=== PATIENT | female | born 1940 | race Caucasian/White ===

== ENCOUNTER 2017-08-08 22:40 | Emergency (ER) | payer MEDICARE, OTHER ==
[2017-08-08 22:55] VITALS: BP 114/59
[2017-08-08] MEDS ORDERED: Lidocaine 1% 20 ML MDV INJECT ONE (23:02)
[2017-08-08] MEDS ORDERED: Diphtheria,Pertussis(Acell),Tetanus Vaccine 0.5 ML Syringe IM ONE (23:02)
--- NOTE | 2017-08-08 23:03 | EDM.PDOC ---
ED HPI GENERAL MEDICAL PROBLEM - General Chief Complaint: Laceration Stated Complaint: LACERATION LT FOOT Time Seen by Provider: 08/08/17 23:02 Source of Information: Reports: Patient - History of Present Illness INITIAL COMMENTS - FREE TEXT/NARRATIVE: HISTORY AND PHYSICAL: History of present illness: []Patient dropped a glass on the floor last week she did clean this up however tonight she stepped on what was presumed to be a glass shard, she has a small quarter inch laceration on the plantar surface of her foot that has bled well. No active bleeding at current. With ambulation patient feels a sharp stabbing in her foot, with exploration of the wound I did not appreciate any foreign body however does not exclude small shard of glass remaining No fever nausea vomiting chills sweats no redness warmth or exudate Review of systems: As per history of present illness and below otherwise all systems reviewed and negative. Past medical history: As per history of present illness and as reviewed below otherwise noncontributory. Surgical history: As per history of present illness and as reviewed below otherwise noncontributory. Social history: No reported history of drug or alcohol abuse. Family history: As per history of present illness and as reviewed below otherwise noncontributory. Physical exam: HEENT: Atraumatic, normocephalic, pupils reactive, negative for conjunctival pallor or scleral icterus, mucous membranes moist, throat clear, neck supple, nontender, trachea midline. Lungs: Clear to auscultation, breath sounds equal bilaterally, chest nontender. Heart: S1S2, regular, negative for clicks, rubs, or JVD. Abdomen: Soft, nondistended, nontender. Negative for masses or hepatosplenomegaly. Negative for costovertebral tenderness. Pelvis: Stable nontender. Genitourinary: Deferred. Rectal: Deferred. Extremities: Atraumatic, negative for cords or calf pain. Neurovascular unremarkable. Neuro: Awake, alert, oriented. Cranial nerves II through XII unremarkable. Cerebellum unremarkable. Motor and sensory unremarkable throughout. Exam nonfocal. Diagnostics: []Left foot 2 views rule out foreign body Therapeutics: []Tetanus status is updated Lidocaine Keflex 500 mg by mouth now and twice a day #20 no refill Follow-up podiatry Standard wound care Impression: [Puncture wound] Definitive disposition and diagnosis as appropriate pending reevaluation and review of above. left foot Pain Score (Numeric/FACES): 1 - Related Data Allergies Allergy/AdvReac Type Severity Reaction Status Date / Time ciprofloxacin [From Cipro] Allergy Airway Verified 08/08/17 22:52 Tightness ciprofloxacin HCl Allergy Airway Verified 08/08/17 22:52 [From Cipro] Tightness codeine Allergy Airway Verified 08/08/17 22:52 Tightness iodine Allergy Unknown Verified 08/08/17 22:52 lenalidomide [From Revlimid] Allergy Airway Verified 08/08/17 22:52 Tightness shellfish derived Allergy Unknown Verified 08/08/17 22:52 Sulfa (Sulfonamide Allergy Unknown Verified 08/08/17 22:52 Antibiotics) Home Meds: Home Meds Acetaminophen [Tylenol Arthritis Pain] 650 mg PO Q6H PRN 04/01/15 [History] Chlorpheniramine Maleate 4 mg PO DAILY PRN 04/01/15 [History] Escitalopram [Lexapro] 10 mg PO BEDTIME 04/01/15 [History] Famotidine [Pepcid] 20 mg PO BID 04/01/15 [History] Gabapentin [Neurontin] 900 mg PO TID 04/01/15 [History] Levothyroxine 200 mcg PO SUMOTUWETHFR 04/01/15 [History] Magnesium 400 mg PO DAILY 04/01/15 [History] Potassium Chloride [Klor-Con 10] 10 meq PO TID 04/01/15 [History] atorvaSTATin Calcium [Atorvastatin Calcium] 10 mg PO BEDTIME 04/01/15 [History] fentaNYL [Fentanyl] 25 mcg TRDERM Q72H 04/01/15 [History] Acetaminophen/oxyCODONE [Percocet 325-5 MG] 1 tab PO Q4HR PRN 05/01/15 [History] Acyclovir 400 mg PO BID PRN 12/17/15 [History] Atropine/Diphenoxylate [Lomotil 0.025-2.5 MG] 2 tab PO Q4H PRN 12/17/15 [History ] Furosemide [Lasix] 40 mg PO DAILY 12/17/15 [History] Lisinopril 2.5 mg PO DAILY 12/18/15 [History] Albuterol [Proventil Neb Soln] 2.5 mg NEB Q6HRRT PRN 12/30/15 [History] Latanoprost [Xalatan 0.005% Ophth Soln] 2.5 ml EYEBOTH BEDTIME 12/30/15 [History ] Past Medical History HEENT History: Reports: Cataract, Glaucoma, Impaired Vision Cardiovascular History: Reports: Blood Clots/VTE/DVT, Heart Failure, Hypertension Other Cardiovascular History: blood clots behnd left knee Respiratory History: Reports: None Other Respiratory History: Pneumonia Gastrointestinal History: Reports: GERD, Hiatal Hernia, Irritable Bowel Syndrome Genitourinary History: Reports: Acute Renal Failure, UTI, Recurrent [employer] History: Reports: Musculoskeletal History: Reports: Arthritis, Fracture Other Musculoskeletal History: 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 Psychiatric History: Reports: Anxiety Endocrine/Metabolic History: Reports: Diabetes, Type II, Hypothyroidism Hematologic History: Reports: Anemia Oncologic (Cancer) History: Reports: Bone Other Oncologic History: multiple myeloma, Stage III Dermatologic History: Reports: Cellulitis - Infectious Disease History Infectious Disease History: Reports: Chicken Pox, Measles, Shingles, Other (See Below) Other Infectious Disease History: MSSA - Past Surgical History Musculoskeletal Surgical History: Reports: None, Other (See Below) Social & Family History - Family History Family Medical History: Noncontributory HEENT: Reports: Impaired Vision Cardiac: Reports: Heart Failure Respiratory: Reports: Asthma OBGYN: Reports: Musculoskeletal: Reports: Arthritis, Gout Neurological: Reports: Cerebral Aneurysms Endocrine/Metabolic: Reports: Diabetes, type II Oncologic: Reports: Breast, Colon, Liver - Tobacco Use Smoking Status *Q: Never Smoker Second Hand Smoke Exposure: No - Alcohol Use Days Per Week of Alcohol Use: 0 - Recreational Drug Use Recreational Drug Use: No ED ROS GENERAL - Review of Systems Review Of Systems: ROS reveals no pertinent complaints other than HPI. ED EXAM, SKIN/RASH Exam: See Below Course - Vital Signs Last Recorded V/S: Last Vital Signs Temp 97.4 F 08/08/17 22:52 Pulse 79 08/08/17 22:52 Resp 18 08/08/17 22:52 BP 114/59 L 08/08/17 22:52 Pulse Ox 97 08/08/17 22:52 - Orders/Labs/Meds Orders: Active Orders 24 hr Category Date Time Status Vaccines to be Administered [RC] PER UNIT ROUTINE Care 08/08/17 23:02 Active Foot 2V Lt [CR] Stat Exams 08/09/17 00:13 Taken Cephalexin [Keflex] Med 08/09/17 00:30 Once 500 mg PO ONETIME ONE Meds: Medications Discontinued Medications Generic Name Dose Route Start Last Admin Trade Name Maggie PRN Reason Stop Dose Admin Diphtheria/Tetanus/Acell Pertussis 0.5 ml 08/08/17 23:02 08/08/17 23:22 Adacel IM 08/08/17 23:03 0.5 ml .ONCE ONE Administration Lidocaine HCl 20 ml 08/08/17 23:02 08/08/17 23:26 Xylocaine 1% INJECT 08/08/17 23:03 20 ml ONETIME ONE Administration Departure - Departure Time of Disposition: 00:36 Disposition: Home, Self-Care 01 Condition: Good Clinical Impression: Foreign body (FB) in soft tissue - Discharge Information Referrals: Jazmín Brannon DO [Primary Care Provider] - Forms: ED Department Discharge Additional Instructions: Standard wound care Bacitracin Telfa dressing Medication as prescribed Follow-up with podiatry, ER referral for tomorrow [facility] Primary [facility] - Podiatry [address] [place] [address] The following information is given to patients seen in the emergency department who are being discharged to home. This information is to outline your options for follow-up care. We provide all patients seen in our emergency department with a follow-up referral. The need for follow-up, as well as the timing and circumstances, are variable depending upon the specifics of your emergency department visit. If you don't have a primary care physician on staff, we will provide you with a referral. We always advise you to contact your personal physician following an emergency department visit to inform them of the circumstance of the visit and for follow-up with them and/or the need for any referrals to a consulting specialist. The emergency department will also refer you to a specialist when appropriate. This referral assures that you have the opportunity for follow-up care with a specialist. All of these measure are taken in an effort to provide you with optimal care, which includes your follow-up. Under all circumstances we always encourage you to contact your private physician who remains a resource for coordinating your care. When calling for follow-up care, please make the office aware that this follow-up is from your recent emergency room visit. If for any reason you are refused follow-up, please contact the [facility] emergency department at and asked to speak to the emergency department charge nurse. - My Orders Last 24 Hours: My Active Orders 08/08/17 23:02 Vaccines to be Administered [RC] PER UNIT ROUTINE 08/09/17 00:13 Foot 2V Lt [CR] Stat 08/09/17 00:30 Cephalexin [Keflex] 500 mg PO ONETIME ONE - Assessment/Plan Last 24 Hours: My Active Orders 08/08/17 23:02 Vaccines to be Administered [RC] PER UNIT ROUTINE 08/09/17 00:13 Foot 2V Lt [CR] Stat 08/09/17 00:30 Cephalexin [Keflex] 500 mg PO ONETIME ONE
[2017-08-09] MEDS ORDERED: Cephalexin 500 MG Cap PO ONE (00:30)
[2017-08-09] MEDS ORDERED: Bacitracin Oint 1 GM U/D Packet ONE (00:49)
[2017-08-09] MEDS ORDERED: Bacitracin Oint 1 GM U/D Packet TOP ONE (00:51)
--- NOTE | 2017-08-09 09:50 | CR ---
EXAM DATE: 08/08/17 PATIENT'S AGE: 77 Patient: RYAN ELIAS Facility: [place], [place] Site . Site : [id number] Study: XRay Extremity Left FOOT [id number] 12:24:44 AM Ordering Physician: Brian Junior Final Report: Indication: Pain, foreign body removed from the bottom of left foot, history of multiple myeloma Technique: Two views left foot Comparison: February 09, 2016 Findings: No radiopaque foreign body identified. No acute fracture or subluxation. No bony erosions. There is remote appearing deformity of the distal 5th metatarsal. There is smooth periosteal reaction along the shaft of the 4th metatarsal, unchanged compared to the prior study. There are degenerative changes within the midfoot. Small inferior and posterior calcaneal enthesophytes are noted. Impression: No radiopaque foreign body identified. No acute abnormality. Dictated by Aubree Mancera MD @ Aug 09 2017 12:38AM (Electronic Signature) Report Signed by Proxy. DAWOOD
== END 2017-08-09 00:40 | disposition home or self-care (01) ==
LOC: MW.ED 22:40
DX: S91.342A Puncture wound with foreign body, left foot, initial encounter (principal); Z23 Encounter for immunization; I11.0 Hypertensive heart disease with heart failure; I50.9 Heart failure, unspecified; E03.9 Hypothyroidism, unspecified; E11.9 Type 2 diabetes mellitus without complications; Z79.899 Other long term (current) drug therapy; Z88.1 Allergy status to other antibiotic agents; Z88.2 Allergy status to sulfonamides; Z88.8 Allergy status to other drugs, medicaments and biological substances; Z91.013 Allergy to seafood; W25.XXXA Contact with sharp glass, initial encounter; S99.922A Unspecified injury of left foot, initial encounter; S90.859A Superficial foreign body, unspecified foot, initial encounter; R26.9 Unspecified abnormalities of gait and mobility; M79.672 Pain in left foot
CPT/HCPCS: 73620; 90471; 90715; 99203; 99283; A9270

== ENCOUNTER 2017-09-11 09:24 | Emergency (ER) | payer MEDICARE, OTHER ==
[2017-09-11] MEDS ORDERED: Sodium Chloride 0.9% 2.5 ML Syringe FLUSH PRN (09:27)
[2017-09-11] MEDS ORDERED: Sodium Chloride 0.9% 10 ML Syringe FLUSH PRN (09:27)
[2017-09-11] MEDS ORDERED: Sodium Chloride 0.9% 500 ML IV SCH (09:30)
--- NOTE | 2017-09-11 09:38 | EDM.PDOC ---
ED HPI GENERAL MEDICAL PROBLEM - General Chief Complaint: General Stated Complaint: COLD, COUGING Time Seen by Provider: 09/11/17 09:25 - History of Present Illness INITIAL COMMENTS - FREE TEXT/NARRATIVE: HISTORY AND PHYSICAL: History of present illness: Patient 77-year-old female was recently diagnosed with influenza presents today with concern of generalized weakness with some confusion reported yesterday that has since resolved she denies chest pain shortness breath vomiting or diarrhea. She was sent here by her primary medical doctor's office related to her recent clinical statement Review of systems: As per history of present illness and below otherwise all systems reviewed and negative. Past medical history: As per history of present illness and as reviewed below otherwise noncontributory. Surgical history: As per history of present illness and as reviewed below otherwise noncontributory. Social history: No reported history of drug or alcohol abuse. Family history: As per history of present illness and as reviewed below otherwise noncontributory. Physical exam: HEENT: Atraumatic, normocephalic, pupils reactive, negative for conjunctival pallor or scleral icterus, mucous membranes dry, throat clear, neck supple, nontender, trachea midline. Lungs: Clear to auscultation, breath sounds equal bilaterally, chest nontender. Heart: S1S2, regular, negative for clicks, rubs, or JVD. Abdomen: Soft, nondistended, nontender. Negative for masses or hepatosplenomegaly. Negative for costovertebral tenderness. Pelvis: Stable nontender. Genitourinary: Deferred. Rectal: Deferred. Extremities: Atraumatic, negative for cords or calf pain. Neurovascular unremarkable. Neuro: Awake, alert, oriented. Cranial nerves II through XII unremarkable. Cerebellum unremarkable. Motor and sensory unremarkable throughout. Exam nonfocal. Diagnostics: CBC CMP troponin EKG chest x-ray UA urine culture blood culture [address] brain Therapeutics: Saline 500 mL bolus Impression: #1 influenza or 2 dehydration #3 altered mental status improved Definitive disposition and diagnosis as appropriate pending reevaluation and review of above. - Related Data Allergies Allergy/AdvReac Type Severity Reaction Status Date / Time ciprofloxacin [From Cipro] Allergy Airway Verified 09/11/17 09:30 Tightness ciprofloxacin HCl Allergy Airway Verified 09/11/17 09:30 [From Cipro] Tightness codeine Allergy Airway Verified 09/11/17 09:30 Tightness iodine Allergy Unknown Verified 09/11/17 09:30 lenalidomide [From Revlimid] Allergy Airway Verified 09/11/17 09:30 Tightness shellfish derived Allergy Unknown Verified 09/11/17 09:30 Sulfa (Sulfonamide Allergy Unknown Verified 09/11/17 09:30 Antibiotics) Home Meds: Home Meds Acetaminophen [Tylenol Arthritis Pain] 650 mg PO Q6H PRN 04/01/15 [History] Chlorpheniramine Maleate 4 mg PO DAILY PRN 04/01/15 [History] Escitalopram [Lexapro] 10 mg PO BEDTIME 04/01/15 [History] Famotidine [Pepcid] 20 mg PO BID 04/01/15 [History] Gabapentin [Neurontin] 900 mg PO TID 04/01/15 [History] Levothyroxine 200 mcg PO SUMOTUWETHFR 04/01/15 [History] Magnesium 400 mg PO DAILY 04/01/15 [History] Potassium Chloride [Klor-Con 10] 10 meq PO TID 04/01/15 [History] atorvaSTATin Calcium [Atorvastatin Calcium] 10 mg PO BEDTIME 04/01/15 [History] fentaNYL [Fentanyl] 25 mcg TRDERM Q72H 04/01/15 [History] Acetaminophen/oxyCODONE [Percocet 325-5 MG] 1 tab PO Q4HR PRN 05/01/15 [History] Acyclovir 400 mg PO BID PRN 12/17/15 [History] Atropine/Diphenoxylate [Lomotil 0.025-2.5 MG] 2 tab PO Q4H PRN 12/17/15 [History ] Furosemide [Lasix] 40 mg PO DAILY 12/17/15 [History] Lisinopril 2.5 mg PO DAILY 12/18/15 [History] Albuterol [Proventil Neb Soln] 2.5 mg NEB Q6HRRT PRN 12/30/15 [History] Latanoprost [Xalatan 0.005% Ophth Soln] 2.5 ml EYEBOTH BEDTIME 12/30/15 [History ] Past Medical History HEENT History: Reports: Cataract, Glaucoma, Impaired Vision Cardiovascular History: Reports: Blood Clots/VTE/DVT, Heart Failure, Hypertension Other Cardiovascular History: blood clots behnd left knee Respiratory History: Reports: None Other Respiratory History: Pneumonia Gastrointestinal History: Reports: GERD, Hiatal Hernia, Irritable Bowel Syndrome Genitourinary History: Reports: Acute Renal Failure, UTI, Recurrent [employer] History: Reports: Musculoskeletal History: Reports: Arthritis, Fracture Other Musculoskeletal History: 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 Neurological History: Reports: None Psychiatric History: Reports: Anxiety Endocrine/Metabolic History: Reports: Diabetes, Type II, Hypothyroidism Hematologic History: Reports: Anemia Immunologic History: Reports: None Oncologic (Cancer) History: Reports: Bone Other Oncologic History: multiple myeloma, Stage III Dermatologic History: Reports: Cellulitis - Infectious Disease History Infectious Disease History: Reports: Chicken Pox, Measles, Shingles, Other (See Below) Other Infectious Disease History: MSSA - Past Surgical History Musculoskeletal Surgical History: Reports: None, Other (See Below) Social & Family History - Family History Family Medical History: Noncontributory HEENT: Reports: Impaired Vision Cardiac: Reports: Heart Failure Respiratory: Reports: Asthma OBGYN: Reports: Musculoskeletal: Reports: Arthritis, Gout Neurological: Reports: Cerebral Aneurysms Endocrine/Metabolic: Reports: Diabetes, type II Oncologic: Reports: Breast, Colon, Liver - Tobacco Use Smoking Status *Q: Never Smoker Second Hand Smoke Exposure: No - Caffeine Use Caffeine Use: Reports: Other - Alcohol Use Days Per Week of Alcohol Use: 0 - Recreational Drug Use Recreational Drug Use: No ED ROS GENERAL - Review of Systems Review Of Systems: ROS reveals no pertinent complaints other than HPI. ED EXAM, GENERAL - Physical Exam Exam: See Below (Dictation) Course - Vital Signs Last Recorded V/S: Last Vital Signs Temp 36.3 C 09/11/17 09:37 Pulse 72 09/11/17 11:05 Resp 13 09/11/17 11:05 BP 112/74 09/11/17 11:05 Pulse Ox 96 09/11/17 11:05 - Orders/Labs/Meds Orders: Active Orders 24 hr Category Date Time Status Cardiac Monitoring [RC] . DIRECTED Care 09/11/17 09:26 Active EKG Documentation Completion [RC] STAT Care 09/11/17 09:26 Active Pulse Oximetry [RC] ASDIRECTED Care 09/11/17 09:26 Active CULTURE BLOOD [BC] Stat Lab 09/11/17 09:41 Received CULTURE BLOOD [BC] Stat Lab 09/11/17 10:08 Received CULTURE URINE [RM] Stat Lab 09/11/17 11:21 Ordered UA W/MICROSCOPIC [URIN] Stat Lab 09/11/17 11:21 Ordered Sodium Chloride 0.9% [Normal Saline] 500 ml Med 09/11/17 09:30 Active IV STAT Sodium Chloride 0.9% [Saline Flush] Med 09/11/17 09:27 Active 10 ml FLUSH ASDIRECTED PRN Sodium Chloride 0.9% [Saline Flush] Med 09/11/17 09:27 Active 2.5 ml FLUSH ASDIRECTED PRN Blood Culture x2 Reflex Set [OM.PC] Stat Oth 09/11/17 09:27 Ordered Saline Lock Insert [OM.PC] Stat Ot 09/11/17 09:26 Ordered Medication Orders Sodium Chloride (Normal Saline) 500 mls @ 999 mls/hr IV STAT [facility] Last Admin: 09/11/17 10:08 Dose: 999 mls/hr Sodium Chloride (Saline Flush) 10 ml FLUSH ASDIRECTED PRN PRN Reason: Keep Vein Open Last Admin: 09/11/17 10:08 Dose: 10 ml Sodium Chloride (Saline Flush) 2.5 ml FLUSH ASDIRECTED PRN PRN Reason: Keep Vein Open Last Admin: 09/11/17 10:08 Dose: 2.5 ml Labs: Laboratory Tests 09/11/17 09/11/17 09/11/17 Range/Units 09:35 09:35 09:35 WBC 4.70 (4.0-11.0) K/uL RBC 4.40 (4.30-5.90) M/uL Hgb 12.5 (12.0-16.0) g/dL Hct 40.0 (36.0-46.0) % MCV 90.9 (80.0-98.0) fL MCH 28.4 (27.0-32.0) pg MCHC 31.3 (31.0-37.0) g/dL RDW Std Deviation 51.5 (28.0-62.0) fl RDW Coeff of Antony 15 (11.0-15.0) % Plt Count 195 (150-400) K/uL MPV 9.80 (7.40-12.00) fL Neut % (Auto) 46.6 L (48.0-80.0) % Lymph % (Auto) 37.0 (16.0-40.0) % [place] % (Auto) 14.7 (0.0-15.0) % Eos % (Auto) 1.3 (0.0-7.0) % Baso % (Auto) 0.4 (0.0-1.5) % Neut # (Auto) 2.2 (1.4-5.7) K/uL Lymph # (Auto) 1.7 (0.6-2.4) K/uL [place] # (Auto) 0.7 (0.0-0.8) K/uL Eos # (Auto) 0.1 (0.0-0.7) K/uL Baso # (Auto) 0.0 (0.0-0.1) K/uL Nucleated RBC % 0.0 /100WBC Nucleated RBCs # 0 K/uL INR 1.01 Lactate (0.20-2.00) mmol/L Sodium 140 (136-146) mmol/L Potassium 4.2 (3.5-5.1) mmol/L Chloride 107 (98-110) mmol/L Carbon Dioxide 21 (21-31) mmol/L BUN 14 (6.0-23.0) mg/dL Creatinine 0.9 (0.6-1.5) mg/dL Est Cr Clr Drug Dosing 42.72 mL/min Estimated GFR (MDRD) > 60.0 ml/min Glucose 100 (60-110) mg/dL Calcium 8.8 (8.8-10.8) mg/dL Total Bilirubin 0.4 (0.1-1.5) mg/dL AST 16 (5-40) IU/L ALT 10 (8-54) IU/L Alkaline Phosphatase 83 (40-150) Ammonia (14-68) UG/DL Troponin I < 0.10 (0.0-0.29) NG/ML Total Protein 6.7 (6.0-8.0) g/dL Albumin 3.9 (3.4-4.8) g/dL Globulin 2.8 (2.0-3.5) g/dL Albumin/Globulin Ratio 1.4 (1.3-2.8) Lipase 14 (7-80) U/L TSH 3rd Generation 0.67 (0.47-5.0) uIU/mL 09/11/17 09/11/17 Range/Units 09:35 09:35 WBC (4.0-11.0) K/uL RBC (4.30-5.90) M/uL Hgb (12.0-16.0) g/dL Hct (36.0-46.0) % MCV (80.0-98.0) fL MCH (27.0-32.0) pg MCHC (31.0-37.0) g/dL RDW Std Deviation (28.0-62.0) fl RDW Coeff of Antony (11.0-15.0) % Plt Count (150-400) K/uL MPV (7.40-12.00) fL Neut % (Auto) (48.0-80.0) % Lymph % (Auto) (16.0-40.0) % [place] % (Auto) (0.0-15.0) % Eos % (Auto) (0.0-7.0) % Baso % (Auto) (0.0-1.5) % Neut # (Auto) (1.4-5.7) K/uL Lymph # (Auto) (0.6-2.4) K/uL [place] # (Auto) (0.0-0.8) K/uL Eos # (Auto) (0.0-0.7) K/uL Baso # (Auto) (0.0-0.1) K/uL Nucleated RBC % /100WBC Nucleated RBCs # K/uL INR Lactate 1.4 (0.20-2.00) mmol/L Sodium (136-146) mmol/L Potassium (3.5-5.1) mmol/L Chloride (98-110) mmol/L Carbon Dioxide (21-31) mmol/L BUN (6.0-23.0) mg/dL Creatinine (0.6-1.5) mg/dL Est Cr Clr Drug Dosing mL/min Estimated GFR (MDRD) ml/min Glucose (60-110) mg/dL Calcium (8.8-10.8) mg/dL Total Bilirubin (0.1-1.5) mg/dL AST (5-40) IU/L ALT (8-54) IU/L Alkaline Phosphatase (40-150) Ammonia 41 (14-68) UG/DL Troponin I (0.0-0.29) NG/ML Total Protein (6.0-8.0) g/dL Albumin (3.4-4.8) g/dL Globulin (2.0-3.5) g/dL Albumin/Globulin Ratio (1.3-2.8) Lipase (7-80) U/L TSH 3rd Generation (0.47-5.0) uIU/mL Meds: Medications Generic Name Dose Route Start Last Admin Trade Name Freq PRN Reason Stop Dose Admin Sodium Chloride 500 mls @ 999 mls/hr 09/11/17 09:30 09/11/17 10:08 Normal Saline IV 999 mls/hr STAT ARMIDA Administration Sodium Chloride 10 ml 09/11/17 09:27 09/11/17 10:08 Saline Flush FLUSH 10 ml ASDIRECTED PRN Administration Keep Vein Open Sodium Chloride 2.5 ml 09/11/17 09:27 09/11/17 10:08 Saline Flush FLUSH 2.5 ml ASDIRECTED PRN Administration Keep Vein Open Departure - Departure Time of Disposition: 11:53 Disposition: Home, Self-Care 01 Condition: Good Clinical Impression: Viral syndrome - Discharge Information Referrals: Jazmín Brannon DO [Primary Care Provider] - Forms: ED Department Discharge Additional Instructions: The following information is given to patients seen in the emergency department who are being discharged to home. This information is to outline your options for follow-up care. We provide all patients seen in our emergency department with a follow-up referral. The need for follow-up, as well as the timing and circumstances, are variable depending upon the specifics of your emergency department visit. If you don't have a primary care physician on staff, we will provide you with a referral. We always advise you to contact your personal physician following an emergency department visit to inform them of the circumstance of the visit and for follow-up with them and/or the need for any referrals to a consulting specialist. The emergency department will also refer you to a specialist when appropriate. This referral assures that you have the opportunity for followup care with a specialist. All of these measure are taken in an effort to provide you with optimal care, which includes your followup. Under all circumstances we always encourage you to contact your private physician who remains a resource for coordinating your care. When calling for followup care, please make the office aware that this follow-up is from your recent emergency room visit. If for any reason you are refused follow-up, please contact the [facility] emergency department at and asked to speak to the emergency department charge nurse. Push fluids continue current medications return as needed as discussed follow- up private medical doctor as needed as discussed - My Orders Last 24 Hours: My Active Orders 09/11/17 09:26 Cardiac Monitoring [RC] . DIRECTED EKG Documentation Completion [RC] STAT Pulse Oximetry [RC] ASDIRECTED Saline Lock Insert [OM.PC] Stat 09/11/17 09:27 Sodium Chloride 0.9% [Saline Flush] 10 ml FLUSH ASDIRECTED PRN Sodium Chloride 0.9% [Saline Flush] 2.5 ml FLUSH ASDIRECTED PRN Blood Culture x2 Reflex Set [OM.PC] Stat 09/11/17 09:30 Sodium Chloride 0.9% [Normal Saline] 500 ml IV STAT 09/11/17 09:41 CULTURE BLOOD [BC] Stat 09/11/17 10:08 CULTURE BLOOD [BC] Stat 09/11/17 11:21 CULTURE URINE [RM] Stat UA W/MICROSCOPIC [URIN] Stat - Assessment/Plan Last 24 Hours: My Active Orders 09/11/17 09:26 Cardiac Monitoring [RC] . DIRECTED EKG Documentation Completion [RC] STAT Pulse Oximetry [RC] ASDIRECTED Saline Lock Insert [OM.PC] Stat 09/11/17 09:27 Sodium Chloride 0.9% [Saline Flush] 10 ml FLUSH ASDIRECTED PRN Sodium Chloride 0.9% [Saline Flush] 2.5 ml FLUSH ASDIRECTED PRN Blood Culture x2 Reflex Set [OM.PC] Stat 09/11/17 09:30 Sodium Chloride 0.9% [Normal Saline] 500 ml IV STAT 09/11/17 09:41 CULTURE BLOOD [BC] Stat 09/11/17 10:08 CULTURE BLOOD [BC] Stat 09/11/17 11:21 CULTURE URINE [RM] Stat UA W/MICROSCOPIC [URIN] Stat
[2017-09-11 10:12] LABS: CHLORIDE,CL 107 mmol/L (98-110); SODIUM,NA 140 mmol/L (136-146)
--- NOTE | 2017-09-11 10:15 | CR ---
EXAMINATION: Two-view chest (PA and Lateral views). HISTORY: Shortness of breath. Comparison: 05/17/2017. FINDINGS: The trachea is midline. The cardiomediastinal silhouette is within normal limits. No pulmonary infilt rates, effusions or pneumothorax. Left-sided tra catheter tip position. Chronic interstitial promin ence. There are a few right-sided rib fractures, likely acute to subacute. Generalized osteopenia. Degenera tive changes noted within the shoulders bilaterally. Chronic wedge deformities within the thoracic sp ine and kyphosis. IMPRESSION: 1. No acute cardiopulmonary process. 2. Acute to subacute right-sided rib fractures.
--- NOTE | 2017-09-11 10:20 | CT ---
EXAMINATION: Non contrast CT head. Coronal and sagittal reformats. HISTORY: Pain FINDINGS: No evidence of intra or extra axial hemorrhage, mass, midline shift, hydrocephalus or edema. Promine nt periventricular and subcortical white matter hypodensities again noted. No hypoattenuation changes in the major vascular territories to suggest acute infarct. No abnormal intracranial calcifications are detected. No evidence of substantial vascular calcificat ions. Small mucous retention cyst within the right maxillary sinus. Mastoid air cells and middle ears are o therwise clear. Orbits and globes are symmetric. Pituitary fossa appears unremarkable. Calvarium is intact. No evidence of skull fracture. IMPRESSION: 1. No acute intracranial findings. 2. Advanced small vessel ischemic changes.
[2017-09-11 12:10] VITALS: BP 125/69
== END 2017-09-11 12:02 | disposition home or self-care (01) ==
LOC: MW.ED 09:24
DX: E86.0 Dehydration (principal); B34.9 Viral infection, unspecified; I11.0 Hypertensive heart disease with heart failure; I50.9 Heart failure, unspecified; E11.9 Type 2 diabetes mellitus without complications; Z88.1 Allergy status to other antibiotic agents; Z88.5 Allergy status to narcotic agent; Z88.2 Allergy status to sulfonamides; Z91.013 Allergy to seafood; Z79.899 Other long term (current) drug therapy
CPT/HCPCS: 36415; 70450; 71046; 80053; 81001; 82140; 83605; 83690; 84443; 84484; 85025; 85610; 87040; 87086; 87088; 87186; 93005; 96360; 99285; J7040; 99284

== ENCOUNTER 2017-11-05 23:05 | Inpatient (IN) | payer MEDICARE, OTHER ==
--- NOTE | 2017-11-05 23:19 | EDM.PDOC ---
ED HPI GENERAL MEDICAL PROBLEM - General Chief Complaint: Genitourinary Problem Stated Complaint: FEVER/BALDDER INFECTION Time Seen by Provider: 11/05/17 23:19 Source of Information: Reports: Patient - History of Present Illness INITIAL COMMENTS - FREE TEXT/NARRATIVE: HISTORY AND PHYSICAL: History of present illness: [ Patient presents with fever and hallucinations tonight Provided Tylenol at home measured fever of 102 currently 99 As far as hallucinations daughter notes that mom and called the police tonight she thought there is a man in her home that she had seen anterior the house mom did call the materials planning analyst to evaluate the police arrived she was yelling at the materials planning analyst for an unknown reason however they did not find any stranger in the home. She had also been speaking with her who is either her in the [facility] either way he is not living with her at current. Blood pressure was low on arrival 80s over 50s did drop down into the 70s over 50s a fluid bolus was initiated 500 mL which pop blood pressure in the normal range History of a staghorn calculi which predisposes her to urinary tract infection which she indeed does have current fever no nausea vomiting chills sweats no chest pain shortness breath headache dizziness palpitation no bowel or urine symptoms per patient ] Review of systems: As per history of present illness and below otherwise all systems reviewed and negative. Past medical history: As per history of present illness and as reviewed below otherwise noncontributory. Surgical history: As per history of present illness and as reviewed below otherwise noncontributory. Social history: No reported history of drug or alcohol abuse. Family history: As per history of present illness and as reviewed below otherwise noncontributory. Physical exam: HEENT: Atraumatic, normocephalic, pupils reactive, negative for conjunctival pallor or scleral icterus, mucous membranes moist, throat clear, neck supple, nontender, trachea midline. Lungs: Clear to auscultation, breath sounds equal bilaterally, chest nontender. Heart: S1S2, regular, negative for clicks, rubs, or JVD. Abdomen: Soft, nondistended, nontender. Negative for masses or hepatosplenomegaly. Negative for costovertebral tenderness. Pelvis: Stable nontender. Genitourinary: Deferred. Rectal: Deferred. Extremities: Atraumatic, negative for cords or calf pain. Neurovascular unremarkable. Neuro: Awake, alert, oriented. Cranial nerves II through XII unremarkable. Cerebellum unremarkable. Motor and sensory unremarkable throughout. Exam nonfocal. Diagnostics: [CBC CMP UA culture blood cultures lactic acid EKG Chest 1 view ] Therapeutics: [Normal saline bolus 500 mL 125 mL to follow ] Zosyn 3.375 g IV Vancomycin 1 g IV Impression: [Rule out sepsis UTI Fever Chronic history baseline] Definitive disposition and diagnosis as appropriate pending reevaluation and review of above. Generalized Pain Score (Numeric/FACES): 5 - Related Data Allergies Allergy/AdvReac Type Severity Reaction Status Date / Time ciprofloxacin [From Cipro] Allergy Airway Verified 09/11/17 09:30 Tightness ciprofloxacin HCl Allergy Airway Verified 09/11/17 09:30 [From Cipro] Tightness codeine Allergy Airway Verified 09/11/17 09:30 Tightness iodine Allergy Unknown Verified 09/11/17 09:30 lenalidomide [From Revlimid] Allergy Airway Verified 09/11/17 09:30 Tightness shellfish derived Allergy Unknown Verified 09/11/17 09:30 Sulfa (Sulfonamide Allergy Unknown Verified 09/11/17 09:30 Antibiotics) Home Meds: Home Meds Acetaminophen [Tylenol Arthritis Pain] 650 mg PO Q6H PRN 04/01/15 [History] Chlorpheniramine Maleate 4 mg PO DAILY PRN 04/01/15 [History] Escitalopram [Lexapro] 10 mg PO BEDTIME 04/01/15 [History] Famotidine [Pepcid] 20 mg PO BID 04/01/15 [History] Gabapentin [Neurontin] 900 mg PO TID 04/01/15 [History] Levothyroxine 200 mcg PO SUMOTUWETHFR 04/01/15 [History] Magnesium 400 mg PO DAILY 04/01/15 [History] Potassium Chloride [Klor-Con 10] 10 meq PO TID 04/01/15 [History] atorvaSTATin Calcium [Atorvastatin Calcium] 10 mg PO BEDTIME 04/01/15 [History] fentaNYL [Fentanyl] 25 mcg TRDERM Q72H 04/01/15 [History] Acetaminophen/oxyCODONE [Percocet 325-5 MG] 1 tab PO Q4HR PRN 05/01/15 [History] Acyclovir 400 mg PO BID PRN 12/17/15 [History] Atropine/Diphenoxylate [Lomotil 0.025-2.5 MG] 2 tab PO Q4H PRN 12/17/15 [History ] Furosemide [Lasix] 40 mg PO DAILY 12/17/15 [History] Lisinopril 2.5 mg PO DAILY 12/18/15 [History] Albuterol [Proventil Neb Soln] 2.5 mg NEB Q6HRRT PRN 12/30/15 [History] Latanoprost [Xalatan 0.005% Ophth Soln] 2.5 ml EYEBOTH BEDTIME 12/30/15 [History ] Past Medical History HEENT History: Reports: Cataract, Glaucoma, Impaired Vision Cardiovascular History: Reports: Blood Clots/VTE/DVT, Heart Failure, Hypertension Other Cardiovascular History: blood clots behnd left knee Respiratory History: Reports: None Other Respiratory History: Pneumonia Gastrointestinal History: Reports: GERD, Hiatal Hernia, Irritable Bowel Syndrome Genitourinary History: Reports: Acute Renal Failure, UTI, Recurrent [employer] History: Reports: Musculoskeletal History: Reports: Arthritis, Fracture Other Musculoskeletal History: 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 Neurological History: Reports: None Psychiatric History: Reports: Anxiety Endocrine/Metabolic History: Reports: Diabetes, Type II, Hypothyroidism Hematologic History: Reports: Anemia Immunologic History: Reports: None Oncologic (Cancer) History: Reports: Bone Other Oncologic History: multiple myeloma, Stage III Dermatologic History: Reports: Cellulitis - Infectious Disease History Infectious Disease History: Reports: Chicken Pox, Measles, Shingles, Other (See Below) Other Infectious Disease History: MSSA - Past Surgical History Musculoskeletal Surgical History: Reports: None, Other (See Below) Social & Family History - Family History Family Medical History: Noncontributory HEENT: Reports: Impaired Vision Cardiac: Reports: Heart Failure Respiratory: Reports: Asthma OBGYN: Reports: Musculoskeletal: Reports: Arthritis, Gout Neurological: Reports: Cerebral Aneurysms Endocrine/Metabolic: Reports: Diabetes, type II Oncologic: Reports: Breast, Colon, Liver - Tobacco Use Smoking Status *Q: Never Smoker Second Hand Smoke Exposure: No - Caffeine Use Caffeine Use: Reports: Other - Alcohol Use Days Per Week of Alcohol Use: 0 - Recreational Drug Use Recreational Drug Use: No ED ROS GENERAL - Review of Systems Review Of Systems: ROS reveals no pertinent complaints other than HPI. ED EXAM, GENERAL - Physical Exam Exam: See Below Course - Vital Signs Last Recorded V/S: Last Vital Signs Temp 99.2 F 11/05/17 23:17 Pulse 97 11/05/17 23:17 Resp 20 11/05/17 23:17 BP 89/50 L 11/05/17 23:17 Pulse Ox 95 11/05/17 23:17 - Orders/Labs/Meds Orders: Active Orders 24 hr Category Date Time Status EKG Documentation Completion [RC] STAT Care 11/05/17 23:18 Active Chest 1V Frontal [CR] Stat Exams 11/05/17 23:28 Taken CULTURE BLOOD [BC] Stat Lab 11/05/17 23:37 Received CULTURE BLOOD [BC] Stat Lab 11/05/17 23:42 Received CULTURE URINE [RM] Stat Lab 11/06/17 00:17 Received Sodium Chloride 0.9% [Normal Saline] 1,000 ml Med 11/05/17 23:30 Active IV STAT Vancomycin [Vancocin] 1 gm Med 11/05/17 23:57 Active Sodium Chloride 0.9% [Normal Saline] 250 ml IV ONETIME Blood Culture x2 Reflex Set [OM.PC] Stat Oth 11/05/17 23:27 Ordered Medication Orders Sodium Chloride (Normal Saline) 1,000 mls @ 125 mls/hr IV STAT ARMIDA Last Infusion: 11/06/17 00:42 Dose: 75 mls/hr Admin: 11/05/17 23:49 Dose: 750 mls/hr Vancomycin HCl 1 gm/ Sodium (Chloride) 250 mls @ 250 mls/hr IV ONETIME ONE Stop: 11/06/17 00:56 Labs: Laboratory Tests 11/05/17 11/05/17 11/05/17 Range/Units 23:15 23:15 23:37 WBC 12.72 H (4.0-11.0) K/uL RBC 4.23 L (4.30-5.90) M/uL Hgb 12.3 (12.0-16.0) g/dL Hct 38.7 (36.0-46.0) % MCV 91.5 (80.0-98.0) fL MCH 29.1 (27.0-32.0) pg MCHC 31.8 (31.0-37.0) g/dL RDW Std Deviation 52.3 (28.0-62.0) fl RDW Coeff of Antony 16 H (11.0-15.0) % Plt Count 210 (150-400) K/uL MPV 10.00 (7.40-12.00) fL Neut % (Auto) 79.3 (48.0-80.0) % Lymph % (Auto) 12.3 L (16.0-40.0) % Graves % (Auto) 7.2 (0.0-15.0) % Eos % (Auto) 1.0 (0.0-7.0) % Baso % (Auto) 0.2 (0.0-1.5) % Neut # (Auto) 10.1 H (1.4-5.7) K/uL Lymph # (Auto) 1.6 (0.6-2.4) K/uL Graves # (Auto) 0.9 H (0.0-0.8) K/uL Eos # (Auto) 0.1 (0.0-0.7) K/uL Baso # (Auto) 0.0 (0.0-0.1) K/uL Nucleated RBC % 0.0 /100WBC Nucleated RBCs # 0 K/uL Lactate 1.0 (0.20-2.00) mmol/L Sodium 136 (136-145) mmol/L Potassium 4.3 (3.5-5.1) mmol/L Chloride 103 (98-107) mmol/L Carbon Dioxide 25.4 (21.0-32.0) mmol/L BUN 22 H (7.0-18.0) mg/dL Creatinine 1.1 H (0.6-1.0) mg/dL Est Cr Clr Drug Dosing TNP Estimated GFR (MDRD) 48.4 ml/min Glucose 94 (74-106) mg/dL Calcium 8.6 (8.5-10.1) mg/dL Total Bilirubin 0.2 (0.2-1.0) mg/dL AST 18 (15-37) IU/L ALT 16 (14-63) IU/L Alkaline Phosphatase 121 H (46-116) U/L Troponin I < 0.050 (0.000-0.056) ng/mL Total Protein 6.6 (6.4-8.2) g/dL Albumin 3.3 L (3.4-5.0) g/dL Globulin 3.3 (2.0-3.5) g/dL Albumin/Globulin Ratio 1.0 L (1.3-2.8) Urine Color Urine Appearance Urine pH (5.0-8.0) Ur Specific [place] (1.001-1.035) Urine Protein (NEGATIVE) mg/dL Urine Glucose (UA) (NEGATIVE) mg/dL Urine Ketones (NEGATIVE) mg/dL Urine Occult Blood (NEGATIVE) Urine Nitrite (NEGATIVE) Urine Bilirubin (NEGATIVE) Urine Urobilinogen (<2.0) EU/dL Ur Leukocyte Esterase (NEGATIVE) Urine RBC (0-2/HPF) Urine WBC (0-5/HPF) Ur Epithelial Cells (NONE-FEW) Amorphous Sediment (NEGATIVE) Urine Bacteria (NEGATIVE) Urine Mucus (NONE-MOD) 11/06/17 Range/Units 00:17 WBC (4.0-11.0) K/uL RBC (4.30-5.90) M/uL Hgb (12.0-16.0) g/dL Hct (36.0-46.0) % MCV (80.0-98.0) fL MCH (27.0-32.0) pg MCHC (31.0-37.0) g/dL RDW Std Deviation (28.0-62.0) fl RDW Coeff of Antony (11.0-15.0) % Plt Count (150-400) K/uL MPV (7.40-12.00) fL Neut % (Auto) (48.0-80.0) % Lymph % (Auto) (16.0-40.0) % Graves % (Auto) (0.0-15.0) % Eos % (Auto) (0.0-7.0) % Baso % (Auto) (0.0-1.5) % Neut # (Auto) (1.4-5.7) K/uL Lymph # (Auto) (0.6-2.4) K/uL Graves # (Auto) (0.0-0.8) K/uL Eos # (Auto) (0.0-0.7) K/uL Baso # (Auto) (0.0-0.1) K/uL Nucleated RBC % /100WBC Nucleated RBCs # K/uL Lactate (0.20-2.00) mmol/L Sodium (136-145) mmol/L Potassium (3.5-5.1) mmol/L Chloride (98-107) mmol/L Carbon Dioxide (21.0-32.0) mmol/L BUN (7.0-18.0) mg/dL Creatinine (0.6-1.0) mg/dL Est Cr Clr Drug Dosing Estimated GFR (MDRD) ml/min Glucose (74-106) mg/dL Calcium (8.5-10.1) mg/dL Total Bilirubin (0.2-1.0) mg/dL AST (15-37) IU/L ALT (14-63) IU/L Alkaline Phosphatase (46-116) U/L Troponin I (0.000-0.056) ng/mL Total Protein (6.4-8.2) g/dL Albumin (3.4-5.0) g/dL Globulin (2.0-3.5) g/dL Albumin/Globulin Ratio (1.3-2.8) Urine Color YELLOW Urine Appearance SLT CLOUDY Urine pH 5.5 (5.0-8.0) Ur Specific [place] 1.020 (1.001-1.035) Urine Protein NEGATIVE (NEGATIVE) mg/dL Urine Glucose (UA) NEGATIVE (NEGATIVE) mg/dL Urine Ketones NEGATIVE (NEGATIVE) mg/dL Urine Occult Blood TRACE-INTACT (NEGATIVE) Urine Nitrite POSITIVE H (NEGATIVE) Urine Bilirubin NEGATIVE (NEGATIVE) Urine Urobilinogen 0.2 (<2.0) EU/dL Ur Leukocyte Esterase MODERATE (NEGATIVE) Urine RBC 1-3 (0-2/HPF) Urine WBC 40-60 (0-5/HPF) Ur Epithelial Cells RARE (NONE-FEW) Amorphous Sediment FEW (NEGATIVE) Urine Bacteria 2+ H (NEGATIVE) Urine Mucus RARE (NONE-MOD) Meds: Medications Generic Name Dose Route Start Last Admin Trade Name Freq PRN Reason Stop Dose Admin Sodium Chloride 1,000 mls @ 125 mls/hr 11/05/17 23:30 11/06/17 00:42 Normal Saline IV 75 mls/hr STAT ARMIDA Infusion Vancomycin HCl 1 gm/ Sodium 250 mls @ 250 mls/hr 11/05/17 23:57 Chloride IV 11/06/17 00:56 ONETIME ONE Discontinued Medications Generic Name Dose Route Start Last Admin Trade Name Freq PRN Reason Stop Dose Admin Piperacillin Sod/Tazobactam 50 mls @ 100 mls/hr 11/05/17 23:57 Sod 3.375 gm/ Sodium Chloride IV 11/06/17 00:26 ONETIME ONE Departure - Departure Time of Disposition: 00:53 Disposition: Admitted As Inpatient 68 Condition: Fair Clinical Impression: Hypotension UTI (urinary tract infection) Qualifiers: Urinary tract infection type: acute cystitis Hematuria presence: with hematuria Qualified Code(s): N30.01 - Acute cystitis with hematuria - Discharge Information Referrals: PCP,None [Primary Care Provider] - Forms: ED Department Discharge - My Orders Last 24 Hours: My Active Orders 11/05/17 23:18 EKG Documentation Completion [RC] STAT 11/05/17 23:27 Blood Culture x2 Reflex Set [OM.PC] Stat 11/05/17 23:28 Chest 1V Frontal [CR] Stat 11/05/17 23:30 Sodium Chloride 0.9% [Normal Saline] 1,000 ml IV STAT 11/05/17 23:37 CULTURE BLOOD [BC] Stat 11/05/17 23:42 CULTURE BLOOD [BC] Stat 11/05/17 23:57 Vancomycin [Vancocin] 1 gm Sodium Chloride 0.9% [Normal Saline] 250 ml IV ONETIME 11/06/17 00:17 CULTURE URINE [RM] Stat - Assessment/Plan Last 24 Hours: My Active Orders 11/05/17 23:18 EKG Documentation Completion [RC] STAT 11/05/17 23:27 Blood Culture x2 Reflex Set [OM.PC] Stat 11/05/17 23:28 Chest 1V Frontal [CR] Stat 11/05/17 23:30 Sodium Chloride 0.9% [Normal Saline] 1,000 ml IV STAT 11/05/17 23:37 CULTURE BLOOD [BC] Stat 11/05/17 23:42 CULTURE BLOOD [BC] Stat 11/05/17 23:57 Vancomycin [Vancocin] 1 gm Sodium Chloride 0.9% [Normal Saline] 250 ml IV ONETIME 11/06/17 00:17 CULTURE URINE [RM] Stat
[2017-11-05] MEDS ORDERED: Sodium Chloride 0.9% 1,000 ML IV SCH (23:30)
[2017-11-05 23:51] LABS: CHLORIDE,CL 103 mmol/L (98-107); SODIUM,NA 136 mmol/L (136-145)
[2017-11-05] MEDS ORDERED: Piperacillin/Tazobactam 3.375 GM in Sodium Chloride 0.9% 50 ML IV ONE (23:57)
[2017-11-06] MEDS ORDERED: Acetaminophen 325 MG Tab PO PRN (02:09)
[2017-11-06] MEDS ORDERED: LEVOTHYROXINE 200 MCG PO SCH (02:45)
[2017-11-06] MEDS ORDERED: Piperacillin/Tazobactam 3.375 GM in Sodium Chloride 0.9% 50 ML IV SCH (06:00)
[2017-11-06 06:29] LABS: CHLORIDE,CL 105 mmol/L (98-107); SODIUM,NA 137 mmol/L (136-145)
[2017-11-06] MEDS: Levothyroxine 75 MCG Tab PO SCH (07:00)
[2017-11-06] MEDS: Levothyroxine 100 MCG Tab PO SCH (07:01)
[2017-11-06] MEDS ORDERED: Levothyroxine 100 MCG Tab PO SCH (07:30)
[2017-11-06] MEDS ORDERED: fentaNYL 25 MCG/HR Transdermal Patch TRDERM SCH (08:30)
[2017-11-06] MEDS: Furosemide 40 MG Tab PO SCH (08:46)
--- NOTE | 2017-11-06 09:08 | PCM.HP ---
H&P History of Present Illness - General Date of Service: 11/06/17 Admit Problem/Dx: Admission Diagnosis/Problem Admission Diagnosis/Problem Hypotension - History of Present Illness Initial Comments - Free Text/Narative: This is a 77-year-old female who is presenting secondary to hallucinations, and altered mental status that has been ongoing for the past week worsening in the last few days. Patient was noted talking to her spouse who had a number of years ago. Patient has been noted to have an elevated blood pressure, as well as heart rate, as well as a mild elevation in her temperature. Patient stone which urology in [place] felt that they could not remove secondary to her multiple medical complications. As such patient has been suffering from multiple bouts of urinary tract infections which most likely are believed to be seeding from the renal stone. Patient has been on prophylactic Macrobid placed upon by her primary care provider. He was complaining of chills and feeling cold. Her altered mental status when assessing her today did improve as compared to that of which it was during her initial. Generalized Pain Score (Numeric/FACES): 10 - Related Data Allergies/Adverse Reactions: Allergies Allergy/AdvReac Type Severity Reaction Status Date / Time ciprofloxacin [From Cipro] Allergy Airway Verified 09/11/17 09:30 Tightness ciprofloxacin HCl Allergy Airway Verified 09/11/17 09:30 [From Cipro] Tightness codeine Allergy Airway Verified 09/11/17 09:30 Tightness iodine Allergy Unknown Verified 09/11/17 09:30 lenalidomide [From Revlimid] Allergy Airway Verified 09/11/17 09:30 Tightness shellfish derived Allergy Unknown Verified 09/11/17 09:30 Sulfa (Sulfonamide Allergy Unknown Verified 09/11/17 09:30 Antibiotics) Home Medications: Home Meds Acetaminophen [Tylenol Arthritis Pain] 650 mg PO Q6H PRN 04/01/15 [History] Chlorpheniramine Maleate 4 mg PO DAILY PRN 04/01/15 [History] Escitalopram [Lexapro] 10 mg PO BEDTIME 04/01/15 [History] Famotidine [Pepcid] 20 mg PO BID 04/01/15 [History] Gabapentin [Neurontin] 900 mg PO TID 04/01/15 [History] Potassium Chloride [Klor-Con 10] 10 meq PO TID 04/01/15 [History] atorvaSTATin Calcium [Atorvastatin Calcium] 10 mg PO BEDTIME 04/01/15 [History] fentaNYL [Fentanyl] 25 mcg TRDERM Q72H 04/01/15 [History] Acetaminophen/oxyCODONE [Percocet 325-5 MG] 5 - 325 mg PO Q4HR PRN 05/01/15 [ History] Acyclovir 400 mg PO BID PRN 12/17/15 [History] Atropine/Diphenoxylate [Lomotil 0.025-2.5 MG] 2 tab PO Q4H PRN 12/17/15 [History ] Furosemide [Lasix] 40 mg PO DAILY 12/17/15 [History] Albuterol [Proventil Neb Soln] 2.5 mg NEB Q6HRRT PRN 12/30/15 [History] Latanoprost [Xalatan 0.005% Ophth Soln] 2.5 ml EYEBOTH BEDTIME 12/30/15 [History ] Fexofenadine [Lesley] 180 mg PO DAILY 11/06/17 [History] Levothyroxine 137 mcg PO ACBREAKFAST 11/06/17 [History] Lisinopril 20 mg PO DAILY 11/06/17 [History] Nitrofurantoin Macrocrystal [Macrodantin] 50 mg PO DAILY 11/06/17 [History] Prochlorperazine [Compazine] 10 mg PO Q6H PRN 11/06/17 [History] Past Medical History HEENT History: Reports: Cataract, Glaucoma, Impaired Vision Cardiovascular History: Reports: Blood Clots/VTE/DVT, Hypertension Other Cardiovascular History: blood clots behind left knee Respiratory History: Reports: None Other Respiratory History: Hx of pneumonia Gastrointestinal History: Reports: GERD, Hiatal Hernia, Irritable Bowel Syndrome Genitourinary History: Reports: Acute Renal Failure, UTI, Recurrent Other Genitourinary History: Hx of renal failure, no longer in failure SOCK DRIER History: Reports: Musculoskeletal History: Reports: Arthritis, Fracture Other Musculoskeletal History: 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 Neurological History: Reports: None Psychiatric History: Reports: Anxiety Endocrine/Metabolic History: Reports: Diabetes, Type II, Hypothyroidism Hematologic History: Reports: Anemia Immunologic History: Reports: None Oncologic (Cancer) History: Reports: Bone Other Oncologic History: multiple myeloma, Stage III Dermatologic History: Reports: Cellulitis - Infectious Disease History Infectious Disease History: Reports: Chicken Pox, Measles, Shingles, Other (See Below) Other Infectious Disease History: MSSA - Past Surgical History Musculoskeletal Surgical History: Reports: Carpal Tunnel, Other (See Below) Social & Family History - Family History Family Medical History: Noncontributory HEENT: Reports: Impaired Vision Cardiac: Reports: Heart Failure Respiratory: Reports: Asthma OBGYN: Reports: Musculoskeletal: Reports: Arthritis, Gout Neurological: Reports: Cerebral Aneurysms Endocrine/Metabolic: Reports: Diabetes, type II Oncologic: Reports: Breast, Colon, Liver - Tobacco Use Smoking Status *Q: Never Smoker Used Tobacco, but Quit: Yes Month/Year Tobacco Last Used: Second Hand Smoke Exposure: No - Caffeine Use Caffeine Use: Reports: Coffee Other Caffeine Use: 1-2 cups daily - Alcohol Use Days Per Week of Alcohol Use: 0 - Recreational Drug Use Recreational Drug Use: No H&P Review of Systems - Review of Systems: Review Of Systems: ROS reveals no pertinent complaints other than HPI. Exam - Exam Exam: See Below - Vital Signs Vital Signs: Last Vital Signs Temp 35.8 C 11/06/17 08:00 Pulse 96 11/06/17 08:00 Resp 20 11/06/17 04:00 BP 119/55 L 11/06/17 08:00 Pulse Ox 96 11/06/17 04:00 Weight: 96 kg - Exam Quality Assessment: Supplemental Oxygen General: Alert, Oriented, Cooperative Lungs: Clear to Auscultation, Normal Respiratory Effort Cardiovascular: Regular Rate, Regular Rhythm GI/Abdominal Exam: Normal Bowel Sounds, Tender, Other (Tenderness to palpation over the inguinal area bilaterally.) Back Exam: Decreased Range of Motion, Paraspinal Tenderness Extremities: Pedal Edema - Patient Data Lab Results Last 24 hrs: Laboratory Results - last 24 hr 11/06/17 11/06/17 Range/Units 05:42 05:42 WBC 11.27 H (4.0-11.0) K/uL RBC 3.89 L (4.30-5.90) M/uL Hgb 11.2 L (12.0-16.0) g/dL Hct 35.3 L (36.0-46.0) % MCV 90.7 (80.0-98.0) fL MCH 28.8 (27.0-32.0) pg MCHC 31.7 (31.0-37.0) g/dL RDW Std Deviation 52.1 (28.0-62.0) fl RDW Coeff of Antony 16 H (11.0-15.0) % Plt Count 183 (150-400) K/uL MPV 9.90 (7.40-12.00) fL Neut % (Auto) 75.4 (48.0-80.0) % Lymph % (Auto) 16.1 (16.0-40.0) % [place] % (Auto) 7.0 (0.0-15.0) % Eos % (Auto) 1.3 (0.0-7.0) % Baso % (Auto) 0.2 (0.0-1.5) % Neut # (Auto) 8.5 H (1.4-5.7) K/uL Lymph # (Auto) 1.8 (0.6-2.4) K/uL [place] # (Auto) 0.8 (0.0-0.8) K/uL Eos # (Auto) 0.2 (0.0-0.7) K/uL Baso # (Auto) 0.0 (0.0-0.1) K/uL Nucleated RBC % 0.0 /100WBC Nucleated RBCs # 0 K/uL Sodium 137 (136-145) mmol/L Potassium 4.1 (3.5-5.1) mmol/L Chloride 105 (98-107) mmol/L Carbon Dioxide 24.2 (21.0-32.0) mmol/L BUN 15 (7.0-18.0) mg/dL Creatinine 0.8 (0.6-1.0) mg/dL Est Cr Clr Drug Dosing 43.64 mL/min Estimated GFR (MDRD) > 60.0 ml/min Glucose 93 (74-106) mg/dL Calcium 8.1 L (8.5-10.1) mg/dL Magnesium 1.3 L (1.5-2.0) mg/dL Total Bilirubin 0.5 (0.2-1.0) mg/dL AST 15 (15-37) IU/L ALT 14 (14-63) IU/L Alkaline Phosphatase 82 (46-116) U/L Total Protein 5.8 L (6.4-8.2) g/dL Albumin 2.9 L (3.4-5.0) g/dL Globulin 2.9 (2.0-3.5) g/dL Albumin/Globulin Ratio 1.0 L (1.3-2.8) Result Diagrams: 11/06/17 05:42 11/06/17 05:42 *Q Meaningful Use (ADM) - VTE *Q VTE Criteria *Q: - Stroke *Q Stroke Criteria *Q: - AMI *Q AMI Criteria *Q: Problem List Initiated/Reviewed/Updated: Yes Orders Last 24hrs: Active Orders 24 hr Category Date Time Status Telemetry Monitoring [Cardiac Monitoring] [RC] Q8H Care 11/06/17 02:08 Active [employer] Diet [DIET] Diet 11/06/17 Breakfast Active VANCOMYCIN TROUGH [CHEM] Timed Lab 11/09/17 07:30 Ordered Acetaminophen [Tylenol] Med 11/06/17 02:09 Active 650 mg PO Q6H PRN Escitalopram [Lexapro] Med 11/06/17 21:00 Active 10 mg PO BEDTIME Furosemide [Lasix] Med 11/06/17 09:00 Active 40 mg PO DAILY Levothyroxine Med 11/06/17 07:30 Active 37.5 mcg PO ACBREAKFAST Levothyroxine [Synthroid] Med 11/06/17 07:30 Active 100 mcg PO ACBREAKFAST Piperacillin/Tazobactam [Piperacil-Tazobact] 3.375 gm Med 11/06/17 06:00 Active Sodium Chloride 0.9% [Normal Saline] 50 ml IV Q6H Vancomycin 1.5 gm Med 11/07/17 08:00 Active Sodium Chloride 0.9% [Normal Saline] 500 ml IV Q24H Vancomycin Pharmacy to Dose [Pharmacy to Dose - Med 11/06/17 02:15 Active Vancomycin] 1 dose .XX ASDIRECTED fentaNYL [Duragesic] Med 11/06/17 08:30 Active 25 mcg TRDERM Q72H Medication Orders Acetaminophen (Tylenol) 650 mg PO Q6H PRN PRN Reason: Pain Escitalopram Oxalate (Lexapro) 10 mg PO BEDTIME [facility] Fentanyl (Duragesic) 25 mcg TRDERM Q72H [facility] Last Admin: 11/06/17 08:47 Dose: 25 mcg Furosemide (Lasix) 40 mg PO DAILY [facility] Last Admin: 11/06/17 08:46 Dose: 40 mg Sodium Chloride (Normal Saline) 1,000 mls @ 125 mls/hr IV STAT [facility] Last Infusion: 11/06/17 00:55 Dose: 125 mls/hr Infusion: 11/06/17 00:42 Dose: 75 mls/hr Admin: 11/05/17 23:49 Dose: 750 mls/hr Piperacillin Sod/Tazobactam (Sod 3.375 gm/ Sodium Chloride) 50 mls @ 100 mls/ hr IV Q6H [facility] Last Admin: 11/06/17 05:25 Dose: 100 mls/hr Vancomycin HCl 1.5 gm/ Sodium (Chloride) 500 mls @ 333.333 mls/hr IV Q24H [facility] Levothyroxine Sodium (Synthroid) 100 mcg PO ACBREAKFAST [facility] Last Admin: 11/06/17 07:01 Dose: 100 mcg Levothyroxine Sodium (Levothyroxine) 37.5 mcg PO ACBREAKFAST [facility] Last Admin: 11/06/17 07:00 Dose: 37.5 mcg Vancomycin HCl (Pharmacy To Dose - Vancomycin) 1 dose .XX ASDIRECTED [facility] Assessment/Plan Comment:: This is a 77-year-old female with a chronic medical history of renal calculi which not be removed secondary to her multiple comorbidities, as a result the stone disease seeding site for the multiple urinary tract infection at the patient has. A urine analysis done today indicates a very clear urinary tract infection which is likely to contribution to the patient's altered mental status , hallucinations, hypertension, tachycardia, mild elevation of fevers. Assessment of the urine culture done during her previous admission indicates that the prophylactic Macrobid placed upon by her primary care provider is ineffective as the Escherichia coli is resistant to the Macrobid. Patient is currently on Zosyn and vancomycin however due to the high BORIS of the Zosyn and the unlikely need with the vancomycin both of these medications shall be DC'd. Sclerae to be placed upon meropenem up until her urine cultures come back as we cannot rule out ESBL Escherichia coli.
--- NOTE | 2017-11-06 09:08 | PCM.PN ---
- General Info Date of Service: 11/06/17 - Patient Data Vitals - Most Recent: Last Vital Signs Temp 35.8 C 11/06/17 08:00 Pulse 96 11/06/17 08:00 Resp 20 11/06/17 04:00 BP 119/55 L 11/06/17 08:00 Pulse Ox 96 11/06/17 04:00 Weight - Most Recent: 96 kg I&O - Last 24 Hours: Intake & Output 11/05/17 11/06/17 11/06/17 22:59 06:59 14:59 Intake Total 1650 Output Total 600 Balance 1050 Lab Results Last 24 Hours: Laboratory Results - last 24 hr 11/06/17 11/06/17 Range/Units 05:42 05:42 WBC 11.27 H (4.0-11.0) K/uL RBC 3.89 L (4.30-5.90) M/uL Hgb 11.2 L (12.0-16.0) g/dL Hct 35.3 L (36.0-46.0) % MCV 90.7 (80.0-98.0) fL MCH 28.8 (27.0-32.0) pg MCHC 31.7 (31.0-37.0) g/dL RDW Std Deviation 52.1 (28.0-62.0) fl RDW Coeff of Antony 16 H (11.0-15.0) % Plt Count 183 (150-400) K/uL MPV 9.90 (7.40-12.00) fL Neut % (Auto) 75.4 (48.0-80.0) % Lymph % (Auto) 16.1 (16.0-40.0) % [place] % (Auto) 7.0 (0.0-15.0) % Eos % (Auto) 1.3 (0.0-7.0) % Baso % (Auto) 0.2 (0.0-1.5) % Neut # (Auto) 8.5 H (1.4-5.7) K/uL Lymph # (Auto) 1.8 (0.6-2.4) K/uL [place] # (Auto) 0.8 (0.0-0.8) K/uL Eos # (Auto) 0.2 (0.0-0.7) K/uL Baso # (Auto) 0.0 (0.0-0.1) K/uL Nucleated RBC % 0.0 /100WBC Nucleated RBCs # 0 K/uL Sodium 137 (136-145) mmol/L Potassium 4.1 (3.5-5.1) mmol/L Chloride 105 (98-107) mmol/L Carbon Dioxide 24.2 (21.0-32.0) mmol/L BUN 15 (7.0-18.0) mg/dL Creatinine 0.8 (0.6-1.0) mg/dL Est Cr Clr Drug Dosing 43.64 mL/min Estimated GFR (MDRD) > 60.0 ml/min Glucose 93 (74-106) mg/dL Calcium 8.1 L (8.5-10.1) mg/dL Magnesium 1.3 L (1.5-2.0) mg/dL Total Bilirubin 0.5 (0.2-1.0) mg/dL AST 15 (15-37) IU/L ALT 14 (14-63) IU/L Alkaline Phosphatase 82 (46-116) U/L Total Protein 5.8 L (6.4-8.2) g/dL Albumin 2.9 L (3.4-5.0) g/dL Globulin 2.9 (2.0-3.5) g/dL Albumin/Globulin Ratio 1.0 L (1.3-2.8) Med Orders - Current: Current Medications Acetaminophen (Tylenol) 650 mg PO Q6H PRN PRN Reason: Pain Escitalopram Oxalate (Lexapro) 10 mg PO BEDTIME [facility] Fentanyl (Duragesic) 25 mcg TRDERM Q72H [facility] Last Admin: 11/06/17 08:47 Dose: 25 mcg Furosemide (Lasix) 40 mg PO DAILY [facility] Last Admin: 11/06/17 08:46 Dose: 40 mg Sodium Chloride (Normal Saline) 1,000 mls @ 125 mls/hr IV STAT [facility] Last Infusion: 11/06/17 00:55 Dose: 125 mls/hr Piperacillin Sod/Tazobactam (Sod 3.375 gm/ Sodium Chloride) 50 mls @ 100 mls/ hr IV Q6H [facility] Last Admin: 11/06/17 05:25 Dose: 100 mls/hr Vancomycin HCl 1.5 gm/ Sodium (Chloride) 500 mls @ 333.333 mls/hr IV Q24H [facility] Levothyroxine Sodium (Synthroid) 100 mcg PO ACBREAKFAST [facility] Last Admin: 11/06/17 07:01 Dose: 100 mcg Levothyroxine Sodium (Levothyroxine) 37.5 mcg PO ACBREAKFAST [facility] Last Admin: 11/06/17 07:00 Dose: 37.5 mcg Vancomycin HCl (Pharmacy To Dose - Vancomycin) 1 dose .XX ASDIRECTED [facility] Discontinued Medications Piperacillin Sod/Tazobactam (Sod 3.375 gm/ Sodium Chloride) 50 mls @ 100 mls/ hr IV ONETIME ONE Stop: 11/06/17 00:26 Last Admin: 11/06/17 00:51 Dose: 100 mls/hr Vancomycin HCl 1 gm/ Sodium (Chloride) 250 mls @ 250 mls/hr IV ONETIME ONE Stop: 11/06/17 00:56 Last Admin: 11/06/17 01:45 Dose: 250 mls/hr Vancomycin HCl 1 gm/ Sodium (Chloride) 250 mls @ 250 mls/hr IV ONETIME ONE Stop: 11/06/17 03:29 Last Admin: 11/06/17 02:49 Dose: 250 mls/hr
[2017-11-06] MEDS: Meropenem 500 MG in Sodium Chloride 0.9% 100 ML IV SCH ×2 (10:59→17:29)
[2017-11-06] MEDS ORDERED: Loperamide 2 MG Cap PO PRN ×2 (15:42→15:51)
--- NOTE | 2017-11-06 17:27 | CR ---
EXAM DATE: 11/06/17 PATIENT'S AGE: 77 Patient: RYAN ELIAS Facility: [place], [place] Site . Site : [id number] Study: XRay Chest [id number]/19/2018 12:29:26 AM Ordering Physician: Brian Junior Final Report: INDICATION: Pain and shortness of breath. COMPARISON: 09/11/2017. FINDINGS/IMPRESSION: Stable mild cardiomegaly and borderline or mild pulmonary vascular congestion. No focal lung consolidation or pleural effusion identified. Unchanged Port-A- Cath extending to the SVC. Spinal and bilateral shoulder degenerative changes, as before. Dictated by Floyd Hope MD @ 11/06/2017 12:32:28 AM Dictated by: Floyd Hope MD @ 11/06/2017 00:32:51 (Electronic Signature) Report Signed by Proxy. DAWOOD
[2017-11-06] MEDS ORDERED: Escitalopram 10 MG Tab PO SCH (21:00)
[2017-11-06] MEDS: Loperamide 2 MG Cap PO SCH (21:01)
[2017-11-06] MEDS: Acetaminophen/oxyCODONE 325-5 MG Tab PO PRN (21:08)
[2017-11-06] MEDS ORDERED: Magnesium Sulfate/Water 4 GM in Premix Bag 1 BAG IV STA (22:26)
[2017-11-07] MEDS: Meropenem 500 MG in Sodium Chloride 0.9% 100 ML IV SCH ×2 (01:22→09:29)
[2017-11-07] MEDS: Acetaminophen/oxyCODONE 325-5 MG Tab PO PRN ×2 (02:42→11:15)
[2017-11-07 06:00] LABS: CHLORIDE,CL 104 mmol/L (98-107); SODIUM,NA 140 mmol/L (136-145)
[2017-11-07] MEDS: Loperamide 2 MG Cap PO SCH (06:04)
[2017-11-07] MEDS: Levothyroxine 75 MCG Tab PO SCH (06:39)
[2017-11-07] MEDS: Levothyroxine 100 MCG Tab PO SCH (06:40)
[2017-11-07] MEDS ORDERED: Vancomycin 1.5 GM in Sodium Chloride 0.9% 500 ML IV SCH (08:00)
[2017-11-07] MEDS: Furosemide 40 MG Tab PO SCH (09:28)
[2017-11-07 11:51] VITALS: BP 133/83
--- NOTE | 2017-11-12 00:11 | PCM.DCSUM1 ---
Discharge Summary - Hospital Course HPI Initial Comments: Discharge Summary Date of admission: 11/06/2017 Date of discharge: 11/07/2017 Admitting diagnosis: #1. Altered mental status likely secondary to urinary tract infection versus age -related dementia versus metabolic syndrome #2. Chronic medical history of urinary tract infection secondary to a renal stone that is in-operable #3. #4. #5. Discharge diagnoses: #1. Altered mental status resolved, urinary tract infection secondary to Escherichia coli #2. Age-related dementia #3. Chronic medical history of urinary tract infections today to seeding site of renal stone #4. #5. Consultations: None Procedures: None Hospitalization course: Patient was admitted to the floor secondary to altered mental status that started to occur over the past few days. Patient had a dirty urinary analysis which indicated likely source of altered mental status was likely a urinary tract infection. Due to the multiple resistance that the patient does have 2 antibiotics and her chronic history of urinary tract infection we started the patient on Zosyn and vancomycin to possibly cover for any ESBL Escherichia coli. Patient was also noted to be on Macrobid by her PCP for prophylaxis due to her medical history of urinary tract infections however assessment of recent urinary culture that was done indicated the patient had resistance to Macrobid. Patient's current urine culture did come back with Escherichia coli that was sensitive to Zosyn without any ESBL. Since the patient 's symptoms had now resolved, her white count was normalized, patient was placed on Keflex at a higher dose discharged with instructions to follow-up with her urologist in [facility]. Disposition on discharge: Home Condition on discharge: Stable Discharge medications: Keflex, discontinuation of Macrobid, continuation of home medication please see discharge medication list Follow-up instructions: Urology, PCP - Discharge Data Discharge Date: 11/07/17 Discharge Disposition: Home, Self-Care 01 Condition: Good - Patient Instructions Diet: Heart Healthy Diet Activity: As Tolerated Driving: Do Not Drive Showering/Bathing: May Shower Notify Provider of: Fever, Swelling and Redness, Nausea and/or Vomiting - Discharge Plan Prescriptions/Med Rec: Cephalexin [Keflex] 500 mg PO BID 10 Days #20 cap Loperamide [Imodium] 2 mg PO Q4H PRN 8 Days #48 cap PRN Reason: Diarrhea Home Medications: Home Meds Acetaminophen [Tylenol Arthritis Pain] 650 mg PO Q6H PRN 04/01/15 [History] Chlorpheniramine Maleate 4 mg PO DAILY PRN 04/01/15 [History] Escitalopram [Lexapro] 10 mg PO BEDTIME 04/01/15 [History] Famotidine [Pepcid] 20 mg PO BID 04/01/15 [History] Gabapentin [Neurontin] 900 mg PO TID 04/01/15 [History] Potassium Chloride [Klor-Con 10] 10 meq PO TID 04/01/15 [History] atorvaSTATin Calcium [Atorvastatin Calcium] 10 mg PO BEDTIME 04/01/15 [History] fentaNYL [Fentanyl] 25 mcg TRDERM Q72H 04/01/15 [History] Acetaminophen/oxyCODONE [Percocet 325-5 MG] 5 - 325 mg PO Q4HR PRN 05/01/15 [ History] Acyclovir 400 mg PO BID PRN 12/17/15 [History] Atropine/Diphenoxylate [Lomotil 0.025-2.5 MG] 2 tab PO Q4H PRN 12/17/15 [History ] Furosemide [Lasix] 40 mg PO DAILY 12/17/15 [History] Albuterol [Proventil Neb Soln] 2.5 mg NEB Q6HRRT PRN 12/30/15 [History] Latanoprost [Xalatan 0.005% Ophth Soln] 2.5 ml EYEBOTH BEDTIME 12/30/15 [History ] Fexofenadine [Lesley] 180 mg PO DAILY 11/06/17 [History] Levothyroxine 137 mcg PO ACBREAKFAST 11/06/17 [History] Lisinopril 20 mg PO DAILY 11/06/17 [History] Nitrofurantoin Macrocrystal [Macrodantin] 50 mg PO DAILY 11/06/17 [History] Prochlorperazine [Compazine] 10 mg PO Q6H PRN 11/06/17 [History] Cephalexin [Keflex] 500 mg PO BID 10 Days #20 cap 11/07/17 [Rx] Loperamide [Imodium] 2 mg PO Q4H PRN 8 Days #48 cap 11/07/17 [Rx] Patient Handouts: Loperamide tablets or capsules, Hypotension, Igan-no-Gcpa, Urinary Tract Infection, Adult, Cephalexin tablets or capsules Referrals: Jazmín Brannon DO [Physician] - 11/17/17 8:30 am - Discharge Summary/Plan Comment DC Time >30 min.: No - Patient Data Vitals - Most Recent: Last Vital Signs Temp 35.6 C 11/07/17 11:50 Pulse 75 11/07/17 11:50 Resp 22 H 11/07/17 11:50 BP 133/83 11/07/17 11:50 Pulse Ox 95 11/07/17 11:50 Weight - Most Recent: 95 kg Med Orders - Current: Current Medications Discontinued Medications Acetaminophen (Tylenol) 650 mg PO Q6H PRN PRN Reason: Pain Escitalopram Oxalate (Lexapro) 10 mg PO BEDTIME [facility] Last Admin: 11/06/17 20:56 Dose: 10 mg Fentanyl (Duragesic) 25 mcg TRDERM Q72H [facility] Last Admin: 11/06/17 08:47 Dose: 25 mcg Furosemide (Lasix) 40 mg PO DAILY [facility] Last Admin: 11/07/17 09:28 Dose: 40 mg Sodium Chloride (Normal Saline) 1,000 mls @ 125 mls/hr IV STAT [facility] Last Infusion: 11/06/17 00:55 Dose: 125 mls/hr Piperacillin Sod/Tazobactam (Sod 3.375 gm/ Sodium Chloride) 50 mls @ 100 mls/ hr IV ONETIME ONE Stop: 11/06/17 00:26 Last Admin: 11/06/17 00:51 Dose: 100 mls/hr Vancomycin HCl 1 gm/ Sodium (Chloride) 250 mls @ 250 mls/hr IV ONETIME ONE Stop: 11/06/17 00:56 Last Admin: 11/06/17 01:45 Dose: 250 mls/hr Piperacillin Sod/Tazobactam (Sod 3.375 gm/ Sodium Chloride) 50 mls @ 100 mls/ hr IV Q6H [facility] Last Admin: 11/06/17 05:25 Dose: 100 mls/hr Vancomycin HCl 1 gm/ Sodium (Chloride) 250 mls @ 250 mls/hr IV ONETIME ONE Stop: 11/06/17 03:29 Last Admin: 11/06/17 02:49 Dose: 250 mls/hr Vancomycin HCl 1.5 gm/ Sodium (Chloride) 500 mls @ 333.333 mls/hr IV Q24H [facility] Meropenem 500 mg/ Sodium (Chloride) 100 mls @ 100 mls/hr IV Q8H [facility] Last Admin: 11/07/17 09:29 Dose: 100 mls/hr Magnesium Sulfate 4 gm/ Premix 100 mls @ 50 mls/hr IV ONETIME [facility] Stop: 11/07/17 00:25 Last Admin: 11/06/17 22:48 Dose: 50 mls/hr Levothyroxine Sodium (Synthroid) 100 mcg PO ACBREAKFAST [facility] Last Admin: 11/07/17 06:40 Dose: 100 mcg Levothyroxine Sodium (Levothyroxine) 37.5 mcg PO ACBREAKFAST [facility] Last Admin: 11/07/17 06:39 Dose: 37.5 mcg Loperamide HCl (Imodium) 4 mg PO ONETIME PRN PRN Reason: Diarrhea Loperamide HCl (Imodium) 2 mg PO Q6H PRN PRN Reason: DIARRHEA Loperamide HCl (Imodium) 2 mg PO TID [facility] Last Admin: 11/07/17 06:04 Dose: Not Given Oxycodone/Acetaminophen (Percocet 325-5 Mg) 1 tab PO Q4H PRN PRN Reason: Pain Last Admin: 11/07/17 11:15 Dose: 1 tab Vancomycin HCl (Pharmacy To Dose - Vancomycin) 1 dose .XX ASDIRECTED [facility] *Q Meaningful Use (DIS) - VTE *Q VTE Criteria *Q: - Stroke *Q Stroke Criteria *Q: - AMI *Q AMI Criteria *Q:
== END 2017-11-07 13:50 | disposition home or self-care (01) | DRG 690 ==
LOC: MW.ED 23:05 → MW.MS 11-06 00:54
PROVIDERS: ADMIT Family Medicine; ATTEND Family Medicine
DX: N30.01 Acute cystitis with hematuria (principal); I95.9 Hypotension, unspecified; I50.9 Heart failure, unspecified; N39.0 Urinary tract infection, site not specified; F32.9 Major depressive disorder, single episode, unspecified; R44.3 Hallucinations, unspecified; C90.00 Multiple myeloma not having achieved remission; B96.20 Unspecified Escherichia coli [E. coli] as the cause of diseases classified elsewhere; N20.0 Calculus of kidney; R31.9 Hematuria, unspecified; I10 Essential (primary) hypertension; F41.9 Anxiety disorder, unspecified; E11.9 Type 2 diabetes mellitus without complications; E03.9 Hypothyroidism, unspecified; F03.90 Unspecified dementia, unspecified severity, without behavioral disturbance, psychotic disturbance, mood disturbance, and anxiety; Z88.2 Allergy status to sulfonamides; Z88.8 Allergy status to other drugs, medicaments and biological substances; Z79.899 Other long term (current) drug therapy; Z86.718 Personal history of other venous thrombosis and embolism
CPT/HCPCS: 71045; 80053; 81001; 83605; 84484; 85025; 87040 ×2; 87086; 87186; 96361; 96365; 99285; J2543; J7040; J7050; 36415; 82962; 83735; 87088; 93005; 96367; 99283; A9270-GY; J2185; J3370; J3475; J7030

== ENCOUNTER 2018-09-07 21:51 | Inpatient (IN) | payer MEDICARE, OTHER ==
[2018-09-07] MEDS ORDERED: Sodium Chloride 0.9% 2.5 ML Syringe FLUSH PRN (22:17)
[2018-09-07] MEDS ORDERED: Sodium Chloride 0.9% 10 ML Syringe FLUSH PRN (22:17)
--- NOTE | 2018-09-07 22:21 | EDM.PDOC ---
ED HPI GENERAL MEDICAL PROBLEM - General Chief Complaint: Genitourinary Problem Stated Complaint: CONFUSION Time Seen by Provider: 09/07/18 22:15 - History of Present Illness INITIAL COMMENTS - FREE TEXT/NARRATIVE: HISTORY AND PHYSICAL: History of present illness: Patient's a 78-year-old female with history multiple myeloma presents with a concern of confusion right leg pain redness was recurrent urinary tract infection. Her confusion has been slightly worse recently. Patient denies chest pain shortness of breath abdominal pain nausea vomiting no reported fever chills Review of systems: As per history of present illness and below otherwise all systems reviewed and negative. Past medical history: As per history of present illness and as reviewed below otherwise noncontributory. Surgical history: As per history of present illness and as reviewed below otherwise noncontributory. Social history: No reported history of drug or alcohol abuse. Family history: As per history of present illness and as reviewed below otherwise noncontributory. Physical exam: HEENT: Atraumatic, normocephalic, pupils reactive, mild conjunctival pallor no scleral icterus, mucous membranes moist, throat clear, neck supple, nontender, trachea midline. Lungs: Clear to auscultation, breath sounds equal bilaterally, chest nontender. Heart: S1S2, regular, negative for clicks, rubs, or JVD. Abdomen: Soft, nondistended, nontender. Negative for masses or hepatosplenomegaly. Negative for costovertebral tenderness. Pelvis: Stable nontender. Genitourinary: Deferred. Rectal: Deferred. Extremities: Patient's right leg has erythema smaller ulcer in the anterior aspect approximately 2 cm with warmth to touch neurovascular exam is unremarkable Neuro: Awake, alert, follows commands and moves all extremities limited but grossly nonfocal Diagnostics: CBC CMP troponin PT/INR ABG blood culture 2 lactic acid chest x-ray CT brain ammonia level UA urine culture Therapeutics: Saline 125 mL an hour Rocephin 1 g IV vancomycin 1 g IV Impression: #1 altered mental status #2 cellulitis #3 history of multiple myeloma Definitive disposition and diagnosis as appropriate pending reevaluation and review of above. Back Pain Score (Numeric/FACES): 1 - Related Data Allergies Allergy/AdvReac Type Severity Reaction Status Date / Time ciprofloxacin [From Cipro] Allergy Airway Verified 09/08/18 01:42 Tightness ciprofloxacin HCl Allergy Airway Verified 09/08/18 01:42 [From Cipro] Tightness codeine Allergy Airway Verified 09/08/18 01:42 Tightness iodine Allergy Unknown Verified 09/08/18 01:42 lenalidomide [From Revlimid] Allergy Airway Verified 09/08/18 01:42 Tightness shellfish derived Allergy Unknown Verified 09/08/18 01:42 Sulfa (Sulfonamide Allergy Unknown Verified 09/08/18 01:42 Antibiotics) Home Meds: Home Meds Acetaminophen [Tylenol Arthritis Pain] 650 mg PO Q6H PRN 04/01/15 [History] Chlorpheniramine Maleate 4 mg PO DAILY PRN 04/01/15 [History] Escitalopram [Lexapro] 10 mg PO BEDTIME 04/01/15 [History] Famotidine [Pepcid] 20 mg PO BID 04/01/15 [History] Gabapentin [Neurontin] 900 mg PO TID 04/01/15 [History] Potassium Chloride [Klor-Con 10] 10 meq PO TID 04/01/15 [History] atorvaSTATin Calcium [Atorvastatin Calcium] 10 mg PO BEDTIME 04/01/15 [History] fentaNYL [Fentanyl] 50 mcg TRDERM Q72H 04/01/15 [History] Acetaminophen/oxyCODONE [Percocet 325-5 MG] 10 - 325 mg PO Q4HR PRN 05/01/15 [ History] Acyclovir 400 mg PO BID PRN 12/17/15 [History] Furosemide [Lasix] 40 mg PO DAILY 12/17/15 [History] Latanoprost [Xalatan 0.005% Ophth Soln] 1 drop EYEBOTH BEDTIME 12/30/15 [History ] Fexofenadine [Lesley] 180 mg PO DAILY PRN 11/06/17 [History] Levothyroxine 137 mcg PO DAILY 11/06/17 [History] Lisinopril 20 mg PO DAILY 11/06/17 [History] Loperamide [Imodium] 2 mg PO Q4H PRN 8 Days #48 cap 11/07/17 [Rx] Aspirin 81 mg PO DAILY 09/07/18 [History] Calcium Carb & Citrate/Vit D3 [Citracal + D ER] 1 tab PO DAILY 09/07/18 [History ] Cholecalciferol (Vitamin D3) [Vitamin D3] 5,000 unit PO DAILY 09/07/18 [History] Ixazomib Citrate [Ninlaro] 4 mg PO ASDIRECTED 09/07/18 [History] Past Medical History HEENT History: Reports: Cataract, Glaucoma, Impaired Vision Cardiovascular History: Reports: Blood Clots/VTE/DVT, Heart Failure, Hypertension Other Cardiovascular History: blood clots behind left knee Respiratory History: Reports: None Other Respiratory History: Hx of pneumonia Gastrointestinal History: Reports: GERD, Hiatal Hernia, Irritable Bowel Syndrome Genitourinary History: Reports: Acute Renal Failure, Renal Calculus, UTI, Recurrent Other Genitourinary History: Hx of renal failure, no longer in failure [employer] History: Reports: Musculoskeletal History: Reports: Arthritis, Fracture Other Musculoskeletal History: 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 Neurological History: Reports: None Psychiatric History: Reports: Anxiety Endocrine/Metabolic History: Reports: Diabetes, Type II, Hypothyroidism Hematologic History: Reports: Anemia Immunologic History: Reports: None Oncologic (Cancer) History: Reports: Bone Other Oncologic History: multiple myeloma, Stage III Dermatologic History: Reports: Cellulitis - Infectious Disease History Infectious Disease History: Reports: Chicken Pox, Measles, Shingles, Other (See Below) Other Infectious Disease History: MSSA - Past Surgical History HEENT Surgical History: Reports: Eye Surgery Female Surgical History: Reports: Nephrectomy Musculoskeletal Surgical History: Reports: Carpal Tunnel, Other (See Below) Social & Family History - Family History Family Medical History: Noncontributory HEENT: Reports: Impaired Vision Cardiac: Reports: Heart Failure Respiratory: Reports: Asthma OBGYN: Reports: Musculoskeletal: Reports: Arthritis, Gout Neurological: Reports: Cerebral Aneurysms Endocrine/Metabolic: Reports: Diabetes, type II Oncologic: Reports: Breast, Colon, Liver - Tobacco Use Smoking Status *Q: Former Smoker Used Tobacco, but Quit: No Month/Year Tobacco Last Used: 1978 - Caffeine Use Caffeine Use: Reports: Coffee Other Caffeine Use: 1-2 cups daily - Recreational Drug Use Recreational Drug Use: No ED ROS GENERAL - Review of Systems Review Of Systems: ROS reveals no pertinent complaints other than HPI. ED EXAM, GENERAL - Physical Exam Exam: See Below (See dictation) Course - Vital Signs Last Recorded V/S: Last Vital Signs Temp 36.3 C 09/08/18 05:48 Pulse 81 09/08/18 05:48 Resp 19 09/08/18 05:48 BP 102/65 09/08/18 05:48 Pulse Ox 93 L 09/08/18 05:48 - Orders/Labs/Meds Orders: Active Orders 24 hr Category Date Time Status EKG Documentation Completion [RC] STAT Care 09/07/18 22:15 Active Pulse Oximetry [RC] ASDIRECTED Care 09/07/18 22:15 Active BLOOD GAS ARTERIAL [BG] Stat Lab 09/07/18 22:16 Ordered CULTURE BLOOD [BC] Stat Lab 09/07/18 22:58 Received CULTURE BLOOD [BC] Stat Lab 09/07/18 23:27 Received CULTURE URINE [RM] Stat Lab 09/07/18 22:16 Received TYPE AND SCREEN [BBK] Stat Lab 09/07/18 22:58 Received Sodium Chloride 0.9% [Normal Saline] 1,000 ml Med 09/07/18 22:30 Active IV STAT Sodium Chloride 0.9% [Saline Flush] Med 09/07/18 22:17 Active 10 ml FLUSH ASDIRECTED PRN Sodium Chloride 0.9% [Saline Flush] Med 09/07/18 22:17 Active 2.5 ml FLUSH ASDIRECTED PRN Blood Culture x2 Reflex Set [OM.PC] Stat Oth 09/07/18 22:16 Ordered Saline Lock Insert [OM.PC] Stat Oth 09/07/18 22:15 Ordered Medication Orders Acetaminophen (Tylenol) 650 mg PO Q4H PRN PRN Reason: Pain (mild 1-3) Sodium Chloride (Normal Saline) 1,000 mls @ 125 mls/hr IV STAT ARMIDA Last Admin: 09/07/18 22:32 Dose: 125 mls/hr Sodium Chloride (Saline Flush) 10 ml FLUSH ASDIRECTED PRN PRN Reason: Keep Vein Open Sodium Chloride (Saline Flush) 2.5 ml FLUSH ASDIRECTED PRN PRN Reason: Keep Vein Open Sodium Chloride (Saline Flush) 10 ml FLUSH ASDIRECTED PRN PRN Reason: Keep Vein Open Sodium Chloride (Saline Flush) 2.5 ml FLUSH ASDIRECTED PRN PRN Reason: Keep Vein Open Labs: Laboratory Tests 09/07/18 09/07/18 09/07/18 Range/Units 22:11 22:13 22:13 WBC 8.79 (4.0-11.0) K/uL RBC 3.53 L (4.30-5.90) M/uL Hgb 10.4 L (12.0-16.0) g/dL Hct 32.8 L (36.0-46.0) % MCV 92.9 (80.0-98.0) fL MCH 29.5 (27.0-32.0) pg MCHC 31.7 (31.0-37.0) g/dL RDW Std Deviation 52.6 (28.0-62.0) fl RDW Coeff of Antony 16 H (11.0-15.0) % Plt Count 210 (150-400) K/uL MPV 11.00 (7.40-12.00) fL Neut % (Auto) 70.7 (48.0-80.0) % Lymph % (Auto) 17.3 (16.0-40.0) % [place] % (Auto) 9.1 (0.0-15.0) % Eos % (Auto) 2.8 (0.0-7.0) % Baso % (Auto) 0.1 (0.0-1.5) % Neut # (Auto) 6.2 H (1.4-5.7) K/uL Lymph # (Auto) 1.5 (0.6-2.4) K/uL [place] # (Auto) 0.8 (0.0-0.8) K/uL Eos # (Auto) 0.3 (0.0-0.7) K/uL Baso # (Auto) 0.0 (0.0-0.1) K/uL Nucleated RBC % 0.0 /100WBC Nucleated RBCs # 0 K/uL INR 0.98 Lactate (0.20-2.00) mmol/L Sodium (136-145) mmol/L Potassium (3.5-5.1) mmol/L Chloride (98-107) mmol/L Carbon Dioxide (21.0-32.0) mmol/L BUN (7.0-18.0) mg/dL Creatinine (0.6-1.0) mg/dL Est Cr Clr Drug Dosing mL/min Estimated GFR (MDRD) ml/min Glucose (74-106) mg/dL POC Glucose 94 (60-110) mg/dL Calcium (8.5-10.1) mg/dL Total Bilirubin (0.2-1.0) mg/dL AST (15-37) IU/L ALT (14-63) IU/L Alkaline Phosphatase (46-116) U/L Ammonia (19-54) ug/dL Troponin I (0.000-0.056) ng/mL Total Protein (6.4-8.2) g/dL Albumin (3.4-5.0) g/dL Globulin (2.6-4.0) g/dL Albumin/Globulin Ratio (0.9-1.6) TSH 3rd Generation (0.36-3.74) uIU/mL Urine Color Urine Appearance Urine pH (5.0-8.0) Ur Specific [place] (1.001-1.035) Urine Protein (NEGATIVE) mg/dL Urine Glucose (UA) (NEGATIVE) mg/dL Urine Ketones (NEGATIVE) mg/dL Urine Occult Blood (NEGATIVE) Urine Nitrite (NEGATIVE) Urine Bilirubin (NEGATIVE) Urine Urobilinogen (<2.0) EU/dL Ur Leukocyte Esterase (NEGATIVE) Urine RBC (0-2/HPF) Urine WBC (0-5/HPF) Ur Epithelial Cells (NONE-FEW) Urine Bacteria (NEGATIVE) Coarse Granular Casts (NEGATIVE) 09/07/18 09/07/18 09/07/18 Range/Units 22:13 22:13 22:13 WBC (4.0-11.0) K/uL RBC (4.30-5.90) M/uL Hgb (12.0-16.0) g/dL Hct (36.0-46.0) % MCV (80.0-98.0) fL MCH (27.0-32.0) pg MCHC (31.0-37.0) g/dL RDW Std Deviation (28.0-62.0) fl RDW Coeff of Antony (11.0-15.0) % Plt Count (150-400) K/uL MPV (7.40-12.00) fL Neut % (Auto) (48.0-80.0) % Lymph % (Auto) (16.0-40.0) % [place]pson % (Auto) (0.0-15.0) % Eos % (Auto) (0.0-7.0) % Baso % (Auto) (0.0-1.5) % Neut # (Auto) (1.4-5.7) K/uL Lymph # (Auto) (0.6-2.4) K/uL [place] # (Auto) (0.0-0.8) K/uL Eos # (Auto) (0.0-0.7) K/uL Baso # (Auto) (0.0-0.1) K/uL Nucleated RBC % /100WBC Nucleated RBCs # K/uL INR Lactate 1.0 (0.20-2.00) mmol/L Sodium 137 (136-145) mmol/L Potassium 4.9 (3.5-5.1) mmol/L Chloride 102 (98-107) mmol/L Carbon Dioxide 27.6 (21.0-32.0) mmol/L BUN 47 H (7.0-18.0) mg/dL Creatinine 2.8 H (0.6-1.0) mg/dL Est Cr Clr Drug Dosing 15.38 mL/min Estimated GFR (MDRD) 16.4 ml/min Glucose 92 (74-106) mg/dL POC Glucose (60-110) mg/dL Calcium 9.3 (8.5-10.1) mg/dL Total Bilirubin 0.4 (0.2-1.0) mg/dL AST 13 L (15-37) IU/L ALT 16 (14-63) IU/L Alkaline Phosphatase 88 (46-116) U/L Ammonia 4 L (19-54) ug/dL Troponin I < 0.050 (0.000-0.056) ng/mL Total Protein 6.6 (6.4-8.2) g/dL Albumin 3.0 L (3.4-5.0) g/dL Globulin 3.6 (2.6-4.0) g/dL Albumin/Globulin Ratio 0.8 L (0.9-1.6) TSH 3rd Generation 13.38 H (0.36-3.74) uIU/mL Urine Color Urine Appearance Urine pH (5.0-8.0) Ur Specific [place] (1.001-1.035) Urine Protein (NEGATIVE) mg/dL Urine Glucose (UA) (NEGATIVE) mg/dL Urine Ketones (NEGATIVE) mg/dL Urine Occult Blood (NEGATIVE) Urine Nitrite (NEGATIVE) Urine Bilirubin (NEGATIVE) Urine Urobilinogen (<2.0) EU/dL Ur Leukocyte Esterase (NEGATIVE) Urine RBC (0-2/HPF) Urine WBC (0-5/HPF) Ur Epithelial Cells (NONE-FEW) Urine Bacteria (NEGATIVE) Coarse Granular Casts (NEGATIVE) 09/07/18 Range/Units 22:16 WBC (4.0-11.0) K/uL RBC (4.30-5.90) M/uL Hgb (12.0-16.0) g/dL Hct (36.0-46.0) % MCV (80.0-98.0) fL MCH (27.0-32.0) pg MCHC (31.0-37.0) g/dL RDW Std Deviation (28.0-62.0) fl RDW Coeff of Antony (11.0-15.0) % Plt Count (150-400) K/uL MPV (7.40-12.00) fL Neut % (Auto) (48.0-80.0) % Lymph % (Auto) (16.0-40.0) % [place] % (Auto) (0.0-15.0) % Eos % (Auto) (0.0-7.0) % Baso % (Auto) (0.0-1.5) % Neut # (Auto) (1.4-5.7) K/uL Lymph # (Auto) (0.6-2.4) K/uL [place] # (Auto) (0.0-0.8) K/uL Eos # (Auto) (0.0-0.7) K/uL Baso # (Auto) (0.0-0.1) K/uL Nucleated RBC % /100WBC Nucleated RBCs # K/uL INR Lactate (0.20-2.00) mmol/L Sodium (136-145) mmol/L Potassium (3.5-5.1) mmol/L Chloride (98-107) mmol/L Carbon Dioxide (21.0-32.0) mmol/L BUN (7.0-18.0) mg/dL Creatinine (0.6-1.0) mg/dL Est Cr Clr Drug Dosing mL/min Estimated GFR (MDRD) ml/min Glucose (74-106) mg/dL POC Glucose (60-110) mg/dL Calcium (8.5-10.1) mg/dL Total Bilirubin (0.2-1.0) mg/dL AST (15-37) IU/L ALT (14-63) IU/L Alkaline Phosphatase (46-116) U/L Ammonia (19-54) ug/dL Troponin I (0.000-0.056) ng/mL Total Protein (6.4-8.2) g/dL Albumin (3.4-5.0) g/dL Globulin (2.6-4.0) g/dL Albumin/Globulin Ratio (0.9-1.6) TSH 3rd Generation (0.36-3.74) uIU/mL Urine Color YELLOW Urine Appearance SLT CLOUDY Urine pH 5.5 (5.0-8.0) Ur Specific [place] 1.025 (1.001-1.035) Urine Protein TRACE H (NEGATIVE) mg/dL Urine Glucose (UA) NEGATIVE (NEGATIVE) mg/dL Urine Ketones NEGATIVE (NEGATIVE) mg/dL Urine Occult Blood SMALL H (NEGATIVE) Urine Nitrite POSITIVE H (NEGATIVE) Urine Bilirubin NEGATIVE (NEGATIVE) Urine Urobilinogen 0.2 (<2.0) EU/dL Ur Leukocyte Esterase NEGATIVE (NEGATIVE) Urine RBC 0-3 (0-2/HPF) Urine WBC 5-10 (0-5/HPF) Ur Epithelial Cells FEW (NONE-FEW) Urine Bacteria 3+ H (NEGATIVE) Coarse Granular Casts 0-3 (NEGATIVE) Meds: Medications Generic Name Dose Route Start Last Admin Trade Name Freq PRN Reason Stop Dose Admin Acetaminophen 650 mg 09/08/18 01:08 Tylenol PO Q4H PRN Pain (mild 1-3) Sodium Chloride 1,000 mls @ 125 mls/hr 09/07/18 22:30 09/07/18 22:32 Normal Saline IV 125 mls/hr STAT ARMIDA Administration Sodium Chloride 10 ml 09/07/18 22:17 Saline Flush FLUSH ASDIRECTED PRN Keep Vein Open Sodium Chloride 2.5 ml 09/07/18 22:17 Saline Flush FLUSH ASDIRECTED PRN Keep Vein Open Sodium Chloride 10 ml 09/08/18 01:03 Saline Flush FLUSH ASDIRECTED PRN Keep Vein Open Sodium Chloride 2.5 ml 09/08/18 01:03 Saline Flush FLUSH ASDIRECTED PRN Keep Vein Open Discontinued Medications Generic Name Dose Route Start Last Admin Trade Name Freq PRN Reason Stop Dose Admin Ceftriaxone Sodium/Dextrose 1 50 mls @ 100 mls/hr 09/07/18 22:51 09/07/18 23: 01 gm/ Premix IV 09/07/18 23:20 100 mls/hr ONETIME ONE Administration Vancomycin HCl 1 gm/ Sodium 250 mls @ 250 mls/hr 09/07/18 22:51 09/08/18 00: 32 Chloride IV 09/07/18 23:50 250 mls/hr ONETIME ONE Administration Departure - Departure Time of Disposition: 05:59 Disposition: Refer to Observation Clinical Impression: Altered mental status, UTI, Urinary tract infectious disease Pneumonia Qualifiers: Pneumonia type: due to unspecified organism Laterality: left Lung location: lower lobe of lung Qualified Code(s): J18.9 - Pneumonia, unspecified organism - Discharge Information - My Orders Last 24 Hours: My Active Orders 09/07/18 22:15 EKG Documentation Completion [RC] STAT Pulse Oximetry [RC] ASDIRECTED Saline Lock Insert [OM.PC] Stat 09/07/18 22:16 BLOOD GAS ARTERIAL [BG] Stat CULTURE URINE [RM] Stat Blood Culture x2 Reflex Set [OM.PC] Stat 09/07/18 22:17 Sodium Chloride 0.9% [Saline Flush] 10 ml FLUSH ASDIRECTED PRN Sodium Chloride 0.9% [Saline Flush] 2.5 ml FLUSH ASDIRECTED PRN 09/07/18 22:30 Sodium Chloride 0.9% [Normal Saline] 1,000 ml IV STAT 09/07/18 22:58 CULTURE BLOOD [BC] Stat TYPE AND SCREEN [BBK] Stat 09/07/18 23:27 CULTURE BLOOD [BC] Stat - Assessment/Plan Last 24 Hours: My Active Orders 09/07/18 22:15 EKG Documentation Completion [RC] STAT Pulse Oximetry [RC] ASDIRECTED Saline Lock Insert [OM.PC] Stat 09/07/18 22:16 BLOOD GAS ARTERIAL [BG] Stat CULTURE URINE [RM] Stat Blood Culture x2 Reflex Set [OM.PC] Stat 09/07/18 22:17 Sodium Chloride 0.9% [Saline Flush] 10 ml FLUSH ASDIRECTED PRN Sodium Chloride 0.9% [Saline Flush] 2.5 ml FLUSH ASDIRECTED PRN 09/07/18 22:30 Sodium Chloride 0.9% [Normal Saline] 1,000 ml IV STAT 09/07/18 22:58 CULTURE BLOOD [BC] Stat TYPE AND SCREEN [BBK] Stat 09/07/18 23:27 CULTURE BLOOD [BC] Stat
[2018-09-07] MEDS: Sodium Chloride 0.9% 1,000 ML IV SCH (22:32)
[2018-09-07] MEDS ORDERED: cefTRIAXone 1 GM in Premix Bag 1 BAG IV ONE (22:51)
[2018-09-07 23:01] LABS: CHLORIDE,CL 102 mmol/L (98-107); SODIUM,NA 137 mmol/L (136-145)
--- NOTE | 2018-09-08 00:24 | CR ---
INDICATION: Confusion. COMPARISON: 11/06/2017. FINDINGS/IMPRESSION: Subtle increased patchy opacity in the mid and lower right lung, questionably representing pneumonia. Left lung remains clear. No pleural effusions. Stable upper normal heart size and upper normal pulmonary vasculature. Port-A-Cath extending to the SVC, unchanged. Bilateral shoulder DJD changes, as before. Dictated by Floyd Hope MD @ 09/08/2018 12:21:37 AM Dictated by: Floyd Hope MD @ 09/08/2018 00:21:47 (Electronically Signed)
--- NOTE | 2018-09-08 00:27 | CT ---
INDICATION: Altered mental status. CT HEAD WITHOUT CONTRAST TECHNIQUE: Multiple axial CT images were performed through the head without intravenous contrast administration. COMPARISON: 09/11/[address] FINDINGS: No acute intracranial hemorrhage is identified. No extra-axial collections are evident and there is no mass effect or midline shift. There is mild diffuse age-related brain atrophy. Ventricular size and configuration are within normal limits for the patient`s age. Cote-white differentiation is within normal limits. There is stable patchy and confluent hypodensity in the periventricular white matter, a nonspecific finding which most likely reflects chronic small vessel ischemic change. Osseous structures are within normal limits and no fractures are seen. Included portions of the paranasal sinuses and mastoid air cells are normally aerated. IMPRESSION: 1. No acute intracranial abnormality identified. 2. Age-related brain atrophy and white matter hypodensity consistent with chronic small vessel ischemic change. HOLLIE BAILON MD [facility] Dictated by: Floyd Bailon MD @ 09/08/2018 00:26:44 (Electronically Signed)
[2018-09-08] MEDS ORDERED: Sodium Chloride 0.9% 2.5 ML Syringe FLUSH PRN (01:03)
[2018-09-08] MEDS ORDERED: Sodium Chloride 0.9% 10 ML Syringe FLUSH PRN (01:03)
[2018-09-08] MEDS ORDERED: Acetaminophen 325 MG Tab PO PRN (01:08)
[2018-09-08] MEDS ORDERED: Acyclovir 200 MG Cap PO PRN (07:41)
[2018-09-08] MEDS ORDERED: Bisacodyl 5 MG Tab PO PRN (07:44)
--- NOTE | 2018-09-08 07:49 | PCM.HP ---
H&P History of Present Illness - General Date of Service: 09/08/18 Admit Problem/Dx: Admission Diagnosis/Problem Admission Diagnosis/Problem Pneumonia Source of Information: Patient, Old Records History Limitations: Reports: No Limitations - History of Present Illness Initial Comments - Free Text/Narative: The patient is a 78-year-old lady who had presented to the emergency department late yesterday evening out of concern for cough and reportedly has some confusion. Family members are not present with her at this time. The patient has been doing well up until her current history of present illness. The patient does have a history of multiple myeloma which is not in remission. The patient has denied any fever or chills. She says that she has been coughing up some whitish sputum. She has had no specific chest pain. She does have a history of chronic fever and chills which is associated with multiple myeloma. Further, the patient says that she was walking in her house yesterday evening and struck her right leg on endless bed drum sander door and she has had some swelling and redness. The patient says that this is getting better. The patient has no other complaints at the present time. She says she has a follow-up appointment with her oncologist on September 13, 2018. Today, the patient says that she is feeling well enough to go home. Onset of Symptoms: Reports: Gradual Duration of Symptoms: Reports: Day(s):, Getting Worse Location: Reports: Chest Severity: Mild Improves with: Reports: None Associated Symptoms: Reports: Confusion, cough w sputum, Fever/Chills Back Pain Score (Numeric/FACES): 1 - Related Data Allergies/Adverse Reactions: Allergies Allergy/AdvReac Type Severity Reaction Status Date / Time ciprofloxacin [From Cipro] Allergy Airway Verified 09/08/18 01:42 Tightness ciprofloxacin HCl Allergy Airway Verified 09/08/18 01:42 [From Cipro] Tightness codeine Allergy Airway Verified 09/08/18 01:42 Tightness iodine Allergy Unknown Verified 09/08/18 01:42 lenalidomide [From Revlimid] Allergy Airway Verified 09/08/18 01:42 Tightness shellfish derived Allergy Unknown Verified 09/08/18 01:42 Sulfa (Sulfonamide Allergy Unknown Verified 09/08/18 01:42 Antibiotics) Home Medications: Home Meds Acetaminophen [Tylenol Arthritis Pain] 650 mg PO Q6H PRN 08/12/15 [History] Chlorpheniramine Maleate 4 mg PO DAILY PRN 04/01/15 [History] Escitalopram [Lexapro] 10 mg PO BEDTIME 04/01/15 [History] Famotidine [Pepcid] 20 mg PO BID 04/01/15 [History] Gabapentin [Neurontin] 900 mg PO TID 04/01/15 [History] Potassium Chloride [Klor-Con 10] 10 meq PO TID 04/01/15 [History] atorvaSTATin Calcium [Atorvastatin Calcium] 10 mg PO BEDTIME 04/01/15 [History] fentaNYL [Fentanyl] 50 mcg TRDERM Q72H 04/01/15 [History] Acetaminophen/oxyCODONE [Percocet 325-5 MG] 10 - 325 mg PO Q4HR PRN 05/01/15 [ History] Acyclovir 400 mg PO BID PRN 12/17/15 [History] Furosemide [Lasix] 40 mg PO DAILY 12/17/15 [History] Latanoprost [Xalatan 0.005% Oph Soln] 1 drop EYEBOTH BEDTIME 12/30/15 [History ] Fexofenadine [Lesley] 180 mg PO DAILY PRN 11/06/17 [History] Levothyroxine 137 mcg PO DAILY 11/06/17 [History] Lisinopril 20 mg PO DAILY 11/06/17 [History] Loperamide [Imodium] 2 mg PO Q4H PRN 8 Days #48 cap 11/07/17 [Rx] Aspirin 81 mg PO DAILY 09/07/18 [History] Calcium Carb & Citrate/Vit D3 [Citracal + D ER] 1 tab PO DAILY 09/07/18 [History ] Cholecalciferol (Vitamin D3) [Vitamin D3] 5,000 unit PO DAILY 09/07/18 [History] Ixazomib Citrate [Ninlaro] 4 mg PO ASDIRECTED 09/07/18 [History] Past Medical History HEENT History: Reports: Cataract, Glaucoma, Impaired Vision Cardiovascular History: Reports: Blood Clots/VTE/DVT, Heart Failure, Hypertension Other Cardiovascular History: blood clots behind left knee Respiratory History: Reports: None Other Respiratory History: Hx of pneumonia Gastrointestinal History: Reports: GERD, Hiatal Hernia, Irritable Bowel Syndrome Genitourinary History: Reports: Acute Renal Failure, Renal Calculus, UTI, Recurrent Other Genitourinary History: Hx of renal failure, no longer in failure 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 Neurological History: Reports: None Psychiatric History: Reports: Anxiety Endocrine/Metabolic History: Reports: Diabetes, Type II, Hypothyroidism Other Endocrine/Metabolic History: History of Diabetes, Not currently an issue. Hematologic History: Reports: Anemia Immunologic History: Reports: None Oncologic (Cancer) History: Reports: Bone Other Oncologic History: multiple myeloma, Stage III Dermatologic History: Reports: Cellulitis - Infectious Disease History Infectious Disease History: Reports: Chicken Pox, Measles, Shingles, Other (See Below) Other Infectious Disease History: MSSA - Past Surgical History HEENT Surgical History: Reports: Eye Surgery Female Surgical History: Reports: Nephrectomy Musculoskeletal Surgical History: Reports: Carpal Tunnel, Other (See Below) Social & Family History - Family History Family Medical History: Noncontributory HEENT: Reports: Impaired Vision Cardiac: Reports: Heart Failure Respiratory: Reports: Asthma OBGYN: Reports: Musculoskeletal: Reports: Arthritis, Gout Neurological: Reports: Cerebral Aneurysms Endocrine/Metabolic: Reports: Diabetes, type II Oncologic: Reports: Breast, Colon, Liver - Tobacco Use Smoking Status *Q: Former Smoker Used Tobacco, but Quit: No Month/Year Tobacco Last Used: 1978 - Caffeine Use Caffeine Use: Reports: Coffee Other Caffeine Use: 1-2 cups daily - Recreational Drug Use Recreational Drug Use: No H&P Review of Systems - Review of Systems: Review Of Systems: See Below General: Reports: Fever, Chills, Malaise HEENT: Reports: No Symptoms Pulmonary: Reports: Cough, Sputum Cardiovascular: Reports: No Symptoms Gastrointestinal: Reports: Constipation Genitourinary: Reports: No Symptoms Musculoskeletal: Reports: No Symptoms Skin: Reports: Bruising, Rash Psychiatric: Reports: No Symptoms Neurological: Reports: Confusion Hematologic/Lymphatic: Reports: Easy Bruising Immunologic: Reports: No Symptoms Exam - Exam Exam: See Below - Vital Signs Vital Signs: Last Vital Signs Temp 36.3 C 09/08/18 05:48 Pulse 81 09/08/18 05:48 Resp 19 09/08/18 05:48 BP 102/65 09/08/18 05:48 Pulse Ox 93 L 09/08/18 05:48 Weight: 94.982 kg - Exam Quality Assessment: No: Supplemental Oxygen General: Alert, Oriented, Cooperative HEENT: Conjunctiva Clear, EACs Clear, EOMI, Hearing Intact, Nares Patent, PERRLA. No: Mucosa Moist & [place] (Dry) Neck: Supple, Trachea Midline Lungs: Clear to Auscultation, Normal Respiratory Effort Cardiovascular: Regular Rate, Regular Rhythm, Normal S1, Normal S2 GI/Abdominal Exam: Normal Bowel Sounds, Soft, Non-Tender, No Distention, No Mass. No: Guarding, Rebound (Female) Exam: Deferred Rectal (Female) Exam: Deferred Back Exam: Decreased Range of Motion. No: Normal Inspection (Kyphoscoliosis) Extremities: Normal Range of Motion, Pedal Edema Skin: Warm, Rash (Bilateral chronic skin changes lower extremities with increasing redness of right lower leg), Ecchymosis (Scattered, various parts of body) Neurological: Cranial Nerves Intact Psychiatric: Alert, Normal Affect, Normal Mood - Patient Data Lab Results Last 24 hrs: Laboratory Results - last 24 hr 09/07/18 09/07/18 09/07/18 Range/Units 22:11 22:13 22:13 WBC 8.79 (4.0-11.0) K/uL RBC 3.53 L (4.30-5.90) M/uL Hgb 10.4 L (12.0-16.0) g/dL Hct 32.8 L (36.0-46.0) % MCV 92.9 (80.0-98.0) fL MCH 29.5 (27.0-32.0) pg MCHC 31.7 (31.0-37.0) g/dL RDW Std Deviation 52.6 (28.0-62.0) fl RDW Coeff of Antony 16 H (11.0-15.0) % Plt Count 210 (150-400) K/uL MPV 11.00 (7.40-12.00) fL Neut % (Auto) 70.7 (48.0-80.0) % Lymph % (Auto) 17.3 (16.0-40.0) % [place] % (Auto) 9.1 (0.0-15.0) % Eos % (Auto) 2.8 (0.0-7.0) % Baso % (Auto) 0.1 (0.0-1.5) % Neut # (Auto) 6.2 H (1.4-5.7) K/uL Lymph # (Auto) 1.5 (0.6-2.4) K/uL [place] # (Auto) 0.8 (0.0-0.8) K/uL Eos # (Auto) 0.3 (0.0-0.7) K/uL Baso # (Auto) 0.0 (0.0-0.1) K/uL Nucleated RBC % 0.0 /100WBC Nucleated RBCs # 0 K/uL INR 0.98 Lactate (0.20-2.00) mmol/L Sodium (136-145) mmol/L Potassium (3.5-5.1) mmol/L Chloride (98-107) mmol/L Carbon Dioxide (21.0-32.0) mmol/L BUN (7.0-18.0) mg/dL Creatinine (0.6-1.0) mg/dL Est Cr Clr Drug Dosing mL/min Estimated GFR (MDRD) ml/min Glucose (74-106) mg/dL POC Glucose 94 (60-110) mg/dL Calcium (8.5-10.1) mg/dL Total Bilirubin (0.2-1.0) mg/dL AST (15-37) IU/L ALT (14-63) IU/L Alkaline Phosphatase (46-116) U/L Ammonia (19-54) ug/dL Troponin I (0.000-0.056) ng/mL Total Protein (6.4-8.2) g/dL Albumin (3.4-5.0) g/dL Globulin (2.6-4.0) g/dL Albumin/Globulin Ratio (0.9-1.6) TSH 3rd Generation (0.36-3.74) uIU/mL Urine Color Urine Appearance Urine pH (5.0-8.0) Ur Specific [place] (1.001-1.035) Urine Protein (NEGATIVE) mg/dL Urine Glucose (UA) (NEGATIVE) mg/dL Urine Ketones (NEGATIVE) mg/dL Urine Occult Blood (NEGATIVE) Urine Nitrite (NEGATIVE) Urine Bilirubin (NEGATIVE) Urine Urobilinogen (<2.0) EU/dL Ur Leukocyte Esterase (NEGATIVE) Urine RBC (0-2/HPF) Urine WBC (0-5/HPF) Ur Epithelial Cells (NONE-FEW) Urine Bacteria (NEGATIVE) Coarse Granular Casts (NEGATIVE) Blood Type 09/07/18 09/07/18 09/07/18 Range/Units 22:13 22:13 22:13 WBC (4.0-11.0) K/uL RBC (4.30-5.90) M/uL Hgb (12.0-16.0) g/dL Hct (36.0-46.0) % MCV (80.0-98.0) fL MCH (27.0-32.0) pg MCHC (31.0-37.0) g/dL RDW Std Deviation (28.0-62.0) fl RDW Coeff of Antony (11.0-15.0) % Plt Count (150-400) K/uL MPV (7.40-12.00) fL Neut % (Auto) (48.0-80.0) % Lymph % (Auto) (16.0-40.0) % [place] % (Auto) (0.0-15.0) % Eos % (Auto) (0.0-7.0) % Baso % (Auto) (0.0-1.5) % Neut # (Auto) (1.4-5.7) K/uL Lymph # (Auto) (0.6-2.4) K/uL [place] # (Auto) (0.0-0.8) K/uL Eos # (Auto) (0.0-0.7) K/uL Baso # (Auto) (0.0-0.1) K/uL Nucleated RBC % /100WBC Nucleated RBCs # K/uL INR Lactate 1.0 (0.20-2.00) mmol/L Sodium 137 (136-145) mmol/L Potassium 4.9 (3.5-5.1) mmol/L Chloride 102 (98-107) mmol/L Carbon Dioxide 27.6 (21.0-32.0) mmol/L BUN 47 H (7.0-18.0) mg/dL Creatinine 2.8 H (0.6-1.0) mg/dL Est Cr Clr Drug Dosing 15.38 mL/min Estimated GFR (MDRD) 16.4 ml/min Glucose 92 (74-106) mg/dL POC Glucose (60-110) mg/dL Calcium 9.3 (8.5-10.1) mg/dL Total Bilirubin 0.4 (0.2-1.0) mg/dL AST 13 L (15-37) IU/L ALT 16 (14-63) IU/L Alkaline Phosphatase 88 (46-116) U/L Ammonia 4 L (19-54) ug/dL Troponin I < 0.050 (0.000-0.056) ng/mL Total Protein 6.6 (6.4-8.2) g/dL Albumin 3.0 L (3.4-5.0) g/dL Globulin 3.6 (2.6-4.0) g/dL Albumin/Globulin Ratio 0.8 L (0.9-1.6) TSH 3rd Generation 13.38 H (0.36-3.74) uIU/mL Urine Color Urine Appearance Urine pH (5.0-8.0) Ur Specific [place] (1.001-1.035) Urine Protein (NEGATIVE) mg/dL Urine Glucose (UA) (NEGATIVE) mg/dL Urine Ketones (NEGATIVE) mg/dL Urine Occult Blood (NEGATIVE) Urine Nitrite (NEGATIVE) Urine Bilirubin (NEGATIVE) Urine Urobilinogen (<2.0) EU/dL Ur Leukocyte Esterase (NEGATIVE) Urine RBC (0-2/HPF) Urine WBC (0-5/HPF) Ur Epithelial Cells (NONE-FEW) Urine Bacteria (NEGATIVE) Coarse Granular Casts (NEGATIVE) Blood Type 09/07/18 09/07/18 09/08/18 Range/Units 22:16 22:58 06:10 WBC 7.33 (4.0-11.0) K/uL RBC 3.55 L (4.30-5.90) M/uL Hgb 10.3 L (12.0-16.0) g/dL Hct 32.6 L (36.0-46.0) % MCV 91.8 (80.0-98.0) fL MCH 29.0 (27.0-32.0) pg MCHC 31.6 (31.0-37.0) g/dL RDW Std Deviation 51.9 (28.0-62.0) fl RDW Coeff of Antony 15 (11.0-15.0) % Plt Count 150 (150-400) K/uL MPV 10.70 (7.40-12.00) fL Neut % (Auto) 67.0 (48.0-80.0) % Lymph % (Auto) 19.2 (16.0-40.0) % [place] % (Auto) 9.7 (0.0-15.0) % Eos % (Auto) 3.7 (0.0-7.0) % Baso % (Auto) 0.4 (0.0-1.5) % Neut # (Auto) 4.9 (1.4-5.7) K/uL Lymph # (Auto) 1.4 (0.6-2.4) K/uL [place] # (Auto) 0.7 (0.0-0.8) K/uL Eos # (Auto) 0.3 (0.0-0.7) K/uL Baso # (Auto) 0.0 (0.0-0.1) K/uL Nucleated RBC % 0.0 /100WBC Nucleated RBCs # 0 K/uL INR Lactate (0.20-2.00) mmol/L Sodium (136-145) mmol/L Potassium (3.5-5.1) mmol/L Chloride (98-107) mmol/L Carbon Dioxide (21.0-32.0) mmol/L BUN (7.0-18.0) mg/dL Creatinine (0.6-1.0) mg/dL Est Cr Clr Drug Dosing mL/min Estimated GFR (MDRD) ml/min Glucose (74-106) mg/dL POC Glucose (60-110) mg/dL Calcium (8.5-10.1) mg/dL Total Bilirubin (0.2-1.0) mg/dL AST (15-37) IU/L ALT (14-63) IU/L Alkaline Phosphatase (46-116) U/L Ammonia (19-54) ug/dL Troponin I (0.000-0.056) ng/mL Total Protein (6.4-8.2) g/dL Albumin (3.4-5.0) g/dL Globulin (2.6-4.0) g/dL Albumin/Globulin Ratio (0.9-1.6) TSH 3rd Generation (0.36-3.74) uIU/mL Urine Color YELLOW Urine Appearance SLT CLOUDY Urine pH 5.5 (5.0-8.0) Ur Specific [place] 1.025 (1.001-1.035) Urine Protein TRACE H (NEGATIVE) mg/dL Urine Glucose (UA) NEGATIVE (NEGATIVE) mg/dL Urine Ketones NEGATIVE (NEGATIVE) mg/dL Urine Occult Blood SMALL H (NEGATIVE) Urine Nitrite POSITIVE H (NEGATIVE) Urine Bilirubin NEGATIVE (NEGATIVE) Urine Urobilinogen 0.2 (<2.0) EU/dL Ur Leukocyte Esterase NEGATIVE (NEGATIVE) Urine RBC 0-3 (0-2/HPF) Urine WBC 5-10 (0-5/HPF) Ur Epithelial Cells FEW (NONE-FEW) Urine Bacteria 3+ H (NEGATIVE) Coarse Granular Casts 0-3 (NEGATIVE) Blood Type O NEGATIVE 09/08/18 Range/Units 06:10 WBC (4.0-11.0) K/uL RBC (4.30-5.90) M/uL Hgb (12.0-16.0) g/dL Hct (36.0-46.0) % MCV (80.0-98.0) fL MCH (27.0-32.0) pg MCHC (31.0-37.0) g/dL RDW Std Deviation (28.0-62.0) fl RDW Coeff of Antony (11.0-15.0) % Plt Count (150-400) K/uL MPV (7.40-12.00) fL Neut % (Auto) (48.0-80.0) % Lymph % (Auto) (16.0-40.0) % [place] % (Auto) (0.0-15.0) % Eos % (Auto) (0.0-7.0) % Baso % (Auto) (0.0-1.5) % Neut # (Auto) (1.4-5.7) K/uL Lymph # (Auto) (0.6-2.4) K/uL [place] # (Auto) (0.0-0.8) K/uL Eos # (Auto) (0.0-0.7) K/uL Baso # (Auto) (0.0-0.1) K/uL Nucleated RBC % /100WBC Nucleated RBCs # K/uL INR Lactate (0.20-2.00) mmol/L Sodium 135 L (136-145) mmol/L Potassium 4.7 (3.5-5.1) mmol/L Chloride 105 (98-107) mmol/L Carbon Dioxide 23.0 (21.0-32.0) mmol/L BUN 39 H (7.0-18.0) mg/dL Creatinine 1.9 H (0.6-1.0) mg/dL Est Cr Clr Drug Dosing 18.09 mL/min Estimated GFR (MDRD) 25.7 ml/min Glucose 94 (74-106) mg/dL POC Glucose (60-110) mg/dL Calcium 9.1 (8.5-10.1) mg/dL Total Bilirubin 0.3 (0.2-1.0) mg/dL AST 12 L (15-37) IU/L ALT 12 L (14-63) IU/L Alkaline Phosphatase 77 (46-116) U/L Ammonia (19-54) ug/dL Troponin I (0.000-0.056) ng/mL Total Protein 6.1 L (6.4-8.2) g/dL Albumin 2.6 L (3.4-5.0) g/dL Globulin 3.5 (2.6-4.0) g/dL Albumin/Globulin Ratio 0.7 L (0.9-1.6) TSH 3rd Generation (0.36-3.74) uIU/mL Urine Color Urine Appearance Urine pH (5.0-8.0) Ur Specific [place] (1.001-1.035) Urine Protein (NEGATIVE) mg/dL Urine Glucose (UA) (NEGATIVE) mg/dL Urine Ketones (NEGATIVE) mg/dL Urine Occult Blood (NEGATIVE) Urine Nitrite (NEGATIVE) Urine Bilirubin (NEGATIVE) Urine Urobilinogen (<2.0) EU/dL Ur Leukocyte Esterase (NEGATIVE) Urine RBC (0-2/HPF) Urine WBC (0-5/HPF) Ur Epithelial Cells (NONE-FEW) Urine Bacteria (NEGATIVE) Coarse Granular Casts (NEGATIVE) Blood Type Result Diagrams: 09/08/18 06:10 09/08/18 06:10 *Q Meaningful Use (ADM) - VTE *Q VTE Mechanical Contraindications *Q: Bilateral Lower Dermatits - VTE Risk Assess *Q Each Risk Factor Represents 1 Point: Obesity ( BMI > 25 kg/m2), Serious lung disease including pneumonia Total Score 1 Point Risk Factors: 2 Each Risk Factor Represents 3 Points: Age 75 Years or Greater Total Score 3 Point Risk Factors: 3 - Problem List (1) Pneumonia SNOMED Code(s): 242381821 ICD Code: J18.9 - PNEUMONIA, UNSPECIFIED ORGANISM Status: Acute Priority : High Current Visit: Yes Qualifiers: Pneumonia type: due to unspecified organism Laterality: right Lung location: lower lobe of lung Qualified Code(s): J18.1 - Lobar pneumonia, unspecified organism (2) UTI, Urinary tract infectious disease SNOMED Code(s): 33642424 ICD Code: N39.0 - URINARY TRACT INFECTION, SITE NOT SPECIFIED Status: Acute Priority: High Current Visit: Yes (3) Cellulitis SNOMED Code(s): 112185265 ICD Code: L03.90 - CELLULITIS, UNSPECIFIED Status: Chronic Priority: High Current Visit: Yes Qualifiers: Site of cellulitis: extremity Site of cellulitis of extremity: lower extremity Laterality: right Qualified Code(s): L03.115 - Cellulitis of right lower limb (4) Multiple myeloma, stage 3 SNOMED Code(s): 443384993, 493809557 ICD Code: C90.00 - MULTIPLE MYELOMA NOT HAVING ACHIEVED REMISSION Status: Chronic Priority: High Current Visit: Yes (5) Anemia SNOMED Code(s): 114815520 ICD Code: D64.9 - ANEMIA, UNSPECIFIED Status: Chronic Priority: High Current Visit: Yes Problem Details: stable Qualifiers: Anemia type: other cause Other causes of anemia: chronic disease, neoplastic Qualified Code(s): D63.0 - Anemia in neoplastic disease (6) Chronic kidney disease, stage 3 SNOMED Code(s): 088606788 ICD Code: N18.3 - CHRONIC KIDNEY DISEASE, STAGE 3 (MODERATE) Status: Chronic Priority: High Current Visit: Yes Problem List Initiated/Reviewed/Updated: Yes Orders Last 24hrs: Active Orders 24 hr Category Date Time Status Admission Status [Patient Status] [ADT] Stat ADT 09/08/18 00:38 Active Communication Order [RC] DAILY Care 09/08/18 09:00 Active EKG Documentation Completion [RC] STAT Care 09/07/18 22:15 Active Oxygen Therapy [RC] PRN Care 09/08/18 07:44 Ordered Pulse Oximetry [RC] ASDIRECTED Care 09/07/18 22:15 Active Up ad Judy [RC] ASDIRECTED Care 09/08/18 01:04 Active VTE/DVT Education [RC] PER UNIT ROUTINE Care 09/08/18 07:44 Ordered Vital Signs [RC] Q4H Care 09/08/18 07:44 Ordered Regular Diet [DIET] Diet 09/08/18 Breakfast Active BLOOD GAS ARTERIAL [BG] Stat Lab 09/07/18 22:16 Ordered CBC WITH AUTO DIFF [HEME] AM Lab 09/09/18 05:11 Ordered COMPREHENSIVE METABOLIC PN,CMP [CHEM] AM Lab 09/09/18 05:11 Ordered CULTURE BLOOD [BC] Stat Lab 09/07/18 22:58 Received CULTURE BLOOD [BC] Stat Lab 09/07/18 23:27 Received CULTURE URINE [RM] Stat Lab 09/07/18 22:16 Received TYPE AND SCREEN [BBK] Stat Lab 09/07/18 22:58 Results Acetaminophen [Tylenol] Med 09/08/18 01:08 Active 650 mg PO Q4H PRN Acetaminophen/oxyCODONE [Percocet 325-5 MG] Med 09/08/18 07:41 Ordered 10 mg PO Q4HR PRN Acyclovir Med 09/08/18 07:41 Ordered 400 mg PO BID PRN Aspirin Med 09/08/18 09:00 Ordered 81 mg PO DAILY Bisacodyl [Dulcolax] Med 09/08/18 07:44 Ordered 5 mg PO DAILY PRN Escitalopram [Lexapro] Med 09/08/18 21:00 Ordered 10 mg PO BEDTIME Famotidine [Pepcid] Med 09/08/18 09:00 Ordered 20 mg PO BID Furosemide [Lasix] Med 09/08/18 09:00 Ordered 40 mg PO DAILY Gabapentin [Neurontin] Med 09/08/18 14:00 Ordered 900 mg PO TID Heparin Sodium Med 09/08/18 07:45 Ordered 5,000 units SUBCUT Q8H Ixazomib Citrate [Ninlaro] Med 09/08/18 07:45 Ordered 4 mg PO ASDIRECTED Latanoprost [Xalatan 0.005% Ophth Soln] Med 09/08/18 21:00 Ordered 1 drop EYEBOTH BEDTIME Levothyroxine Med 09/08/18 09:00 Ordered 137 mcg PO DAILY Lisinopril Med 09/08/18 09:00 Ordered 20 mg PO DAILY Potassium Chloride [Klor-Con 10] Med 09/08/18 14:00 Ordered 10 meq PO TID Sodium Chloride 0.9% [Normal Saline] 1,000 ml Med 09/07/18 22:30 Active IV STAT Sodium Chloride 0.9% [Saline Flush] Med 09/07/18 22:17 Active 10 ml FLUSH ASDIRECTED PRN Sodium Chloride 0.9% [Saline Flush] Med 09/08/18 01:03 Active 10 ml FLUSH ASDIRECTED PRN Sodium Chloride 0.9% [Saline Flush] Med 09/07/18 22:17 Active 2.5 ml FLUSH ASDIRECTED PRN Sodium Chloride 0.9% [Saline Flush] Med 09/08/18 01:03 Active 2.5 ml FLUSH ASDIRECTED PRN Temazepam [Restoril] Med 09/08/18 07:44 Ordered 15 mg PO BEDTIME PRN atorvaSTATin [Lipitor] Med 09/08/18 21:00 Ordered 10 mg PO BEDTIME fentaNYL [Fentanyl] Med 09/08/18 07:45 Ordered 50 mcg TRDERM Q72H Blood Culture x2 Reflex Set [OM.PC] Stat Oth 09/07/18 22:16 Ordered Saline Lock Insert [OM.PC] Routine Oth 09/08/18 01:03 Ordered Saline Lock Insert [OM.PC] Stat Oth 09/07/18 22:15 Ordered Resuscitation Status Routine Resus Stat 09/08/18 07:44 Ordered Medication Orders Acetaminophen (Tylenol) 650 mg PO Q4H PRN PRN Reason: Pain (mild 1-3) Aspirin (Aspirin) 81 mg PO DAILY ARMIDA Atorvastatin Calcium (Lipitor) 10 mg PO BEDTIME ARMIDA Bisacodyl (Dulcolax) 5 mg PO DAILY PRN PRN Reason: Constipation Escitalopram Oxalate (Lexapro) 10 mg PO BEDTIME ARMIDA Famotidine (Pepcid) 20 mg PO BID ARMIDA Furosemide (Lasix) 40 mg PO DAILY ARMIDA Gabapentin (Neurontin) 900 mg PO TID ARMIDA Heparin Sodium (Porcine) (Heparin Sodium) 5,000 units SUBCUT Q8H ARMIDA Sodium Chloride (Normal Saline) 1,000 mls @ 125 mls/hr IV STAT ARMIDA Last Admin: 09/07/18 22:32 Dose: 125 mls/hr Latanoprost (Xalatan 0.005% Ophth Soln) ml EYEBOTH BEDTIME ARMIDA Levothyroxine Sodium (Levothyroxine) 137 mcg PO DAILY ARMIDA Non-Formulary Medication (Acyclovir) 400 mg PO BID PRN PRN Reason: cold sore Non-Formulary Medication (Fentanyl [Fentanyl]) 50 mcg TRDERM Q72H ARMIDA Non-Formulary Medication (Ixazomib Citrate [Ninlaro]) 4 mg PO ASDIRECTED ARMIDA Non-Formulary Medication (Lisinopril) 20 mg PO DAILY ARMIDA Oxycodone/Acetaminophen (Percocet 325-5 Mg) tab PO Q4HR PRN PRN Reason: Pain Potassium Chloride (Klor-Con 10) 10 meq PO TID ARMIDA Sodium Chloride (Saline Flush) 10 ml FLUSH ASDIRECTED PRN PRN Reason: Keep Vein Open Sodium Chloride (Saline Flush) 2.5 ml FLUSH ASDIRECTED PRN PRN Reason: Keep Vein Open Sodium Chloride (Saline Flush) 10 ml FLUSH ASDIRECTED PRN PRN Reason: Keep Vein Open Sodium Chloride (Saline Flush) 2.5 ml FLUSH ASDIRECTED PRN PRN Reason: Keep Vein Open Temazepam (Restoril) 15 mg PO BEDTIME PRN PRN Reason: Sleep Assessment/Plan Comment:: The patient is a 78-year-old lady who had presented to the emergency department secondary to cough and checks x-ray had shown right-sided patchy infiltrates it would be consistent with pneumonia. The patient will be admitted for treatment of this with the use of aggressive IV antibiotic therapy with the use of Zosyn and vancomycin. This is due to her history of multiple myeloma with chemotherapy. These antibiotics should also help with the patient's mild urinary tract infection. The patient is also at risk for DVT with her history of thrombophlebitis along with her cancer and she will be treated with heparin secondary to her apparently chronic kidney disease. The patient will have her creatinine monitored closely to determine if she has chronic kidney disease as opposed to acute renal insufficiency. The patient is anemic and she will be monitored very closely and if her hemoglobin drops below 7 g/dL we'll consider transfusion. The patient also has been encouraged to ambulate with assistance as needed. 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 This will be monitored for now. I've also discussed with pharmacist to use of Zosyn and vancomycin with regards to her renal function. Cultures are currently pending. In spite of the fact the patient says that she's well enough to go home I recommended that she stay at least 1 more day in order to be safely discharged.
[2018-09-08] MEDS: Heparin Sodium 5,000 Units/ML Vial SUBCUT SCH ×2 (08:39→16:01)
[2018-09-08] MEDS: Sodium Chloride 0.9% 1,000 ML IV SCH ×2 (08:41→19:41)
[2018-09-08] MEDS: Piperacillin/Tazobactam 2.25 GM in Sodium Chloride 0.9% 50 ML IV SCH ×2 (08:42→16:07)
[2018-09-08] MEDS: Levothyroxine 25 MCG Tab PO SCH (08:49)
[2018-09-08] MEDS: Lisinopril 10 MG Tab PO SCH (08:49)
[2018-09-08] MEDS: Levothyroxine 112 MCG Tab PO SCH (08:49)
[2018-09-08] MEDS: Furosemide 40 MG Tab PO SCH (08:50)
[2018-09-08] MEDS: Famotidine 20 MG Tab PO SCH (08:50)
[2018-09-08] MEDS: Aspirin 81 MG Tab.Chew PO SCH (08:50)
[2018-09-08] MEDS ORDERED: Gabapentin 300 MG Cap PO SCH (09:00)
[2018-09-08] MEDS: Vancomycin 1.5 GM in Sodium Chloride 0.9% 500 ML IV SCH (11:02)
[2018-09-08] MEDS: fentaNYL 50 MCG/HR Transdermal Patch TRDERM SCH (11:42)
[2018-09-08] MEDS: Potassium Chloride 10 MEQ Tab.ER PO SCH ×2 (14:27→21:05)
[2018-09-08] MEDS: atorvaSTATin 10 MG Tab PO SCH (21:05)
[2018-09-08] MEDS: Escitalopram 10 MG Tab PO SCH (21:05)
[2018-09-08] MEDS: Acetaminophen/oxyCODONE 325-5 MG Tab PO PRN (21:06)
[2018-09-08] MEDS: Latanoprost 0.005% Ophth Soln 2.5 ML Bottle EYEBOTH SCH (21:22)
[2018-09-09] MEDS: Heparin Sodium 5,000 Units/ML Vial SUBCUT SCH ×4 (00:11→23:44)
[2018-09-09] MEDS: Piperacillin/Tazobactam 2.25 GM in Sodium Chloride 0.9% 50 ML IV SCH ×4 (00:12→23:45)
[2018-09-09] MEDS: Temazepam 15 MG Cap PO PRN (00:22)
[2018-09-09] MEDS: Acetaminophen/oxyCODONE 325-5 MG Tab PO PRN ×6 (01:22→23:47)
[2018-09-09] MEDS: Sodium Chloride 0.9% 1,000 ML IV SCH ×3 (04:08→23:46)
[2018-09-09] MEDS ORDERED: Simethicone 80 MG Tab.Chew PO ONE (05:14)
[2018-09-09] MEDS: Potassium Chloride 10 MEQ Tab.ER PO SCH ×3 (06:45→21:19)
[2018-09-09] MEDS: Levothyroxine 112 MCG Tab PO SCH (06:46)
[2018-09-09] MEDS: Levothyroxine 25 MCG Tab PO SCH (06:46)
[2018-09-09] MEDS: Lisinopril 10 MG Tab PO SCH (08:24)
[2018-09-09] MEDS: Furosemide 40 MG Tab PO SCH (08:25)
[2018-09-09] MEDS: Aspirin 81 MG Tab.Chew PO SCH (08:25)
[2018-09-09] MEDS: Famotidine 20 MG Tab PO SCH (08:25)
[2018-09-09] MEDS ORDERED: Ixazomib Citrate [Ninlaro] 4 MG PO SCH (09:00)
--- NOTE | 2018-09-09 09:30 | PCM.PN ---
- General Info Date of Service: 09/09/18 Admission Dx/Problem (Free Text): Admission Diagnosis/Problem Admission Diagnosis/Problem Pneumonia Subjective Update: The patient is a 78-year-old lady who was admitted yesterday secondary to cough and confusion. The patient has stage III multiple myeloma that is currently not in remission. She also has been having difficulty with confusion and her family members have been concerned about her ability to care for herself. Today the patient says that she feels better and like she should be able to go home. She still has a cough and she is somewhat confused. Overall the patient says that she does feel somewhat better today. She does have a history of chronic fever and chills which is also associated with a multiple myeloma. Functional Status: Reports: Pain Controlled - Review of Systems General: Reports: No Symptoms HEENT: Reports: No Symptoms Pulmonary: Reports: No Symptoms Cardiovascular: Reports: No Symptoms Gastrointestinal: Reports: No Symptoms Genitourinary: Reports: No Symptoms Musculoskeletal: Reports: No Symptoms Skin: Reports: No Symptoms Neurological: Reports: No Symptoms Psychiatric: Reports: No Symptoms Systems Review Comment:: Poor historian - Patient Data Vitals - Most Recent: Last Vital Signs Temp 36 C 09/09/18 07:29 Pulse 82 09/09/18 07:29 Resp 16 09/09/18 07:29 BP 112/70 09/09/18 08:24 Pulse Ox 92 L 09/09/18 07:31 Weight - Most Recent: 94.982 kg I&O - Last 24 Hours: Intake & Output 09/08/18 09/09/18 09/09/18 22:59 06:59 14:59 Intake Total 2820 1395 Output Total 3100 1350 Balance -280 45 Lab Results Last 24 Hours: Laboratory Results - last 24 hr 09/07/18 09/09/18 09/09/18 Range/Units 22:58 06:24 06:24 WBC 8.12 (4.0-11.0) K/uL RBC 3.92 L (4.30-5.90) M/uL Hgb 11.3 L (12.0-16.0) g/dL Hct 35.7 L (36.0-46.0) % MCV 91.1 (80.0-98.0) fL MCH 28.8 (27.0-32.0) pg MCHC 31.7 (31.0-37.0) g/dL RDW Std Deviation 51.4 (28.0-62.0) fl RDW Coeff of Antony 15 (11.0-15.0) % Plt Count 158 (150-400) K/uL MPV 11.20 (7.40-12.00) fL Neut % (Auto) 73.5 (48.0-80.0) % Lymph % (Auto) 17.0 (16.0-40.0) % [place] % (Auto) 7.5 (0.0-15.0) % Eos % (Auto) 1.8 (0.0-7.0) % Baso % (Auto) 0.2 (0.0-1.5) % Neut # (Auto) 6.0 H (1.4-5.7) K/uL Lymph # (Auto) 1.4 (0.6-2.4) K/uL [place] # (Auto) 0.6 (0.0-0.8) K/uL Eos # (Auto) 0.2 (0.0-0.7) K/uL Baso # (Auto) 0.0 (0.0-0.1) K/uL Nucleated RBC % 0.0 /100WBC Nucleated RBCs # 0 K/uL Sodium 138 (136-145) mmol/L Potassium 4.9 (3.5-5.1) mmol/L Chloride 104 (98-107) mmol/L Carbon Dioxide 24.5 (21.0-32.0) mmol/L BUN 22 H (7.0-18.0) mg/dL Creatinine 1.3 H (0.6-1.0) mg/dL Est Cr Clr Drug Dosing 26.44 mL/min Estimated GFR (MDRD) 39.8 ml/min Glucose 108 H (74-106) mg/dL Calcium 8.6 (8.5-10.1) mg/dL Total Bilirubin 0.4 (0.2-1.0) mg/dL AST 16 (15-37) IU/L ALT 13 L (14-63) IU/L Alkaline Phosphatase 74 (46-116) U/L Total Protein 6.4 (6.4-8.2) g/dL Albumin 3.1 L (3.4-5.0) g/dL Globulin 3.3 (2.6-4.0) g/dL Albumin/Globulin Ratio 0.9 (0.9-1.6) Blood Type O NEGATIVE Antibody Screen POSITIVE Antibody Identification Cancelled MARITZA, Poly Interpret NEGATIVE (NEGATIVE) Richard Results Last 24 Hours: Microbiology 09/07/18 23:27 Aerobic Blood Culture - Preliminary Blood - Venous - Lab Draw NO GROWTH AFTER 1 DAY Anaerobic Blood Culture - Preliminary NO GROWTH AFTER 1 DAY 09/07/18 22:58 Aerobic Blood Culture - Preliminary Blood - Venous NO GROWTH AFTER 1 DAY Anaerobic Blood Culture - Preliminary NO GROWTH AFTER 1 DAY Med Orders - Current: Current Medications Acetaminophen (Tylenol) 650 mg PO Q4H PRN PRN Reason: Pain (mild 1-3) Acyclovir (Zovirax) 400 mg PO BID PRN PRN Reason: cold sore Aspirin (Aspirin) 81 mg PO DAILY [facility] Last Admin: 09/09/18 08:25 Dose: 81 mg Atorvastatin Calcium (Lipitor) 10 mg PO BEDTIME [facility] Last Admin: 09/08/18 21:05 Dose: 10 mg Bisacodyl (Dulcolax) 5 mg PO DAILY PRN PRN Reason: Constipation Escitalopram Oxalate (Lexapro) 10 mg PO BEDTIME [facility] Last Admin: 09/08/18 21:05 Dose: 10 mg Famotidine (Pepcid) 10 mg PO DAILY [facility] Last Admin: 09/09/18 08:25 Dose: 10 mg Fentanyl (Duragesic) 50 mcg TRDERM Q72H [facility] Last Admin: 09/08/18 11:42 Dose: 50 mcg Furosemide (Lasix) 40 mg PO DAILY [facility] Last Admin: 09/09/18 08:25 Dose: 40 mg Heparin Sodium (Porcine) (Heparin Sodium) 5,000 units SUBCUT Q8H [facility] Last Admin: 09/09/18 08:24 Dose: 5,000 units Sodium Chloride (Normal Saline) 1,000 mls @ 125 mls/hr IV STAT [facility] Last Admin: 09/09/18 04:08 Dose: 125 mls/hr Piperacillin Sod/Tazobactam (Sod 2.25 gm/ Sodium Chloride) 50 mls @ 100 mls/hr IV Q8H [facility] Last Admin: 09/09/18 08:29 Dose: 100 mls/hr Vancomycin HCl 1.5 gm/ Sodium (Chloride) 500 mls @ 333.333 mls/hr IV Q24H [facility] Last Admin: 09/08/18 11:02 Dose: 333.333 mls/hr Levothyroxine Sodium (Levothyroxine) 112 mcg PO ACBREAKFAST [facility] Last Admin: 09/09/18 06:46 Dose: 112 mcg Levothyroxine Sodium (Levothyroxine) 25 mcg PO ACBREAKFAST [facility] Last Admin: 09/09/18 06:46 Dose: 25 mcg Lisinopril (Prinivil) 20 mg PO DAILY [facility] Last Admin: 09/09/18 08:24 Dose: 20 mg Oxycodone/Acetaminophen (Percocet 325-5 Mg) 1 tab PO Q4H PRN PRN Reason: Pain Last Admin: 09/09/18 05:23 Dose: 1 tab Ixazomib Citrate [ (Ninlaro] 4 Mg) 1 each PO Dodge@0900 [facility] Stop: 09/23/18 09:01 Latanoprost 0.005% Ophth Soln 2.5 Ml Bottle 1 each EYEBOTH BEDTIME [facility] Last Admin: 09/08/18 21:22 Dose: Not Given Potassium Chloride (Klor-Con 10) 10 meq PO TID [facility] Last Admin: 09/09/18 06:45 Dose: 10 meq Sodium Chloride (Saline Flush) 10 ml FLUSH ASDIRECTED PRN PRN Reason: Keep Vein Open Sodium Chloride (Saline Flush) 2.5 ml FLUSH ASDIRECTED PRN PRN Reason: Keep Vein Open Sodium Chloride (Saline Flush) 10 ml FLUSH ASDIRECTED PRN PRN Reason: Keep Vein Open Sodium Chloride (Saline Flush) 2.5 ml FLUSH ASDIRECTED PRN PRN Reason: Keep Vein Open Temazepam (Restoril) 15 mg PO BEDTIME PRN PRN Reason: Sleep Last Admin: 09/09/18 00:22 Dose: 15 mg Vancomycin HCl (Pharmacy To Dose - Vancomycin) 1 dose .XX ASDIRECTED [facility] Discontinued Medications Ceftriaxone Sodium/Dextrose 1 (gm/ Premix) 50 mls @ 100 mls/hr IV ONETIME ONE Stop: 09/07/18 23:20 Last Admin: 09/07/18 23:01 Dose: 100 mls/hr Vancomycin HCl 1 gm/ Sodium (Chloride) 250 mls @ 250 mls/hr IV ONETIME ONE Stop: 09/07/18 23:50 Last Admin: 09/08/18 00:32 Dose: 250 mls/hr Simethicone (Simethicone) 80 mg PO ONETIME ONE Stop: 09/09/18 05:15 Last Admin: 09/09/18 05:24 Dose: 80 mg - Exam Quality Assessment: No: Supplemental Oxygen General: Alert (Mild confusion with short-term memory issues), Oriented, Cooperative HEENT: Pupils Equal, Pupils Reactive Neck: Supple, Trachea Midline Lungs: Clear to Auscultation, Normal Respiratory Effort Cardiovascular: Regular Rate, Regular Rhythm GI/Abdominal Exam: Normal Bowel Sounds, Soft, Non-Tender, No Distention (Female) Exam: Deferred Back Exam: No: Normal Inspection (Severe kyphoscoliosis), Full Range of Motion ( Kyphoscoliosis) Extremities: Pedal Edema (Chronic sclerotic changes) Skin: Warm Neurological: No New Focal Deficit Psy/Mental Status: Alert, Normal Affect - Problem List & Annotations (1) Pneumonia SNOMED Code(s): 699422656 Code(s): J18.9 - PNEUMONIA, UNSPECIFIED ORGANISM Status: Acute Priority: High Current Visit: Yes Qualifiers: Pneumonia type: due to unspecified organism Laterality: right Lung location: lower lobe of lung Qualified Code(s): J18.1 - Lobar pneumonia, unspecified organism (2) UTI, Urinary tract infectious disease SNOMED Code(s): 93725038 Code(s): N39.0 - URINARY TRACT INFECTION, SITE NOT SPECIFIED Status: Acute Priority: High Current Visit: Yes (3) Cellulitis SNOMED Code(s): 856862960 Code(s): L03.90 - CELLULITIS, UNSPECIFIED Status: Chronic Priority: High Current Visit: Yes Qualifiers: Site of cellulitis: extremity Site of cellulitis of extremity: lower extremity Laterality: right Qualified Code(s): L03.115 - Cellulitis of right lower limb (4) Multiple myeloma, stage 3 SNOMED Code(s): 989235471, 838114589 Code(s): C90.00 - MULTIPLE MYELOMA NOT HAVING ACHIEVED REMISSION Status: Chronic Priority: High Current Visit: Yes (5) Anemia SNOMED Code(s): 575403932 Code(s): D64.9 - ANEMIA, UNSPECIFIED Status: Chronic Priority: High Current Visit: Yes Qualifiers: Anemia type: other cause Other causes of anemia: chronic disease, neoplastic Qualified Code(s): D63.0 - Anemia in neoplastic disease Annotation/Comment:: stable (6) Chronic kidney disease, stage 3 SNOMED Code(s): 419737479 Code(s): N18.3 - CHRONIC KIDNEY DISEASE, STAGE 3 (MODERATE) Status: Chronic Priority: High Current Visit: Yes - Problem List Review Problem List Initiated/Reviewed/Updated: Yes - My Orders Last 24 Hours: My Active Orders 09/08/18 09:00 Communication Order [RC] DAILY Aspirin 81 mg PO DAILY Famotidine [Pepcid] 10 mg PO DAILY Furosemide [Lasix] 40 mg PO DAILY Levothyroxine 112 mcg PO ACBREAKFAST Levothyroxine 25 mcg PO ACBREAKFAST Lisinopril [Prinivil] 20 mg PO DAILY 09/08/18 10:00 Vancomycin 1.5 gm Sodium Chloride 0.9% [Normal Saline] 500 ml IV Q24H 09/08/18 11:00 fentaNYL [Duragesic] 50 mcg TRDERM Q72H 09/08/18 14:00 Potassium Chloride [Klor-Con 10] 10 meq PO TID 09/08/18 21:00 Escitalopram [Lexapro] 10 mg PO BEDTIME Patient's Own Medication [Ptom] 1 each EYEBOTH BEDTIME atorvaSTATin [Lipitor] 10 mg PO BEDTIME 09/09/18 09:00 Patient's Own Medication [Ptom] 1 each PO Dodge@0900 09/09/18 09:13 Discontinue Telemetry Monitoring [Cardiac Monitoring Discontinue] [RC] Click to Edit - Plan Plan:: The patient is a 78-year-old lady who had been admitted secondary to cough and chest x-rays that showed right-sided patchy infiltrates. She is currently on IV antibiotics for now these will be continued. More concerning however, was information provided by family members with regards to the patient's living situation. The patient currently lives at home with stairs and has been unable to go to the basement to do laundry. The patient also has been apparently eating very poorly and not caring for herself adequately. Family members have reported that all of her cooking utensils were reviewed and damaged. Further, they also expressed a concern that the patient has some paranoid factors as well. Because of those issues and the patient's confusion I feel that the patient is not safe to be discharged home at this time. Placement would be a consideration. I've recommended that family members discussed this with social media content manager tomorrow with regards to possible placement in skilled nursing. Repeated laboratory studies have been ordered for the morning. Physical therapy has been working or will work with the patient.
[2018-09-09] MEDS: Vancomycin 1.5 GM in Sodium Chloride 0.9% 500 ML IV SCH (10:25)
[2018-09-09] MEDS: Loperamide 2 MG Cap PO PRN ×3 (12:25→23:45)
[2018-09-09] MEDS: Escitalopram 10 MG Tab PO SCH (21:19)
[2018-09-09] MEDS: atorvaSTATin 10 MG Tab PO SCH (21:19)
[2018-09-09] MEDS: Latanoprost 0.005% Ophth Soln 2.5 ML Bottle EYEBOTH SCH (21:46)
[2018-09-10] MEDS: Heparin Sodium 5,000 Units/ML Vial SUBCUT SCH ×6 (00:05→23:47)
[2018-09-10] MEDS ORDERED: Haloperidol 1 MG Tab PO ONE (00:55)
[2018-09-10] MEDS: Loperamide 2 MG Cap PO PRN ×3 (01:17→12:00)
[2018-09-10] MEDS: Acetaminophen/oxyCODONE 325-5 MG Tab PO PRN ×5 (01:18→21:52)
[2018-09-10] MEDS: Levothyroxine 25 MCG Tab PO SCH (06:32)
[2018-09-10] MEDS: Potassium Chloride 10 MEQ Tab.ER PO SCH ×3 (06:32→21:53)
[2018-09-10] MEDS: Levothyroxine 112 MCG Tab PO SCH (06:33)
[2018-09-10] MEDS: Sodium Chloride 0.9% 1,000 ML IV SCH (07:30)
[2018-09-10] MEDS ORDERED: Levofloxacin/Dextrose 5%-Water 750 MG in Premix Bag 1 BAG IV SCH (08:00)
[2018-09-10] MEDS: Piperacillin/Tazobactam 2.25 GM in Sodium Chloride 0.9% 50 ML IV SCH ×3 (08:21→23:35)
[2018-09-10] MEDS: Aspirin 81 MG Tab.Chew PO SCH (09:55)
[2018-09-10] MEDS: Furosemide 40 MG Tab PO SCH (09:55)
[2018-09-10] MEDS: Lisinopril 10 MG Tab PO SCH (09:55)
[2018-09-10] MEDS: Famotidine 20 MG Tab PO SCH (09:56)
--- NOTE | 2018-09-10 10:33 | PCM.PN ---
- General Info Date of Service: 09/10/18 Subjective Update: Seen today at the bedside with patient's daughter in law. She complains of feeling cold. She denies any cough, shortness of breath, dysuria, fever. - Review of Systems General: Reports: Other (see hpi ) - Patient Data Vitals - Most Recent: Last Vital Signs Temp 36.2 C 09/10/18 08:00 Pulse 93 09/10/18 08:00 Resp 18 09/10/18 08:00 BP 113/67 09/10/18 09:55 Pulse Ox 95 09/10/18 08:00 Weight - Most Recent: 94.982 kg I&O - Last 24 Hours: Intake & Output 09/09/18 09/10/18 09/10/18 22:59 06:59 14:59 Intake Total 1500 1300 200 Output Total 1500 1650 Balance 0 -350 200 Lab Results Last 24 Hours: Laboratory Results - last 24 hr 09/10/18 09/10/18 Range/Units 05:52 05:52 WBC 12.40 H (4.0-11.0) K/uL RBC 3.48 L (4.30-5.90) M/uL Hgb 10.4 L (12.0-16.0) g/dL Hct 31.4 L (36.0-46.0) % MCV 90.2 (80.0-98.0) fL MCH 29.9 (27.0-32.0) pg MCHC 33.1 (31.0-37.0) g/dL RDW Std Deviation 50.6 (28.0-62.0) fl RDW Coeff of Antony 15 (11.0-15.0) % Plt Count 143 L (150-400) K/uL MPV 10.80 (7.40-12.00) fL Neut % (Auto) 83.8 H (48.0-80.0) % Lymph % (Auto) 8.4 L (16.0-40.0) % [place] % (Auto) 7.3 (0.0-15.0) % Eos % (Auto) 0.3 (0.0-7.0) % Baso % (Auto) 0.2 (0.0-1.5) % Neut # (Auto) 10.4 H (1.4-5.7) K/uL Lymph # (Auto) 1.0 (0.6-2.4) K/uL [place] # (Auto) 0.9 H (0.0-0.8) K/uL Eos # (Auto) 0.0 (0.0-0.7) K/uL Baso # (Auto) 0.0 (0.0-0.1) K/uL Nucleated RBC % 0.0 /100WBC Nucleated RBCs # 0 K/uL Sodium 139 (136-145) mmol/L Potassium 3.8 (3.5-5.1) mmol/L Chloride 107 (98-107) mmol/L Carbon Dioxide 22.7 (21.0-32.0) mmol/L BUN 14 (7.0-18.0) mg/dL Creatinine 1.1 H (0.6-1.0) mg/dL Est Cr Clr Drug Dosing 31.25 mL/min Estimated GFR (MDRD) 48.3 ml/min Glucose 107 H (74-106) mg/dL Calcium 8.1 L (8.5-10.1) mg/dL Richard Results Last 24 Hours: Microbiology 09/07/18 22:16 Urine Culture - Final Urine, Clean Catch Escherichia Coli 09/07/18 23:27 Aerobic Blood Culture - Preliminary Blood - Venous - Lab Draw NO GROWTH AFTER 2 DAYS Anaerobic Blood Culture - Preliminary NO GROWTH AFTER 2 DAYS 09/07/18 22:58 Aerobic Blood Culture - Preliminary Blood - Venous NO GROWTH AFTER 2 DAYS Anaerobic Blood Culture - Preliminary NO GROWTH AFTER 2 DAYS Med Orders - Current: Current Medications Acyclovir (Zovirax) 400 mg PO BID PRN PRN Reason: cold sore Aspirin (Aspirin) 81 mg PO DAILY [facility] Last Admin: 09/10/18 09:55 Dose: 81 mg Atorvastatin Calcium (Lipitor) 10 mg PO BEDTIME [facility] Last Admin: 09/09/18 21:19 Dose: 10 mg Bisacodyl (Dulcolax) 5 mg PO DAILY PRN PRN Reason: Constipation Escitalopram Oxalate (Lexapro) 10 mg PO BEDTIME [facility] Last Admin: 09/09/18 21:19 Dose: 10 mg Famotidine (Pepcid) 10 mg PO DAILY [facility] Last Admin: 09/10/18 09:56 Dose: 10 mg Fentanyl (Duragesic) 50 mcg TRDERM Q72H [facility] Last Admin: 09/08/18 11:42 Dose: 50 mcg Furosemide (Lasix) 40 mg PO DAILY [facility] Last Admin: 09/10/18 09:55 Dose: 40 mg Heparin Sodium (Porcine) (Heparin Sodium) 5,000 units SUBCUT Q8H [facility] Last Admin: 09/10/18 06:45 Dose: Not Given Piperacillin Sod/Tazobactam (Sod 2.25 gm/ Sodium Chloride) 50 mls @ 100 mls/hr IV Q8H [facility] Last Admin: 09/10/18 08:21 Dose: 100 mls/hr Vancomycin HCl 1.5 gm/ Sodium (Chloride) 500 mls @ 333.333 mls/hr IV Q24H [facility] Last Admin: 09/09/18 10:25 Dose: 333.333 mls/hr Levofloxacin/Dextrose 750 mg/ (Premix) 150 mls @ 100 mls/hr IV Q48H [facility] Last Admin: 09/10/18 09:56 Dose: 100 mls/hr Sodium Chloride (Normal Saline) 1,000 mls @ 75 mls/hr IV ASDIRECTED [facility] Levothyroxine Sodium (Levothyroxine) 112 mcg PO ACBREAKFAST [facility] Last Admin: 09/10/18 06:33 Dose: 112 mcg Levothyroxine Sodium (Levothyroxine) 25 mcg PO ACBREAKFAST [facility] Last Admin: 09/10/18 06:32 Dose: 25 mcg Lisinopril (Prinivil) 20 mg PO DAILY [facility] Last Admin: 09/10/18 09:55 Dose: 20 mg Loperamide HCl (Imodium) 2 mg PO Q6H PRN PRN Reason: Diarrhea Last Admin: 09/10/18 06:33 Dose: 2 mg Oxycodone/Acetaminophen (Percocet 325-5 Mg) 1 tab PO Q4H PRN PRN Reason: Pain Last Admin: 09/10/18 06:32 Dose: 1 tab Ixazomib Citrate [ (Ninlaro] 4 Mg) 1 each PO Dodge@0900 [facility] Stop: 09/23/18 09:01 Last Admin: 09/09/18 10:41 Dose: 1 each Latanoprost 0.005% Ophth Soln 2.5 Ml Bottle 1 each EYEBOTH BEDTIME [facility] Last Admin: 09/09/18 21:46 Dose: Not Given Potassium Chloride (Klor-Con 10) 10 meq PO TID [facility] Last Admin: 09/10/18 06:32 Dose: 10 meq Sodium Chloride (Saline Flush) 10 ml FLUSH ASDIRECTED PRN PRN Reason: Keep Vein Open Sodium Chloride (Saline Flush) 2.5 ml FLUSH ASDIRECTED PRN PRN Reason: Keep Vein Open Sodium Chloride (Saline Flush) 10 ml FLUSH ASDIRECTED PRN PRN Reason: Keep Vein Open Sodium Chloride (Saline Flush) 2.5 ml FLUSH ASDIRECTED PRN PRN Reason: Keep Vein Open Temazepam (Restoril) 15 mg PO BEDTIME PRN PRN Reason: Sleep Last Admin: 09/09/18 00:22 Dose: 15 mg Vancomycin HCl (Pharmacy To Dose - Vancomycin) 1 dose .XX ASDIRECTED [facility] Discontinued Medications Acetaminophen (Tylenol) 650 mg PO Q4H PRN PRN Reason: Pain (mild 1-3) Last Admin: 09/09/18 11:19 Dose: 650 mg Haloperidol (Haldol) 2 mg PO ONETIME ONE Stop: 09/10/18 00:56 Last Admin: 09/10/18 01:17 Dose: 2 mg Sodium Chloride (Normal Saline) 1,000 mls @ 125 mls/hr IV STAT [facility] Last Admin: 09/10/18 07:30 Dose: 125 mls/hr Ceftriaxone Sodium/Dextrose 1 (gm/ Premix) 50 mls @ 100 mls/hr IV ONETIME ONE Stop: 09/07/18 23:20 Last Admin: 09/07/18 23:01 Dose: 100 mls/hr Vancomycin HCl 1 gm/ Sodium (Chloride) 250 mls @ 250 mls/hr IV ONETIME ONE Stop: 09/07/18 23:50 Last Admin: 09/08/18 00:32 Dose: 250 mls/hr Simethicone (Simethicone) 80 mg PO ONETIME ONE Stop: 09/09/18 05:15 Last Admin: 09/09/18 05:24 Dose: 80 mg - Exam General: Alert, Oriented HEENT: Pupils Equal, Pupils Reactive, EOMI, Mucous Membr. Moist/[place] Neck: Supple Lungs: Clear to Auscultation, Normal Respiratory Effort Cardiovascular: Regular Rate, Regular Rhythm GI/Abdominal Exam: Normal Bowel Sounds, Soft, Non-Tender, No Organomegaly, No Distention, No Abnormal Bruit, No Mass, Pelvis Stable Back Exam: Normal Inspection, Full Range of Motion Extremities: Normal Inspection, Normal Range of Motion, Non-Tender, No Pedal Edema, Normal Capillary Refill Psy/Mental Status: Alert, Normal Affect, Normal Mood - Problem List Review Problem List Initiated/Reviewed/Updated: Yes - My Orders Last 24 Hours: My Active Orders 09/10/18 08:00 Levofloxacin/Dextrose 5%-Water [Levaquin in D5W 750 MG/150 ML] 750 mg Premix Bag 1 bag IV Q48H 09/10/18 09:53 CDIFF TOX A+B [OP] Routine 09/10/18 10:15 Sodium Chloride 0.9% [Normal Saline] 1,000 ml IV ASDIRECTED - Plan Plan:: The patient is a 78-year-old lady who had been admitted secondary to cough and chest x-rays that showed right-sided patchy infiltrates. She is currently on IV antibiotics for now these will be continued. More concerning however, was information provided by family members with regards to the patient's living situation. The patient currently lives at home with stairs and has been unable to go to the basement to do laundry. The patient also has been apparently eating very poorly and not caring for herself adequately. Family members have reported that all of her cooking utensils were reviewed and damaged. Further, they also expressed a concern that the patient has some paranoid factors as well. Because of those issues and the patient's confusion I feel that the patient is not safe to be discharged home at this time. Placement would be a consideration. I've recommended that family members discussed this with social research assistant tomorrow with regards to possible placement in residential. Repeated laboratory studies have been ordered for the morning. Physical therapy has been working or will work with the patient. Assessment: #1. Community acquired pneumonia #2. UTI #3. Delirium #4. Leukocytosis #5. JULISSA - improving #6. History of multiple myeloma #7. Diarrhea Plan: #1. Add levaquin to antibiotic regimen given leukocytosis #2. Decrease fluids to 75ml/h #3. Obtain stool culture, c. diff #4. Consult psychiatry to assess delirium/dementia #5. Will touch base with family in regards to wishes on placement. As per daughter in law, she feels her mental status is improving but not back to her baseline. She tells me that her children are currently going through the court system to get power of claims attorney.
[2018-09-10] MEDS: Vancomycin 1.5 GM in Sodium Chloride 0.9% 500 ML IV SCH (11:57)
[2018-09-10] MEDS ORDERED: Simethicone 80 MG Tab.Chew PO ONE (18:23)
[2018-09-10] MEDS: Haloperidol 1 MG Tab PO SCH (21:52)
[2018-09-10] MEDS: Escitalopram 10 MG Tab PO SCH (21:52)
[2018-09-10] MEDS: atorvaSTATin 10 MG Tab PO SCH (21:53)
[2018-09-10] MEDS: Latanoprost 0.005% Ophth Soln 2.5 ML Bottle EYEBOTH SCH (21:54)
[2018-09-10] MEDS ORDERED: Morphine 2 MG/ML Syringe IVPUSH PRN (23:54)
[2018-09-11] MEDS: Temazepam 15 MG Cap PO PRN (00:29)
[2018-09-11] MEDS: Sodium Chloride 0.9% 1,000 ML IV SCH ×2 (00:33→16:24)
[2018-09-11] MEDS: Acetaminophen/oxyCODONE 325-5 MG Tab PO PRN ×4 (03:05→19:23)
--- NOTE | 2018-09-11 06:32 | CONS ---
DATE OF CONSULTATION: 09/10/2018 DATE OF : 1940 PRIMARY CARE PHYSICIAN: Jazmín Brannon, This is a 60 minute inpatient telemedicine event. Services are provided to [facility] in [place], [place]. Services are provided from offices in [facility]. Length of service for this inpatient telemedicine event is 60 minutes. IDENTIFICATION: The patient is a 78-year-old female who is admitted to the inpatient Med/Surg unit at [facility] in [place], [place], and is seen for psychiatric evaluation per the request of Dr. Eldridge and inpatient medical treatment team. CHIEF COMPLAINT: "I have pneumonia and my leg, I hurt it and I have a bladder infection they say." HISTORY OF PRESENT ILLNESS: The patient is a 78-year-old female, reports that she has been struggling with a number of physical health issues that eventually ended her up being admitted "about 4 or 5 days ago" to the inpatient medical unit at [facility] for treatment. Staff is reporting the patient was admitted on September 08, 2018. The patient states that she has been struggling with some increased confusion "since I have been sick." She denies any depression at this point in time. Denies any anxiety. She states that she struggles with her memory but again "only since I have been sick." Staff is reporting this patient has a history of dementia and the patient's family has been concerned about whether the patient is able to continue to live on her own. Per her report, the patient states that she is generally happy and enjoys her current living situation, although she does miss her . She states that her and her were for well over 50 years, but he had to be put in "[facility] because he had Parkinson's and I just could not take care of him anymore." Right now, the patient is living in [place], [place] by herself, but she says that she has her children around and they are very supportive of her. She is denying that she is suicidal or homicidal. She is denying any psychotic, delusional, or paranoid symptoms, although "my daughter tells me that sometimes I hallucinate when I get sick" like this. MEDICATION AT THE TIME OF PRESENTATION: 1. Per staff report, the patient is taking Lexapro on the outside for depression and the patient acknowledges that this medication has helped her mood. 2. The patient has been given Haldol on the unit for paranoia and has tolerated this medication well per staff report. ALLERGIES: No known drug allergies. PAST MEDICAL HISTORY: 1. UTI. 2. Pneumonia. 3. History of multiple myeloma. REVIEW OF SYSTEMS: Aside from the genitourinary, pulmonary, and bone as well as immune, all other major organ systems are negative at this point time for acute difficulties and complications. FAMILY, PSYCHIATRIC, AND CD HISTORY: The patient denies family, psychiatric, and CD history. The patient denies any previous psychiatric hospitalizations or chemical dependency treatments. She has a past history of dementia and depression, but denies any psychiatric medications prior to the Lexapro medication. She reports no suicide attempts or self-injurious behaviors in the past. SOCIAL HISTORY: The patient was born in [place], [place], raised out in [place], [place]. She is the 3rd of 10 siblings. The patient's biological parents were throughout her childhood and adolescence. Father was a pedraza. Mother was a homemaker. The patient herself has been for about 57 years. She has 4 children from the union. Her lives in the [facility] and was put there secondary to Parkinson's. The patient is currently living in [place], [place], by herself, but she does get support from her family. She enjoys cleaning house in her spare time and she is thinking about becoming a [employer] as one of her sisters has been educating her on this faith. MENTAL STATUS EXAM: The patient is a 78-year-old, white female, in no apparent distress. Speech is of regular rate and rhythm. The patient is cognitively oriented x2 to person and place, but not to date. There are no abnormal motor movements or tics observed. Gait and station are not observed. This patient is sitting on the side of the bed for the inpatient telemedicine consult. Mood is good. Affect is cooperative overall for the purposes of the inpatient telemedicine consult. There is no behavioral or stated evidence of acute suicidal or homicidal ideation or acute psychotic delusional paranoid symptoms. Thought processes are organized overall with some evidence of some memory deficit, however, there are no manic symptoms or acute loose associations evident. Judgment and insight maybe mildly impaired secondary to the patient's memory deficit. Motivation for help is good. Vitals at the time of presentation are 121/61, 88, 20, and 98 degrees. IMPRESSION: 1. [place] I: a. Past history of depression, F32. b. History of dementia, not otherwise specified, F03.90. c. Rule out pseudodementia secondary to illness and depression. 2. [place] II: None. 3. [place] III: a. Urinary tract infection. b. Pneumonia. c. History of multiple myeloma. 4. [place] IV: Severe. 5. [place] V: 55. PLAN: 1. Recommend continuing current treatment plan as recommended and prescribed by the patient's inpatient primary medical treatment team. 2. If the patient is displaying ongoing paranoia or psychosis while on the unit, would recommend continuing low-dose Haldol to minimize or eliminate these symptoms. 3. Can continue Lexapro on the unit to help with mood. This was being prescribed from the outside. 4. Would recommend if the patient's confusion persists as she convalesces on the unit and when she is medically stable, she could be transferred to a more structured living situation than her home to help her further with clearing of sensorium, and to give evaluating staff and family a better idea of whether patient's confusion and memory deficits are due to a chronic process such as an ongoing dementia, or caused by a pseudodementia that was exacerbated by the patient's depression and physical health issues. 5. Will continue to follow up with the patient on an as-needed basis while she remains on the inpatient medical unit. 6. Will follow up with the patient's sooner if any complications in the interim. 7. Crisis plan is in place. ALLEGRA / DANIELLE /[id number] DAWOOD
[2018-09-11] MEDS: Levothyroxine 25 MCG Tab PO SCH (06:38)
[2018-09-11] MEDS: Potassium Chloride 10 MEQ Tab.ER PO SCH ×3 (06:38→21:27)
[2018-09-11] MEDS: Levothyroxine 112 MCG Tab PO SCH (06:38)
[2018-09-11] MEDS: Piperacillin/Tazobactam 2.25 GM in Sodium Chloride 0.9% 50 ML IV SCH ×2 (09:02→17:56)
[2018-09-11] MEDS: Aspirin 81 MG Tab.Chew PO SCH (09:07)
[2018-09-11] MEDS: Famotidine 20 MG Tab PO SCH (09:07)
[2018-09-11] MEDS: Lisinopril 10 MG Tab PO SCH (09:07)
[2018-09-11] MEDS: Furosemide 40 MG Tab PO SCH (09:07)
[2018-09-11] MEDS: Heparin Sodium 5,000 Units/ML Vial SUBCUT SCH ×2 (09:11→16:59)
[2018-09-11] MEDS: Vancomycin 1.5 GM in Sodium Chloride 0.9% 500 ML IV SCH (09:45)
--- NOTE | 2018-09-11 11:36 | PCM.PN ---
- General Info Date of Service: 09/11/18 Subjective Update: Complains of feeling cold this AM. Her daughter, Samanta was in the room today who tells me that her house heat is always up high and this is a chronic issue for her. She denies any pain, rashes. - Review of Systems General: Reports: Other (negative except for hpi) - Patient Data Vitals - Most Recent: Last Vital Signs Temp 36.3 C 09/11/18 08:00 Pulse 102 H 09/11/18 08:00 Resp 15 09/11/18 08:00 BP 133/86 09/11/18 09:07 Pulse Ox 94 L 09/11/18 08:00 Weight - Most Recent: 94.982 kg I&O - Last 24 Hours: Intake & Output 09/10/18 09/11/18 09/11/18 22:59 06:59 14:59 Intake Total 1563 300 Output Total 600 Balance 1563 -300 Lab Results Last 24 Hours: Laboratory Results - last 24 hr 09/11/18 09/11/18 09/11/18 Range/Units 05:35 05:35 08:25 WBC 13.65 H (4.0-11.0) K/uL RBC 3.84 L (4.30-5.90) M/uL Hgb 11.2 L (12.0-16.0) g/dL Hct 35.3 L (36.0-46.0) % MCV 91.9 (80.0-98.0) fL MCH 29.2 (27.0-32.0) pg MCHC 31.7 (31.0-37.0) g/dL RDW Std Deviation 52.3 (28.0-62.0) fl RDW Coeff of Antony 16 H (11.0-15.0) % Plt Count 152 (150-400) K/uL MPV 11.40 (7.40-12.00) fL Add Manual Diff YES Neutrophils % (Manual) 88 H (48.0-80.0) % Band Neutrophils % 1 % Lymphocytes % (Manual) 7 L (16.0-40.0) % Monocytes % (Manual) 4 (0.0-15.0) % Nucleated RBC % 0.0 /100WBC Absolute Seg Neuts 12.0 H (1.4-5.7) Band Neutrophils # 0.1 Lymphocytes # (Manual) 1.0 (0.6-2.4) Monocytes # (Manual) 0.5 (0.0-0.8) Nucleated RBCs # 0 K/uL Sodium 141 (136-145) mmol/L Potassium 4.0 (3.5-5.1) mmol/L Chloride 107 (98-107) mmol/L Carbon Dioxide 22.6 (21.0-32.0) mmol/L BUN 11 (7.0-18.0) mg/dL Creatinine 1.1 H (0.6-1.0) mg/dL Est Cr Clr Drug Dosing 31.25 mL/min Estimated GFR (MDRD) 48.3 ml/min Glucose 103 (74-106) mg/dL Calcium 8.2 L (8.5-10.1) mg/dL Vancomycin Trough 14.1 H (5.0-10.0) ug/mL Richard Results Last 24 Hours: Microbiology 09/10/18 10:36 Campylobacter Antigen Assay - Final Stool / Feces Positive Campylobacter Ag Shiga Toxin I - Final NEGATIVE FOR SHIGA TOXIN 1 Shiga Toxin II - Final NEGATIVE FOR SHIGA TOXIN 2 09/10/18 09:53 Clostridium difficile Toxin A & B - Final Stool / Feces Negative for C.Diff Toxin/AG 09/07/18 23:27 Aerobic Blood Culture - Preliminary Blood - Venous - Lab Draw NO GROWTH AFTER 3 DAYS Anaerobic Blood Culture - Preliminary NO GROWTH AFTER 3 DAYS 09/07/18 22:58 Aerobic Blood Culture - Preliminary Blood - Venous NO GROWTH AFTER 3 DAYS Anaerobic Blood Culture - Preliminary NO GROWTH AFTER 3 DAYS 09/07/18 22:16 Urine Culture - Final Urine, Clean Catch Escherichia Coli Med Orders - Current: Current Medications Acyclovir (Zovirax) 400 mg PO BID PRN PRN Reason: cold sore Aspirin (Aspirin) 81 mg PO DAILY [facility] Last Admin: 09/11/18 09:07 Dose: 81 mg Atorvastatin Calcium (Lipitor) 10 mg PO BEDTIME [facility] Last Admin: 09/10/18 21:53 Dose: 10 mg Bisacodyl (Dulcolax) 5 mg PO DAILY PRN PRN Reason: Constipation Escitalopram Oxalate (Lexapro) 10 mg PO BEDTIME [facility] Last Admin: 09/10/18 21:52 Dose: 10 mg Famotidine (Pepcid) 10 mg PO DAILY [facility] Last Admin: 09/11/18 09:07 Dose: 10 mg Fentanyl (Duragesic) 50 mcg TRDERM Q72H [facility] Last Admin: 09/08/18 11:42 Dose: 50 mcg Furosemide (Lasix) 40 mg PO DAILY [facility] Last Admin: 09/11/18 09:07 Dose: 40 mg Haloperidol (Haldol) 0.5 mg PO BEDTIME [facility] Last Admin: 09/10/18 21:52 Dose: 0.5 mg Heparin Sodium (Porcine) (Heparin Sodium) 5,000 units SUBCUT Q8H [facility] Last Admin: 09/11/18 09:11 Dose: Not Given Piperacillin Sod/Tazobactam (Sod 2.25 gm/ Sodium Chloride) 50 mls @ 100 mls/hr IV Q8H [facility] Last Admin: 09/11/18 09:02 Dose: 100 mls/hr Vancomycin HCl 1.5 gm/ Sodium (Chloride) 500 mls @ 333.333 mls/hr IV Q24H [facility] Last Admin: 09/11/18 09:45 Dose: 333.333 mls/hr Sodium Chloride (Normal Saline) 1,000 mls @ 75 mls/hr IV ASDIRECTED [facility] Last Admin: 09/11/18 00:33 Dose: 75 mls/hr Levofloxacin (Levaquin) 750 mg PO Q48H [facility] Levothyroxine Sodium (Levothyroxine) 112 mcg PO ACBREAKFAST [facility] Last Admin: 09/11/18 06:38 Dose: 112 mcg Levothyroxine Sodium (Levothyroxine) 25 mcg PO ACBREAKFAST [facility] Last Admin: 09/11/18 06:38 Dose: 25 mcg Lisinopril (Prinivil) 20 mg PO DAILY [facility] Last Admin: 09/11/18 09:07 Dose: 20 mg Loperamide HCl (Imodium) 2 mg PO Q6H PRN PRN Reason: Diarrhea Last Admin: 09/10/18 12:00 Dose: 2 mg Morphine Sulfate (Morphine) 2 mg IVPUSH Q3H PRN PRN Reason: Pain Oxycodone/Acetaminophen (Percocet 325-5 Mg) 1 tab PO Q4H PRN PRN Reason: Pain Last Admin: 09/11/18 09:43 Dose: 1 tab Ixazomib Citrate [ (Ninlaro] 4 Mg) 1 each PO Dodge@0900 [facility] Stop: 09/23/18 09:01 Last Admin: 09/09/18 10:41 Dose: 1 each Latanoprost 0.005% Ophth Soln 2.5 Ml Bottle 1 each EYEBOTH BEDTIME [facility] Last Admin: 09/10/18 21:54 Dose: Not Given Potassium Chloride (Klor-Con 10) 10 meq PO TID [facility] Last Admin: 09/11/18 06:38 Dose: 10 meq Sodium Chloride (Saline Flush) 10 ml FLUSH ASDIRECTED PRN PRN Reason: Keep Vein Open Sodium Chloride (Saline Flush) 2.5 ml FLUSH ASDIRECTED PRN PRN Reason: Keep Vein Open Sodium Chloride (Saline Flush) 10 ml FLUSH ASDIRECTED PRN PRN Reason: Keep Vein Open Sodium Chloride (Saline Flush) 2.5 ml FLUSH ASDIRECTED PRN PRN Reason: Keep Vein Open Temazepam (Restoril) 15 mg PO BEDTIME PRN PRN Reason: Sleep Last Admin: 09/11/18 00:29 Dose: 15 mg Vancomycin HCl (Pharmacy To Dose - Vancomycin) 1 dose .XX ASDIRECTED [facility] Discontinued Medications Acetaminophen (Tylenol) 650 mg PO Q4H PRN PRN Reason: Pain (mild 1-3) Last Admin: 09/09/18 11:19 Dose: 650 mg Haloperidol (Haldol) 2 mg PO ONETIME ONE Stop: 09/10/18 00:56 Last Admin: 09/10/18 01:17 Dose: 2 mg Sodium Chloride (Normal Saline) 1,000 mls @ 125 mls/hr IV STAT [facility] Last Admin: 09/10/18 07:30 Dose: 125 mls/hr Ceftriaxone Sodium/Dextrose 1 (gm/ Premix) 50 mls @ 100 mls/hr IV ONETIME ONE Stop: 09/07/18 23:20 Last Admin: 09/07/18 23:01 Dose: 100 mls/hr Vancomycin HCl 1 gm/ Sodium (Chloride) 250 mls @ 250 mls/hr IV ONETIME ONE Stop: 09/07/18 23:50 Last Admin: 09/08/18 00:32 Dose: 250 mls/hr Levofloxacin/Dextrose 750 mg/ (Premix) 150 mls @ 100 mls/hr IV Q48H [facility] Last Admin: 09/10/18 09:56 Dose: 100 mls/hr Simethicone (Simethicone) 80 mg PO ONETIME ONE Stop: 09/09/18 05:15 Last Admin: 09/09/18 05:24 Dose: 80 mg Simethicone (Simethicone) 80 mg PO ONETIME ONE Stop: 09/10/18 18:24 Last Admin: 09/10/18 19:19 Dose: 80 mg - Exam General: Alert, Oriented, Cooperative HEENT: Pupils Equal, Pupils Reactive, EOMI, Mucous Membr. Moist/[place] Neck: Supple Lungs: Clear to Auscultation, Normal Respiratory Effort Cardiovascular: Regular Rate, Regular Rhythm GI/Abdominal Exam: Normal Bowel Sounds, Soft, Non-Tender, No Organomegaly, No Distention, No Abnormal Bruit, No Mass, Pelvis Stable Extremities: Normal Inspection, Normal Range of Motion, Non-Tender, No Pedal Edema, Normal Capillary Refill - Problem List Review Problem List Initiated/Reviewed/Updated: Yes - My Orders Last 24 Hours: My Active Orders 09/10/18 10:36 CULTURE STOOL + CAMPY+SHIGATOX [RM] Stat 09/10/18 21:00 Haloperidol [Haldol] 0.5 mg PO BEDTIME 09/11/18 10:18 Notify Provider Consults [RC] ASDIRECTED Consult to Physician [CONS] Routine 09/11/18 10:33 Up With Assistance [RC] ASDIRECTED 09/12/18 08:00 levoFLOXacin [Levaquin] 750 mg PO Q48H - Plan Plan:: Assessment: #1. Community acquired pneumonia #2. UTI #3. Delirium #4. Leukocytosis - increased #5. JULISSA - improving #6. History of multiple myeloma #7. Diarrhea - resolved Plan: #1. C. Diff testing was negative. Stool culture was + for Campylobacter, which is usually self limited but shes also on Levaquin that would cover this. #2. Will recheck a UA #3. Patient as per psychiatry does have the capacity to make her own choices. She is refusing assisted living facility and wants to go home. She will be discharged home when appropriate. #4. CBC, BMP tomorrow AM
[2018-09-11] MEDS: fentaNYL 50 MCG/HR Transdermal Patch TRDERM SCH (13:29)
[2018-09-11] MEDS ORDERED: Ibuprofen 600 MG Tab PO PRN (19:55)
[2018-09-11] MEDS: Haloperidol 1 MG Tab PO SCH (21:26)
[2018-09-11] MEDS: Escitalopram 10 MG Tab PO SCH (21:27)
[2018-09-11] MEDS: atorvaSTATin 10 MG Tab PO SCH (21:27)
[2018-09-11] MEDS: Latanoprost 0.005% Ophth Soln 2.5 ML Bottle EYEBOTH SCH (22:01)
[2018-09-12] MEDS ORDERED: Sodium Chloride 0.9% 50 ML ONE (00:12)
[2018-09-12] MEDS: Heparin Sodium 5,000 Units/ML Vial SUBCUT SCH ×2 (00:38→07:02)
[2018-09-12] MEDS: Piperacillin/Tazobactam 2.25 GM in Sodium Chloride 0.9% 50 ML IV SCH ×2 (00:40→08:20)
[2018-09-12] MEDS: Acetaminophen/oxyCODONE 325-5 MG Tab PO PRN (00:41)
[2018-09-12] MEDS: Sodium Chloride 0.9% 1,000 ML IV SCH (05:25)
[2018-09-12] MEDS: Levothyroxine 25 MCG Tab PO SCH (07:00)
[2018-09-12] MEDS: Levothyroxine 112 MCG Tab PO SCH (07:00)
[2018-09-12] MEDS: Potassium Chloride 10 MEQ Tab.ER PO SCH (07:01)
[2018-09-12] MEDS ORDERED: Levofloxacin 500 MG Tab PO SCH (08:00)
[2018-09-12 08:04] VITALS: BP 124/74
[2018-09-12] MEDS: Famotidine 20 MG Tab PO SCH (08:21)
[2018-09-12] MEDS: Aspirin 81 MG Tab.Chew PO SCH (08:21)
[2018-09-12] MEDS: Furosemide 40 MG Tab PO SCH (08:21)
[2018-09-12] MEDS: Lisinopril 10 MG Tab PO SCH (08:22)
[2018-09-12] MEDS ORDERED: Levofloxacin 250 MG Tab PO SCH (08:30)
[2018-09-12] MEDS: Vancomycin 1.5 GM in Sodium Chloride 0.9% 500 ML IV SCH (09:49)
--- NOTE | 2018-09-12 10:18 | PCM.DCSUM1 ---
Discharge Summary - Hospital Course Free Text/Narrative:: Admission date: 09/08/18 Discharge date: 09/12/2018 Disposition: Home - resume home health Admission diagnosis: #1. Pneumonia #2. UTI #3. Acute delirium #4. History of dementia #5. History of multiple myeloma #6. Mild cellulitis Discharge diagnosis: #1. Pneumonia - clinically improved #2. UTI - clinically improved #3. Acute delirium - improved #4. History of dementia #5. History of multiple myeloma Hospital course: 78F with the above hx was admitted after her family felt she was showing signs of more confusion, found to have community acquired pneumonia and UTI in the ER. She was admitted, treated with IV antibiotics. Currently she lives alone, and would prefer to live at home and declines assisted living facility. She was seen by psychiatry who said that she does have capacity to make her own decisions. She developed persistent leukocytosis which resolved on the day of discharge. She felt comfortable going home. She is to continue on PO levaquin and is to f/u with her PCP. - Discharge Data Discharge Date: 09/12/18 Discharge Disposition: Home, Self-Care 01 Condition: Fair - Patient Summary/Data Consults: Consultations 09/11/18 10:18 Consult to Physician [CONS] Routine - Patient Instructions Diet: Usual Diet as Tolerated Activity: As Tolerated Driving: May Drive Today Showering/Bathing: May Shower Notify Provider of: Fever, Increased Pain - Discharge Plan Prescriptions/Med Rec: levoFLOXacin [Levaquin] 750 mg PO Q48H 5 Days #3 tab Home Medications: Home Meds Acetaminophen [Tylenol Arthritis Pain] 650 mg PO Q6H PRN 04/01/15 [History] Chlorpheniramine Maleate 4 mg PO DAILY PRN 04/01/15 [History] Escitalopram [Lexapro] 10 mg PO BEDTIME 04/01/15 [History] Famotidine [Pepcid] 20 mg PO BID 04/01/15 [History] Gabapentin [Neurontin] 900 mg PO TID 04/01/15 [History] Potassium Chloride [Klor-Con 10] 10 meq PO TID 04/01/15 [History] atorvaSTATin Calcium [Atorvastatin Calcium] 10 mg PO BEDTIME 04/01/15 [History] fentaNYL [Fentanyl] 50 mcg TRDERM Q72H 08/12/15 [History] Acetaminophen/oxyCODONE [Percocet 325-5 MG] 10 - 325 mg PO Q4HR PRN 05/01/15 [ History] Acyclovir 400 mg PO BID PRN 12/17/15 [History] Furosemide [Lasix] 40 mg PO DAILY 12/17/15 [History] Latanoprost [Xalatan 0.005% Ophth Soln] 1 drop EYEBOTH BEDTIME 12/30/15 [History ] Fexofenadine [Lesley] 180 mg PO DAILY PRN 11/06/17 [History] Levothyroxine 137 mcg PO DAILY 11/06/17 [History] Lisinopril 20 mg PO DAILY 11/06/17 [History] Loperamide [Imodium] 2 mg PO Q4H PRN 8 Days #48 cap 11/07/17 [Rx] Aspirin 81 mg PO DAILY 09/07/18 [History] Calcium Carb & Citrate/Vit D3 [Citracal + D ER] 1 tab PO DAILY 09/07/18 [History ] Cholecalciferol (Vitamin D3) [Vitamin D3] 5,000 unit PO DAILY 09/07/18 [History] Ixazomib Citrate [Ninlaro] 4 mg PO DODGE@0900 09/07/18 [History] levoFLOXacin [Levaquin] 750 mg PO Q48H 5 Days #3 tab 09/12/18 [Rx] Patient Handouts: Cellulitis, Adult, [id number], Levofloxacin tablets, Community-Acquired Pneumonia, Adult, [id number] Referrals: [facility] [Outside] Jazmín Brannon DO [Primary Care Provider] - 09/21/18 10:30 am (Arrive 15 minutes early with ID and insurance card.) - Discharge Summary/Plan Comment DC Time >30 min.: No - Patient Data Vitals - Most Recent: Last Vital Signs Temp 36.4 C 09/12/18 08:00 Pulse 92 09/12/18 08:00 Resp 15 09/12/18 08:00 BP 124/74 09/12/18 08:22 Pulse Ox 94 L 09/12/18 08:00 Weight - Most Recent: 94.982 kg I&O - Last 24 hours: Intake & Output 01/22/19 01/23/19 01/23/19 22:59 06:59 14:59 Intake Total 538 1062 Output Total 300 Balance 538 762 Lab Results - Last 24 hrs: Laboratory Results - last 24 hr 09/11/18 09/12/18 09/12/18 Range/Units 19:30 05:30 05:56 WBC 8.67 (4.0-11.0) K/uL RBC 3.51 L (4.30-5.90) M/uL Hgb 10.2 L (12.0-16.0) g/dL Hct 32.5 L (36.0-46.0) % MCV 92.6 (80.0-98.0) fL MCH 29.1 (27.0-32.0) pg MCHC 31.4 (31.0-37.0) g/dL RDW Std Deviation 53.7 (28.0-62.0) fl RDW Coeff of Antony 16 H (11.0-15.0) % Plt Count 133 L (150-400) K/uL MPV 11.40 (7.40-12.00) fL Add Manual Diff YES Neutrophils % (Manual) 91 H (48.0-80.0) % Band Neutrophils % 2 % Lymphocytes % (Manual) 4 L (16.0-40.0) % Monocytes % (Manual) 2 (0.0-15.0) % Metamyelocytes % 1 % Nucleated RBC % 0.4 /100WBC Absolute Seg Neuts 7.9 H (1.4-5.7) Band Neutrophils # 0.2 Lymphocytes # (Manual) 0.3 L (0.6-2.4) Monocytes # (Manual) 0.2 (0.0-0.8) Absolute Metamyelocyte 0.1 Nucleated RBCs # 0 K/uL Sodium 143 (136-145) mmol/L Potassium 4.1 (3.5-5.1) mmol/L Chloride 110 H (98-107) mmol/L Carbon Dioxide 20.8 L (21.0-32.0) mmol/L BUN 12 (7.0-18.0) mg/dL Creatinine 1.0 (0.6-1.0) mg/dL Est Cr Clr Drug Dosing 34.38 mL/min Estimated GFR (MDRD) 53.9 ml/min Glucose 97 (74-106) mg/dL Calcium 7.7 L (8.5-10.1) mg/dL Urine Color YELLOW Urine Appearance CLEAR Urine pH 5.5 (5.0-8.0) Ur Specific [place] >= 1.030 (1.001-1.035) Urine Protein TRACE H (NEGATIVE) mg/dL Urine Glucose (UA) NEGATIVE (NEGATIVE) mg/dL Urine Ketones 15 H (NEGATIVE) mg/dL Urine Occult Blood SMALL H (NEGATIVE) Urine Nitrite NEGATIVE (NEGATIVE) Urine Bilirubin NEGATIVE (NEGATIVE) Urine Urobilinogen 0.2 (<2.0) EU/dL Ur Leukocyte Esterase NEGATIVE (NEGATIVE) Urine RBC 1-2 (0-2/HPF) Urine WBC 0-1 (0-5/HPF) Ur Epithelial Cells OCCASIONAL (NONE-FEW) Urine Bacteria RARE (NEGATIVE) BORIS Results - Last 24 hrs: Microbiology 09/07/18 23:27 Aerobic Blood Culture - Preliminary Blood - Venous - Lab Draw NO GROWTH AFTER 4 DAYS Anaerobic Blood Culture - Preliminary NO GROWTH AFTER 4 DAYS 09/07/18 22:58 Aerobic Blood Culture - Preliminary Blood - Venous NO GROWTH AFTER 4 DAYS Anaerobic Blood Culture - Preliminary NO GROWTH AFTER 4 DAYS 09/10/18 10:36 Campylobacter Antigen Assay - Final Stool / Feces Positive Campylobacter Ag Shiga Toxin I - Final NEGATIVE FOR SHIGA TOXIN 1 Shiga Toxin II - Final NEGATIVE FOR SHIGA TOXIN 2 09/10/18 09:53 Clostridium difficile Toxin A & B - Final Stool / Feces Negative for C.Diff Toxin/AG Med Orders - Current: Current Medications Acyclovir (Zovirax) 400 mg PO BID PRN PRN Reason: cold sore Aspirin (Aspirin) 81 mg PO DAILY [facility] Last Admin: 09/12/18 08:21 Dose: 81 mg Atorvastatin Calcium (Lipitor) 10 mg PO BEDTIME [facility] Last Admin: 09/11/18 21:27 Dose: 10 mg Bisacodyl (Dulcolax) 5 mg PO DAILY PRN PRN Reason: Constipation Escitalopram Oxalate (Lexapro) 10 mg PO BEDTIME [facility] Last Admin: 09/11/18 21:27 Dose: 10 mg Famotidine (Pepcid) 10 mg PO DAILY [facility] Last Admin: 09/12/18 08:21 Dose: 10 mg Fentanyl (Duragesic) 50 mcg TRDERM Q72H [facility] Last Admin: 09/11/18 13:29 Dose: 50 mcg Furosemide (Lasix) 40 mg PO DAILY [facility] Last Admin: 09/12/18 08:21 Dose: 40 mg Haloperidol (Haldol) 0.5 mg PO BEDTIME [facility] Last Admin: 09/11/18 21:26 Dose: 0.5 mg Heparin Sodium (Porcine) (Heparin Sodium) 5,000 units SUBCUT Q8H [facility] Last Admin: 09/12/18 07:02 Dose: Not Given Piperacillin Sod/Tazobactam (Sod 2.25 gm/ Sodium Chloride) 50 mls @ 100 mls/hr IV Q8H [facility] Last Admin: 09/12/18 08:20 Dose: 100 mls/hr Vancomycin HCl 1.5 gm/ Sodium (Chloride) 500 mls @ 333.333 mls/hr IV Q24H [facility] Last Admin: 09/12/18 09:49 Dose: 333.333 mls/hr Sodium Chloride (Normal Saline) 1,000 mls @ 75 mls/hr IV ASDIRECTED [facility] Last Admin: 09/12/18 05:25 Dose: 75 mls/hr Ibuprofen (Motrin) 600 mg PO Q6H PRN PRN Reason: Pain Last Admin: 09/11/18 21:28 Dose: 600 mg Levofloxacin (Levaquin) 750 mg PO Q48H [facility] Last Admin: 09/12/18 09:44 Dose: 750 mg Levothyroxine Sodium (Levothyroxine) 112 mcg PO ACBREAKFAST [facility] Last Admin: 09/12/18 07:00 Dose: 112 mcg Levothyroxine Sodium (Levothyroxine) 25 mcg PO ACBREAKFAST [facility] Last Admin: 09/12/18 07:00 Dose: 25 mcg Lisinopril (Prinivil) 20 mg PO DAILY [facility] Last Admin: 09/12/18 08:22 Dose: 20 mg Loperamide HCl (Imodium) 2 mg PO Q6H PRN PRN Reason: Diarrhea Last Admin: 09/10/18 12:00 Dose: 2 mg Morphine Sulfate (Morphine) 2 mg IVPUSH Q3H PRN PRN Reason: Pain Oxycodone/Acetaminophen (Percocet 325-5 Mg) 1 tab PO Q4H PRN PRN Reason: Pain Last Admin: 09/12/18 00:41 Dose: 1 tab Ixazomib Citrate [ (Ninlaro] 4 Mg) 1 each PO Dodge@0900 [facility] Stop: 09/23/18 09:01 Last Admin: 09/09/18 10:41 Dose: 1 each Latanoprost 0.005% Ophth Soln 2.5 Ml Bottle 1 each EYEBOTH BEDTIME [facility] Last Admin: 09/11/18 22:01 Dose: Not Given Potassium Chloride (Klor-Con 10) 10 meq PO TID [facility] Last Admin: 09/12/18 07:01 Dose: 10 meq Sodium Chloride (Saline Flush) 10 ml FLUSH ASDIRECTED PRN PRN Reason: Keep Vein Open Sodium Chloride (Saline Flush) 2.5 ml FLUSH ASDIRECTED PRN PRN Reason: Keep Vein Open Sodium Chloride (Saline Flush) 10 ml FLUSH ASDIRECTED PRN PRN Reason: Keep Vein Open Sodium Chloride (Saline Flush) 2.5 ml FLUSH ASDIRECTED PRN PRN Reason: Keep Vein Open Temazepam (Restoril) 15 mg PO BEDTIME PRN PRN Reason: Sleep Last Admin: 09/11/18 00:29 Dose: 15 mg Vancomycin HCl (Pharmacy To Dose - Vancomycin) 1 dose .XX ASDIRECTED [facility] Discontinued Medications Acetaminophen (Tylenol) 650 mg PO Q4H PRN PRN Reason: Pain (mild 1-3) Last Admin: 09/09/18 11:19 Dose: 650 mg Haloperidol (Haldol) 2 mg PO ONETIME ONE Stop: 09/10/18 00:56 Last Admin: 09/10/18 01:17 Dose: 2 mg Sodium Chloride (Normal Saline) 1,000 mls @ 125 mls/hr IV STAT [facility] Last Admin: 09/10/18 07:30 Dose: 125 mls/hr Ceftriaxone Sodium/Dextrose 1 (gm/ Premix) 50 mls @ 100 mls/hr IV ONETIME ONE Stop: 09/07/18 23:20 Last Admin: 09/07/18 23:01 Dose: 100 mls/hr Vancomycin HCl 1 gm/ Sodium (Chloride) 250 mls @ 250 mls/hr IV ONETIME ONE Stop: 09/07/18 23:50 Last Admin: 09/08/18 00:32 Dose: 250 mls/hr Levofloxacin/Dextrose 750 mg/ (Premix) 150 mls @ 100 mls/hr IV Q48H [facility] Last Admin: 09/10/18 09:56 Dose: 100 mls/hr Sodium Chloride (Normal Saline) Confirm Administered Dose 50 mls @ as directed .ROUTE .STK-MED ONE Stop: 09/12/18 00:13 Last Admin: 09/12/18 00:40 Dose: Not Given Levofloxacin (Levaquin) 750 mg PO Q48H [facility] Last Admin: 09/12/18 10:07 Dose: Not Given Simethicone (Simethicone) 80 mg PO ONETIME ONE Stop: 09/09/18 05:15 Last Admin: 09/09/18 05:24 Dose: 80 mg Simethicone (Simethicone) 80 mg PO ONETIME ONE Stop: 09/10/18 18:24 Last Admin: 09/10/18 19:19 Dose: 80 mg *Q Meaningful Use (DIS) - VTE *Q VTE Mechanical Contraindications *Q: Bilateral Lower Dermatits
== END 2018-09-12 12:30 | disposition home or self-care (01) | DRG 194 ==
LOC: MW.ED 21:51 → MW.MS 09-08 00:38 → OBSVTOIN 09-09 16:36 → MW.MS 09-09 19:10
PROVIDERS: ADMIT Internal Medicine; ATTEND Internal Medicine
DX: J18.9 Pneumonia, unspecified organism (principal); J18.1 Lobar pneumonia, unspecified organism; C90.00 Multiple myeloma not having achieved remission; N39.0 Urinary tract infection, site not specified; L97.819 Non-pressure chronic ulcer of other part of right lower leg with unspecified severity; L03.115 Cellulitis of right lower limb; I13.0 Hypertensive heart and chronic kidney disease with heart failure and stage 1 through stage 4 chronic kidney disease, or unspecified chronic kidney disease; I11.0 Hypertensive heart disease with heart failure; N17.9 Acute kidney failure, unspecified; R41.82 Altered mental status, unspecified; I50.9 Heart failure, unspecified; K21.9 Gastro-esophageal reflux disease without esophagitis; T45.1X5S Adverse effect of antineoplastic and immunosuppressive drugs, sequela; K58.9 Irritable bowel syndrome, unspecified; E11.9 Type 2 diabetes mellitus without complications; F03.90 Unspecified dementia, unspecified severity, without behavioral disturbance, psychotic disturbance, mood disturbance, and anxiety; F32.9 Major depressive disorder, single episode, unspecified; E66.9 Obesity, unspecified; H26.9 Unspecified cataract; E11.22 Type 2 diabetes mellitus with diabetic chronic kidney disease; N18.3 Chronic kidney disease, stage 3 (moderate); M19.90 Unspecified osteoarthritis, unspecified site; G62.0 Drug-induced polyneuropathy; T45.1X5A Adverse effect of antineoplastic and immunosuppressive drugs, initial encounter; F41.9 Anxiety disorder, unspecified; E03.9 Hypothyroidism, unspecified; D64.9 Anemia, unspecified; H54.7 Unspecified visual loss; H40.9 Unspecified glaucoma; Z90.5 Acquired absence of kidney; Z87.442 Personal history of urinary calculi; Z86.718 Personal history of other venous thrombosis and embolism; Z88.2 Allergy status to sulfonamides; R41.0 Disorientation, unspecified; M79.604 Pain in right leg; L53.9 Erythematous condition, unspecified; Z88.8 Allergy status to other drugs, medicaments and biological substances; Z88.6 Allergy status to analgesic agent; Z88.1 Allergy status to other antibiotic agents; Z87.440 Personal history of urinary (tract) infections; Z91.013 Allergy to seafood; Z79.899 Other long term (current) drug therapy; Z87.01 Personal history of pneumonia (recurrent); Z79.82 Long term (current) use of aspirin; Z87.891 Personal history of nicotine dependence; Z68.33 Body mass index [BMI] 33.0-33.9, adult
CPT/HCPCS: 36415; 70450; 70450-26; 71045; 71045-26; 80048; 80053; 80202; 81001; 82140; 82962; 83605; 84443; 84484; 85025; 85610; 86850; 86870; 86880; 86900; 86901; 87040; 87046; 87086; 87088; 87186; 87324; 87899; 93005; 96361; 96365; 96366; 96367; 96372; 96376; 99285-25; A9270-GY; G0378; J0696; J1644; J1956; J2543; J3370; J7040; J7050

== ENCOUNTER 2018-09-24 18:14 | Emergency (ER) | payer MEDICARE, OTHER ==
--- NOTE | 2018-09-24 18:29 | EDM.PDOC ---
ED HPI GENERAL MEDICAL PROBLEM - General Chief Complaint: General Stated Complaint: PT WEAK Time Seen by Provider: 09/24/18 18:28 Source of Information: Reports: Patient History Limitations: Reports: No Limitations - History of Present Illness INITIAL COMMENTS - FREE TEXT/NARRATIVE: HISTORY AND PHYSICAL: History of present illness: Patient is a 78-year-old female brought in by EMS with history of multiple myeloma here with daughter for weakness. Patient was recently admitted for pneumonia and UTI, discharged home on 09/12. Daughter states that she has been weak since her discharge. Daughter states that she is only getting up to go to the bathroom but has been having episodes of incontinence which is unusual for her. She went to get to the bathroom today her legs kept trying to give out on her. Patient patient was discharged with Levaquin for her pneumonia and has had some diarrhea since her discharge. Daughter was concerned about bedsores as patient is complaining of pain in her bottom. Patient states her bottom is sore from diarrhea that she's been having. She denies any chest pain, shortness of breath or nausea, vomiting, abdominal pain, dysuria, hematuria. Patient was 85% on RA on arrival. When discussing transferring to [place], daughter informed me that patient has been complaining of right hip pain and states she had been slipping off of her chair a lot lately. With her history of multiple myeloma daughter is concerned and requesting an x-ray. Review of systems: As per history of present illness and below otherwise all systems reviewed and negative. Past medical history: As per history of present illness and as reviewed below otherwise noncontributory. Surgical history: As per history of present illness and as reviewed below otherwise noncontributory. Social history: No reported history of drug or alcohol abuse. Family history: As per history of present illness and as reviewed below otherwise noncontributory. Physical exam: General: Patient sitting comfortably in no acute distress and nontoxic appearing HEENT: Atraumatic, normocephalic, pupils reactive, negative for conjunctival pallor or scleral icterus, mucous membranes moist, throat clear, neck supple, nontender, trachea midline. No meningeal signs. Lungs: Bilateral rhonchi with diminished breath sounds, breath sounds equal bilaterally, chest nontender. Heart: S1S2, regular, negative for clicks, rubs, or overt murmur. 2-3+ pitting edema to just below the knees bilaterally. Abdomen: Soft, nondistended, nontender. Negative for masses or hepatosplenomegaly. Negative for costovertebral tenderness. Pelvis: Stable nontender. Genitourinary: Diffuse erythema of the gluteal cleft and perineal area with some macerated skin near the external labia. Rectal: Deferred. Extremities: Atraumatic, negative for cords or calf pain. Neurovascular unremarkable. Neuro: Awake, alert, oriented. Cranial nerves II through XII unremarkable. Cerebellum unremarkable. Motor and sensory unremarkable throughout. Exam nonfocal. Notes: Diagnostics: CBC, CMP, BNP, EKG, CXR Therapeutics: 1L NS maintenance 40mg Lasix IV 2.25mg Zosyn IV Prescriptions: Impression: Congestive heart failure, hypoxia, acute kidney injury, hyperkalemia, candidal intertrigo Plan: Discussed with Dr. Rogers, ED provider at [facility], patient will be transferred via ground ambulance Definitive disposition and diagnosis as appropriate pending reevaluation and review of above. buttocks Pain Score (Numeric/FACES): 8 - Related Data Allergies Allergy/AdvReac Type Severity Reaction Status Date / Time ciprofloxacin HCl Allergy Airway Verified 09/24/18 18:34 [From Cipro] Tightness codeine Allergy Airway Verified 09/24/18 18:34 Tightness iodine Allergy Unknown Verified 09/24/18 18:34 lenalidomide [From Revlimid] Allergy Airway Verified 09/24/18 18:34 Tightness shellfish derived Allergy Unknown Verified 09/24/18 18:34 Sulfa (Sulfonamide Allergy Unknown Verified 09/24/18 18:34 Antibiotics) Home Meds: Home Meds Acyclovir 400 mg PO BID 09/24/18 [History] Aspirin 81 mg PO DAILY 09/24/18 [History] Daratumumab [Darzalex] 400 mg IV ASDIRECTED 09/24/18 [History] Escitalopram [Lexapro] 10 mg PO DAILY 09/24/18 [History] Famotidine [Pepcid] 20 mg PO DAILY 09/24/18 [History] Furosemide 40 mg PO DAILY 09/24/18 [History] Gabapentin [Neurontin] 300 mg PO TID 09/24/18 [History] Latanoprost 2.5 ml OP DAILY 09/24/18 [History] Levothyroxine [Levothroid] 137 mcg PO DAILY 09/24/18 [History] Lisinopril 40 mg PO DAILY 09/24/18 [History] Loperamide [Imodium] 2 mg PO Q4H 09/24/18 [History] Potassium Chloride 10 meq PO TID 09/24/18 [History] atorvaSTATin Calcium [Atorvastatin Calcium] 10 mg PO BEDTIME 09/24/18 [History] fentaNYL [Duragesic] 50 mcg TD 5XDAY 09/24/18 [History] oxyCODONE HCl/Acetaminophen [Oxycodone-Acetaminophen 10-300] 1 each PO Q4HR 12/07 [History] Past Medical History HEENT History: Reports: Cataract, Glaucoma, Impaired Vision Cardiovascular History: Reports: Blood Clots/VTE/DVT, Heart Failure, Hypertension Other Cardiovascular History: blood clots behind left knee Respiratory History: Reports: None Other Respiratory History: Hx of pneumonia Gastrointestinal History: Reports: GERD, Hiatal Hernia, Irritable Bowel Syndrome Genitourinary History: Reports: Acute Renal Failure, Renal Calculus, UTI, Recurrent Other Genitourinary History: Hx of renal failure, no longer in failure [employer] History: Reports: Musculoskeletal History: Reports: Arthritis, Fracture Other Musculoskeletal History: 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 Neurological History: Reports: None Psychiatric History: Reports: Anxiety Endocrine/Metabolic History: Reports: Diabetes, Type II, Hypothyroidism Other Endocrine/Metabolic History: History of Diabetes, Not currently an issue. Hematologic History: Reports: Anemia Immunologic History: Reports: None Oncologic (Cancer) History: Reports: Bone Other Oncologic History: multiple myeloma, Stage III Dermatologic History: Reports: Cellulitis - Infectious Disease History Infectious Disease History: Reports: Chicken Pox, Measles, Shingles, Other (See Below) Other Infectious Disease History: MSSA - Past Surgical History HEENT Surgical History: Reports: Eye Surgery Female Surgical History: Reports: Nephrectomy Musculoskeletal Surgical History: Reports: Carpal Tunnel, Other (See Below) Social & Family History - Family History Family Medical History: Noncontributory HEENT: Reports: Impaired Vision Cardiac: Reports: Heart Failure Respiratory: Reports: Asthma OBGYN: Reports: Musculoskeletal: Reports: Arthritis, Gout Neurological: Reports: Cerebral Aneurysms Endocrine/Metabolic: Reports: Diabetes, type II Oncologic: Reports: Breast, Colon, Liver - Caffeine Use Caffeine Use: Reports: Coffee Other Caffeine Use: 1-2 cups daily ED ROS GENERAL - Review of Systems Review Of Systems: ROS reveals no pertinent complaints other than HPI. ED EXAM, GENERAL - Physical Exam Exam: See Below (see dictation) Course - Vital Signs Last Recorded V/S: Last Vital Signs Temp 97.5 F 09/24/18 18:22 Pulse 69 09/24/18 20:22 Resp 20 09/24/18 20:22 BP 115/66 09/24/18 20:22 Pulse Ox 96 09/24/18 20:22 - Orders/Labs/Meds Orders: Active Orders 24 hr Category Date Time Status Hip Min 2V or 3V Rt [CR] Stat Exams 09/24/18 20:31 Ordered CULTURE URINE [RM] Stat Lab 09/24/18 19:45 Received Piperacillin/Tazobactam [Zosyn] 2.25 gm Med 09/24/18 20:33 Active Sodium Chloride 0.9% [Normal Saline] 50 ml IV ONETIME Sodium Chloride 0.9% [Normal Saline] 1,000 ml Med 09/24/18 20:13 Active IV STAT Sodium Chloride 0.9% [Saline Flush] Med 09/24/18 18:55 Active 10 ml FLUSH ASDIRECTED PRN Sodium Chloride 0.9% [Saline Flush] Med 09/24/18 18:55 Active 2.5 ml FLUSH ASDIRECTED PRN cefTRIAXone [Rocephin in Dextrose,Iso-Osm 1 GM/50 ML] 1 Med 09/24/18 20:32 Active gm Premix Bag 1 bag IV ONETIME Saline Lock Insert [OM.PC] Stat Oth 09/24/18 18:55 Ordered Medication Orders Sodium Chloride (Normal Saline) 1,000 mls @ 150 mls/hr IV STAT ONE Stop: 09/25/18 02:52 Ceftriaxone Sodium/Dextrose 1 (gm/ Premix) 50 mls @ 100 mls/hr IV ONETIME ONE Stop: 09/24/18 21:01 Piperacillin Sod/Tazobactam (Sod 2.25 gm/ Sodium Chloride) 50 mls @ 100 mls/hr IV ONETIME ONE Stop: 09/24/18 21:02 Sodium Chloride (Saline Flush) 10 ml FLUSH ASDIRECTED PRN PRN Reason: Keep Vein Open Sodium Chloride (Saline Flush) 2.5 ml FLUSH ASDIRECTED PRN PRN Reason: Keep Vein Open Labs: Laboratory Tests 09/24/18 09/24/18 09/24/18 Range/Units 19:23 19:23 19:23 WBC 8.52 (4.0-11.0) K/uL RBC 3.86 L (4.30-5.90) M/uL Hgb 10.9 L (12.0-16.0) g/dL Hct 35.3 L (36.0-46.0) % MCV 91.5 (80.0-98.0) fL MCH 28.2 (27.0-32.0) pg MCHC 30.9 L (31.0-37.0) g/dL RDW Std Deviation 55.5 (28.0-62.0) fl RDW Coeff of Antony 16 H (11.0-15.0) % Plt Count 120 L (150-400) K/uL MPV 12.50 H (7.40-12.00) fL Neut % (Auto) 78.0 (48.0-80.0) % Lymph % (Auto) 8.5 L (16.0-40.0) % Bledsoe % (Auto) 8.7 (0.0-15.0) % Eos % (Auto) 4.6 (0.0-7.0) % Baso % (Auto) 0.2 (0.0-1.5) % Neut # (Auto) 6.7 H (1.4-5.7) K/uL Lymph # (Auto) 0.7 (0.6-2.4) K/uL Bledsoe # (Auto) 0.7 (0.0-0.8) K/uL Eos # (Auto) 0.4 (0.0-0.7) K/uL Baso # (Auto) 0.0 (0.0-0.1) K/uL Nucleated RBC % 0.0 /100WBC Nucleated RBCs # 0 K/uL Sodium 136 (136-145) mmol/L Potassium 5.5 H (3.5-5.1) mmol/L Chloride 103 (98-107) mmol/L Carbon Dioxide 23.9 (21.0-32.0) mmol/L BUN 37 H (7.0-18.0) mg/dL Creatinine 3.1 H (0.6-1.0) mg/dL Est Cr Clr Drug Dosing 13.33 mL/min Estimated GFR (MDRD) 14.6 ml/min Glucose 93 (74-106) mg/dL Calcium 8.9 (8.5-10.1) mg/dL Total Bilirubin 0.3 (0.2-1.0) mg/dL AST 122 H (15-37) IU/L ALT 28 (14-63) IU/L Alkaline Phosphatase 87 (46-116) U/L B-Natriuretic Peptide 332 H (<100) PG/ML Total Protein 6.3 L (6.4-8.2) g/dL Albumin 3.0 L (3.4-5.0) g/dL Globulin 3.3 (2.6-4.0) g/dL Albumin/Globulin Ratio 0.9 (0.9-1.6) Urine Color Urine Appearance Urine pH (5.0-8.0) Ur Specific Laie (1.001-1.035) Urine Protein (NEGATIVE) mg/dL Urine Glucose (UA) (NEGATIVE) mg/dL Urine Ketones (NEGATIVE) mg/dL Urine Occult Blood (NEGATIVE) Urine Nitrite (NEGATIVE) Urine Bilirubin (NEGATIVE) Urine Urobilinogen (<2.0) EU/dL Ur Leukocyte Esterase (NEGATIVE) Urine RBC (0-2/HPF) Urine WBC (0-5/HPF) Ur Epithelial Cells (NONE-FEW) Urine Bacteria (NEGATIVE) Urine Yeast 09/24/18 Range/Units 19:45 WBC (4.0-11.0) K/uL RBC (4.30-5.90) M/uL Hgb (12.0-16.0) g/dL Hct (36.0-46.0) % MCV (80.0-98.0) fL MCH (27.0-32.0) pg MCHC (31.0-37.0) g/dL RDW Std Deviation (28.0-62.0) fl RDW Coeff of Antony (11.0-15.0) % Plt Count (150-400) K/uL MPV (7.40-12.00) fL Neut % (Auto) (48.0-80.0) % Lymph % (Auto) (16.0-40.0) % Bledsoe % (Auto) (0.0-15.0) % Eos % (Auto) (0.0-7.0) % Baso % (Auto) (0.0-1.5) % Neut # (Auto) (1.4-5.7) K/uL Lymph # (Auto) (0.6-2.4) K/uL Bledsoe # (Auto) (0.0-0.8) K/uL Eos # (Auto) (0.0-0.7) K/uL Baso # (Auto) (0.0-0.1) K/uL Nucleated RBC % /100WBC Nucleated RBCs # K/uL Sodium (136-145) mmol/L Potassium (3.5-5.1) mmol/L Chloride (98-107) mmol/L Carbon Dioxide (21.0-32.0) mmol/L BUN (7.0-18.0) mg/dL Creatinine (0.6-1.0) mg/dL Est Cr Clr Drug Dosing mL/min Estimated GFR (MDRD) ml/min Glucose (74-106) mg/dL Calcium (8.5-10.1) mg/dL Total Bilirubin (0.2-1.0) mg/dL AST (15-37) IU/L ALT (14-63) IU/L Alkaline Phosphatase (46-116) U/L B-Natriuretic Peptide (<100) PG/ML Total Protein (6.4-8.2) g/dL Albumin (3.4-5.0) g/dL Globulin (2.6-4.0) g/dL Albumin/Globulin Ratio (0.9-1.6) Urine Color YELLOW Urine Appearance CLEAR Urine pH 5.5 (5.0-8.0) Ur Specific Laie 1.025 (1.001-1.035) Urine Protein 30 H (NEGATIVE) mg/dL Urine Glucose (UA) NEGATIVE (NEGATIVE) mg/dL Urine Ketones NEGATIVE (NEGATIVE) mg/dL Urine Occult Blood LARGE H (NEGATIVE) Urine Nitrite NEGATIVE (NEGATIVE) Urine Bilirubin SMALL H (NEGATIVE) Urine Urobilinogen 0.2 (<2.0) EU/dL Ur Leukocyte Esterase SMALL H (NEGATIVE) Urine RBC 0-2 (0-2/HPF) Urine WBC 5-10 (0-5/HPF) Ur Epithelial Cells FEW (NONE-FEW) Urine Bacteria FEW (NEGATIVE) Urine Yeast MANY Meds: Medications Generic Name Dose Route Start Last Admin Trade Name Freq PRN Reason Stop Dose Admin Sodium Chloride 1,000 mls @ 150 mls/hr 09/24/18 20:13 Normal Saline IV 09/25/18 02:52 STAT ONE Ceftriaxone Sodium/Dextrose 1 50 mls @ 100 mls/hr 09/24/18 20:32 gm/ Premix IV 09/24/18 21:01 ONETIME ONE Piperacillin Sod/Tazobactam 50 mls @ 100 mls/hr 09/24/18 20:33 Sod 2.25 gm/ Sodium Chloride IV 09/24/18 21:02 ONETIME ONE Sodium Chloride 10 ml 09/24/18 18:55 Saline Flush FLUSH ASDIRECTED PRN Keep Vein Open Sodium Chloride 2.5 ml 09/24/18 18:55 Saline Flush FLUSH ASDIRECTED PRN Keep Vein Open Discontinued Medications Generic Name Dose Route Start Last Admin Trade Name Freq PRN Reason Stop Dose Admin Furosemide 40 mg 09/24/18 20:16 Lasix IVPUSH 09/24/18 20:17 NOW ONE Departure - Departure Time of Disposition: 20:45 Disposition: DC/Tfer to Acute Hospital 02 Condition: Good Clinical Impression: Congestive heart failure, Acute kidney failure, Hyperkalemia, Hypoxia - Discharge Information Referrals: Jazmín Brannon DO [Primary Care Provider] - Forms: ED Department Discharge - My Orders Last 24 Hours: My Active Orders 09/24/18 18:55 Sodium Chloride 0.9% [Saline Flush] 10 ml FLUSH ASDIRECTED PRN Sodium Chloride 0.9% [Saline Flush] 2.5 ml FLUSH ASDIRECTED PRN Saline Lock Insert [OM.PC] Stat 09/24/18 19:45 CULTURE URINE [RM] Stat 09/24/18 20:13 Sodium Chloride 0.9% [Normal Saline] 1,000 ml IV STAT 09/24/18 20:31 Hip Min 2V or 3V Rt [CR] Stat 09/24/18 20:32 cefTRIAXone [Rocephin in Dextrose,Iso-Osm 1 GM/50 ML] 1 gm Premix Bag 1 bag IV ONETIME 09/24/18 20:33 Piperacillin/Tazobactam [Zosyn] 2.25 gm Sodium Chloride 0.9% [Normal Saline] 50 ml IV ONETIME - Assessment/Plan Last 24 Hours: My Active Orders 09/24/18 18:55 Sodium Chloride 0.9% [Saline Flush] 10 ml FLUSH ASDIRECTED PRN Sodium Chloride 0.9% [Saline Flush] 2.5 ml FLUSH ASDIRECTED PRN Saline Lock Insert [OM.PC] Stat 09/24/18 19:45 CULTURE URINE [RM] Stat 09/24/18 20:13 Sodium Chloride 0.9% [Normal Saline] 1,000 ml IV STAT 09/24/18 20:31 Hip Min 2V or 3V Rt [CR] Stat 09/24/18 20:32 cefTRIAXone [Rocephin in Dextrose,Iso-Osm 1 GM/50 ML] 1 gm Premix Bag 1 bag IV ONETIME 09/24/18 20:33 Piperacillin/Tazobactam [Zosyn] 2.25 gm Sodium Chloride 0.9% [Normal Saline] 50 ml IV ONETIME
[2018-09-24] MEDS ORDERED: Sodium Chloride 0.9% 10 ML Syringe FLUSH PRN (18:55)
[2018-09-24] MEDS ORDERED: Sodium Chloride 0.9% 2.5 ML Syringe FLUSH PRN (18:55)
--- NOTE | 2018-09-24 19:34 | CR ---
INDICATION: Shortness of breath and pain TECHNIQUE: Chest 1 view. COMPARISON: 09/07/2018 FINDINGS: Cardiovascular and mediastinum: Heart size is normal with probable stable congestive changes. Left-sided [id number] tip terminates in the SVC. Mediastinum is within normal limits. Lungs and pleural space: Lungs are clear. No sign of infiltrate or mass. No sign of pleural effusion. No pneumothorax. Bones and soft tissues: No significant findings. IMPRESSION: Normal heart size with possible congestive changes. Dictated by Gus Whitt MD @ 09/24/2018 7:31:30 PM Dictated by: Gus Whitt MD @ 09/24/2018 19:32:43 (Electronically Signed)
[2018-09-24] MEDS ORDERED: Sodium Chloride 0.9% 1,000 ML IV ONE (20:13)
[2018-09-24] MEDS ORDERED: Furosemide 40 MG/4 ML VIAL IVPUSH ONE (20:16)
[2018-09-24 20:23] VITALS: BP 115/66
[2018-09-24] MEDS ORDERED: cefTRIAXone 1 GM in Premix Bag 1 BAG IV ONE (20:32)
[2018-09-24] MEDS ORDERED: Piperacillin/Tazobactam 2.25 GM in Sodium Chloride 0.9% 50 ML IV ONE (20:33)
--- NOTE | 2018-09-24 21:08 | CR ---
Indication: Fall x3 last week. Right hip pain x1 month. Technique: Two views of the right hip were obtained. Comparison: None Findings: The femoral head is seated within the acetabulum. Degenerative changes are identified. No acute fracture or subluxation is identified. Impression: Degenerative change. No acute fracture. Dictated by Aleyda Nassar MD @ Sep 24 2018 9:06PM Signed by Dr. Aleyda Nassar @ Sep 24 2018 9:06PM
== END 2018-09-24 21:24 ==
LOC: MW.ED 18:14
DX: I11.0 Hypertensive heart disease with heart failure (principal); I50.9 Heart failure, unspecified; E11.9 Type 2 diabetes mellitus without complications; E87.5 Hyperkalemia; R09.02 Hypoxemia; N17.9 Acute kidney failure, unspecified; Z88.8 Allergy status to other drugs, medicaments and biological substances; Z88.1 Allergy status to other antibiotic agents; Z88.5 Allergy status to narcotic agent; Z88.2 Allergy status to sulfonamides; Z79.82 Long term (current) use of aspirin; Z79.899 Other long term (current) drug therapy; Z91.013 Allergy to seafood
CPT/HCPCS: 36415; 71045; 73502; 80053; 81001; 83880; 85025; 87086; 96374; 96375; 99285; J0696; J1940; J2543; J7040; J7050

== ENCOUNTER 2018-10-11 11:15 | Inpatient (IN) | payer MEDICARE, OTHER ==
[2018-10-11] MEDS ORDERED: Sodium Chloride 0.9% 2.5 ML Syringe FLUSH PRN (12:11)
[2018-10-11] MEDS ORDERED: Sodium Chloride 0.9% 10 ML Syringe FLUSH PRN (12:11)
[2018-10-11] MEDS ORDERED: Sodium Chloride 0.9% 500 ML IV SCH (12:15)
--- NOTE | 2018-10-11 12:35 | EDM.PDOC ---
ED HPI GENERAL MEDICAL PROBLEM - General Chief Complaint: General Stated Complaint: WEAK Time Seen by Provider: 10/11/18 12:27 Source of Information: Reports: Patient History Limitations: Reports: No Limitations - History of Present Illness INITIAL COMMENTS - FREE TEXT/NARRATIVE: HISTORY AND PHYSICAL: History of present illness: Patient is a 78-year-old female here with son and daughter here for a fall. Patient has history of multiple myeloma and CHF. Son states she was found on the floor by her home healthcare nurse this morning. She states she was trying to get out of her recliner but her legs have been hurting and believes this caused her to fall. Denies head injury. She has baseline dementia which family states has been worse since her recent admission to [facility]. She was transferred to [place] on 09/24 for CHF and hypoxia (due to lack of beds) and discharged home on 09/28 with home O2. Weakness has been ongoing since her admission here 09/12 for pneumonia and UTI. Patient has no complaints at this time. She is a poor historian but denies chest pain or worsening shortness of breath, cough, fevers, chills, nausea, vomiting, diarrhea, abdominal pain, dysuria. Daughter is uncertain if she has been taking her medications regularly but does believe she took them this morning. Review of systems: As per history of present illness and below otherwise all systems reviewed and negative. Past medical history: As per history of present illness and as reviewed below otherwise noncontributory. Surgical history: As per history of present illness and as reviewed below otherwise noncontributory. Social history: No reported history of drug or alcohol abuse. Family history: As per history of present illness and as reviewed below otherwise noncontributory. Physical exam: General: Patient sitting comfortably in no acute distress and nontoxic appearing HEENT: Atraumatic, normocephalic, pupils reactive, negative for conjunctival pallor or scleral icterus, mucous membranes moist, throat clear, neck supple, nontender, trachea midline. No meningeal signs. Lungs: Wheezing and rhonchi at lung bases bilaterally, chest nontender. Heart: S1S2, regular, negative for clicks, rubs, or overt murmur. Abdomen: Soft, nondistended, nontender. Negative for masses or hepatosplenomegaly. Negative for costovertebral tenderness. Pelvis: Stable nontender. Genitourinary: Deferred. Rectal: Deferred. Extremities: 3+ pitting edema bilaterally. Atraumatic, negative for cords or calf pain. Neurovascular unremarkable. Neuro: Awake, alert, oriented. Cranial nerves II through XII unremarkable. Cerebellum unremarkable. Motor and sensory unremarkable throughout. Exam nonfocal. Notes: Troponin is slightly elevate, no previous troponins on record. EKG is unchanged from previous on 09/24/18. Diagnostics: CBC, CMP, troponin, BNP, EKG, CXR Therapeutics: 500mL NS IV DuoNeb 2.25 Zosyn IV Prescriptions: Impression: UTI, weakness, elevated troponin, r/o ACS Plan: Discussed with Dr. Stevens, patient will be admitted to inpatient for r/o ACS and UTI. Definitive disposition and diagnosis as appropriate pending reevaluation and review of above. - Related Data Allergies Allergy/AdvReac Type Severity Reaction Status Date / Time ciprofloxacin HCl Allergy Airway Verified 10/11/18 11:59 [From Cipro] Tightness codeine Allergy Airway Verified 10/11/18 11:59 Tightness iodine Allergy Unknown Verified 10/11/18 11:59 lenalidomide [From Revlimid] Allergy Airway Verified 10/11/18 11:59 Tightness shellfish derived Allergy Unknown Verified 10/11/18 11:59 Sulfa (Sulfonamide Allergy Unknown Verified 10/11/18 11:59 Antibiotics) Home Meds: Home Meds Acyclovir 400 mg PO BID 09/24/18 [History] Aspirin 81 mg PO DAILY 09/24/18 [History] Daratumumab [Darzalex] 400 mg IV ASDIRECTED 09/24/18 [History] Escitalopram [Lexapro] 10 mg PO DAILY 09/24/18 [History] Famotidine [Pepcid] 20 mg PO DAILY 09/24/18 [History] Furosemide 40 mg PO DAILY 09/24/18 [History] Gabapentin [Neurontin] 900 mg PO TID 09/24/18 [History] Latanoprost 2.5 ml OP DAILY 09/24/18 [History] Levothyroxine [Levothroid] 137 mcg PO DAILY 09/24/18 [History] Lisinopril 20 mg PO DAILY 09/24/18 [History] Loperamide [Imodium] 2 mg PO Q4H 09/24/18 [History] Potassium Chloride 10 meq PO TID 09/24/18 [History] atorvaSTATin Calcium [Atorvastatin Calcium] 10 mg PO BEDTIME 09/24/18 [History] fentaNYL [Duragesic] 50 mcg TD 5XDAY 09/24/18 [History] oxyCODONE HCl/Acetaminophen [Oxycodone-Acetaminophen 10-300] 1 each PO Q4HR 12/07 [History] QUEtiapine [SEROquel] 25 mg PO BEDTIME 10/11/18 [History] Past Medical History HEENT History: Reports: Cataract, Glaucoma, Impaired Vision Cardiovascular History: Reports: Blood Clots/VTE/DVT, Heart Failure, Hypertension Other Cardiovascular History: blood clots behind left knee Respiratory History: Reports: None Other Respiratory History: Hx of pneumonia Gastrointestinal History: Reports: GERD, Hiatal Hernia, Irritable Bowel Syndrome Genitourinary History: Reports: Acute Renal Failure, Renal Calculus, UTI, Recurrent Other Genitourinary History: Hx of renal failure, no longer in failure RECHECKER History: Reports: Musculoskeletal History: Reports: Arthritis, Fracture Other Musculoskeletal History: 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 Neurological History: Reports: None Psychiatric History: Reports: Anxiety Endocrine/Metabolic History: Reports: Diabetes, Type II, Hypothyroidism Other Endocrine/Metabolic History: History of Diabetes, Not currently an issue. Hematologic History: Reports: Anemia Immunologic History: Reports: None Oncologic (Cancer) History: Reports: Bone Other Oncologic History: multiple myeloma, Stage III Dermatologic History: Reports: Cellulitis - Infectious Disease History Infectious Disease History: Reports: Chicken Pox, Measles, Shingles, Other (See Below) Other Infectious Disease History: MSSA - Past Surgical History HEENT Surgical History: Reports: Eye Surgery Female Surgical History: Reports: Nephrectomy Musculoskeletal Surgical History: Reports: Carpal Tunnel, Other (See Below) Social & Family History - Family History Family Medical History: Noncontributory HEENT: Reports: Impaired Vision Cardiac: Reports: Heart Failure Respiratory: Reports: Asthma OBGYN: Reports: Musculoskeletal: Reports: Arthritis, Gout Neurological: Reports: Cerebral Aneurysms Endocrine/Metabolic: Reports: Diabetes, type II Oncologic: Reports: Breast, Colon, Liver - Tobacco Use Smoking Status *Q: Never Smoker - Caffeine Use Caffeine Use: Reports: Coffee Other Caffeine Use: 1-2 cups daily - Recreational Drug Use Recreational Drug Use: No ED ROS GENERAL - Review of Systems Review Of Systems: ROS reveals no pertinent complaints other than HPI. ED EXAM, GENERAL - Physical Exam Exam: See Below (see dictation) Course - Vital Signs Last Recorded V/S: Last Vital Signs Temp 96.3 F 10/11/18 11:56 Pulse 86 10/11/18 11:56 Resp 18 10/11/18 11:56 BP 117/74 10/11/18 11:56 Pulse Ox 94 L 10/11/18 11:56 - Orders/Labs/Meds Orders: Active Orders 24 hr Category Date Time Status Admission Status [Patient Status] [ADT] Stat ADT 10/11/18 14:34 Ordered Cardiac Monitoring [RC] . DIRECTED Care 10/11/18 14:34 Ordered EKG Documentation Completion [RC] STAT Care 10/11/18 12:11 Active RT Aerosol Therapy [RC] ASDIRECTED Care 10/11/18 13:40 Active CULTURE URINE [RM] Stat Lab 10/11/18 13:58 Received Piperacillin/Tazobactam [Zosyn] 2.25 gm Med 10/11/18 14:39 Ordered Sodium Chloride 0.9% [Normal Saline] 50 ml IV ONETIME Sodium Chloride 0.9% [Normal Saline] 500 ml Med 10/11/18 12:15 Active IV STAT Sodium Chloride 0.9% [Saline Flush] Med 10/11/18 12:11 Active 10 ml FLUSH ASDIRECTED PRN Sodium Chloride 0.9% [Saline Flush] Med 10/11/18 12:11 Active 2.5 ml FLUSH ASDIRECTED PRN Saline Lock Insert [OM.PC] Stat Oth 10/11/18 12:11 Ordered Medication Orders Sodium Chloride (Normal Saline) 500 mls @ 999 mls/hr IV STAT [facility] Last Admin: 10/11/18 12:51 Dose: 999 mls/hr Sodium Chloride (Saline Flush) 10 ml FLUSH ASDIRECTED PRN PRN Reason: Keep Vein Open Sodium Chloride (Saline Flush) 2.5 ml FLUSH ASDIRECTED PRN PRN Reason: Keep Vein Open Labs: Laboratory Tests 10/11/18 10/11/18 10/11/18 Range/Units 12:37 12:37 12:37 WBC 8.18 (4.0-11.0) K/uL RBC 4.13 L (4.30-5.90) M/uL Hgb 11.5 L (12.0-16.0) g/dL Hct 36.5 (36.0-46.0) % MCV 88.4 (80.0-98.0) fL MCH 27.8 (27.0-32.0) pg MCHC 31.5 (31.0-37.0) g/dL RDW Std Deviation 53.8 (28.0-62.0) fl RDW Coeff of Antony 17 H (11.0-15.0) % Plt Count 171 (150-400) K/uL MPV 11.20 (7.40-12.00) fL Neut % (Auto) 67.1 (48.0-80.0) % Lymph % (Auto) 15.4 L (16.0-40.0) % [place] % (Auto) 15.4 H (0.0-15.0) % Eos % (Auto) 1.7 (0.0-7.0) % Baso % (Auto) 0.4 (0.0-1.5) % Neut # (Auto) 5.5 (1.4-5.7) K/uL Lymph # (Auto) 1.3 (0.6-2.4) K/uL [place] # (Auto) 1.3 H (0.0-0.8) K/uL Eos # (Auto) 0.1 (0.0-0.7) K/uL Baso # (Auto) 0.0 (0.0-0.1) K/uL Nucleated RBC % 0.0 /100WBC Nucleated RBCs # 0 K/uL Sodium 138 (136-145) mmol/L Potassium 4.5 (3.5-5.1) mmol/L Chloride 98 (98-107) mmol/L Carbon Dioxide 31.6 (21.0-32.0) mmol/L BUN 19 H (7.0-18.0) mg/dL Creatinine 1.4 H (0.6-1.0) mg/dL Est Cr Clr Drug Dosing 24.55 mL/min Estimated GFR (MDRD) 36.6 ml/min Glucose 99 (74-106) mg/dL Calcium 9.3 (8.5-10.1) mg/dL Total Bilirubin 0.7 (0.2-1.0) mg/dL AST 124 H (15-37) IU/L ALT 204 H (14-63) IU/L Alkaline Phosphatase 100 (46-116) U/L Troponin I 0.079 H* (0.000-0.056) ng/mL B-Natriuretic Peptide 166 H (<100) PG/ML Total Protein 6.4 (6.4-8.2) g/dL Albumin 3.2 L (3.4-5.0) g/dL Globulin 3.2 (2.6-4.0) g/dL Albumin/Globulin Ratio 1.0 (0.9-1.6) Urine Color Urine Appearance Urine pH (5.0-8.0) Ur Specific [place] (1.001-1.035) Urine Protein (NEGATIVE) mg/dL Urine Glucose (UA) (NEGATIVE) mg/dL Urine Ketones (NEGATIVE) mg/dL Urine Occult Blood (NEGATIVE) Urine Nitrite (NEGATIVE) Urine Bilirubin (NEGATIVE) Urine Urobilinogen (<2.0) EU/dL Ur Leukocyte Esterase (NEGATIVE) Urine RBC (0-2/HPF) Urine WBC (0-5/HPF) Ur Epithelial Cells (NONE-FEW) Urine Bacteria (NEGATIVE) 10/11/18 Range/Units 13:58 WBC (4.0-11.0) K/uL RBC (4.30-5.90) M/uL Hgb (12.0-16.0) g/dL Hct (36.0-46.0) % MCV (80.0-98.0) fL MCH (27.0-32.0) pg MCHC (31.0-37.0) g/dL RDW Std Deviation (28.0-62.0) fl RDW Coeff of Antony (11.0-15.0) % Plt Count (150-400) K/uL MPV (7.40-12.00) fL Neut % (Auto) (48.0-80.0) % Lymph % (Auto) (16.0-40.0) % [place] % (Auto) (0.0-15.0) % Eos % (Auto) (0.0-7.0) % Baso % (Auto) (0.0-1.5) % Neut # (Auto) (1.4-5.7) K/uL Lymph # (Auto) (0.6-2.4) K/uL [place] # (Auto) (0.0-0.8) K/uL Eos # (Auto) (0.0-0.7) K/uL Baso # (Auto) (0.0-0.1) K/uL Nucleated RBC % /100WBC Nucleated RBCs # K/uL Sodium (136-145) mmol/L Potassium (3.5-5.1) mmol/L Chloride (98-107) mmol/L Carbon Dioxide (21.0-32.0) mmol/L BUN (7.0-18.0) mg/dL Creatinine (0.6-1.0) mg/dL Est Cr Clr Drug Dosing mL/min Estimated GFR (MDRD) ml/min Glucose (74-106) mg/dL Calcium (8.5-10.1) mg/dL Total Bilirubin (0.2-1.0) mg/dL AST (15-37) IU/L ALT (14-63) IU/L Alkaline Phosphatase (46-116) U/L Troponin I (0.000-0.056) ng/mL B-Natriuretic Peptide (<100) PG/ML Total Protein (6.4-8.2) g/dL Albumin (3.4-5.0) g/dL Globulin (2.6-4.0) g/dL Albumin/Globulin Ratio (0.9-1.6) Urine Color YELLOW Urine Appearance CLEAR Urine pH 5.5 (5.0-8.0) Ur Specific [place] 1.015 (1.001-1.035) Urine Protein NEGATIVE (NEGATIVE) mg/dL Urine Glucose (UA) NEGATIVE (NEGATIVE) mg/dL Urine Ketones NEGATIVE (NEGATIVE) mg/dL Urine Occult Blood TRACE-LYSED H (NEGATIVE) Urine Nitrite POSITIVE H (NEGATIVE) Urine Bilirubin NEGATIVE (NEGATIVE) Urine Urobilinogen 0.2 (<2.0) EU/dL Ur Leukocyte Esterase TRACE H (NEGATIVE) Urine RBC 0-1 (0-2/HPF) Urine WBC 6-8 (0-5/HPF) Ur Epithelial Cells FEW (NONE-FEW) Urine Bacteria FEW (NEGATIVE) Meds: Medications Generic Name Dose Route Start Last Admin Trade Name Freq PRN Reason Stop Dose Admin Sodium Chloride 500 mls @ 999 mls/hr 10/11/18 12:15 10/11/18 12:51 Normal Saline IV 999 mls/hr STAT ARMIDA Administration Sodium Chloride 10 ml 10/11/18 12:11 Saline Flush FLUSH ASDIRECTED PRN Keep Vein Open Sodium Chloride 2.5 ml 10/11/18 12:11 Saline Flush FLUSH ASDIRECTED PRN Keep Vein Open Discontinued Medications Generic Name Dose Route Start Last Admin Trade Name Freq PRN Reason Stop Dose Admin Albuterol/Ipratropium 3 ml 10/11/18 13:40 10/11/18 14:05 Duoneb 3.0-0.5 Mg/3 Ml NEB 10/11/18 13:41 3 ml ONETIME ONE Administration Levofloxacin/Dextrose 750 mg/ 150 mls @ 100 mls/hr 10/11/18 14:36 Premix IV 10/11/18 16:05 ONETIME ONE Departure - Departure Time of Disposition: 14:40 Disposition: Home, Self-Care 01 Condition: Good Clinical Impression: Elevated troponin I level, Weakness UTI (urinary tract infection) Qualifiers: Urinary tract infection type: acute cystitis Hematuria presence: with hematuria Qualified Code(s): N30.01 - Acute cystitis with hematuria - Discharge Information Referrals: PCP,Unknown [Primary Care Provider] - Forms: ED Department Discharge - My Orders Last 24 Hours: My Active Orders 10/11/18 12:11 EKG Documentation Completion [RC] STAT Sodium Chloride 0.9% [Saline Flush] 10 ml FLUSH ASDIRECTED PRN Sodium Chloride 0.9% [Saline Flush] 2.5 ml FLUSH ASDIRECTED PRN Saline Lock Insert [OM.PC] Stat 10/11/18 12:15 Sodium Chloride 0.9% [Normal Saline] 500 ml IV STAT 10/11/18 13:40 RT Aerosol Therapy [RC] ASDIRECTED 10/11/18 13:58 CULTURE URINE [RM] Stat 10/11/18 14:34 Admission Status [Patient Status] [ADT] Stat Cardiac Monitoring [RC] . DIRECTED 10/11/18 14:39 Piperacillin/Tazobactam [Zosyn] 2.25 gm Sodium Chloride 0.9% [Normal Saline] 50 ml IV ONETIME - Assessment/Plan Last 24 Hours: My Active Orders 10/11/18 12:11 EKG Documentation Completion [RC] STAT Sodium Chloride 0.9% [Saline Flush] 10 ml FLUSH ASDIRECTED PRN Sodium Chloride 0.9% [Saline Flush] 2.5 ml FLUSH ASDIRECTED PRN Saline Lock Insert [OM.PC] Stat 10/11/18 12:15 Sodium Chloride 0.9% [Normal Saline] 500 ml IV STAT 10/11/18 13:40 RT Aerosol Therapy [RC] ASDIRECTED 10/11/18 13:58 CULTURE URINE [RM] Stat 10/11/18 14:34 Admission Status [Patient Status] [ADT] Stat Cardiac Monitoring [RC] . DIRECTED 10/11/18 14:39 Piperacillin/Tazobactam [Zosyn] 2.25 gm Sodium Chloride 0.9% [Normal Saline] 50 ml IV ONETIME
--- NOTE | 2018-10-11 13:10 | CR ---
EXAMINATION: Portable chest radiograph. HISTORY: Shortness of breath. Comparison: 10/10/2018. FINDINGS: The trachea is midline. The cardiomediastinal silhouette is grossly stable. Persistent bilateral pulmonary opacities are again noted, not significantly changed. No pleural effusion or pneumothorax. Left-sided tra catheter. Osseous structures appear osteopenic. Degenerative changes noted within the shoulders. IMPRESSION: Persistent, grossly unchanged bilateral pulmonary opacities.
[2018-10-11] MEDS ORDERED: Albuterol/Ipratropium 3.0-0.5 MG/3 ML Neb Soln NEB ONE (13:40)
[2018-10-11] MEDS ORDERED: Levofloxacin/Dextrose 5%-Water 750 MG in Premix Bag 1 BAG IV ONE (14:36)
[2018-10-11] MEDS ORDERED: Piperacillin/Tazobactam 2.25 GM in Sodium Chloride 0.9% 50 ML IV ONE (14:39)
[2018-10-11] MEDS ORDERED: Heparin Sodium 5,000 Units/ML Vial SUBCUT SCH (16:45)
[2018-10-11] MEDS ORDERED: cefTRIAXone 1 GM Vial IVPUSH SCH (21:00)
[2018-10-11] MEDS: atorvaSTATin 10 MG Tab PO SCH (21:34)
[2018-10-11] MEDS: Acyclovir 200 MG Cap PO SCH (21:35)
[2018-10-11] MEDS: cefTRIAXone 1 GM in Premix Bag 1 BAG IV SCH (21:35)
[2018-10-11] MEDS: QUEtiapine 25 MG Tab PO SCH (21:35)
[2018-10-11] MEDS ORDERED: Gabapentin 300 MG Cap PO SCH (22:00)
--- NOTE | 2018-10-11 22:10 | PCM.HP ---
H&P History of Present Illness - General Date of Service: 10/11/18 Admit Problem/Dx: Admission Diagnosis/Problem Admission Diagnosis/Problem Elevated troponin I level - History of Present Illness Initial Comments - Free Text/Narative: 78 yo female with pmh of multiple myeloma, diabetes, CHF who presents to the ED after a fall. She found down on the ground. She reports she fell out of her chair and family suspects it is due to pain/neuropathy of her feet. She has a history of recent hospitalization at [facility] for CHF and kidney injury. She currently denies any problems and wants to go home soon. Family has been wanting SNF placement as she lives alone but patient refuses. - Related Data Allergies/Adverse Reactions: Allergies Allergy/AdvReac Type Severity Reaction Status Date / Time ciprofloxacin HCl Allergy Airway Verified 10/11/18 11:59 [From Cipro] Tightness codeine Allergy Airway Verified 10/11/18 11:59 Tightness iodine Allergy Unknown Verified 10/11/18 11:59 lenalidomide [From Revlimid] Allergy Airway Verified 10/11/18 11:59 Tightness shellfish derived Allergy Unknown Verified 10/11/18 11:59 Sulfa (Sulfonamide Allergy Unknown Verified 10/11/18 11:59 Antibiotics) Home Medications: Home Meds Acyclovir 400 mg PO BID 09/24/18 [History] Aspirin 81 mg PO DAILY 09/24/18 [History] Daratumumab [Darzalex] 400 mg IV ASDIRECTED 09/24/18 [History] Escitalopram [Lexapro] 10 mg PO DAILY 09/24/18 [History] Famotidine [Pepcid] 20 mg PO DAILY 09/24/18 [History] Furosemide 40 mg PO DAILY 09/24/18 [History] Gabapentin [Neurontin] 900 mg PO TID 09/24/18 [History] Latanoprost 2.5 ml OP DAILY 09/24/18 [History] Levothyroxine [Levothroid] 137 mcg PO DAILY 09/24/18 [History] Lisinopril 20 mg PO DAILY 09/24/18 [History] Loperamide [Imodium] 2 mg PO Q4H 09/24/18 [History] Potassium Chloride 10 meq PO TID 09/24/18 [History] atorvaSTATin Calcium [Atorvastatin Calcium] 10 mg PO BEDTIME 09/24/18 [History] fentaNYL [Duragesic] 50 mcg TD 5XDAY 09/24/18 [History] oxyCODONE HCl/Acetaminophen [Oxycodone-Acetaminophen 10-300] 1 each PO Q4HR 12/07 [History] QUEtiapine [SEROquel] 25 mg PO BEDTIME 10/11/18 [History] Past Medical History HEENT History: Reports: Cataract, Glaucoma, Impaired Vision Cardiovascular History: Reports: Blood Clots/VTE/DVT, Heart Failure, Hypertension Other Cardiovascular History: blood clots behind left knee Respiratory History: Reports: None Other Respiratory History: Hx of pneumonia Gastrointestinal History: Reports: GERD, Hiatal Hernia, Irritable Bowel Syndrome Genitourinary History: Reports: Acute Renal Failure, Renal Calculus, UTI, Recurrent Other Genitourinary History: Hx of renal failure, no longer in failure [place] HAND History: Reports: Musculoskeletal History: Reports: Arthritis, Fracture Other Musculoskeletal History: 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 Neurological History: Reports: None Psychiatric History: Reports: Anxiety Endocrine/Metabolic History: Reports: Diabetes, Type II, Hypothyroidism Other Endocrine/Metabolic History: History of Diabetes, Not currently an issue. Hematologic History: Reports: Anemia Immunologic History: Reports: None Oncologic (Cancer) History: Reports: Bone Other Oncologic History: multiple myeloma, Stage III Dermatologic History: Reports: Cellulitis - Infectious Disease History Infectious Disease History: Reports: Chicken Pox, Measles, Shingles, Other (See Below) Other Infectious Disease History: MSSA - Past Surgical History HEENT Surgical History: Reports: Eye Surgery Female Surgical History: Reports: Nephrectomy Musculoskeletal Surgical History: Reports: Carpal Tunnel, Other (See Below) Social & Family History - Family History Family Medical History: Noncontributory HEENT: Reports: Impaired Vision Cardiac: Reports: Heart Failure Respiratory: Reports: Asthma OBGYN: Reports: Musculoskeletal: Reports: Arthritis, Gout Neurological: Reports: Cerebral Aneurysms Endocrine/Metabolic: Reports: Diabetes, type II Oncologic: Reports: Breast, Colon, Liver - Tobacco Use Smoking Status *Q: Former Smoker Used Tobacco, but Quit: Yes Month/Year Tobacco Last Used: 1988 Second Hand Smoke Exposure: No - Caffeine Use Caffeine Use: Reports: Soda Other Caffeine Use: 1-2 cups daily - Recreational Drug Use Recreational Drug Use: No H&P Review of Systems - Review of Systems: Review Of Systems: ROS reveals no pertinent complaints other than HPI. Exam - Exam Exam: See Below - Vital Signs Vital Signs: Last Vital Signs Temp 36.4 C 10/11/18 16:44 Pulse 86 10/11/18 16:44 Resp 19 10/11/18 16:44 BP 142/86 H 10/11/18 16:44 Pulse Ox 98 10/11/18 16:44 Weight: 89.494 kg - Exam General: Cooperative HEENT: Mucosa Moist & [place] Lungs: Clear to Auscultation, Normal Respiratory Effort Cardiovascular: Regular Rate, Regular Rhythm GI/Abdominal Exam: Soft, Non-Tender Extremities: No Pedal Edema Skin: Warm, Dry, Intact Neurological: No: Focal Deficit Neuro Extensive - Mental Status: Normal Cognition - Patient Data Lab Results Last 24 hrs: Laboratory Results - last 24 hr 10/11/18 10/11/18 10/11/18 Range/Units 12:37 12:37 12:37 WBC 8.18 (4.0-11.0) K/uL RBC 4.13 L (4.30-5.90) M/uL Hgb 11.5 L (12.0-16.0) g/dL Hct 36.5 (36.0-46.0) % MCV 88.4 (80.0-98.0) fL MCH 27.8 (27.0-32.0) pg MCHC 31.5 (31.0-37.0) g/dL RDW Std Deviation 53.8 (28.0-62.0) fl RDW Coeff of Antony 17 H (11.0-15.0) % Plt Count 171 (150-400) K/uL MPV 11.20 (7.40-12.00) fL Neut % (Auto) 67.1 (48.0-80.0) % Lymph % (Auto) 15.4 L (16.0-40.0) % [place] % (Auto) 15.4 H (0.0-15.0) % Eos % (Auto) 1.7 (0.0-7.0) % Baso % (Auto) 0.4 (0.0-1.5) % Neut # (Auto) 5.5 (1.4-5.7) K/uL Lymph # (Auto) 1.3 (0.6-2.4) K/uL [place] # (Auto) 1.3 H (0.0-0.8) K/uL Eos # (Auto) 0.1 (0.0-0.7) K/uL Baso # (Auto) 0.0 (0.0-0.1) K/uL Nucleated RBC % 0.0 /100WBC Nucleated RBCs # 0 K/uL Sodium 138 (136-145) mmol/L Potassium 4.5 (3.5-5.1) mmol/L Chloride 98 (98-107) mmol/L Carbon Dioxide 31.6 (21.0-32.0) mmol/L BUN 19 H (7.0-18.0) mg/dL Creatinine 1.4 H (0.6-1.0) mg/dL Est Cr Clr Drug Dosing 24.55 mL/min Estimated GFR (MDRD) 36.6 ml/min Glucose 99 (74-106) mg/dL POC Glucose (60-110) mg/dL Calcium 9.3 (8.5-10.1) mg/dL Total Bilirubin 0.7 (0.2-1.0) mg/dL AST 124 H (15-37) IU/L ALT 204 H (14-63) IU/L Alkaline Phosphatase 100 (46-116) U/L Troponin I 0.079 H* (0.000-0.056) ng/mL B-Natriuretic Peptide 166 H (<100) PG/ML Total Protein 6.4 (6.4-8.2) g/dL Albumin 3.2 L (3.4-5.0) g/dL Globulin 3.2 (2.6-4.0) g/dL Albumin/Globulin Ratio 1.0 (0.9-1.6) Urine Color Urine Appearance Urine pH (5.0-8.0) Ur Specific [place] (1.001-1.035) Urine Protein (NEGATIVE) mg/dL Urine Glucose (UA) (NEGATIVE) mg/dL Urine Ketones (NEGATIVE) mg/dL Urine Occult Blood (NEGATIVE) Urine Nitrite (NEGATIVE) Urine Bilirubin (NEGATIVE) Urine Urobilinogen (<2.0) EU/dL Ur Leukocyte Esterase (NEGATIVE) Urine RBC (0-2/HPF) Urine WBC (0-5/HPF) Ur Epithelial Cells (NONE-FEW) Urine Bacteria (NEGATIVE) 10/11/18 10/11/18 10/11/18 Range/Units 13:58 17:08 18:46 WBC (4.0-11.0) K/uL RBC (4.30-5.90) M/uL Hgb (12.0-16.0) g/dL Hct (36.0-46.0) % MCV (80.0-98.0) fL MCH (27.0-32.0) pg MCHC (31.0-37.0) g/dL RDW Std Deviation (28.0-62.0) fl RDW Coeff of Antony (11.0-15.0) % Plt Count (150-400) K/uL MPV (7.40-12.00) fL Neut % (Auto) (48.0-80.0) % Lymph % (Auto) (16.0-40.0) % [place] % (Auto) (0.0-15.0) % Eos % (Auto) (0.0-7.0) % Baso % (Auto) (0.0-1.5) % Neut # (Auto) (1.4-5.7) K/uL Lymph # (Auto) (0.6-2.4) K/uL [place] # (Auto) (0.0-0.8) K/uL Eos # (Auto) (0.0-0.7) K/uL Baso # (Auto) (0.0-0.1) K/uL Nucleated RBC % /100WBC Nucleated RBCs # K/uL Sodium (136-145) mmol/L Potassium (3.5-5.1) mmol/L Chloride (98-107) mmol/L Carbon Dioxide (21.0-32.0) mmol/L BUN (7.0-18.0) mg/dL Creatinine (0.6-1.0) mg/dL Est Cr Clr Drug Dosing mL/min Estimated GFR (MDRD) ml/min Glucose (74-106) mg/dL POC Glucose 107 (60-110) mg/dL Calcium (8.5-10.1) mg/dL Total Bilirubin (0.2-1.0) mg/dL AST (15-37) IU/L ALT (14-63) IU/L Alkaline Phosphatase (46-116) U/L Troponin I 0.083 H* (0.000-0.056) ng/mL B-Natriuretic Peptide (<100) PG/ML Total Protein (6.4-8.2) g/dL Albumin (3.4-5.0) g/dL Globulin (2.6-4.0) g/dL Albumin/Globulin Ratio (0.9-1.6) Urine Color YELLOW Urine Appearance CLEAR Urine pH 5.5 (5.0-8.0) Ur Specific [place] 1.015 (1.001-1.035) Urine Protein NEGATIVE (NEGATIVE) mg/dL Urine Glucose (UA) NEGATIVE (NEGATIVE) mg/dL Urine Ketones NEGATIVE (NEGATIVE) mg/dL Urine Occult Blood TRACE-LYSED H (NEGATIVE) Urine Nitrite POSITIVE H (NEGATIVE) Urine Bilirubin NEGATIVE (NEGATIVE) Urine Urobilinogen 0.2 (<2.0) EU/dL Ur Leukocyte Esterase TRACE H (NEGATIVE) Urine RBC 0-1 (0-2/HPF) Urine WBC 6-8 (0-5/HPF) Ur Epithelial Cells FEW (NONE-FEW) Urine Bacteria FEW (NEGATIVE) Result Diagrams: 10/13/18 06:12 10/13/18 06:12 Problem List Initiated/Reviewed/Updated: Yes Orders Last 24hrs: Active Orders 24 hr Category Date Time Status Admission Status [Patient Status] [ADT] Stat ADT 10/11/18 14:34 Active Antiembolic Devices [RC] PER UNIT ROUTINE Care 10/11/18 16:45 Active Blood Glucose Check, Bedside [RC] TIDMEALS Care 10/11/18 16:44 Active Cardiac Monitoring [RC] . DIRECTED Care 10/11/18 14:34 Active Oxygen Therapy [RC] PRN Care 10/11/18 16:44 Active RT Aerosol Therapy [RC] ASDIRECTED Care 10/11/18 13:40 Active Telemetry Monitoring [Cardiac Monitoring] [RC] . Care 10/11/18 14:58 Active DIRECTED Up ad Judy [RC] ASDIRECTED Care 10/11/18 16:44 Active Vital Signs [RC] Q4H Care 10/11/18 16:[address] [place] [employer] Diet [DIET] Diet 10/11/18 Breakfast Active BASIC METABOLIC PANEL,BMP [CHEM] AM Lab 10/12/18 05:11 Ordered CBC WITH AUTO DIFF [HEME] AM Lab 10/12/18 05:11 Ordered CULTURE URINE [RM] Stat Lab 10/11/18 13:58 Received TROPONIN I [CHEM] Q6H Lab 10/12/18 00:30 Ordered Acyclovir [Zovirax] Med 10/11/18 21:00 Active 400 mg PO BID Aspirin Med 10/12/18 09:00 Active 81 mg PO DAILY Escitalopram [Lexapro] Med 10/12/18 09:00 Active 10 mg PO DAILY Famotidine [Pepcid] Med 10/12/18 09:00 Active 20 mg PO DAILY Gabapentin [Neurontin] Med 10/11/18 22:00 Pending 900 mg PO TID Heparin Sodium Med 10/12/18 06:00 Active 5,000 units SUBCUT Q12H Levothyroxine Med 10/12/18 07:30 Active 112 mcg PO ACBREAKFAST Levothyroxine Med 10/12/18 07:30 Active 25 mcg PO ACBREAKFAST Lisinopril [Prinivil] Med 10/12/18 09:00 Active 20 mg PO DAILY QUEtiapine [SEROquel] Med 10/11/18 21:00 Active 25 mg PO BEDTIME Sodium Chloride 0.9% [Normal Saline] 500 ml Med 10/11/18 12:15 Active IV STAT Sodium Chloride 0.9% [Saline Flush] Med 10/11/18 12:11 Active 10 ml FLUSH ASDIRECTED PRN Sodium Chloride 0.9% [Saline Flush] Med 10/11/18 12:11 Active 2.5 ml FLUSH ASDIRECTED PRN atorvaSTATin [Lipitor] Med 10/11/18 21:00 Active 10 mg PO BEDTIME cefTRIAXone [Rocephin in Dextrose,Iso-Osm 1 GM/50 ML] 1 Med 10/11/18 21:00 Active gm Premix Bag 1 bag IV Q24H Obtain Past Medical Record [OM.PC] Routine Oth 10/11/18 22:00 Ordered Saline Lock Insert [OM.PC] Stat Oth 10/11/18 12:11 Ordered Sequential Compression Device [OM.PC] Per Unit Routine Oth 10/11/18 16:44 Ordered Resuscitation Status Routine Resus Stat 10/11/18 16:44 Ordered Medication Orders Acyclovir (Zovirax) 400 mg PO BID [facility] Last Admin: 02/21/19 21:35 Dose: 400 mg Aspirin (Aspirin) 81 mg PO DAILY [facility] Atorvastatin Calcium (Lipitor) 10 mg PO BEDTIME [facility] Last Admin: 10/11/18 21:34 Dose: 10 mg Escitalopram Oxalate (Lexapro) 10 mg PO DAILY [facility] Famotidine (Pepcid) 20 mg PO DAILY [facility] Gabapentin (Neurontin) 900 mg PO TID [facility] Heparin Sodium (Porcine) (Heparin Sodium) 5,000 units SUBCUT Q12H [facility] Sodium Chloride (Normal Saline) 500 mls @ 999 mls/hr IV STAT [facility] Last Admin: 10/11/18 12:51 Dose: 999 mls/hr Ceftriaxone Sodium/Dextrose 1 (gm/ Premix) 50 mls @ 100 mls/hr IV Q24H [facility] Last Admin: 10/11/18 21:35 Dose: 100 mls/hr Levothyroxine Sodium (Levothyroxine) 112 mcg PO ACBREAKFAST [facility] Levothyroxine Sodium (Levothyroxine) 25 mcg PO ACBREAKFAST [facility] Lisinopril (Prinivil) 20 mg PO DAILY [facility] Quetiapine Fumarate (Seroquel) 25 mg PO BEDTIME [facility] Last Admin: 10/11/18 21:35 Dose: 25 mg Sodium Chloride (Saline Flush) 10 ml FLUSH ASDIRECTED PRN PRN Reason: Keep Vein Open Sodium Chloride (Saline Flush) 2.5 ml FLUSH ASDIRECTED PRN PRN Reason: Keep Vein Open Assessment/Plan Comment:: 78 yo female admitted following fall. Found to have UTI. We will treat with Rocephin, cultures pending. Troponin mildly elevated, will continue to trend.
[2018-10-12] MEDS: Heparin Sodium 5,000 Units/ML Vial SUBCUT SCH ×2 (06:43→18:00)
[2018-10-12] MEDS: Levothyroxine 112 MCG Tab PO SCH (06:44)
[2018-10-12] MEDS: Gabapentin 100 MG Cap PO SCH ×2 (06:45→09:59)
[2018-10-12] MEDS: Levothyroxine 25 MCG Tab PO SCH (06:45)
[2018-10-12] MEDS: Gabapentin 300 MG Cap PO SCH ×2 (06:45→09:59)
[2018-10-12] MEDS: Acyclovir 200 MG Cap PO SCH ×2 (09:59→21:39)
[2018-10-12] MEDS: Lisinopril 10 MG Tab PO SCH (10:00)
[2018-10-12] MEDS: Famotidine 20 MG Tab PO SCH (10:00)
[2018-10-12] MEDS: Escitalopram 10 MG Tab PO SCH (10:00)
[2018-10-12] MEDS: Aspirin 81 MG Tab.Chew PO SCH (10:00)
--- NOTE | 2018-10-12 13:45 | CR ---
EXAMINATION: Oropharyngeal video swallow study. HISTORY: Difficulty swallowing COMPARISON: None TECHNIQUE: Bilateral images obtained, speech pathologist present, various barium consistencies provided. FINDINGS: There is adequate bolus formation and transfer. There is good epiglottic inversion and tracheal elevation. The penetration was noted with the thinner liquids which did not clear with a cough for subsequent swallows. This likely will lead to eventual aspiration. Multiple coughs were elicited spontaneously throughout the examination. Applesauce and solid consistencies were slightly better tolerated. IMPRESSION: Deep penetration without clearing noted on all thin consistencies. Please see speech pathology report for full details.
--- NOTE | 2018-10-12 18:40 | PCM.PN ---
- General Info Date of Service: 10/12/18 Subjective Update: Stable, no current complaints - Patient Data Vitals - Most Recent: Last Vital Signs Temp 36.4 C 10/12/18 12:00 Pulse 76 10/12/18 12:00 Resp 16 10/12/18 12:00 BP 110/61 10/12/18 12:00 Pulse Ox 97 10/12/18 12:00 Weight - Most Recent: 89.494 kg I&O - Last 24 Hours: Intake & Output 10/12/18 10/12/18 10/12/18 06:59 14:59 22:59 Intake Total 800 1300 Output Total 1100 Balance -300 1300 Lab Results Last 24 Hours: Laboratory Results - last 24 hr 10/11/18 10/11/18 10/12/18 Range/Units 17:08 18:46 00:45 WBC (4.0-11.0) K/uL RBC (4.30-5.90) M/uL Hgb (12.0-16.0) g/dL Hct (36.0-46.0) % MCV (80.0-98.0) fL MCH (27.0-32.0) pg MCHC (31.0-37.0) g/dL RDW Std Deviation (28.0-62.0) fl RDW Coeff of Antony (11.0-15.0) % Plt Count (150-400) K/uL MPV (7.40-12.00) fL Neut % (Auto) (48.0-80.0) % Lymph % (Auto) (16.0-40.0) % [place] % (Auto) (0.0-15.0) % Eos % (Auto) (0.0-7.0) % Baso % (Auto) (0.0-1.5) % Neut # (Auto) (1.4-5.7) K/uL Lymph # (Auto) (0.6-2.4) K/uL [place] # (Auto) (0.0-0.8) K/uL Eos # (Auto) (0.0-0.7) K/uL Baso # (Auto) (0.0-0.1) K/uL Nucleated RBC % /100WBC Nucleated RBCs # K/uL Sodium (136-145) mmol/L Potassium (3.5-5.1) mmol/L Chloride (98-107) mmol/L Carbon Dioxide (21.0-32.0) mmol/L BUN (7.0-18.0) mg/dL Creatinine (0.6-1.0) mg/dL Est Cr Clr Drug Dosing mL/min Estimated GFR (MDRD) ml/min Glucose (74-106) mg/dL POC Glucose 107 (60-110) mg/dL Calcium (8.5-10.1) mg/dL Troponin I 0.083 H* 0.089 H* (0.000-0.056) ng/mL 10/12/18 10/12/18 10/12/18 Range/Units 05:00 05:00 06:21 WBC 8.81 (4.0-11.0) K/uL RBC 3.90 L (4.30-5.90) M/uL Hgb 10.7 L (12.0-16.0) g/dL Hct 34.1 L (36.0-46.0) % MCV 87.4 (80.0-98.0) fL MCH 27.4 (27.0-32.0) pg MCHC 31.4 (31.0-37.0) g/dL RDW Std Deviation 53.5 (28.0-62.0) fl RDW Coeff of Antony 17 H (11.0-15.0) % Plt Count 178 (150-400) K/uL MPV 10.80 (7.40-12.00) fL Neut % (Auto) 71.8 (48.0-80.0) % Lymph % (Auto) 13.1 L (16.0-40.0) % [place] % (Auto) 13.2 (0.0-15.0) % Eos % (Auto) 1.7 (0.0-7.0) % Baso % (Auto) 0.2 (0.0-1.5) % Neut # (Auto) 6.3 H (1.4-5.7) K/uL Lymph # (Auto) 1.2 (0.6-2.4) K/uL [place] # (Auto) 1.2 H (0.0-0.8) K/uL Eos # (Auto) 0.2 (0.0-0.7) K/uL Baso # (Auto) 0.0 (0.0-0.1) K/uL Nucleated RBC % 0.0 /100WBC Nucleated RBCs # 0 K/uL Sodium 140 (136-145) mmol/L Potassium 4.0 (3.5-5.1) mmol/L Chloride 103 (98-107) mmol/L Carbon Dioxide 31.1 (21.0-32.0) mmol/L BUN 17 (7.0-18.0) mg/dL Creatinine 1.3 H (0.6-1.0) mg/dL Est Cr Clr Drug Dosing 31.79 mL/min Estimated GFR (MDRD) 39.8 ml/min Glucose 90 (74-106) mg/dL POC Glucose 101 (60-110) mg/dL Calcium 8.5 (8.5-10.1) mg/dL Troponin I (0.000-0.056) ng/mL 10/12/18 10/12/18 10/12/18 Range/Units 08:52 11:22 16:26 WBC (4.0-11.0) K/uL RBC (4.30-5.90) M/uL Hgb (12.0-16.0) g/dL Hct (36.0-46.0) % MCV (80.0-98.0) fL MCH (27.0-32.0) pg MCHC (31.0-37.0) g/dL RDW Std Deviation (28.0-62.0) fl RDW Coeff of Antony (11.0-15.0) % Plt Count (150-400) K/uL MPV (7.40-12.00) fL Neut % (Auto) (48.0-80.0) % Lymph % (Auto) (16.0-40.0) % [place] % (Auto) (0.0-15.0) % Eos % (Auto) (0.0-7.0) % Baso % (Auto) (0.0-1.5) % Neut # (Auto) (1.4-5.7) K/uL Lymph # (Auto) (0.6-2.4) K/uL [place] # (Auto) (0.0-0.8) K/uL Eos # (Auto) (0.0-0.7) K/uL Baso # (Auto) (0.0-0.1) K/uL Nucleated RBC % /100WBC Nucleated RBCs # K/uL Sodium (136-145) mmol/L Potassium (3.5-5.1) mmol/L Chloride (98-107) mmol/L Carbon Dioxide (21.0-32.0) mmol/L BUN (7.0-18.0) mg/dL Creatinine (0.6-1.0) mg/dL Est Cr Clr Drug Dosing mL/min Estimated GFR (MDRD) ml/min Glucose (74-106) mg/dL POC Glucose 85 112 H (60-110) mg/dL Calcium (8.5-10.1) mg/dL Troponin I 0.077 H* (0.000-0.056) ng/mL Med Orders - Current: Current Medications Acyclovir (Zovirax) 400 mg PO BID [facility] Last Admin: 10/12/18 09:59 Dose: 400 mg Aspirin (Aspirin) 81 mg PO DAILY [facility] Last Admin: 10/12/18 10:00 Dose: 81 mg Atorvastatin Calcium (Lipitor) 10 mg PO BEDTIME [facility] Last Admin: 10/11/18 21:34 Dose: 10 mg Escitalopram Oxalate (Lexapro) 10 mg PO DAILY [facility] Last Admin: 10/12/18 10:00 Dose: 10 mg Famotidine (Pepcid) 20 mg PO DAILY [facility] Last Admin: 10/12/18 10:00 Dose: 20 mg Gabapentin (Neurontin) 600 mg PO DAILY [facility] Last Admin: 10/12/18 09:59 Dose: 600 mg Gabapentin (Neurontin) 100 mg PO DAILY [facility] Last Admin: 10/12/18 09:59 Dose: 100 mg Heparin Sodium (Porcine) (Heparin Sodium) 5,000 units SUBCUT Q12H [facility] Last Admin: 10/12/18 18:00 Dose: 5,000 units Sodium Chloride (Normal Saline) 500 mls @ 999 mls/hr IV STAT [facility] Last Admin: 10/11/18 12:51 Dose: 999 mls/hr Ceftriaxone Sodium/Dextrose 1 (gm/ Premix) 50 mls @ 100 mls/hr IV Q24H [facility] Last Admin: 10/11/18 21:35 Dose: 100 mls/hr Levothyroxine Sodium (Levothyroxine) 112 mcg PO ACBREAKFAST [facility] Last Admin: 10/12/18 06:44 Dose: 112 mcg Levothyroxine Sodium (Levothyroxine) 25 mcg PO ACBREAKFAST [facility] Last Admin: 10/12/18 06:45 Dose: 25 mcg Lisinopril (Prinivil) 20 mg PO DAILY [facility] Last Admin: 10/12/18 10:00 Dose: 20 mg Quetiapine Fumarate (Seroquel) 25 mg PO BEDTIME [facility] Last Admin: 10/11/18 21:35 Dose: 25 mg Sodium Chloride (Saline Flush) 10 ml FLUSH ASDIRECTED PRN PRN Reason: Keep Vein Open Sodium Chloride (Saline Flush) 2.5 ml FLUSH ASDIRECTED PRN PRN Reason: Keep Vein Open Discontinued Medications Albuterol/Ipratropium (Duoneb 3.0-0.5 Mg/3 Ml) 3 ml NEB ONETIME ONE Stop: 10/11/18 13:41 Last Admin: 10/11/18 14:05 Dose: 3 ml Gabapentin (Neurontin) 900 mg PO TID [facility] Last Admin: 10/11/18 23:19 Dose: Not Given Heparin Sodium (Porcine) (Heparin Sodium) 5,000 units SUBCUT Q12H [facility] Last Admin: 10/11/18 17:27 Dose: 5,000 units Levofloxacin/Dextrose 750 mg/ (Premix) 150 mls @ 100 mls/hr IV ONETIME ONE Stop: 10/11/18 16:05 Last Admin: 10/11/18 18:01 Dose: Not Given Piperacillin Sod/Tazobactam (Sod 2.25 gm/ Sodium Chloride) 50 mls @ 100 mls/hr IV ONETIME ONE Stop: 10/11/18 15:08 Last Admin: 10/11/18 15:09 Dose: 100 mls/hr - Exam General: Cooperative Lungs: Normal Respiratory Effort Cardiovascular: Regular Rate, Regular Rhythm - Problem List Review Problem List Initiated/Reviewed/Updated: Yes - My Orders Last 24 Hours: My Active Orders 10/12/18 10:55 Consult to Physical Therapy [PT Evaluation and Treatment] [CONS] Routine 10/12/18 10:56 Consult to Physical Therapy [PT Evaluation and Treatment] [CONS] Routine - Plan Plan:: 78 yo female admitted following fall, likely etiology is urinary tract in nature -Awaiting urine culture, patient on ceftriaxone for urinary tract coverage -Patient to get a video swallow study done -Case management spoke in with daughter will speak to court to see if she can be power of immigration attorney for medical decisions for this patient.
[2018-10-12] MEDS: Oxybutynin 5 MG Tab PO SCH (21:36)
[2018-10-12] MEDS: atorvaSTATin 10 MG Tab PO SCH (21:38)
[2018-10-12] MEDS: QUEtiapine 25 MG Tab PO SCH (21:42)
[2018-10-12] MEDS: cefTRIAXone 1 GM in Premix Bag 1 BAG IV SCH (21:43)
[2018-10-13] MEDS ORDERED: fentaNYL 50 MCG/HR Transdermal Patch TRDERM SCH ×2 (04:00→04:15)
[2018-10-13] MEDS: Acetaminophen/HYDROcodone 325-5 MG Tab PO PRN ×2 (04:01→08:06)
[2018-10-13] MEDS: Levothyroxine 25 MCG Tab PO SCH (06:47)
[2018-10-13] MEDS: Levothyroxine 112 MCG Tab PO SCH (06:48)
[2018-10-13] MEDS: Heparin Sodium 5,000 Units/ML Vial SUBCUT SCH ×2 (06:50→17:53)
[2018-10-13] MEDS: Lisinopril 10 MG Tab PO SCH (08:40)
[2018-10-13] MEDS: Aspirin 81 MG Tab.Chew PO SCH (08:40)
[2018-10-13] MEDS: Famotidine 20 MG Tab PO SCH (08:40)
[2018-10-13] MEDS: Oxybutynin 5 MG Tab PO SCH ×2 (08:40→20:51)
[2018-10-13] MEDS: Gabapentin 100 MG Cap PO SCH (08:40)
[2018-10-13] MEDS: Acyclovir 200 MG Cap PO SCH ×2 (08:40→20:50)
[2018-10-13] MEDS: Gabapentin 300 MG Cap PO SCH (08:40)
[2018-10-13] MEDS: Escitalopram 10 MG Tab PO SCH (08:41)
--- NOTE | 2018-10-13 12:27 | PCM.PN ---
- General Info Date of Service: 10/13/18 Subjective Update: stable - Patient Data Vitals - Most Recent: Last Vital Signs Temp 36.2 C 10/13/18 08:00 Pulse 73 10/13/18 08:00 Resp 18 10/13/18 08:00 BP 113/57 L 10/13/18 08:40 Pulse Ox 99 10/13/18 08:00 Weight - Most Recent: 89.494 kg I&O - Last 24 Hours: Intake & Output 10/12/18 10/13/18 10/13/18 22:59 06:59 14:59 Intake Total 1300 170 Output Total 350 Balance 1300 -180 Lab Results Last 24 Hours: Laboratory Results - last 24 hr 10/12/18 10/13/18 10/13/18 Range/Units 16:26 06:12 06:12 WBC 9.05 (4.0-11.0) K/uL RBC 4.02 L (4.30-5.90) M/uL Hgb 11.0 L (12.0-16.0) g/dL Hct 35.6 L (36.0-46.0) % MCV 88.6 (80.0-98.0) fL MCH 27.4 (27.0-32.0) pg MCHC 30.9 L (31.0-37.0) g/dL RDW Std Deviation 54.5 (28.0-62.0) fl RDW Coeff of Antony 17 H (11.0-15.0) % Plt Count 189 (150-400) K/uL MPV 11.40 (7.40-12.00) fL Neut % (Auto) 72.5 (48.0-80.0) % Lymph % (Auto) 14.3 L (16.0-40.0) % [place] % (Auto) 11.2 (0.0-15.0) % Eos % (Auto) 1.8 (0.0-7.0) % Baso % (Auto) 0.2 (0.0-1.5) % Neut # (Auto) 6.6 H (1.4-5.7) K/uL Lymph # (Auto) 1.3 (0.6-2.4) K/uL [place] # (Auto) 1.0 H (0.0-0.8) K/uL Eos # (Auto) 0.2 (0.0-0.7) K/uL Baso # (Auto) 0.0 (0.0-0.1) K/uL Nucleated RBC % 0.0 /100WBC Nucleated RBCs # 0 K/uL Sodium 139 (136-145) mmol/L Potassium 4.0 (3.5-5.1) mmol/L Chloride 102 (98-107) mmol/L Carbon Dioxide 30.1 (21.0-32.0) mmol/L BUN 19 H (7.0-18.0) mg/dL Creatinine 1.3 H (0.6-1.0) mg/dL Est Cr Clr Drug Dosing 31.79 mL/min Estimated GFR (MDRD) 39.8 ml/min Glucose 94 (74-106) mg/dL POC Glucose 112 H (60-110) mg/dL Calcium 8.6 (8.5-10.1) mg/dL Total Bilirubin 0.5 (0.2-1.0) mg/dL AST 48 H (15-37) IU/L ALT 115 H (14-63) IU/L Alkaline Phosphatase 82 (46-116) U/L Total Protein 6.1 L (6.4-8.2) g/dL Albumin 2.8 L (3.4-5.0) g/dL Globulin 3.3 (2.6-4.0) g/dL Albumin/Globulin Ratio 0.9 (0.9-1.6) 10/13/18 Range/Units 06:32 WBC (4.0-11.0) K/uL RBC (4.30-5.90) M/uL Hgb (12.0-16.0) g/dL Hct (36.0-46.0) % MCV (80.0-98.0) fL MCH (27.0-32.0) pg MCHC (31.0-37.0) g/dL RDW Std Deviation (28.0-62.0) fl RDW Coeff of Antony (11.0-15.0) % Plt Count (150-400) K/uL MPV (7.40-12.00) fL Neut % (Auto) (48.0-80.0) % Lymph % (Auto) (16.0-40.0) % [place] % (Auto) (0.0-15.0) % Eos % (Auto) (0.0-7.0) % Baso % (Auto) (0.0-1.5) % Neut # (Auto) (1.4-5.7) K/uL Lymph # (Auto) (0.6-2.4) K/uL [place] # (Auto) (0.0-0.8) K/uL Eos # (Auto) (0.0-0.7) K/uL Baso # (Auto) (0.0-0.1) K/uL Nucleated RBC % /100WBC Nucleated RBCs # K/uL Sodium (136-145) mmol/L Potassium (3.5-5.1) mmol/L Chloride (98-107) mmol/L Carbon Dioxide (21.0-32.0) mmol/L BUN (7.0-18.0) mg/dL Creatinine (0.6-1.0) mg/dL Est Cr Clr Drug Dosing mL/min Estimated GFR (MDRD) ml/min Glucose (74-106) mg/dL POC Glucose 91 (60-110) mg/dL Calcium (8.5-10.1) mg/dL Total Bilirubin (0.2-1.0) mg/dL AST (15-37) IU/L ALT (14-63) IU/L Alkaline Phosphatase (46-116) U/L Total Protein (6.4-8.2) g/dL Albumin (3.4-5.0) g/dL Globulin (2.6-4.0) g/dL Albumin/Globulin Ratio (0.9-1.6) Richard Results Last 24 Hours: Microbiology 10/11/18 13:58 Urine Culture - Final Urine, Clean Catch Pseudomonas Aeruginosa Med Orders - Current: Current Medications Hydrocodone Bitart/Acetaminophen ([place] 325-5 Mg) 1 tab PO Q4H PRN PRN Reason: Pain Last Admin: 10/13/18 08:06 Dose: 1 tab Acyclovir (Zovirax) 400 mg PO BID [facility] Last Admin: 10/13/18 08:40 Dose: 400 mg Aspirin (Aspirin) 81 mg PO DAILY [facility] Last Admin: 10/13/18 08:40 Dose: 81 mg Atorvastatin Calcium (Lipitor) 10 mg PO BEDTIME [facility] Last Admin: 10/12/18 21:38 Dose: 10 mg Escitalopram Oxalate (Lexapro) 10 mg PO DAILY [facility] Last Admin: 10/13/18 08:41 Dose: 10 mg Famotidine (Pepcid) 20 mg PO DAILY [facility] Last Admin: 10/13/18 08:40 Dose: 20 mg Fentanyl (Duragesic) 50 mcg TRDERM Q72H [facility] Last Admin: 10/13/18 04:27 Dose: 50 mcg Gabapentin (Neurontin) 600 mg PO DAILY [facility] Last Admin: 10/13/18 08:40 Dose: 600 mg Gabapentin (Neurontin) 100 mg PO DAILY [facility] Last Admin: 10/13/18 08:40 Dose: 100 mg Heparin Sodium (Porcine) (Heparin Sodium) 5,000 units SUBCUT Q12H [facility] Last Admin: 10/13/18 06:50 Dose: 5,000 units Sodium Chloride (Normal Saline) 500 mls @ 999 mls/hr IV STAT [facility] Last Admin: 10/11/18 12:51 Dose: 999 mls/hr Levothyroxine Sodium (Levothyroxine) 112 mcg PO ACBREAKFAST [facility] Last Admin: 10/13/18 06:48 Dose: 112 mcg Levothyroxine Sodium (Levothyroxine) 25 mcg PO ACBREAKFAST [facility] Last Admin: 10/13/18 06:47 Dose: 25 mcg Lisinopril (Prinivil) 20 mg PO DAILY [facility] Last Admin: 10/13/18 08:40 Dose: 20 mg Oxybutynin Chloride (Oxybutynin) 2.5 mg PO BID [facility] Last Admin: 10/13/18 08:40 Dose: 2.5 mg Quetiapine Fumarate (Seroquel) 25 mg PO BEDTIME [facility] Last Admin: 10/12/18 21:42 Dose: 25 mg Sodium Chloride (Saline Flush) 10 ml FLUSH ASDIRECTED PRN PRN Reason: Keep Vein Open Sodium Chloride (Saline Flush) 2.5 ml FLUSH ASDIRECTED PRN PRN Reason: Keep Vein Open Discontinued Medications Albuterol/Ipratropium (Duoneb 3.0-0.5 Mg/3 Ml) 3 ml NEB ONETIME ONE Stop: 10/11/18 13:41 Last Admin: 10/11/18 14:05 Dose: 3 ml Gabapentin (Neurontin) 900 mg PO TID [facility] Last Admin: 10/11/18 23:19 Dose: Not Given Heparin Sodium (Porcine) (Heparin Sodium) 5,000 units SUBCUT Q12H [facility] Last Admin: 10/11/18 17:27 Dose: 5,000 units Levofloxacin/Dextrose 750 mg/ (Premix) 150 mls @ 100 mls/hr IV ONETIME ONE Stop: 10/11/18 16:05 Last Admin: 10/11/18 18:01 Dose: Not Given Piperacillin Sod/Tazobactam (Sod 2.25 gm/ Sodium Chloride) 50 mls @ 100 mls/hr IV ONETIME ONE Stop: 10/11/18 15:08 Last Admin: 10/11/18 15:09 Dose: 100 mls/hr Ceftriaxone Sodium/Dextrose 1 (gm/ Premix) 50 mls @ 100 mls/hr IV Q24H [facility] Last Admin: 10/12/18 21:43 Dose: 100 mls/hr - Exam Quality Assessment: Supplemental Oxygen General: Alert, Oriented, Cooperative Lungs: Normal Respiratory Effort Cardiovascular: Regular Rate, Regular Rhythm - Problem List Review Problem List Initiated/Reviewed/Updated: Yes - My Orders Last 24 Hours: My Active Orders 10/12/18 21:00 Oxybutynin 2.5 mg PO BID 10/13/18 12:30 Cefepime [Maxipime in D5W 2 GM/50 ML] 2 gm Premix Bag 1 bag IV Q12H - Plan Plan:: 78 yo female admitted following fall, likely etiology is urinary tract in nature -Urine culture growing Pseudomonas, pansensitive however patient has allergies to quinolones resulting in airway constriction as such patient will be placed on cefepime 2 g every 12 hours due to her drug creatinine clearance of 32. -Daughter to speak to court to see if she can be power of artificial breeding ranch supervisor for medical decisions for this patient.
[2018-10-13] MEDS: Cefepime 2 GM in Premix Bag 1 BAG IV SCH ×2 (13:34→23:51)
[2018-10-13] MEDS: atorvaSTATin 10 MG Tab PO SCH (20:50)
[2018-10-13] MEDS: QUEtiapine 25 MG Tab PO SCH (20:52)
[2018-10-14] MEDS: Levothyroxine 25 MCG Tab PO SCH (06:37)
[2018-10-14] MEDS: Levothyroxine 112 MCG Tab PO SCH (06:37)
[2018-10-14] MEDS: Heparin Sodium 5,000 Units/ML Vial SUBCUT SCH ×2 (06:37→17:56)
[2018-10-14] MEDS: Oxybutynin 5 MG Tab PO SCH ×2 (08:19→20:20)
[2018-10-14] MEDS: Lisinopril 10 MG Tab PO SCH (08:20)
[2018-10-14] MEDS: Aspirin 81 MG Tab.Chew PO SCH (08:20)
[2018-10-14] MEDS: Acyclovir 200 MG Cap PO SCH ×2 (08:20→20:20)
[2018-10-14] MEDS: Gabapentin 100 MG Cap PO SCH (08:20)
[2018-10-14] MEDS: Acetaminophen/HYDROcodone 325-5 MG Tab PO PRN ×2 (08:21→17:56)
[2018-10-14] MEDS: Gabapentin 300 MG Cap PO SCH (08:21)
[2018-10-14] MEDS: Escitalopram 10 MG Tab PO SCH (08:21)
[2018-10-14] MEDS: Famotidine 20 MG Tab PO SCH (08:21)
--- NOTE | 2018-10-14 09:01 | PCM.PN ---
- General Info Date of Service: 10/14/18 - Review of Systems Systems Review Comment:: no complaints - Patient Data Vitals - Most Recent: Last Vital Signs Temp 36.6 C 10/14/18 07:41 Pulse 70 10/14/18 07:41 Resp 16 10/14/18 07:41 BP 121/64 10/14/18 08:20 Pulse Ox 97 10/14/18 07:41 Weight - Most Recent: 89.494 kg I&O - Last 24 Hours: Intake & Output 10/13/18 10/14/18 10/14/18 22:59 06:59 14:59 Intake Total 920 360 Balance 920 360 Lab Results Last 24 Hours: Laboratory Results - last 24 hr 10/13/18 10/13/18 Range/Units 11:40 15:48 POC Glucose 69 92 (60-110) mg/dL Richard Results Last 24 Hours: Microbiology 10/11/18 13:58 Urine Culture - Final Urine, Clean Catch Pseudomonas Aeruginosa Med Orders - Current: Current Medications Hydrocodone Bitart/Acetaminophen ([facility] 325-5 Mg) 1 tab PO Q4H PRN PRN Reason: Pain Last Admin: 10/14/18 08:21 Dose: 1 tab Acyclovir (Zovirax) 400 mg PO BID [facility] Last Admin: 10/14/18 08:20 Dose: 400 mg Aspirin (Aspirin) 81 mg PO DAILY [facility] Last Admin: 10/14/18 08:20 Dose: 81 mg Atorvastatin Calcium (Lipitor) 10 mg PO BEDTIME [facility] Last Admin: 10/13/18 20:50 Dose: 10 mg Escitalopram Oxalate (Lexapro) 10 mg PO DAILY [facility] Last Admin: 10/14/18 08:21 Dose: 10 mg Famotidine (Pepcid) 20 mg PO DAILY [facility] Last Admin: 10/14/18 08:21 Dose: 20 mg Fentanyl (Duragesic) 50 mcg TRDERM Q72H [facility] Last Admin: 10/13/18 04:27 Dose: 50 mcg Gabapentin (Neurontin) 600 mg PO DAILY [facility] Last Admin: 10/14/18 08:21 Dose: 600 mg Gabapentin (Neurontin) 100 mg PO DAILY [facility] Last Admin: 10/14/18 08:20 Dose: 100 mg Heparin Sodium (Porcine) (Heparin Sodium) 5,000 units SUBCUT Q12H [facility] Last Admin: 10/14/18 06:37 Dose: 5,000 units Sodium Chloride (Normal Saline) 500 mls @ 999 mls/hr IV STAT [facility] Last Admin: 10/11/18 12:51 Dose: 999 mls/hr Cefepime HCl 2 gm/ Premix 50 mls @ 100 mls/hr IV Q12H [facility] Last Admin: 10/13/18 23:51 Dose: 100 mls/hr Levothyroxine Sodium (Levothyroxine) 112 mcg PO ACBREAKFAST [facility] Last Admin: 10/14/18 06:37 Dose: 112 mcg Levothyroxine Sodium (Levothyroxine) 25 mcg PO ACBREAKFAST [facility] Last Admin: 10/14/18 06:37 Dose: 25 mcg Lisinopril (Prinivil) 20 mg PO DAILY [facility] Last Admin: 10/14/18 08:20 Dose: 20 mg Oxybutynin Chloride (Oxybutynin) 2.5 mg PO BID [facility] Last Admin: 10/14/18 08:19 Dose: 2.5 mg Quetiapine Fumarate (Seroquel) 25 mg PO BEDTIME [facility] Last Admin: 10/13/18 20:52 Dose: 25 mg Sodium Chloride (Saline Flush) 10 ml FLUSH ASDIRECTED PRN PRN Reason: Keep Vein Open Sodium Chloride (Saline Flush) 2.5 ml FLUSH ASDIRECTED PRN PRN Reason: Keep Vein Open Discontinued Medications Albuterol/Ipratropium (Duoneb 3.0-0.5 Mg/3 Ml) 3 ml NEB ONETIME ONE Stop: 10/11/18 13:41 Last Admin: 10/11/18 14:05 Dose: 3 ml Gabapentin (Neurontin) 900 mg PO TID [facility] Last Admin: 10/11/18 23:19 Dose: Not Given Heparin Sodium (Porcine) (Heparin Sodium) 5,000 units SUBCUT Q12H [facility] Last Admin: 10/11/18 17:27 Dose: 5,000 units Levofloxacin/Dextrose 750 mg/ (Premix) 150 mls @ 100 mls/hr IV ONETIME ONE Stop: 10/11/18 16:05 Last Admin: 10/11/18 18:01 Dose: Not Given Piperacillin Sod/Tazobactam (Sod 2.25 gm/ Sodium Chloride) 50 mls @ 100 mls/hr IV ONETIME ONE Stop: 10/11/18 15:08 Last Admin: 10/11/18 15:09 Dose: 100 mls/hr Ceftriaxone Sodium/Dextrose 1 (gm/ Premix) 50 mls @ 100 mls/hr IV Q24H [facility] Last Admin: 10/12/18 21:43 Dose: 100 mls/hr - Exam General: Alert, Oriented Lungs: Clear to Auscultation, Normal Respiratory Effort Cardiovascular: Regular Rate, Regular Rhythm GI/Abdominal Exam: Soft, Non-Tender Extremities: Non-Tender, No Pedal Edema Skin: Warm, Dry, Intact - Problem List Review Problem List Initiated/Reviewed/Updated: Yes - My Orders Last 24 Hours: My Active Orders 10/15/18 05:11 BASIC METABOLIC PANEL,BMP [CHEM] AM CBC WITH AUTO DIFF [HEME] AM - Plan Plan:: 78 yo female admitted following fall. Found to have pseudomonas UTI. Treating with Cefepime. Likely discharge tomorrow.
[2018-10-14] MEDS: Cefepime 2 GM in Premix Bag 1 BAG IV SCH (12:19)
[2018-10-14] MEDS: atorvaSTATin 10 MG Tab PO SCH (20:20)
[2018-10-14] MEDS: QUEtiapine 25 MG Tab PO SCH (21:35)
[2018-10-15] MEDS: Cefepime 2 GM in Premix Bag 1 BAG IV SCH (00:15)
[2018-10-15] MEDS: Heparin Sodium 5,000 Units/ML Vial SUBCUT SCH (06:54)
[2018-10-15] MEDS: Levothyroxine 112 MCG Tab PO SCH (06:54)
[2018-10-15] MEDS: Levothyroxine 25 MCG Tab PO SCH (06:54)
[2018-10-15 07:18] VITALS: BP 119/70
[2018-10-15] MEDS: Oxybutynin 5 MG Tab PO SCH (08:12)
[2018-10-15] MEDS: Acyclovir 200 MG Cap PO SCH (08:13)
[2018-10-15] MEDS: Lisinopril 10 MG Tab PO SCH (08:13)
[2018-10-15] MEDS: Acetaminophen/HYDROcodone 325-5 MG Tab PO PRN (08:14)
[2018-10-15] MEDS: Aspirin 81 MG Tab.Chew PO SCH (08:15)
[2018-10-15] MEDS: Gabapentin 100 MG Cap PO SCH (08:15)
[2018-10-15] MEDS: Escitalopram 10 MG Tab PO SCH (08:16)
[2018-10-15] MEDS: Famotidine 20 MG Tab PO SCH (08:16)
[2018-10-15] MEDS: Gabapentin 300 MG Cap PO SCH (08:16)
== END 2018-10-15 12:17 | disposition home health service (06) | DRG 690 ==
LOC: MW.ED 11:15 → MW.MS 15:03
PROVIDERS: ADMIT Internal Medicine; ATTEND Internal Medicine
DX: N30.01 Acute cystitis with hematuria (principal); N39.0 Urinary tract infection, site not specified; C90.00 Multiple myeloma not having achieved remission; B96.5 Pseudomonas (aeruginosa) (mallei) (pseudomallei) as the cause of diseases classified elsewhere; I50.9 Heart failure, unspecified; W07.XXXA Fall from chair, initial encounter; F03.90 Unspecified dementia, unspecified severity, without behavioral disturbance, psychotic disturbance, mood disturbance, and anxiety; R74.8 Abnormal levels of other serum enzymes; I11.0 Hypertensive heart disease with heart failure; K21.9 Gastro-esophageal reflux disease without esophagitis; K58.9 Irritable bowel syndrome, unspecified; M19.90 Unspecified osteoarthritis, unspecified site; G62.0 Drug-induced polyneuropathy; T45.1X5S Adverse effect of antineoplastic and immunosuppressive drugs, sequela; F41.9 Anxiety disorder, unspecified; E11.9 Type 2 diabetes mellitus without complications; E03.9 Hypothyroidism, unspecified; D64.9 Anemia, unspecified; H54.7 Unspecified visual loss; H40.9 Unspecified glaucoma; Z90.5 Acquired absence of kidney; Z86.718 Personal history of other venous thrombosis and embolism; Z88.8 Allergy status to other drugs, medicaments and biological substances; Z88.6 Allergy status to analgesic agent; Z88.1 Allergy status to other antibiotic agents; Z91.013 Allergy to seafood; Z88.2 Allergy status to sulfonamides; Z79.82 Long term (current) use of aspirin; Z79.899 Other long term (current) drug therapy; Z87.01 Personal history of pneumonia (recurrent); R53.1 Weakness; Z87.442 Personal history of urinary calculi; Z87.440 Personal history of urinary (tract) infections
CPT/HCPCS: 71045; 80053; 81001; 83880; 84484; 85025; 87086; 87088; 87186; 93005; 94640; 96361; 99285; J7040; 36415; 74230; 74230-26; 80048; 82962; 92611-GN; 96372; 96374; 97110-GP; 97161-GP; 97530-GP; 99283; A9270-GY; J0692; J0696; J1644; J2543; J7050; J7620-GY

== ENCOUNTER 2018-11-05 17:47 | Inpatient (IN) | payer MEDICARE, OTHER ==
[2018-11-05] MEDS ORDERED: Sodium Chloride 0.9% 10 ML Syringe FLUSH PRN (17:52)
[2018-11-05] MEDS ORDERED: Sodium Chloride 0.9% 2.5 ML Syringe FLUSH PRN (17:52)
--- NOTE | 2018-11-05 17:53 | EDM.PDOC ---
ED HPI GENERAL MEDICAL PROBLEM - General Chief Complaint: General Stated Complaint: CHEST HURTING, WEAK, CONFUSSION Time Seen by Provider: 11/05/18 17:52 Source of Information: Reports: Patient History Limitations: Reports: No Limitations - History of Present Illness INITIAL COMMENTS - FREE TEXT/NARRATIVE: HISTORY AND PHYSICAL: History of present illness: Patient is a 78-year-old female who presents to the emergency room by EMS after having an episode of chest pain, weakness and confusion prior to arrival. Patient reports that she feels "fine now" and states she is unsure why she is here at the emergency room. Uses home oxygen intermittently. Upon EMS arrival her O2 sat was 90% on room air. Blood pressure has been running 80/50's. Blood sugar 103. She does have a past medical history of multiple myeloma stage III, irritable bowel syndrome, renal failure, anemia, diabetes II, neuropathy congestive heart failure and chronic UTI. Review of systems: As per history of present illness and below otherwise all systems reviewed and negative. Past medical history: As per history of present illness and as reviewed below otherwise noncontributory. Surgical history: As per history of present illness and as reviewed below otherwise noncontributory. Social history: See social history for further information Family history: As per history of present illness and as reviewed below otherwise noncontributory. Physical exam: General: Well-developed but thin 78-year-old female. She is alert and answering questions appropriately. Nontoxic appearing and in no acute distress. HEENT: Atraumatic, normocephalic, pupils equal and reactive bilaterally, negative for conjunctival pallor or scleral icterus, mucous membranes moist, TMs normal bilaterally, throat clear, neck supple, nontender, trachea midline. No drooling or trismus noted. No meningeal signs. No hot potato voice noted. Lungs: Clear to auscultation, breath sounds equal bilaterally, chest nontender. Heart: S1S2, regular rate and rhythm without overt murmur Abdomen: Soft, nondistended, nontender. Negative for masses or hepatosplenomegaly. Negative for costovertebral tenderness. Pelvis: Stable nontender. Genitourinary: Deferred. Rectal: Deferred. Skin: Intact, warm, dry. No lesions or rashes noted. Extremities: Atraumatic, negative for cords or calf pain. Neurovascular unremarkable. Neuro: Awake, alert, oriented. Cranial nerves II through XII unremarkable. Cerebellum unremarkable. Motor and sensory unremarkable throughout. Exam nonfocal. Notes: Chest x-ray shows patchy consolidation in the right midlung and right lung base , representing a pneumonia. Left lung appears clear. Borderline cardiac enlargement. The catheter extending into the SVC. Patient does have an elevated lactic acid, urine culture is pending at this time. Patient continues to have a borderline low blood pressure which we have been following closely. Dr Stevens was consulted on this patient. He is agreeable to admitting this patient to Med/ Surg. He requested Cefepine/Azithromycin IV based on past urine cultures. Patient is aware of admission and is agreeable. 1930:Rodney here to evaluate patient. Diagnostics: CBC, CMP, troponin, EKG, one view chest, blood cultures, lactic, UA Therapeutics: 250 NS bolus, Rocephin, Azithromycin Impression: Hypotension Anemia Pneumonia UTI Plan: Admission to Med/Surg with telemetry Definitive disposition and diagnosis as appropriate pending reevaluation and review of above. - Related Data Allergies Allergy/AdvReac Type Severity Reaction Status Date / Time ciprofloxacin HCl Allergy Airway Verified 11/05/18 17:58 [From Cipro] Tightness codeine Allergy Airway Verified 11/05/18 17:58 Tightness iodine Allergy Unknown Verified 11/05/18 17:58 lenalidomide [From Revlimid] Allergy Airway Verified 11/05/18 17:58 Tightness shellfish derived Allergy Unknown Verified 11/05/18 17:58 Sulfa (Sulfonamide Allergy Unknown Verified 11/05/18 17:58 Antibiotics) Home Meds: Home Meds Acyclovir 400 mg PO BID 09/24/18 [History] Aspirin 81 mg PO DAILY 09/24/18 [History] Escitalopram [Lexapro] 10 mg PO DAILY 09/24/18 [History] Famotidine [Pepcid] 20 mg PO DAILY 09/24/18 [History] Furosemide 40 mg PO DAILY 09/24/18 [History] Gabapentin [Neurontin] 900 mg PO TID 09/24/18 [History] Latanoprost 2.5 ml OP DAILY PRN 09/24/18 [History] Levothyroxine [Levothroid] 137 mcg PO DAILY 09/24/18 [History] Lisinopril 20 mg PO DAILY 09/24/18 [History] Loperamide [Imodium] 2 mg PO Q4H 09/24/18 [History] Potassium Chloride 10 meq PO TID 09/24/18 [History] atorvaSTATin Calcium [Atorvastatin Calcium] 10 mg PO BEDTIME 09/24/18 [History] fentaNYL [Duragesic] 50 mcg TD Q72H 09/24/18 [History] oxyCODONE HCl/Acetaminophen [Oxycodone-Acetaminophen 10-300] 10 - 325 mg PO Q4HR 09/24/18 [History] Ixazomib Citrate [Ninlaro] 4 mg PO ASDIRECTED 11/05/18 [History] Past Medical History HEENT History: Reports: Cataract, Glaucoma, Impaired Vision Cardiovascular History: Reports: Blood Clots/VTE/DVT, Heart Failure, Hypertension Other Cardiovascular History: blood clots behind left knee Respiratory History: Reports: None Other Respiratory History: Hx of pneumonia Gastrointestinal History: Reports: GERD, Hiatal Hernia, Irritable Bowel Syndrome Genitourinary History: Reports: Acute Renal Failure, Renal Calculus, UTI, Recurrent Other Genitourinary History: Hx of renal failure, no longer in failure DUTY OFFICER History: Reports: Musculoskeletal History: Reports: Arthritis, Fracture Other Musculoskeletal History: 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 Neurological History: Reports: None Psychiatric History: Reports: Anxiety Endocrine/Metabolic History: Reports: Diabetes, Type II, Hypothyroidism Other Endocrine/Metabolic History: History of Diabetes, Not currently an issue. Hematologic History: Reports: Anemia Immunologic History: Reports: None Oncologic (Cancer) History: Reports: Bone Other Oncologic History: multiple myeloma, Stage III Dermatologic History: Reports: Cellulitis - Infectious Disease History Infectious Disease History: Reports: Chicken Pox, Measles, Shingles, Other (See Below) Other Infectious Disease History: MSSA - Past Surgical History HEENT Surgical History: Reports: Eye Surgery Female Surgical History: Reports: Nephrectomy Musculoskeletal Surgical History: Reports: Carpal Tunnel, Other (See Below) Social & Family History - Family History Family Medical History: Noncontributory HEENT: Reports: Impaired Vision Cardiac: Reports: Heart Failure Respiratory: Reports: Asthma OBGYN: Reports: Musculoskeletal: Reports: Arthritis, Gout Neurological: Reports: Cerebral Aneurysms Endocrine/Metabolic: Reports: Diabetes, type II Oncologic: Reports: Breast, Colon, Liver - Caffeine Use Caffeine Use: Reports: Soda Other Caffeine Use: 1-2 cups daily ED ROS GENERAL - Review of Systems Review Of Systems: ROS reveals no pertinent complaints other than HPI. ED EXAM, GENERAL - Physical Exam Exam: See Below (See dictation) Course - Vital Signs Last Recorded V/S: Last Vital Signs Temp 98.3 F 11/05/18 17:53 Pulse 91 11/05/18 19:00 Resp 14 11/05/18 19:00 BP 101/58 L 11/05/18 19:00 Pulse Ox 100 11/05/18 19:00 - Orders/Labs/Meds Orders: Active Orders 24 hr Category Date Time Status Admission Status [Patient Status] [ADT] Stat ADT 11/05/18 19:23 Active Cardiac Monitoring [RC] . DIRECTED Care 11/05/18 19:23 Active EKG Documentation Completion [RC] STAT Care 11/05/18 17:52 Active B-TYPE NATRIURETIC PEPTIDE,BNP [CHEM] Stat Lab 11/05/18 17:58 Ordered CULTURE BLOOD [BC] Stat Lab 11/05/18 18:20 Results CULTURE BLOOD [BC] Stat Lab 11/05/18 18:30 Results CULTURE URINE [RM] Stat Lab 11/05/18 19:13 Received UA W/MICROSCOPIC [URIN] Stat Lab 11/05/18 19:13 Results Azithromycin [Zithromax] 500 mg Med 11/05/18 19:27 Active Sodium Chloride 0.9% [Normal Saline] 250 ml IV ONETIME Sodium Chloride 0.9% [Saline Flush] Med 11/05/18 17:52 Active 10 ml FLUSH ASDIRECTED PRN Sodium Chloride 0.9% [Saline Flush] Med 11/05/18 17:52 Active 2.5 ml FLUSH ASDIRECTED PRN cefTRIAXone [Rocephin in Dextrose,Iso-Osm 1 GM/50 ML] 1 Med 11/05/18 19:24 Active gm Premix Bag 1 bag IV ONETIME Blood Culture x2 Reflex Set [OM.PC] Stat Oth 11/05/18 17:59 Ordered Saline Lock Insert [OM.PC] Stat Oth 11/05/18 17:52 Ordered Medication Orders Ceftriaxone Sodium/Dextrose 1 (gm/ Premix) 50 mls @ 100 mls/hr IV ONETIME ONE Stop: 11/05/18 19:53 Azithromycin 500 mg/ Sodium (Chloride) 250 mls @ 250 mls/hr IV ONETIME ONE Stop: 11/05/18 20:26 Sodium Chloride (Saline Flush) 10 ml FLUSH ASDIRECTED PRN PRN Reason: Keep Vein Open Sodium Chloride (Saline Flush) 2.5 ml FLUSH ASDIRECTED PRN PRN Reason: Keep Vein Open Labs: Laboratory Tests 11/05/18 11/05/18 11/05/18 Range/Units 18:20 18:20 18:52 WBC 9.58 (4.0-11.0) K/uL RBC 3.87 L (4.30-5.90) M/uL Hgb 10.9 L (12.0-16.0) g/dL Hct 35.5 L (36.0-46.0) % MCV 91.7 (80.0-98.0) fL MCH 28.2 (27.0-32.0) pg MCHC 30.7 L (31.0-37.0) g/dL RDW Std Deviation 62.4 H (28.0-62.0) fl RDW Coeff of Antony 19 H (11.0-15.0) % Plt Count 213 (150-400) K/uL MPV 10.50 (7.40-12.00) fL Neut % (Auto) 73.9 (48.0-80.0) % Lymph % (Auto) 12.8 L (16.0-40.0) % Boyle % (Auto) 10.0 (0.0-15.0) % Eos % (Auto) 3.2 (0.0-7.0) % Baso % (Auto) 0.1 (0.0-1.5) % Neut # (Auto) 7.1 H (1.4-5.7) K/uL Lymph # (Auto) 1.2 (0.6-2.4) K/uL Boyle # (Auto) 1.0 H (0.0-0.8) K/uL Eos # (Auto) 0.3 (0.0-0.7) K/uL Baso # (Auto) 0.0 (0.0-0.1) K/uL Nucleated RBC % 0.0 /100WBC Nucleated RBCs # 0 K/uL Lactate 2.2 H (0.20-2.00) mmol/L Sodium 140 (136-145) mmol/L Potassium 4.9 (3.5-5.1) mmol/L Chloride 104 (98-107) mmol/L Carbon Dioxide 28.4 (21.0-32.0) mmol/L BUN 33 H (7.0-18.0) mg/dL Creatinine 2.2 H (0.6-1.0) mg/dL Est Cr Clr Drug Dosing 18.79 mL/min Estimated GFR (MDRD) 21.7 ml/min Glucose 81 (74-106) mg/dL Calcium 9.3 (8.5-10.1) mg/dL Total Bilirubin 0.3 (0.2-1.0) mg/dL AST 24 (15-37) IU/L ALT 16 (14-63) IU/L Alkaline Phosphatase 86 (46-116) U/L Troponin I < 0.050 (0.000-0.056) ng/mL Total Protein 6.2 L (6.4-8.2) g/dL Albumin 2.9 L (3.4-5.0) g/dL Globulin 3.3 (2.6-4.0) g/dL Albumin/Globulin Ratio 0.9 (0.9-1.6) Urine Color Urine Appearance Urine pH (5.0-8.0) Ur Specific [place] (1.001-1.035) Urine Protein (NEGATIVE) mg/dL Urine Glucose (UA) (NEGATIVE) mg/dL Urine Ketones (NEGATIVE) mg/dL Urine Occult Blood (NEGATIVE) Urine Nitrite (NEGATIVE) Urine Bilirubin (NEGATIVE) Urine Urobilinogen (<2.0) EU/dL Ur Leukocyte Esterase (NEGATIVE) 11/05/18 Range/Units 19:13 WBC (4.0-11.0) K/uL RBC (4.30-5.90) M/uL Hgb (12.0-16.0) g/dL Hct (36.0-46.0) % MCV (80.0-98.0) fL MCH (27.0-32.0) pg MCHC (31.0-37.0) g/dL RDW Std Deviation (28.0-62.0) fl RDW Coeff of Antony (11.0-15.0) % Plt Count (150-400) K/uL MPV (7.40-12.00) fL Neut % (Auto) (48.0-80.0) % Lymph % (Auto) (16.0-40.0) % Boyle % (Auto) (0.0-15.0) % Eos % (Auto) (0.0-7.0) % Baso % (Auto) (0.0-1.5) % Neut # (Auto) (1.4-5.7) K/uL Lymph # (Auto) (0.6-2.4) K/uL Boyle # (Auto) (0.0-0.8) K/uL Eos # (Auto) (0.0-0.7) K/uL Baso # (Auto) (0.0-0.1) K/uL Nucleated RBC % /100WBC Nucleated RBCs # K/uL Lactate (0.20-2.00) mmol/L Sodium (136-145) mmol/L Potassium (3.5-5.1) mmol/L Chloride (98-107) mmol/L Carbon Dioxide (21.0-32.0) mmol/L BUN (7.0-18.0) mg/dL Creatinine (0.6-1.0) mg/dL Est Cr Clr Drug Dosing mL/min Estimated GFR (MDRD) ml/min Glucose (74-106) mg/dL Calcium (8.5-10.1) mg/dL Total Bilirubin (0.2-1.0) mg/dL AST (15-37) IU/L ALT (14-63) IU/L Alkaline Phosphatase (46-116) U/L Troponin I (0.000-0.056) ng/mL Total Protein (6.4-8.2) g/dL Albumin (3.4-5.0) g/dL Globulin (2.6-4.0) g/dL Albumin/Globulin Ratio (0.9-1.6) Urine Color YELLOW Urine Appearance SLT CLOUDY Urine pH 6.0 (5.0-8.0) Ur Specific [place] 1.020 (1.001-1.035) Urine Protein 30 H (NEGATIVE) mg/dL Urine Glucose (UA) NEGATIVE (NEGATIVE) mg/dL Urine Ketones NEGATIVE (NEGATIVE) mg/dL Urine Occult Blood MODERATE H (NEGATIVE) Urine Nitrite POSITIVE H (NEGATIVE) Urine Bilirubin NEGATIVE (NEGATIVE) Urine Urobilinogen 0.2 (<2.0) EU/dL Ur Leukocyte Esterase LARGE H (NEGATIVE) Meds: Medications Generic Name Dose Route Start Last Admin Trade Name Freq PRN Reason Stop Dose Admin Ceftriaxone Sodium/Dextrose 1 50 mls @ 100 mls/hr 11/05/18 19:24 gm/ Premix IV 11/05/18 19:53 ONETIME ONE Azithromycin 500 mg/ Sodium 250 mls @ 250 mls/hr 11/05/18 19:27 Chloride IV 11/05/18 20:26 ONETIME ONE Sodium Chloride 10 ml 11/05/18 17:52 Saline Flush FLUSH ASDIRECTED PRN Keep Vein Open Sodium Chloride 2.5 ml 11/05/18 17:52 Saline Flush FLUSH ASDIRECTED PRN Keep Vein Open Discontinued Medications Generic Name Dose Route Start Last Admin Trade Name Freq PRN Reason Stop Dose Admin Sodium Chloride 1,000 mls @ 999 mls/hr 11/05/18 17:58 11/05/18 18:04 Normal Saline IV 11/05/18 18:58 999 mls/hr STAT ONE Administration Departure - Departure Time of Disposition: 19:33 Disposition: Admitted As Inpatient 68 Clinical Impression: UTI (urinary tract infection) Qualifiers: Urinary tract infection type: acute cystitis Hematuria presence: with hematuria Qualified Code(s): N30.01 - Acute cystitis with hematuria Pneumonia Qualifiers: Pneumonia type: due to unspecified organism Laterality: right Lung location: lower lobe of lung Qualified Code(s): J18.1 - Lobar pneumonia, unspecified organism Hypotension Qualifiers: Hypotension type: unspecified hypotension type Qualified Code(s): I95.9 - Hypotension, unspecified Anemia Qualifiers: Anemia type: other cause Other causes of anemia: chronic disease, neoplastic Qualified Code(s): D63.0 - Anemia in neoplastic disease - Discharge Information Referrals: Jazmín Brannon DO [Primary Care Provider] - Forms: ED Department Discharge - My Orders Last 24 Hours: My Active Orders 11/05/18 17:52 EKG Documentation Completion [RC] STAT Sodium Chloride 0.9% [Saline Flush] 10 ml FLUSH ASDIRECTED PRN Sodium Chloride 0.9% [Saline Flush] 2.5 ml FLUSH ASDIRECTED PRN Saline Lock Insert [OM.PC] Stat 11/05/18 17:58 B-TYPE NATRIURETIC PEPTIDE,BNP [CHEM] Stat 11/05/18 17:59 Blood Culture x2 Reflex Set [OM.PC] Stat 11/05/18 18:20 CULTURE BLOOD [BC] Stat 11/05/18 18:30 CULTURE BLOOD [BC] Stat 11/05/18 19:13 CULTURE URINE [RM] Stat UA W/MICROSCOPIC [URIN] Stat 11/05/18 19:23 Admission Status [Patient Status] [ADT] Stat Cardiac Monitoring [RC] . DIRECTED 11/05/18 19:24 cefTRIAXone [Rocephin in Dextrose,Iso-Osm 1 GM/50 ML] 1 gm Premix Bag 1 bag IV ONETIME 11/05/18 19:27 Azithromycin [Zithromax] 500 mg Sodium Chloride 0.9% [Normal Saline] 250 ml IV ONETIME - Assessment/Plan Last 24 Hours: My Active Orders 11/05/18 17:52 EKG Documentation Completion [RC] STAT Sodium Chloride 0.9% [Saline Flush] 10 ml FLUSH ASDIRECTED PRN Sodium Chloride 0.9% [Saline Flush] 2.5 ml FLUSH ASDIRECTED PRN Saline Lock Insert [OM.PC] Stat 11/05/18 17:58 B-TYPE NATRIURETIC PEPTIDE,BNP [CHEM] Stat 11/05/18 17:59 Blood Culture x2 Reflex Set [OM.PC] Stat 11/05/18 18:20 CULTURE BLOOD [BC] Stat 11/05/18 18:30 CULTURE BLOOD [BC] Stat 11/05/18 19:13 CULTURE URINE [RM] Stat UA W/MICROSCOPIC [URIN] Stat 11/05/18 19:23 Admission Status [Patient Status] [ADT] Stat Cardiac Monitoring [RC] . DIRECTED 11/05/18 19:24 cefTRIAXone [Rocephin in Dextrose,Iso-Osm 1 GM/50 ML] 1 gm Premix Bag 1 bag IV ONETIME 11/05/18 19:27 Azithromycin [Zithromax] 500 mg Sodium Chloride 0.9% [Normal Saline] 250 ml IV ONETIME
[2018-11-05] MEDS ORDERED: Sodium Chloride 0.9% 1,000 ML IV ONE (17:58)
--- NOTE | 2018-11-05 19:15 | CR ---
INDICATION: Chest pain. COMPARISON: None. FINDINGS/IMPRESSION: Patchy consolidation in the right mid lung and right lung base, likely representing pneumonia. Left lung appears clear. Borderline cardiac enlargement. No pleural effusions. Port-A-Cath extending into the SVC. Bilateral shoulder degenerative changes. Dictated by Floyd Hope MD @ 11/05/2018 7:16:29 PM Dictated by: Floyd Hope MD @ 11/05/2018 19:16:38 (Electronically Signed)
[2018-11-05] MEDS ORDERED: cefTRIAXone 1 GM in Premix Bag 1 BAG IV ONE (19:24)
[2018-11-05 19:25] LABS: CHLORIDE,CL 104 mmol/L (98-107); SODIUM,NA 140 mmol/L (136-145)
[2018-11-05] MEDS ORDERED: Azithromycin 500 MG in Sodium Chloride 0.9% 250 ML IV ONE (19:27)
[2018-11-05] MEDS ORDERED: Cefepime 2 GM in Premix Bag 1 BAG IV ONE (19:31)
[2018-11-05] MEDS ORDERED: Sodium Chloride 0.9% 1,000 ML IV SCH (19:45)
[2018-11-05] MEDS ORDERED: Sodium Chloride 0.9% 500 ML IV SCH (19:53)
--- NOTE | 2018-11-05 19:54 | PCM.HP ---
H&P History of Present Illness - General Date of Service: 11/05/18 Admit Problem/Dx: Admission Diagnosis/Problem Admission Diagnosis/Problem Pneumonia - History of Present Illness Initial Comments - Free Text/Narative: 78 yo female with pmh of multiple myeloma, diabetes, and CHF who presents to the ED with complaints of confusion and generalized weakness. Patient was noted to have a blood pressure of 80-60s/40s. She was given 250ml NS bolus with improvement of blood pressure and symptoms. She was noted to have a UTI based on UA. CXR reported patchy infiltrate in the right upper and lower lobes. Patient reports shortness of breath but denies any cough or fevers. She reports dysuria. She denies any diarrhea. She has a history of recurrent UTIs with last culture growing Pseudomonas. - Related Data Allergies/Adverse Reactions: Allergies Allergy/AdvReac Type Severity Reaction Status Date / Time ciprofloxacin HCl Allergy Airway Verified 11/05/18 17:58 [From Cipro] Tightness codeine Allergy Airway Verified 11/05/18 17:58 Tightness iodine Allergy Unknown Verified 11/05/18 17:58 lenalidomide [From Revlimid] Allergy Airway Verified 11/05/18 17:58 Tightness shellfish derived Allergy Unknown Verified 11/05/18 17:58 Sulfa (Sulfonamide Allergy Unknown Verified 11/05/18 17:58 Antibiotics) Home Medications: Home Meds Acyclovir 400 mg PO BID 09/24/18 [History] Aspirin 81 mg PO DAILY 09/24/18 [History] Escitalopram [Lexapro] 10 mg PO DAILY 09/24/18 [History] Famotidine [Pepcid] 20 mg PO DAILY 09/24/18 [History] Furosemide 40 mg PO DAILY 09/24/18 [History] Gabapentin [Neurontin] 900 mg PO TID 09/24/18 [History] Latanoprost 2.5 ml OP DAILY PRN 09/24/18 [History] Levothyroxine [Levothroid] 137 mcg PO DAILY 09/24/18 [History] Lisinopril 20 mg PO DAILY 09/24/18 [History] Loperamide [Imodium] 2 mg PO Q4H 09/24/18 [History] Potassium Chloride 10 meq PO TID 09/24/18 [History] atorvaSTATin Calcium [Atorvastatin Calcium] 10 mg PO BEDTIME 09/24/18 [History] fentaNYL [Duragesic] 50 mcg TD Q72H 09/24/18 [History] oxyCODONE HCl/Acetaminophen [Oxycodone-Acetaminophen 10-300] 10 - 325 mg PO Q4HR 09/24/18 [History] Ixazomib Citrate [Ninlaro] 4 mg PO ASDIRECTED 11/05/18 [History] QUEtiapine [SEROquel] 25 mg PO BEDTIME 11/05/18 [History] Past Medical History HEENT History: Reports: Cataract, Glaucoma, Impaired Vision Cardiovascular History: Reports: Blood Clots/VTE/DVT, Heart Failure, Hypertension Other Cardiovascular History: blood clots behind left knee Respiratory History: Reports: None Other Respiratory History: Hx of pneumonia Gastrointestinal History: Reports: GERD, Hiatal Hernia, Irritable Bowel Syndrome Genitourinary History: Reports: Acute Renal Failure, Renal Calculus, UTI, Recurrent Other Genitourinary History: Hx of renal failure, no longer in failure [employer] History: Reports: Musculoskeletal History: Reports: Arthritis, Fracture Other Musculoskeletal History: 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 Neurological History: Reports: None Psychiatric History: Reports: Anxiety Endocrine/Metabolic History: Reports: Diabetes, Type II, Hypothyroidism Other Endocrine/Metabolic History: History of Diabetes, Not currently an issue. Hematologic History: Reports: Anemia Immunologic History: Reports: None Oncologic (Cancer) History: Reports: Bone Other Oncologic History: multiple myeloma, Stage III Dermatologic History: Reports: Cellulitis - Infectious Disease History Infectious Disease History: Reports: Chicken Pox, Measles, Shingles, Other (See Below) Other Infectious Disease History: MSSA - Past Surgical History HEENT Surgical History: Reports: Eye Surgery Female Surgical History: Reports: Nephrectomy Musculoskeletal Surgical History: Reports: Carpal Tunnel, Other (See Below) Social & Family History - Family History Family Medical History: Noncontributory HEENT: Reports: Impaired Vision Cardiac: Reports: Heart Failure Respiratory: Reports: Asthma OBGYN: Reports: Musculoskeletal: Reports: Arthritis, Gout Neurological: Reports: Cerebral Aneurysms Endocrine/Metabolic: Reports: Diabetes, type II Oncologic: Reports: Breast, Colon, Liver - Tobacco Use Smoking Status *Q: Former Smoker Used Tobacco, but Quit: Yes Month/Year Tobacco Last Used: 30years - Caffeine Use Caffeine Use: Reports: Soda Other Caffeine Use: 1-2 cups daily - Recreational Drug Use Recreational Drug Use: No H&P Review of Systems - Review of Systems: Review Of Systems: ROS reveals no pertinent complaints other than HPI. Exam - Exam Exam: See Below - Vital Signs Vital Signs: Last Vital Signs Temp 36.6 C 11/05/18 19:45 Pulse 81 11/05/18 19:45 Resp 14 11/05/18 19:45 BP 104/53 L 11/05/18 19:45 Pulse Ox 96 11/05/18 19:45 Weight: 90.718 kg - Exam General: Alert, Oriented HEENT: Mucosa Moist & [place] Lungs: Clear to Auscultation, Normal Respiratory Effort. No: Crackles, Rales, Wheezing Cardiovascular: Regular Rate, Regular Rhythm GI/Abdominal Exam: Normal Bowel Sounds, Soft, Non-Tender Extremities: Pedal Edema (+2) Skin: Other (healing laceration of left vega) - Patient Data Lab Results Last 24 hrs: Laboratory Results - last 24 hr 11/05/18 11/05/18 11/05/18 Range/Units 18:20 18:20 18:20 WBC 9.58 (4.0-11.0) K/uL RBC 3.87 L (4.30-5.90) M/uL Hgb 10.9 L (12.0-16.0) g/dL Hct 35.5 L (36.0-46.0) % MCV 91.7 (80.0-98.0) fL MCH 28.2 (27.0-32.0) pg MCHC 30.7 L (31.0-37.0) g/dL RDW Std Deviation 62.4 H (28.0-62.0) fl RDW Coeff of Antony 19 H (11.0-15.0) % Plt Count 213 (150-400) K/uL MPV 10.50 (7.40-12.00) fL Neut % (Auto) 73.9 (48.0-80.0) % Lymph % (Auto) 12.8 L (16.0-40.0) % [place] % (Auto) 10.0 (0.0-15.0) % Eos % (Auto) 3.2 (0.0-7.0) % Baso % (Auto) 0.1 (0.0-1.5) % Neut # (Auto) 7.1 H (1.4-5.7) K/uL Lymph # (Auto) 1.2 (0.6-2.4) K/uL [place] # (Auto) 1.0 H (0.0-0.8) K/uL Eos # (Auto) 0.3 (0.0-0.7) K/uL Baso # (Auto) 0.0 (0.0-0.1) K/uL Nucleated RBC % 0.0 /100WBC Nucleated RBCs # 0 K/uL Lactate 2.2 H (0.20-2.00) mmol/L Sodium (136-145) mmol/L Potassium (3.5-5.1) mmol/L Chloride (98-107) mmol/L Carbon Dioxide (21.0-32.0) mmol/L BUN (7.0-18.0) mg/dL Creatinine (0.6-1.0) mg/dL Est Cr Clr Drug Dosing mL/min Estimated GFR (MDRD) ml/min Glucose (74-106) mg/dL Calcium (8.5-10.1) mg/dL Total Bilirubin (0.2-1.0) mg/dL AST (15-37) IU/L ALT (14-63) IU/L Alkaline Phosphatase (46-116) U/L Troponin I (0.000-0.056) ng/mL B-Natriuretic Peptide 72 (<100) PG/ML Total Protein (6.4-8.2) g/dL Albumin (3.4-5.0) g/dL Globulin (2.6-4.0) g/dL Albumin/Globulin Ratio (0.9-1.6) Urine Color Urine Appearance Urine pH (5.0-8.0) Ur Specific [place] (1.001-1.035) Urine Protein (NEGATIVE) mg/dL Urine Glucose (UA) (NEGATIVE) mg/dL Urine Ketones (NEGATIVE) mg/dL Urine Occult Blood (NEGATIVE) Urine Nitrite (NEGATIVE) Urine Bilirubin (NEGATIVE) Urine Urobilinogen (<2.0) EU/dL Ur Leukocyte Esterase (NEGATIVE) Urine RBC (0-2/HPF) Urine WBC (0-5/HPF) Ur Epithelial Cells (NONE-FEW) Urine Bacteria (NEGATIVE) 03/18/19 03/18/19 Range/Units 18:52 19:13 WBC (4.0-11.0) K/uL RBC (4.30-5.90) M/uL Hgb (12.0-16.0) g/dL Hct (36.0-46.0) % MCV (80.0-98.0) fL MCH (27.0-32.0) pg MCHC (31.0-37.0) g/dL RDW Std Deviation (28.0-62.0) fl RDW Coeff of Antony (11.0-15.0) % Plt Count (150-400) K/uL MPV (7.40-12.00) fL Neut % (Auto) (48.0-80.0) % Lymph % (Auto) (16.0-40.0) % [place] % (Auto) (0.0-15.0) % Eos % (Auto) (0.0-7.0) % Baso % (Auto) (0.0-1.5) % Neut # (Auto) (1.4-5.7) K/uL Lymph # (Auto) (0.6-2.4) K/uL [place] # (Auto) (0.0-0.8) K/uL Eos # (Auto) (0.0-0.7) K/uL Baso # (Auto) (0.0-0.1) K/uL Nucleated RBC % /100WBC Nucleated RBCs # K/uL Lactate (0.20-2.00) mmol/L Sodium 140 (136-145) mmol/L Potassium 4.9 (3.5-5.1) mmol/L Chloride 104 (98-107) mmol/L Carbon Dioxide 28.4 (21.0-32.0) mmol/L BUN 33 H (7.0-18.0) mg/dL Creatinine 2.2 H (0.6-1.0) mg/dL Est Cr Clr Drug Dosing 18.79 mL/min Estimated GFR (MDRD) 21.7 ml/min Glucose 81 (74-106) mg/dL Calcium 9.3 (8.5-10.1) mg/dL Total Bilirubin 0.3 (0.2-1.0) mg/dL AST 24 (15-37) IU/L ALT 16 (14-63) IU/L Alkaline Phosphatase 86 (46-116) U/L Troponin I < 0.050 (0.000-0.056) ng/mL B-Natriuretic Peptide (<100) PG/ML Total Protein 6.2 L (6.4-8.2) g/dL Albumin 2.9 L (3.4-5.0) g/dL Globulin 3.3 (2.6-4.0) g/dL Albumin/Globulin Ratio 0.9 (0.9-1.6) Urine Color YELLOW Urine Appearance SLT CLOUDY Urine pH 6.0 (5.0-8.0) Ur Specific [place] 1.020 (1.001-1.035) Urine Protein 30 H (NEGATIVE) mg/dL Urine Glucose (UA) NEGATIVE (NEGATIVE) mg/dL Urine Ketones NEGATIVE (NEGATIVE) mg/dL Urine Occult Blood MODERATE H (NEGATIVE) Urine Nitrite POSITIVE H (NEGATIVE) Urine Bilirubin NEGATIVE (NEGATIVE) Urine Urobilinogen 0.2 (<2.0) EU/dL Ur Leukocyte Esterase LARGE H (NEGATIVE) Urine RBC 1-2 (0-2/HPF) Urine WBC TO NUMEROU (0-5/HPF) Ur Epithelial Cells OCCASIONAL (NONE-FEW) Urine Bacteria 1+ H (NEGATIVE) Result Diagrams: 11/06/18 05:30 11/06/18 05:30 Richard Results Last 24 hrs: Microbiology 11/05/18 18:30 Anaerobic Blood Culture - Final Blood - Venous - Lab Draw 11/05/18 18:20 Anaerobic Blood Culture - Final Blood - Venous - Iv Start Problem List Initiated/Reviewed/Updated: Yes Orders Last 24hrs: Active Orders 24 hr Category Date Time Status Admission Status [Patient Status] [ADT] Stat ADT 11/05/18 19:23 Active Antiembolic Devices [RC] PER UNIT ROUTINE Care 11/05/18 19:46 Ordered Cardiac Monitoring [RC] . DIRECTED Care 11/05/18 19:23 Active EKG Documentation Completion [RC] STAT Care 11/05/18 17:52 Active Oxygen Therapy [RC] PRN Care 11/05/18 19:45 Ordered VTE/DVT Education [RC] PER UNIT ROUTINE Care 11/05/18 19:45 Ordered Vital Signs [RC] Q4H Care 11/05/18 19:45 Ordered Regular Diet [DIET] Diet 11/05/18 Breakfast Ordered BASIC METABOLIC PANEL,BMP [CHEM] AM Lab 11/06/18 05:11 Ordered CBC WITH AUTO DIFF [HEME] AM Lab 11/06/18 05:11 Ordered CULTURE BLOOD [BC] Stat Lab 11/05/18 18:20 Results CULTURE BLOOD [BC] Stat Lab 11/05/18 18:30 Results CULTURE URINE [RM] Stat Lab 11/05/18 19:13 Received LACTIC ACID,WHOLE BLOOD [BG] Q6H Lab 11/05/18 23:50 Ordered LACTIC ACID,WHOLE BLOOD [BG] Q6H Lab 11/06/18 05:50 Ordered LACTIC ACID,WHOLE BLOOD [BG] Q6H Lab 11/06/18 11:50 Ordered Azithromycin [Zithromax] 500 mg Med 11/05/18 19:27 Active Sodium Chloride 0.9% [Normal Saline] 250 ml IV ONETIME Cefepime [Maxipime in D5W 2 GM/50 ML] 2 gm Med 11/05/18 19:31 Active Premix Bag 1 bag IV ONETIME Escitalopram [Lexapro] Med 11/06/18 09:00 Ordered 10 mg PO DAILY Gabapentin [Neurontin] Med 11/05/18 22:00 Ordered 900 mg PO TID Heparin Sodium Med 11/05/18 19:45 Ordered 5,000 units SUBCUT Q8H Levothyroxine Med 11/06/18 09:00 Ordered 137 mcg PO DAILY Sodium Chloride 0.9% @ 125 MLS/HR (1000ml) Med 11/05/18 19:45 Ordered Sodium Chloride 0.9% [Normal Saline] 1,000 ml IV ASDIRECTED Sodium Chloride 0.9% [Saline Flush] Med 11/05/18 17:52 Active 10 ml FLUSH ASDIRECTED PRN Sodium Chloride 0.9% [Saline Flush] Med 11/05/18 17:52 Active 2.5 ml FLUSH ASDIRECTED PRN atorvaSTATin [Lipitor] Med 11/05/18 21:00 Ordered 10 mg PO BEDTIME Blood Culture x2 Reflex Set [OM.PC] Stat Oth 11/05/18 17:59 Ordered Saline Lock Insert [OM.PC] Stat Oth 11/05/18 17:52 Ordered Sequential Compression Device [OM.PC] Per Unit Routine Oth 11/05/18 19:45 Ordered Resuscitation Status Routine Resus Stat 11/05/18 19:45 Ordered Medication Orders Atorvastatin Calcium (Lipitor) 10 mg PO BEDTIME [facility] Escitalopram Oxalate (Lexapro) 10 mg PO DAILY [facility] Gabapentin (Neurontin) 900 mg PO TID [facility] Heparin Sodium (Porcine) (Heparin Sodium) 5,000 units SUBCUT Q8H [facility] Azithromycin 500 mg/ Sodium (Chloride) 250 mls @ 250 mls/hr IV ONETIME ONE Stop: 11/05/18 20:26 Cefepime HCl 2 gm/ Premix 50 mls @ 100 mls/hr IV ONETIME ONE Stop: 11/05/18 20:00 Sodium Chloride (Normal Saline) 1,000 mls @ 125 mls/hr IV ASDIRECTED [facility] Non-Formulary Medication (Levothyroxine) 137 mcg PO DAILY [facility] Sodium Chloride (Saline Flush) 10 ml FLUSH ASDIRECTED PRN PRN Reason: Keep Vein Open Sodium Chloride (Saline Flush) 2.5 ml FLUSH ASDIRECTED PRN PRN Reason: Keep Vein Open Assessment/Plan Comment:: [id number] yo female with pmh of multiple myeloma, diabetes, CHF admitted for sepsis from UTI with possible pneumonia: UTI: on Cefepime, culture pending Pneumonia: on Cefepime and azithromycin JULISSA: creatinine at 2.2 up from baseline of 1.0 will continue gently hydration. Sepsis: trending lactic acid.
[2018-11-05] MEDS: atorvaSTATin 10 MG Tab PO SCH (21:38)
[2018-11-05] MEDS: Heparin Sodium 5,000 Units/ML Vial SUBCUT SCH (21:38)
[2018-11-05] MEDS: Gabapentin 300 MG Cap PO SCH (21:38)
[2018-11-05] MEDS ORDERED: QUEtiapine 25 MG Tab PO ONE (22:30)
[2018-11-06] MEDS: Gabapentin 300 MG Cap PO SCH (05:13)
[2018-11-06] MEDS: Heparin Sodium 5,000 Units/ML Vial SUBCUT SCH ×3 (05:13→20:44)
[2018-11-06] MEDS: Levothyroxine 112 MCG Tab PO SCH (07:41)
[2018-11-06] MEDS: Levothyroxine 25 MCG Tab PO SCH (07:42)
--- NOTE | 2018-11-06 07:44 | PCM.PN ---
- General Info Date of Service: 11/06/18 Subjective Update: The patient is a 78 year old female who was admitted for sepsis secondary to UTI and pneumonia. She reports she feels much better this morning. She is on 2 L of oxygen which she states is her home o2 requirement. She denies fever, chest pain, shortness of breath, or abdominal pain. - Review of Systems General: Reports: No Symptoms HEENT: Reports: No Symptoms Pulmonary: Reports: No Symptoms Cardiovascular: Reports: No Symptoms Gastrointestinal: Reports: No Symptoms Genitourinary: Reports: No Symptoms Musculoskeletal: Reports: No Symptoms Skin: Reports: No Symptoms Neurological: Reports: Confusion Psychiatric: Reports: No Symptoms - Patient Data Vitals - Most Recent: Last Vital Signs Temp 97.4 F 11/06/18 05:00 Pulse 87 11/06/18 05:00 Resp 16 11/06/18 05:00 BP 99/55 L 11/06/18 05:00 Pulse Ox 94 L 11/06/18 05:00 Weight - Most Recent: 88 kg I&O - Last 24 Hours: Intake & Output 11/05/18 11/06/18 11/06/18 22:59 06:59 14:59 Intake Total 200 240 Output Total 600 Balance 200 -360 Lab Results Last 24 Hours: Laboratory Results - last 24 hr 11/05/18 11/05/18 11/05/18 Range/Units 18:20 18:20 18:20 WBC 9.58 (4.0-11.0) K/uL RBC 3.87 L (4.30-5.90) M/uL Hgb 10.9 L (12.0-16.0) g/dL Hct 35.5 L (36.0-46.0) % MCV 91.7 (80.0-98.0) fL MCH 28.2 (27.0-32.0) pg MCHC 30.7 L (31.0-37.0) g/dL RDW Std Deviation 62.4 H (28.0-62.0) fl RDW Coeff of Antony 19 H (11.0-15.0) % Plt Count 213 (150-400) K/uL MPV 10.50 (7.40-12.00) fL Neut % (Auto) 73.9 (48.0-80.0) % Lymph % (Auto) 12.8 L (16.0-40.0) % [place] % (Auto) 10.0 (0.0-15.0) % Eos % (Auto) 3.2 (0.0-7.0) % Baso % (Auto) 0.1 (0.0-1.5) % Neut # (Auto) 7.1 H (1.4-5.7) K/uL Lymph # (Auto) 1.2 (0.6-2.4) K/uL [place] # (Auto) 1.0 H (0.0-0.8) K/uL Eos # (Auto) 0.3 (0.0-0.7) K/uL Baso # (Auto) 0.0 (0.0-0.1) K/uL Nucleated RBC % 0.0 /100WBC Nucleated RBCs # 0 K/uL Lactate 2.2 H (0.20-2.00) mmol/L Sodium (136-145) mmol/L Potassium (3.5-5.1) mmol/L Chloride (98-107) mmol/L Carbon Dioxide (21.0-32.0) mmol/L BUN (7.0-18.0) mg/dL Creatinine (0.6-1.0) mg/dL Est Cr Clr Drug Dosing mL/min Estimated GFR (MDRD) ml/min Glucose (74-106) mg/dL Calcium (8.5-10.1) mg/dL Total Bilirubin (0.2-1.0) mg/dL AST (15-37) IU/L ALT (14-63) IU/L Alkaline Phosphatase (46-116) U/L Troponin I (0.000-0.056) ng/mL B-Natriuretic Peptide 72 (<100) PG/ML Total Protein (6.4-8.2) g/dL Albumin (3.4-5.0) g/dL Globulin (2.6-4.0) g/dL Albumin/Globulin Ratio (0.9-1.6) Urine Color Urine Appearance Urine pH (5.0-8.0) Ur Specific [place] (1.001-1.035) Urine Protein (NEGATIVE) mg/dL Urine Glucose (UA) (NEGATIVE) mg/dL Urine Ketones (NEGATIVE) mg/dL Urine Occult Blood (NEGATIVE) Urine Nitrite (NEGATIVE) Urine Bilirubin (NEGATIVE) Urine Urobilinogen (<2.0) EU/dL Ur Leukocyte Esterase (NEGATIVE) Urine RBC (0-2/HPF) Urine WBC (0-5/HPF) Ur Epithelial Cells (NONE-FEW) Urine Bacteria (NEGATIVE) 11/05/18 11/05/18 11/05/18 Range/Units 18:52 19:13 23:58 WBC (4.0-11.0) K/uL RBC (4.30-5.90) M/uL Hgb (12.0-16.0) g/dL Hct (36.0-46.0) % MCV (80.0-98.0) fL MCH (27.0-32.0) pg MCHC (31.0-37.0) g/dL RDW Std Deviation (28.0-62.0) fl RDW Coeff of [place]y (11.0-15.0) % Plt Count (150-400) K/uL MPV (7.40-12.00) fL Neut % (Auto) (48.0-80.0) % Lymph % (Auto) (16.0-40.0) % [place] % (Auto) (0.0-15.0) % Eos % (Auto) (0.0-7.0) % Baso % (Auto) (0.0-1.5) % Neut # (Auto) (1.4-5.7) K/uL Lymph # (Auto) (0.6-2.4) K/uL [place] # (Auto) (0.0-0.8) K/uL Eos # (Auto) (0.0-0.7) K/uL Baso # (Auto) (0.0-0.1) K/uL Nucleated RBC % /100WBC Nucleated RBCs # K/uL Lactate 0.9 (0.20-2.00) mmol/L Sodium 140 (136-145) mmol/L Potassium 4.9 (3.5-5.1) mmol/L Chloride 104 (98-107) mmol/L Carbon Dioxide 28.4 (21.0-32.0) mmol/L BUN 33 H (7.0-18.0) mg/dL Creatinine 2.2 H (0.6-1.0) mg/dL Est Cr Clr Drug Dosing 18.79 mL/min Estimated GFR (MDRD) 21.7 ml/min Glucose 81 (74-106) mg/dL Calcium 9.3 (8.5-10.1) mg/dL Total Bilirubin 0.3 (0.2-1.0) mg/dL AST 24 (15-37) IU/L ALT 16 (14-63) IU/L Alkaline Phosphatase 86 (46-116) U/L Troponin I < 0.050 (0.000-0.056) ng/mL B-Natriuretic Peptide (<100) PG/ML Total Protein 6.2 L (6.4-8.2) g/dL Albumin 2.9 L (3.4-5.0) g/dL Globulin 3.3 (2.6-4.0) g/dL Albumin/Globulin Ratio 0.9 (0.9-1.6) Urine Color YELLOW Urine Appearance SLT CLOUDY Urine pH 6.0 (5.0-8.0) Ur Specific [place] 1.020 (1.001-1.035) Urine Protein 30 H (NEGATIVE) mg/dL Urine Glucose (UA) NEGATIVE (NEGATIVE) mg/dL Urine Ketones NEGATIVE (NEGATIVE) mg/dL Urine Occult Blood MODERATE H (NEGATIVE) Urine Nitrite POSITIVE H (NEGATIVE) Urine Bilirubin NEGATIVE (NEGATIVE) Urine Urobilinogen 0.2 (<2.0) EU/dL Ur Leukocyte Esterase LARGE H (NEGATIVE) Urine RBC 1-2 (0-2/HPF) Urine WBC TO NUMEROU (0-5/HPF) Ur Epithelial Cells OCCASIONAL (NONE-FEW) Urine Bacteria 1+ H (NEGATIVE) 11/06/18 11/06/18 Range/Units 05:30 05:30 WBC 7.59 (4.0-11.0) K/uL RBC 3.51 L (4.30-5.90) M/uL Hgb 9.9 L (12.0-16.0) g/dL Hct 31.9 L (36.0-46.0) % MCV 90.9 (80.0-98.0) fL MCH 28.2 (27.0-32.0) pg MCHC 31.0 (31.0-37.0) g/dL RDW Std Deviation 61.9 (28.0-62.0) fl RDW Coeff of [place] 18 H (11.0-15.0) % Plt Count 170 (150-400) K/uL MPV 10.50 (7.40-12.00) fL Neut % (Auto) 66.5 (48.0-80.0) % Lymph % (Auto) 20.2 (16.0-40.0) % [place] % (Auto) 9.5 (0.0-15.0) % Eos % (Auto) 3.7 (0.0-7.0) % Baso % (Auto) 0.1 (0.0-1.5) % Neut # (Auto) 5.1 (1.4-5.7) K/uL Lymph # (Auto) 1.5 (0.6-2.4) K/uL [place] # (Auto) 0.7 (0.0-0.8) K/uL Eos # (Auto) 0.3 (0.0-0.7) K/uL Baso # (Auto) 0.0 (0.0-0.1) K/uL Nucleated RBC % 0.0 /100WBC Nucleated RBCs # 0 K/uL Lactate (0.20-2.00) mmol/L Sodium 139 (136-145) mmol/L Potassium 4.8 (3.5-5.1) mmol/L Chloride 105 (98-107) mmol/L Carbon Dioxide 28.7 (21.0-32.0) mmol/L BUN 27 H (7.0-18.0) mg/dL Creatinine 1.6 H (0.6-1.0) mg/dL Est Cr Clr Drug Dosing 21.49 mL/min Estimated GFR (MDRD) 31.3 ml/min Glucose 80 (74-106) mg/dL Calcium 8.3 L (8.5-10.1) mg/dL Total Bilirubin (0.2-1.0) mg/dL AST (15-37) IU/L ALT (14-63) IU/L Alkaline Phosphatase (46-116) U/L Troponin I (0.000-0.056) ng/mL B-Natriuretic Peptide (<100) PG/ML Total Protein (6.4-8.2) g/dL Albumin (3.4-5.0) g/dL Globulin (2.6-4.0) g/dL Albumin/Globulin Ratio (0.9-1.6) Urine Color Urine Appearance Urine pH (5.0-8.0) Ur Specific [place] (1.001-1.035) Urine Protein (NEGATIVE) mg/dL Urine Glucose (UA) (NEGATIVE) mg/dL Urine Ketones (NEGATIVE) mg/dL Urine Occult Blood (NEGATIVE) Urine Nitrite (NEGATIVE) Urine Bilirubin (NEGATIVE) Urine Urobilinogen (<2.0) EU/dL Ur Leukocyte Esterase (NEGATIVE) Urine RBC (0-2/HPF) Urine WBC (0-5/HPF) Ur Epithelial Cells (NONE-FEW) Urine Bacteria (NEGATIVE) Richard Results Last 24 Hours: Microbiology 11/05/18 18:30 Anaerobic Blood Culture - Final Blood - Venous - Lab Draw 11/05/18 18:20 Anaerobic Blood Culture - Final Blood - Venous - Iv Start Med Orders - Current: Current Medications Atorvastatin Calcium (Lipitor) 10 mg PO BEDTIME [facility] Last Admin: 11/05/18 21:38 Dose: 10 mg Escitalopram Oxalate (Lexapro) 10 mg PO DAILY [facility] Gabapentin (Neurontin) 900 mg PO TID [facility] Last Admin: 11/06/18 05:13 Dose: 900 mg Heparin Sodium (Porcine) (Heparin Sodium) 5,000 units SUBCUT Q8H [facility] Last Admin: 11/06/18 05:13 Dose: 5,000 units Levothyroxine Sodium (Levothyroxine) 112 mcg PO ACBREAKFAST [facility] Levothyroxine Sodium (Levothyroxine) 25 mcg PO ACBREAKFAST [facility] Quetiapine Fumarate (Seroquel) 25 mg PO BEDTIME [facility] Sodium Chloride (Saline Flush) 10 ml FLUSH ASDIRECTED PRN PRN Reason: Keep Vein Open Sodium Chloride (Saline Flush) 2.5 ml FLUSH ASDIRECTED PRN PRN Reason: Keep Vein Open Discontinued Medications Sodium Chloride (Normal Saline) 1,000 mls @ 999 mls/hr IV STAT ONE Stop: 11/05/18 18:58 Last Admin: 11/05/18 18:04 Dose: 999 mls/hr Ceftriaxone Sodium/Dextrose 1 (gm/ Premix) 50 mls @ 100 mls/hr IV ONETIME ONE Stop: 11/05/18 19:53 Last Admin: 11/05/18 20:00 Dose: Not Given Azithromycin 500 mg/ Sodium (Chloride) 250 mls @ 250 mls/hr IV ONETIME ONE Stop: 11/05/18 20:26 Last Admin: 11/05/18 21:30 Dose: 250 mls/hr Cefepime HCl 2 gm/ Premix 50 mls @ 100 mls/hr IV ONETIME ONE Stop: 11/05/18 20:00 Last Admin: 11/05/18 20:45 Dose: 100 mls/hr Sodium Chloride (Normal Saline) 1,000 mls @ 125 mls/hr IV ASDIRECTED [facility] Stop: 11/06/18 03:44 Sodium Chloride (Normal Saline) 500 mls @ 125 mls/hr IV ASDIRECTED [facility] Stop: 11/05/18 23:52 Last Admin: 11/05/18 20:00 Dose: 125 mls/hr Quetiapine Fumarate (Seroquel) 25 mg PO ONETIME ONE Stop: 11/05/18 22:31 Last Admin: 11/05/18 22:55 Dose: 25 mg - Exam Quality Assessment: Supplemental Oxygen General: Alert. No: Oriented Lungs: Crackles (right lung), Other Cardiovascular: Regular Rate, Regular Rhythm GI/Abdominal Exam: Normal Bowel Sounds, Soft, Non-Tender, No Distention Extremities: Pedal Edema Skin: Warm, Dry Neurological: No New Focal Deficit Psy/Mental Status: Alert, Normal Affect, Normal Mood - Problem List Review Problem List Initiated/Reviewed/Updated: Yes - Plan Plan:: 78 year old female with pmh of multiple myeloma, diabetes, CHF admitted for : 1. Sepsis secondary to UTI and pneumonia- lactate resolved, BC pending. Continue Cefepime for UTI, awaiting urine culture. Last UTI grew out pseudomonas. Continue cefepime and azithromycin for pneumonia. Will add duonebs. Will D/c Vo. Will have PT evaluate/treat for weakness. 2. JULISSA- improved from 2.2-1.6. Encourage oral intake. 3. Chronic conditions- CHF, hyperlipidemia, depression, hypothyroidism- continue home meds. When speaking with case management, it may be a good idea for her to go to [facility] for rehab as she has had multiple admissions recently and has home health at time of discharge. CM is going to speak with the daughter who he believes has guardianship of the patient.
[2018-11-06] MEDS ORDERED: Albuterol/Ipratropium 3.0-0.5 MG/3 ML Neb Soln NEB PRN (07:57)
[2018-11-06] MEDS: Escitalopram 10 MG Tab PO SCH (09:28)
[2018-11-06] MEDS ORDERED: Ondansetron 4 MG/2 ML SDV IVPUSH PRN (18:35)
[2018-11-06] MEDS: atorvaSTATin 10 MG Tab PO SCH (20:48)
[2018-11-06] MEDS: QUEtiapine 25 MG Tab PO SCH (20:54)
[2018-11-07] MEDS: Heparin Sodium 5,000 Units/ML Vial SUBCUT SCH ×3 (04:44→20:00)
[2018-11-07] MEDS: Acetaminophen 325 MG Tab PO PRN ×2 (04:45→08:49)
[2018-11-07] MEDS: Levothyroxine 25 MCG Tab PO SCH (06:40)
[2018-11-07] MEDS: Levothyroxine 112 MCG Tab PO SCH (06:41)
[2018-11-07] MEDS: Escitalopram 10 MG Tab PO SCH (08:48)
[2018-11-07] MEDS: Gabapentin 300 MG Cap PO SCH (08:49)
--- NOTE | 2018-11-07 09:43 | PCM.PN ---
<Rocio Ley - Last Filed: 11/07/18 09:43> - General Info Date of Service: 11/07/18 Subjective Update: The patient is a 78 year old female admitted for sepsis secondary to UTI and pneumonia. She reports she is feeling better. She denies shortness of breath, abdominal pain, or chest pain. She is on 2L of oxygen which is her baseline. Her daughter has guardianship of her and has started the application for [facility]. - Review of Systems General: Reports: No Symptoms HEENT: Reports: No Symptoms Pulmonary: Reports: No Symptoms Cardiovascular: Reports: No Symptoms Gastrointestinal: Reports: No Symptoms Genitourinary: Reports: No Symptoms Musculoskeletal: Reports: No Symptoms Skin: Reports: No Symptoms Neurological: Reports: No Symptoms - Patient Data Vitals - Most Recent: Last Vital Signs Temp 97.6 F 11/07/18 08:00 Pulse 78 11/07/18 08:00 Resp 16 11/07/18 08:00 BP 109/65 11/07/18 08:00 Pulse Ox 94 L 11/07/18 08:00 Weight - Most Recent: 90.718 kg I&O - Last 24 Hours: Intake & Output 11/06/18 11/07/18 11/07/18 22:59 06:59 14:59 Intake Total 560 440 Output Total 600 1000 Balance -40 -560 Lab Results Last 24 Hours: Laboratory Results - last 24 hr 11/07/18 11/07/18 Range/Units 04:50 04:50 WBC 7.07 (4.0-11.0) K/uL RBC 3.81 L (4.30-5.90) M/uL Hgb 10.5 L (12.0-16.0) g/dL Hct 34.3 L (36.0-46.0) % MCV 90.0 (80.0-98.0) fL MCH 27.6 (27.0-32.0) pg MCHC 30.6 L (31.0-37.0) g/dL RDW Std Deviation 60.6 (28.0-62.0) fl RDW Coeff of Antony 18 H (11.0-15.0) % Plt Count 190 (150-400) K/uL MPV 10.50 (7.40-12.00) fL Neut % (Auto) 65.8 (48.0-80.0) % Lymph % (Auto) 20.4 (16.0-40.0) % [place] % (Auto) 10.7 (0.0-15.0) % Eos % (Auto) 3.0 (0.0-7.0) % Baso % (Auto) 0.1 (0.0-1.5) % Neut # (Auto) 4.7 (1.4-5.7) K/uL Lymph # (Auto) 1.4 (0.6-2.4) K/uL [place] # (Auto) 0.8 (0.0-0.8) K/uL Eos # (Auto) 0.2 (0.0-0.7) K/uL Baso # (Auto) 0.0 (0.0-0.1) K/uL Nucleated RBC % 0.0 /100WBC Nucleated RBCs # 0 K/uL Sodium 139 (136-145) mmol/L Potassium 4.1 (3.5-5.1) mmol/L Chloride 103 (98-107) mmol/L Carbon Dioxide 28.2 (21.0-32.0) mmol/L BUN 24 H (7.0-18.0) mg/dL Creatinine 1.2 H (0.6-1.0) mg/dL Est Cr Clr Drug Dosing 28.65 mL/min Estimated GFR (MDRD) 43.7 ml/min Glucose 116 H (74-106) mg/dL Calcium 8.5 (8.5-10.1) mg/dL Richard Results Last 24 Hours: Microbiology 11/05/18 18:30 Aerobic Blood Culture - Preliminary Blood - Venous - Lab Draw NO GROWTH AFTER 1 DAY Anaerobic Blood Culture - Final 11/05/18 18:20 Aerobic Blood Culture - Preliminary Blood - Venous - Iv Start NO GROWTH AFTER 1 DAY Anaerobic Blood Culture - Final Med Orders - Current: Current Medications Acetaminophen (Tylenol) 650 mg PO Q4H PRN PRN Reason: Pain/Fever Last Admin: 11/07/18 08:49 Dose: 650 mg Albuterol/Ipratropium (Duoneb 3.0-0.5 Mg/3 Ml) 3 ml NEB Q4HRRT PRN PRN Reason: Shortness of Breath Atorvastatin Calcium (Lipitor) 10 mg PO BEDTIME [facility] Last Admin: 11/06/18 20:48 Dose: 10 mg Escitalopram Oxalate (Lexapro) 10 mg PO DAILY [facility] Last Admin: 11/07/18 08:48 Dose: 10 mg Gabapentin (Neurontin) 600 mg PO DAILY [facility] Last Admin: 11/07/18 08:49 Dose: 600 mg Heparin Sodium (Porcine) (Heparin Sodium) 5,000 units SUBCUT Q8H [facility] Last Admin: 11/07/18 04:44 Dose: 5,000 units Levothyroxine Sodium (Levothyroxine) 112 mcg PO ACBREAKFAST [facility] Last Admin: 11/07/18 06:41 Dose: 112 mcg Levothyroxine Sodium (Levothyroxine) 25 mcg PO ACBREAKFAST [facility] Last Admin: 11/07/18 06:40 Dose: 25 mcg Ondansetron HCl (Zofran) 4 mg IVPUSH Q4H PRN PRN Reason: Nausea/Vomiting Quetiapine Fumarate (Seroquel) 25 mg PO BEDTIME [facility] Last Admin: 11/06/18 20:54 Dose: 25 mg Sodium Chloride (Saline Flush) 10 ml FLUSH ASDIRECTED PRN PRN Reason: Keep Vein Open Sodium Chloride (Saline Flush) 2.5 ml FLUSH ASDIRECTED PRN PRN Reason: Keep Vein Open Discontinued Medications Gabapentin (Neurontin) 900 mg PO TID [facility] Last Admin: 11/06/18 05:13 Dose: 900 mg Sodium Chloride (Normal Saline) 1,000 mls @ 999 mls/hr IV STAT ONE Stop: 11/05/18 18:58 Last Admin: 11/05/18 18:04 Dose: 999 mls/hr Ceftriaxone Sodium/Dextrose 1 (gm/ Premix) 50 mls @ 100 mls/hr IV ONETIME ONE Stop: 11/05/18 19:53 Last Admin: 11/05/18 20:00 Dose: Not Given Azithromycin 500 mg/ Sodium (Chloride) 250 mls @ 250 mls/hr IV ONETIME ONE Stop: 11/05/18 20:26 Last Admin: 11/05/18 21:30 Dose: 250 mls/hr Cefepime HCl 2 gm/ Premix 50 mls @ 100 mls/hr IV ONETIME ONE Stop: 11/05/18 20:00 Last Admin: 11/05/18 20:45 Dose: 100 mls/hr Sodium Chloride (Normal Saline) 1,000 mls @ 125 mls/hr IV ASDIRECTED [facility] Stop: 11/06/18 03:44 Sodium Chloride (Normal Saline) 500 mls @ 125 mls/hr IV ASDIRECTED [facility] Stop: 11/05/18 23:52 Last Admin: 11/05/18 20:00 Dose: 125 mls/hr Quetiapine Fumarate (Seroquel) 25 mg PO ONETIME ONE Stop: 11/05/18 22:31 Last Admin: 11/05/18 22:55 Dose: 25 mg - Exam Quality Assessment: Supplemental Oxygen General: Alert, Oriented, Cooperative Lungs: Crackles (right base) Cardiovascular: Regular Rate, Regular Rhythm GI/Abdominal Exam: Normal Bowel Sounds, Soft, Non-Tender, No Distention Extremities: No Pedal Edema Skin: Warm, Dry Neurological: No New Focal Deficit Psy/Mental Status: Alert, Normal Affect, Normal Mood - Problem List & Annotations (1) Sepsis SNOMED Code(s): 88030983 Code(s): A41.9 - SEPSIS, UNSPECIFIED ORGANISM Status: Acute Current Visit : Yes (2) Hypothyroidism SNOMED Code(s): 42664471 Code(s): E03.9 - HYPOTHYROIDISM, UNSPECIFIED Status: Chronic Current Visit: No (3) Depression SNOMED Code(s): 70809349 Code(s): F32.9 - MAJOR DEPRESSIVE DISORDER, SINGLE EPISODE, UNSPECIFIED Status: Chronic Current Visit: No (4) Hyperlipemia SNOMED Code(s): 84443551 Code(s): E78.5 - HYPERLIPIDEMIA, UNSPECIFIED Status: Chronic Priority: Low Current Visit: No (5) Pneumonia SNOMED Code(s): 517228402 Code(s): J18.9 - PNEUMONIA, UNSPECIFIED ORGANISM Status: Acute Priority: High Current Visit: Yes Qualifiers: Pneumonia type: due to unspecified organism Laterality: right Lung location: lower lobe of lung Qualified Code(s): J18.1 - Lobar pneumonia, unspecified organism (6) Acute kidney failure SNOMED Code(s): 65019768 Code(s): N17.9 - ACUTE KIDNEY FAILURE, UNSPECIFIED Status: Acute Current Visit: Yes (7) UTI, Urinary tract infectious disease SNOMED Code(s): 29207636 Code(s): N39.0 - URINARY TRACT INFECTION, SITE NOT SPECIFIED Status: Acute Priority: High Current Visit: No (8) Multiple myeloma, stage 3 SNOMED Code(s): 612184550, 499347726 Code(s): C90.00 - MULTIPLE MYELOMA NOT HAVING ACHIEVED REMISSION Status: Chronic Priority: High Current Visit: No - Problem List Review Problem List Initiated/Reviewed/Updated: Yes - My Orders Last 24 Hours: My Active Orders 11/06/18 11:07 DC Vo Catheter [Urinary Catheter Removal] [RC] Per Unit Routine Consult to Physical Therapy [PT Evaluation and Treatment] [CONS] Routine 11/06/18 18:35 Acetaminophen [Tylenol] 650 mg PO Q4H PRN Ondansetron [Zofran] 4 mg IVPUSH Q4H PRN - Plan Plan:: 78 year old female with pmh of multiple myeloma, diabetes, CHF admitted for : 1. Sepsis secondary to UTI and pneumonia- Continue Cefepime for UTI, awaiting urine culture. Last UTI grew out pseudomonas. Continue cefepime and azithromycin for pneumonia. Continue duonebs. 2. JULISSA- improved Cr down to 1.2. Encourage oral intake. 3. Chronic conditions- CHF, hyperlipidemia, depression, hypothyroidism- continue home meds. Application for [facility] is pending. [facility] needs to come assess her before accepting her as a new patient. Will continue to work with CM on placement. <David Carbajal - Last Filed: 11/07/18 17:58> - General Info Subjective Update: I have examined the patient independently of Rocio Ley MD, resident. I have discussed the case with her. I have reviewed and agree with the plan of care as outlined by her. Please see orders. - Patient Data Vitals - Most Recent: Last Vital Signs Temp 36.3 C 11/07/18 15:48 Pulse 92 11/07/18 15:48 Resp 20 11/07/18 15:48 BP 127/79 11/07/18 15:48 Pulse Ox 98 11/07/18 15:48 I&O - Last 24 Hours: Intake & Output 11/07/18 11/07/18 11/07/18 06:59 14:59 22:59 Intake Total 440 300 440 Output Total 1000 600 Balance -560 300 -160 Lab Results Last 24 Hours: Laboratory Results - last 24 hr 11/07/18 11/07/18 Range/Units 04:50 04:50 WBC 7.07 (4.0-11.0) K/uL RBC 3.81 L (4.30-5.90) M/uL Hgb 10.5 L (12.0-16.0) g/dL Hct 34.3 L (36.0-46.0) % MCV 90.0 (80.0-98.0) fL MCH 27.6 (27.0-32.0) pg MCHC 30.6 L (31.0-37.0) g/dL RDW Std Deviation 60.6 (28.0-62.0) fl RDW Coeff of Antony 18 H (11.0-15.0) % Plt Count 190 (150-400) K/uL MPV 10.50 (7.40-12.00) fL Neut % (Auto) 65.8 (48.0-80.0) % Lymph % (Auto) 20.4 (16.0-40.0) % [place] % (Auto) 10.7 (0.0-15.0) % Eos % (Auto) 3.0 (0.0-7.0) % Baso % (Auto) 0.1 (0.0-1.5) % Neut # (Auto) 4.7 (1.4-5.7) K/uL Lymph # (Auto) 1.4 (0.6-2.4) K/uL [place] # (Auto) 0.8 (0.0-0.8) K/uL Eos # (Auto) 0.2 (0.0-0.7) K/uL Baso # (Auto) 0.0 (0.0-0.1) K/uL Nucleated RBC % 0.0 /100WBC Nucleated RBCs # 0 K/uL Sodium 139 (136-145) mmol/L Potassium 4.1 (3.5-5.1) mmol/L Chloride 103 (98-107) mmol/L Carbon Dioxide 28.2 (21.0-32.0) mmol/L BUN 24 H (7.0-18.0) mg/dL Creatinine 1.2 H (0.6-1.0) mg/dL Est Cr Clr Drug Dosing 28.65 mL/min Estimated GFR (MDRD) 43.7 ml/min Glucose 116 H (74-106) mg/dL Calcium 8.5 (8.5-10.1) mg/dL [place] Results Last 24 Hours: Microbiology 11/05/18 18:30 Aerobic Blood Culture - Preliminary Blood - Venous - Lab Draw NO GROWTH AFTER 1 DAY Anaerobic Blood Culture - Final 11/05/18 18:20 Aerobic Blood Culture - Preliminary Blood - Venous - Iv Start NO GROWTH AFTER 1 DAY Anaerobic Blood Culture - Final Med Orders - Current: Current Medications Acetaminophen (Tylenol) 650 mg PO Q4H PRN PRN Reason: Pain/Fever Last Admin: 11/07/18 08:49 Dose: 650 mg Acyclovir (Zovirax) 400 mg PO BID [facility] Albuterol/Ipratropium (Duoneb 3.0-0.5 Mg/3 Ml) 3 ml NEB Q4HRRT PRN PRN Reason: Shortness of Breath Aspirin (Aspirin) 81 mg PO DAILY [facility] Atorvastatin Calcium (Lipitor) 10 mg PO BEDTIME [facility] Last Admin: 11/06/18 20:48 Dose: 10 mg Escitalopram Oxalate (Lexapro) 10 mg PO DAILY [facility] Last Admin: 11/07/18 08:48 Dose: 10 mg Famotidine (Pepcid) 20 mg PO DAILY [facility] Fentanyl (Duragesic) 50 mcg TRDERM Q72H [facility] Last Admin: 11/07/18 11:23 Dose: 50 mcg Gabapentin (Neurontin) 600 mg PO DAILY [facility] Last Admin: 11/07/18 08:49 Dose: 600 mg Heparin Sodium (Porcine) (Heparin Sodium) 5,000 units SUBCUT Q8H [facility] Last Admin: 11/07/18 11:29 Dose: 5,000 units Azithromycin 250 mg/ Sodium (Chloride) 250 mls @ 250 mls/hr IV Q24H [facility] Last Admin: 11/07/18 12:49 Dose: 250 mls/hr Cefepime HCl 2 gm/ Premix 50 mls @ 100 mls/hr IV Q24H [facility] Last Admin: 11/07/18 11:30 Dose: 100 mls/hr Levothyroxine Sodium (Levothyroxine) 112 mcg PO ACBREAKFAST [facility] Last Admin: 11/07/18 06:41 Dose: 112 mcg Levothyroxine Sodium (Levothyroxine) 25 mcg PO ACBREAKFAST [facility] Last Admin: 11/07/18 06:40 Dose: 25 mcg Loperamide HCl (Imodium) 2 mg PO Q4H [facility] Last Admin: 11/07/18 15:34 Dose: 2 mg Ondansetron HCl (Zofran) 4 mg IVPUSH Q4H PRN PRN Reason: Nausea/Vomiting Oxycodone/Acetaminophen (Percocet 325-10 Mg) 1 tab PO Q4H [facility] Last Admin: 11/07/18 15:34 Dose: 1 tab Quetiapine Fumarate (Seroquel) 25 mg PO BEDTIME [facility] Last Admin: 11/06/18 20:54 Dose: 25 mg Sodium Chloride (Saline Flush) 10 ml FLUSH ASDIRECTED PRN PRN Reason: Keep Vein Open Sodium Chloride (Saline Flush) 2.5 ml FLUSH ASDIRECTED PRN PRN Reason: Keep Vein Open Discontinued Medications Gabapentin (Neurontin) 900 mg PO TID [facility] Last Admin: 11/06/18 05:13 Dose: 900 mg Sodium Chloride (Normal Saline) 1,000 mls @ 999 mls/hr IV STAT ONE Stop: 11/05/18 18:58 Last Admin: 11/05/18 18:04 Dose: 999 mls/hr Ceftriaxone Sodium/Dextrose 1 (gm/ Premix) 50 mls @ 100 mls/hr IV ONETIME ONE Stop: 11/05/18 19:53 Last Admin: 11/05/18 20:00 Dose: Not Given Azithromycin 500 mg/ Sodium (Chloride) 250 mls @ 250 mls/hr IV ONETIME ONE Stop: 11/05/18 20:26 Last Admin: 11/05/18 21:30 Dose: 250 mls/hr Cefepime HCl 2 gm/ Premix 50 mls @ 100 mls/hr IV ONETIME ONE Stop: 11/05/18 20:00 Last Admin: 11/05/18 20:45 Dose: 100 mls/hr Sodium Chloride (Normal Saline) 1,000 mls @ 125 mls/hr IV ASDIRECTED [facility] Stop: 11/06/18 03:44 Sodium Chloride (Normal Saline) 500 mls @ 125 mls/hr IV ASDIRECTED [facility] Stop: 11/05/18 23:52 Last Admin: 11/05/18 20:00 Dose: 125 mls/hr Quetiapine Fumarate (Seroquel) 25 mg PO ONETIME ONE Stop: 11/05/18 22:31 Last Admin: 11/05/18 22:55 Dose: 25 mg
[2018-11-07] MEDS: Loperamide 2 MG Cap PO SCH ×4 (10:47→22:00)
[2018-11-07] MEDS ORDERED: Cefepime 2 GM in Premix Bag 1 BAG IV SCH (11:00)
[2018-11-07] MEDS: Acetaminophen/oxyCODONE 325-10 MG Tab PO SCH ×3 (11:20→20:00)
[2018-11-07] MEDS: fentaNYL 50 MCG/HR Transdermal Patch TRDERM SCH (11:23)
[2018-11-07] MEDS ORDERED: Azithromycin 250 MG in Sodium Chloride 0.9% 250 ML IV SCH (12:00)
[2018-11-07] MEDS: atorvaSTATin 10 MG Tab PO SCH (20:09)
[2018-11-07] MEDS: QUEtiapine 25 MG Tab PO SCH (20:09)
[2018-11-07] MEDS: Acyclovir 200 MG Cap PO SCH (20:09)
[2018-11-08] MEDS: Acetaminophen/oxyCODONE 325-10 MG Tab PO SCH ×6 (00:25→21:35)
[2018-11-08] MEDS: Loperamide 2 MG Cap PO SCH ×2 (02:00→06:13)
[2018-11-08] MEDS: Heparin Sodium 5,000 Units/ML Vial SUBCUT SCH ×3 (04:00→21:36)
[2018-11-08] MEDS: Levothyroxine 112 MCG Tab PO SCH (06:45)
[2018-11-08] MEDS: Levothyroxine 25 MCG Tab PO SCH (06:45)
--- NOTE | 2018-11-08 07:56 | PCM.PN ---
<Rocio Ley - Last Filed: 11/08/18 08:29> - General Info Date of Service: 11/08/18 Subjective Update: The patient reports she is feeling well. She is at her home oxygen requirement of 2L. [place] application is pending, she needs to be evaluated by mental health before she is accepted. They are due today or tomorrow to evaluate her. Patient denies any fever/chills, chest pain, shortness of breath, or abdominal pain. She reports she has a good appetite. - Review of Systems General: Reports: No Symptoms HEENT: Reports: No Symptoms Pulmonary: Reports: No Symptoms Cardiovascular: Reports: No Symptoms Gastrointestinal: Reports: No Symptoms Genitourinary: Reports: No Symptoms Musculoskeletal: Reports: No Symptoms Skin: Reports: No Symptoms Neurological: Reports: No Symptoms Psychiatric: Reports: No Symptoms - Patient Data Vitals - Most Recent: Last Vital Signs Temp 97.7 F 11/08/18 04:31 Pulse 82 11/08/18 04:31 Resp 16 11/08/18 04:31 BP 120/68 11/08/18 04:31 Pulse Ox 96 11/08/18 04:31 Weight - Most Recent: 90.718 kg I&O - Last 24 Hours: Intake & Output 11/07/18 11/08/18 11/08/18 22:59 06:59 14:59 Intake Total 440 300 Output Total 600 1600 Balance -160 -1300 Lab Results Last 24 Hours: Laboratory Results - last 24 hr 11/08/18 11/08/18 Range/Units 04:50 04:50 WBC 6.41 (4.0-11.0) K/uL RBC 3.66 L (4.30-5.90) M/uL Hgb 10.2 L (12.0-16.0) g/dL Hct 32.9 L (36.0-46.0) % MCV 89.9 (80.0-98.0) fL MCH 27.9 (27.0-32.0) pg MCHC 31.0 (31.0-37.0) g/dL RDW Std Deviation 60.5 (28.0-62.0) fl RDW Coeff of Antony 18 H (11.0-15.0) % Plt Count 186 (150-400) K/uL MPV 10.60 (7.40-12.00) fL Neut % (Auto) 60.0 (48.0-80.0) % Lymph % (Auto) 25.0 (16.0-40.0) % [place] % (Auto) 10.5 (0.0-15.0) % Eos % (Auto) 4.2 (0.0-7.0) % Baso % (Auto) 0.3 (0.0-1.5) % Neut # (Auto) 3.9 (1.4-5.7) K/uL Lymph # (Auto) 1.6 (0.6-2.4) K/uL [place] # (Auto) 0.7 (0.0-0.8) K/uL Eos # (Auto) 0.3 (0.0-0.7) K/uL Baso # (Auto) 0.0 (0.0-0.1) K/uL Nucleated RBC % 0.0 /100WBC Nucleated RBCs # 0 K/uL Sodium 139 (136-145) mmol/L Potassium 4.1 (3.5-5.1) mmol/L Chloride 106 (98-107) mmol/L Carbon Dioxide 28.0 (21.0-32.0) mmol/L BUN 19 H (7.0-18.0) mg/dL Creatinine 1.0 (0.6-1.0) mg/dL Est Cr Clr Drug Dosing 34.38 mL/min Estimated GFR (MDRD) 53.9 ml/min Glucose 76 (74-106) mg/dL Calcium 8.3 L (8.5-10.1) mg/dL Richard Results Last 24 Hours: Microbiology 11/05/18 18:30 Aerobic Blood Culture - Preliminary Blood - Venous - Lab Draw NO GROWTH AFTER 2 DAYS Anaerobic Blood Culture - Final 11/05/18 18:20 Aerobic Blood Culture - Preliminary Blood - Venous - Iv Start NO GROWTH AFTER 2 DAYS Anaerobic Blood Culture - Final Med Orders - Current: Current Medications Acetaminophen (Tylenol) 650 mg PO Q4H PRN PRN Reason: Pain/Fever Last Admin: 11/07/18 08:49 Dose: 650 mg Acyclovir (Zovirax) 400 mg PO BID ARMIDA Last Admin: 11/07/18 20:09 Dose: 400 mg Albuterol/Ipratropium (Duoneb 3.0-0.5 Mg/3 Ml) 3 ml NEB Q4HRRT PRN PRN Reason: Shortness of Breath Aspirin (Aspirin) 81 mg PO DAILY [facility] Atorvastatin Calcium (Lipitor) 10 mg PO BEDTIME [facility] Last Admin: 11/07/18 20:09 Dose: 10 mg Escitalopram Oxalate (Lexapro) 10 mg PO DAILY [facility] Last Admin: 11/07/18 08:48 Dose: 10 mg Famotidine (Pepcid) 20 mg PO DAILY [facility] Fentanyl (Duragesic) 50 mcg TRDERM Q72H [facility] Last Admin: 11/07/18 11:23 Dose: 50 mcg Gabapentin (Neurontin) 600 mg PO DAILY [facility] Last Admin: 11/07/18 08:49 Dose: 600 mg Heparin Sodium (Porcine) (Heparin Sodium) 5,000 units SUBCUT Q8H [facility] Last Admin: 11/08/18 04:00 Dose: 5,000 units Azithromycin 250 mg/ Sodium (Chloride) 250 mls @ 250 mls/hr IV Q24H [facility] Last Admin: 11/07/18 12:49 Dose: 250 mls/hr Cefepime HCl 2 gm/ Premix 50 mls @ 100 mls/hr IV Q24H [facility] Last Admin: 11/07/18 11:30 Dose: 100 mls/hr Levothyroxine Sodium (Levothyroxine) 112 mcg PO ACBREAKFAST [facility] Last Admin: 11/08/18 06:45 Dose: 112 mcg Levothyroxine Sodium (Levothyroxine) 25 mcg PO ACBREAKFAST [facility] Last Admin: 11/08/18 06:45 Dose: 25 mcg Loperamide HCl (Imodium) 2 mg PO Q4H [facility] Last Admin: 11/08/18 06:13 Dose: Not Given Ondansetron HCl (Zofran) 4 mg IVPUSH Q4H PRN PRN Reason: Nausea/Vomiting Oxycodone/Acetaminophen (Percocet 325-10 Mg) 1 tab PO Q4H [facility] Last Admin: 11/08/18 04:00 Dose: 1 tab Quetiapine Fumarate (Seroquel) 25 mg PO BEDTIME [facility] Last Admin: 11/07/18 20:09 Dose: 25 mg Sodium Chloride (Saline Flush) 10 ml FLUSH ASDIRECTED PRN PRN Reason: Keep Vein Open Sodium Chloride (Saline Flush) 2.5 ml FLUSH ASDIRECTED PRN PRN Reason: Keep Vein Open Discontinued Medications Gabapentin (Neurontin) 900 mg PO TID [facility] Last Admin: 11/06/18 05:13 Dose: 900 mg Sodium Chloride (Normal Saline) 1,000 mls @ 999 mls/hr IV STAT ONE Stop: 11/05/18 18:58 Last Admin: 11/05/18 18:04 Dose: 999 mls/hr Ceftriaxone Sodium/Dextrose 1 (gm/ Premix) 50 mls @ 100 mls/hr IV ONETIME ONE Stop: 11/05/18 19:53 Last Admin: 11/05/18 20:00 Dose: Not Given Azithromycin 500 mg/ Sodium (Chloride) 250 mls @ 250 mls/hr IV ONETIME ONE Stop: 11/05/18 20:26 Last Admin: 11/05/18 21:30 Dose: 250 mls/hr Cefepime HCl 2 gm/ Premix 50 mls @ 100 mls/hr IV ONETIME ONE Stop: 11/05/18 20:00 Last Admin: 11/05/18 20:45 Dose: 100 mls/hr Sodium Chloride (Normal Saline) 1,000 mls @ 125 mls/hr IV ASDIRECTED [facility] Stop: 11/06/18 03:44 Sodium Chloride (Normal Saline) 500 mls @ 125 mls/hr IV ASDIRECTED [facility] Stop: 11/05/18 23:52 Last Admin: 11/05/18 20:00 Dose: 125 mls/hr Quetiapine Fumarate (Seroquel) 25 mg PO ONETIME ONE Stop: 11/05/18 22:31 Last Admin: 11/05/18 22:55 Dose: 25 mg - Exam Quality Assessment: Supplemental Oxygen General: Alert, Cooperative. No: Oriented Lungs: Normal Respiratory Effort, Rales (right base) Cardiovascular: Regular Rate, Regular Rhythm GI/Abdominal Exam: Normal Bowel Sounds, Soft, No Distention Extremities: Pedal Edema Skin: Warm, Dry Neurological: No New Focal Deficit Psy/Mental Status: Alert, Normal Affect, Normal Mood - Problem List & Annotations (1) Sepsis SNOMED Code(s): 07191067 Code(s): A41.9 - SEPSIS, UNSPECIFIED ORGANISM Status: Acute Current Visit : Yes (2) Hypothyroidism SNOMED Code(s): 86840200 Code(s): E03.9 - HYPOTHYROIDISM, UNSPECIFIED Status: Chronic Current Visit: No (3) Depression SNOMED Code(s): 01209701 Code(s): F32.9 - MAJOR DEPRESSIVE DISORDER, SINGLE EPISODE, UNSPECIFIED Status: Chronic Current Visit: No (4) Hyperlipemia SNOMED Code(s): 19721648 Code(s): E78.5 - HYPERLIPIDEMIA, UNSPECIFIED Status: Chronic Priority: Low Current Visit: No (5) Pneumonia SNOMED Code(s): 677204509 Code(s): J18.9 - PNEUMONIA, UNSPECIFIED ORGANISM Status: Acute Priority: High Current Visit: Yes Qualifiers: Pneumonia type: due to unspecified organism Laterality: right Lung location: lower lobe of lung Qualified Code(s): J18.1 - Lobar pneumonia, unspecified organism (6) Acute kidney failure SNOMED Code(s): 99593870 Code(s): N17.9 - ACUTE KIDNEY FAILURE, UNSPECIFIED Status: Acute Current Visit: Yes (7) UTI, Urinary tract infectious disease SNOMED Code(s): 13885791 Code(s): N39.0 - URINARY TRACT INFECTION, SITE NOT SPECIFIED Status: Acute Priority: High Current Visit: No (8) Multiple myeloma, stage 3 SNOMED Code(s): 573628737, 467962695 Code(s): C90.00 - MULTIPLE MYELOMA NOT HAVING ACHIEVED REMISSION Status: Chronic Priority: High Current Visit: No - Problem List Review Problem List Initiated/Reviewed/Updated: Yes - My Orders Last 24 Hours: My Active Orders 11/07/18 10:15 Loperamide [Imodium] 2 mg PO Q4H fentaNYL [Duragesic] 50 mcg TRDERM Q72H 11/07/18 11:00 Cefepime [Maxipime in D5W 2 GM/50 ML] 2 gm Premix Bag 1 bag IV Q24H 11/07/18 12:00 Acetaminophen/oxyCODONE [Percocet 325-10 MG] 1 tab PO Q4H Azithromycin [Zithromax] 250 mg Sodium Chloride 0.9% [Normal Saline] 250 ml IV Q24H 11/07/18 21:00 Acyclovir [Zovirax] 400 mg PO BID 11/08/18 09:00 Aspirin 81 mg PO DAILY Famotidine [Pepcid] 20 mg PO DAILY - Plan Plan:: 78 year old female with pmh of multiple myeloma, diabetes, CHF admitted for : 1. Sepsis secondary to UTI and pneumonia- Continue Cefepime for UTI, awaiting urine culture. Last UTI grew out pseudomonas. Continue cefepime and azithromycin for pneumonia. Continue duonebs. 2. JULISSA- resolved. Encourage oral intake. 3. Chronic conditions- CHF, hyperlipidemia, depression, hypothyroidism- continue home meds. Application for [facility] is pending. She needs to be evaWill continue to work with CM on placement. <David Carbajal - Last Filed: 11/08/18 08:54> - General Info Subjective Update: I have seen and examined the patient independently of biomedical equipment support specialist, Rocio Ley MD. I have discussed the case with her. I have reviewed and agree with the assessment and plan of care for the patient as outlined by her. Please see orders. - Patient Data Vitals - Most Recent: Last Vital Signs Temp 36.3 C 11/08/18 07:00 Pulse 79 11/08/18 07:00 Resp 18 11/08/18 07:00 BP 115/69 11/08/18 07:00 Pulse Ox 98 11/08/18 08:00 I&O - Last 24 Hours: Intake & Output 11/07/18 11/08/18 11/08/18 22:59 06:59 14:59 Intake Total 440 300 Output Total 600 1600 Balance -160 -1300 Lab Results Last 24 Hours: Laboratory Results - last 24 hr 11/08/18 11/08/18 Range/Units 04:50 04:50 WBC 6.41 (4.0-11.0) K/uL RBC 3.66 L (4.30-5.90) M/uL Hgb 10.2 L (12.0-16.0) g/dL Hct 32.9 L (36.0-46.0) % MCV 89.9 (80.0-98.0) fL MCH 27.9 (27.0-32.0) pg MCHC 31.0 (31.0-37.0) g/dL RDW Std Deviation 60.5 (28.0-62.0) fl RDW Coeff of Antony 18 H (11.0-15.0) % Plt Count 186 (150-400) K/uL MPV 10.60 (7.40-12.00) fL Neut % (Auto) 60.0 (48.0-80.0) % Lymph % (Auto) 25.0 (16.0-40.0) % [place] % (Auto) 10.5 (0.0-15.0) % Eos % (Auto) 4.2 (0.0-7.0) % Baso % (Auto) 0.3 (0.0-1.5) % Neut # (Auto) 3.9 (1.4-5.7) K/uL Lymph # (Auto) 1.6 (0.6-2.4) K/uL [place] # (Auto) 0.7 (0.0-0.8) K/uL Eos # (Auto) 0.3 (0.0-0.7) K/uL Baso # (Auto) 0.0 (0.0-0.1) K/uL Nucleated RBC % 0.0 /100WBC Nucleated RBCs # 0 K/uL Sodium 139 (136-145) mmol/L Potassium 4.1 (3.5-5.1) mmol/L Chloride 106 (98-107) mmol/L Carbon Dioxide 28.0 (21.0-32.0) mmol/L BUN 19 H (7.0-18.0) mg/dL Creatinine 1.0 (0.6-1.0) mg/dL Est Cr Clr Drug Dosing 34.38 mL/min Estimated GFR (MDRD) 53.9 ml/min Glucose 76 (74-106) mg/dL Calcium 8.3 L (8.5-10.1) mg/dL [facility] Results Last 24 Hours: Microbiology 11/05/18 19:13 Urine Culture - Final Urine, Catheterized Pseudomonas Aeruginosa 11/05/18 18:30 Aerobic Blood Culture - Preliminary Blood - Venous - Lab Draw NO GROWTH AFTER 2 DAYS Anaerobic Blood Culture - Final 11/05/18 18:20 Aerobic Blood Culture - Preliminary Blood - Venous - Iv Start NO GROWTH AFTER 2 DAYS Anaerobic Blood Culture - Final Med Orders - Current: Current Medications Acetaminophen (Tylenol) 650 mg PO Q4H PRN PRN Reason: Pain/Fever Last Admin: 11/07/18 08:49 Dose: 650 mg Acyclovir (Zovirax) 400 mg PO BID [facility] Last Admin: 11/08/18 08:22 Dose: 400 mg Albuterol/Ipratropium (Duoneb 3.0-0.5 Mg/3 Ml) 3 ml NEB Q4HRRT PRN PRN Reason: Shortness of Breath Aspirin (Aspirin) 81 mg PO DAILY [facility] Last Admin: 11/08/18 08:23 Dose: 81 mg Atorvastatin Calcium (Lipitor) 10 mg PO BEDTIME [facility] Last Admin: 11/07/18 20:09 Dose: 10 mg Escitalopram Oxalate (Lexapro) 10 mg PO DAILY [facility] Last Admin: 11/08/18 08:24 Dose: 10 mg Famotidine (Pepcid) 20 mg PO DAILY [facility] Last Admin: 11/08/18 08:24 Dose: 20 mg Fentanyl (Duragesic) 50 mcg TRDERM Q72H [facility] Last Admin: 11/07/18 11:23 Dose: 50 mcg Gabapentin (Neurontin) 600 mg PO DAILY [facility] Last Admin: 11/08/18 08:23 Dose: 600 mg Heparin Sodium (Porcine) (Heparin Sodium) 5,000 units SUBCUT Q8H [facility] Last Admin: 11/08/18 04:00 Dose: 5,000 units Azithromycin 250 mg/ Sodium (Chloride) 250 mls @ 250 mls/hr IV Q24H [facility] Last Admin: 11/07/18 12:49 Dose: 250 mls/hr Cefepime HCl 2 gm/ Premix 50 mls @ 100 mls/hr IV Q24H [facility] Last Admin: 11/07/18 11:30 Dose: 100 mls/hr Levothyroxine Sodium (Levothyroxine) 112 mcg PO ACBREAKFAST [facility] Last Admin: 11/08/18 06:45 Dose: 112 mcg Levothyroxine Sodium (Levothyroxine) 25 mcg PO ACBREAKFAST [facility] Last Admin: 11/08/18 06:45 Dose: 25 mcg Loperamide HCl (Imodium) 2 mg PO Q4H [facility] Last Admin: 11/08/18 06:13 Dose: Not Given Ondansetron HCl (Zofran) 4 mg IVPUSH Q4H PRN PRN Reason: Nausea/Vomiting Oxycodone/Acetaminophen (Percocet 325-10 Mg) 1 tab PO Q4H [facility] Last Admin: 11/08/18 08:21 Dose: 1 tab Quetiapine Fumarate (Seroquel) 25 mg PO BEDTIME [facility] Last Admin: 11/07/18 20:09 Dose: 25 mg Sodium Chloride (Saline Flush) 10 ml FLUSH ASDIRECTED PRN PRN Reason: Keep Vein Open Sodium Chloride (Saline Flush) 2.5 ml FLUSH ASDIRECTED PRN PRN Reason: Keep Vein Open Discontinued Medications Gabapentin (Neurontin) 900 mg PO TID [facility] Last Admin: 11/06/18 05:13 Dose: 900 mg Sodium Chloride (Normal Saline) 1,000 mls @ 999 mls/hr IV STAT ONE Stop: 11/05/18 18:58 Last Admin: 11/05/18 18:04 Dose: 999 mls/hr Ceftriaxone Sodium/Dextrose 1 (gm/ Premix) 50 mls @ 100 mls/hr IV ONETIME ONE Stop: 11/05/18 19:53 Last Admin: 11/05/18 20:00 Dose: Not Given Azithromycin 500 mg/ Sodium (Chloride) 250 mls @ 250 mls/hr IV ONETIME ONE Stop: 11/05/18 20:26 Last Admin: 11/05/18 21:30 Dose: 250 mls/hr Cefepime HCl 2 gm/ Premix 50 mls @ 100 mls/hr IV ONETIME ONE Stop: 11/05/18 20:00 Last Admin: 11/05/18 20:45 Dose: 100 mls/hr Sodium Chloride (Normal Saline) 1,000 mls @ 125 mls/hr IV ASDIRECTED [facility] Stop: 11/06/18 03:44 Sodium Chloride (Normal Saline) 500 mls @ 125 mls/hr IV ASDIRECTED [facility] Stop: 11/05/18 23:52 Last Admin: 11/05/18 20:00 Dose: 125 mls/hr Quetiapine Fumarate (Seroquel) 25 mg PO ONETIME ONE Stop: 11/05/18 22:31 Last Admin: 11/05/18 22:55 Dose: 25 mg
[2018-11-08] MEDS: Acyclovir 200 MG Cap PO SCH ×2 (08:22→21:34)
[2018-11-08] MEDS: Gabapentin 300 MG Cap PO SCH (08:23)
[2018-11-08] MEDS: Aspirin 81 MG Tab.Chew PO SCH (08:23)
[2018-11-08] MEDS: Escitalopram 10 MG Tab PO SCH (08:24)
[2018-11-08] MEDS: Famotidine 20 MG Tab PO SCH (08:24)
[2018-11-08] MEDS ORDERED: Loperamide 2 MG Cap PO PRN (09:32)
[2018-11-08] MEDS ORDERED: Levofloxacin/Dextrose 5%-Water 750 MG in Premix Bag 1 BAG IV SCH (10:45)
[2018-11-08] MEDS: Cefepime 2 GM in Premix Bag 1 BAG IV SCH ×2 (10:55→23:11)
[2018-11-08] MEDS: atorvaSTATin 10 MG Tab PO SCH (21:33)
[2018-11-08] MEDS: QUEtiapine 25 MG Tab PO SCH (21:36)
[2018-11-09] MEDS: Acetaminophen/oxyCODONE 325-10 MG Tab PO SCH ×6 (01:27→20:29)
[2018-11-09] MEDS: Heparin Sodium 5,000 Units/ML Vial SUBCUT SCH ×3 (04:37→20:26)
[2018-11-09] MEDS: Levothyroxine 112 MCG Tab PO SCH (06:41)
[2018-11-09] MEDS: Levothyroxine 25 MCG Tab PO SCH (06:41)
[2018-11-09] MEDS: Gabapentin 300 MG Cap PO SCH (08:20)
[2018-11-09] MEDS: Aspirin 81 MG Tab.Chew PO SCH (08:21)
[2018-11-09] MEDS: Famotidine 20 MG Tab PO SCH (08:21)
[2018-11-09] MEDS: Acyclovir 200 MG Cap PO SCH ×2 (08:21→20:33)
[2018-11-09] MEDS: Escitalopram 10 MG Tab PO SCH (08:21)
--- NOTE | 2018-11-09 08:56 | PCM.PN ---
<Rocio Ley - Last Filed: 11/09/18 08:49> - General Info Date of Service: 11/09/18 Subjective Update: The patient reports she is doing fine and has no complaints. She denies chest pain, shortness of breath, or abdominal pain. She is eating, drinking, and going to the bathroom without issue. We are waiting on mental health screen before [facility] will accept the patient. - Review of Systems General: Reports: No Symptoms HEENT: Reports: No Symptoms Pulmonary: Reports: No Symptoms Cardiovascular: Reports: No Symptoms Gastrointestinal: Reports: No Symptoms Genitourinary: Reports: No Symptoms Musculoskeletal: Reports: No Symptoms Skin: Reports: No Symptoms Neurological: Reports: No Symptoms Psychiatric: Reports: No Symptoms - Patient Data Vitals - Most Recent: Last Vital Signs Temp 98.8 F 11/09/18 08:00 Pulse 78 11/09/18 08:00 Resp 18 11/09/18 08:00 BP 126/80 11/09/18 08:00 Pulse Ox 98 11/09/18 04:00 Weight - Most Recent: 90.718 kg I&O - Last 24 Hours: Intake & Output 11/08/18 11/09/18 11/09/18 22:59 06:59 14:59 Intake Total 840 250 Output Total 600 300 Balance 240 -50 Lab Results Last 24 Hours: Laboratory Results - last 24 hr 11/09/18 11/09/18 Range/Units 05:00 05:00 WBC 8.56 (4.0-11.0) K/uL RBC 4.01 L (4.30-5.90) M/uL Hgb 11.2 L (12.0-16.0) g/dL Hct 36.4 (36.0-46.0) % MCV 90.8 (80.0-98.0) fL MCH 27.9 (27.0-32.0) pg MCHC 30.8 L (31.0-37.0) g/dL RDW Std Deviation 61.3 (28.0-62.0) fl RDW Coeff of Antony 18 H (11.0-15.0) % Plt Count 209 (150-400) K/uL MPV 11.00 (7.40-12.00) fL Neut % (Auto) 59.2 (48.0-80.0) % Lymph % (Auto) 27.0 (16.0-40.0) % [place] % (Auto) 9.6 (0.0-15.0) % Eos % (Auto) 3.7 (0.0-7.0) % Baso % (Auto) 0.5 (0.0-1.5) % Neut # (Auto) 5.1 (1.4-5.7) K/uL Lymph # (Auto) 2.3 (0.6-2.4) K/uL [place] # (Auto) 0.8 (0.0-0.8) K/uL Eos # (Auto) 0.3 (0.0-0.7) K/uL Baso # (Auto) 0.0 (0.0-0.1) K/uL Nucleated RBC % 0.0 /100WBC Nucleated RBCs # 0 K/uL Sodium 137 (136-145) mmol/L Potassium 4.4 (3.5-5.1) mmol/L Chloride 103 (98-107) mmol/L Carbon Dioxide 27.0 (21.0-32.0) mmol/L BUN 21 H (7.0-18.0) mg/dL Creatinine 1.1 H (0.6-1.0) mg/dL Est Cr Clr Drug Dosing 31.25 mL/min Estimated GFR (MDRD) 48.3 ml/min Glucose 83 (74-106) mg/dL Calcium 8.6 (8.5-10.1) mg/dL Richard Results Last 24 Hours: Microbiology 11/05/18 18:30 Aerobic Blood Culture - Preliminary Blood - Venous - Lab Draw NO GROWTH AFTER 3 DAYS Anaerobic Blood Culture - Final 11/05/18 18:20 Aerobic Blood Culture - Preliminary Blood - Venous - Iv Start NO GROWTH AFTER 3 DAYS Anaerobic Blood Culture - Final 11/05/18 19:13 Urine Culture - Final Urine, Catheterized Pseudomonas Aeruginosa Med Orders - Current: Current Medications Acetaminophen (Tylenol) 650 mg PO Q4H PRN PRN Reason: Pain/Fever Last Admin: 11/07/18 08:49 Dose: 650 mg Acyclovir (Zovirax) 400 mg PO BID [facility] Last Admin: 11/09/18 08:21 Dose: 400 mg Albuterol/Ipratropium (Duoneb 3.0-0.5 Mg/3 Ml) 3 ml NEB Q4HRRT PRN PRN Reason: Shortness of Breath Aspirin (Aspirin) 81 mg PO DAILY [facility] Last Admin: 11/09/18 08:21 Dose: 81 mg Atorvastatin Calcium (Lipitor) 10 mg PO BEDTIME [facility] Last Admin: 11/08/18 21:33 Dose: 10 mg Escitalopram Oxalate (Lexapro) 10 mg PO DAILY [facility] Last Admin: 11/09/18 08:21 Dose: 10 mg Famotidine (Pepcid) 20 mg PO DAILY [facility] Last Admin: 11/09/18 08:21 Dose: 20 mg Fentanyl (Duragesic) 50 mcg TRDERM Q72H [facility] Last Admin: 11/07/18 11:23 Dose: 50 mcg Gabapentin (Neurontin) 600 mg PO DAILY [facility] Last Admin: 11/09/18 08:20 Dose: 600 mg Heparin Sodium (Porcine) (Heparin Sodium) 5,000 units SUBCUT Q8H [facility] Last Admin: 11/09/18 04:37 Dose: 5,000 units Cefepime HCl 2 gm/ Premix 50 mls @ 100 mls/hr IV Q12H [facility] Last Admin: 11/08/18 23:11 Dose: 100 mls/hr Levothyroxine Sodium (Levothyroxine) 112 mcg PO ACBREAKFAST [facility] Last Admin: 11/09/18 06:41 Dose: 112 mcg Levothyroxine Sodium (Levothyroxine) 25 mcg PO ACBREAKFAST [facility] Last Admin: 11/09/18 06:41 Dose: 25 mcg Loperamide HCl (Imodium) 2 mg PO Q4H PRN PRN Reason: Diarrhea Ondansetron HCl (Zofran) 4 mg IVPUSH Q4H PRN PRN Reason: Nausea/Vomiting Oxycodone/Acetaminophen (Percocet 325-10 Mg) 1 tab PO Q4H [facility] Last Admin: 11/09/18 08:21 Dose: 1 tab Quetiapine Fumarate (Seroquel) 25 mg PO BEDTIME [facility] Last Admin: 11/08/18 21:36 Dose: 25 mg Sodium Chloride (Saline Flush) 10 ml FLUSH ASDIRECTED PRN PRN Reason: Keep Vein Open Sodium Chloride (Saline Flush) 2.5 ml FLUSH ASDIRECTED PRN PRN Reason: Keep Vein Open Discontinued Medications Gabapentin (Neurontin) 900 mg PO TID [facility] Last Admin: 11/06/18 05:13 Dose: 900 mg Sodium Chloride (Normal Saline) 1,000 mls @ 999 mls/hr IV STAT ONE Stop: 11/05/18 18:58 Last Admin: 11/05/18 18:04 Dose: 999 mls/hr Ceftriaxone Sodium/Dextrose 1 (gm/ Premix) 50 mls @ 100 mls/hr IV ONETIME ONE Stop: 11/05/18 19:53 Last Admin: 11/05/18 20:00 Dose: Not Given Azithromycin 500 mg/ Sodium (Chloride) 250 mls @ 250 mls/hr IV ONETIME ONE Stop: 11/05/18 20:26 Last Admin: 11/05/18 21:30 Dose: 250 mls/hr Cefepime HCl 2 gm/ Premix 50 mls @ 100 mls/hr IV ONETIME ONE Stop: 11/05/18 20:00 Last Admin: 11/05/18 20:45 Dose: 100 mls/hr Sodium Chloride (Normal Saline) 1,000 mls @ 125 mls/hr IV ASDIRECTED [facility] Stop: 11/06/18 03:44 Sodium Chloride (Normal Saline) 500 mls @ 125 mls/hr IV ASDIRECTED [facility] Stop: 11/05/18 23:52 Last Admin: 11/05/18 20:00 Dose: 125 mls/hr Azithromycin 250 mg/ Sodium (Chloride) 250 mls @ 250 mls/hr IV Q24H [facility] Last Admin: 11/07/18 12:49 Dose: 250 mls/hr Cefepime HCl 2 gm/ Premix 50 mls @ 100 mls/hr IV Q24H [facility] Last Admin: 11/07/18 11:30 Dose: 100 mls/hr Loperamide HCl (Imodium) 2 mg PO Q4H [facility] Last Admin: 11/08/18 06:13 Dose: Not Given Quetiapine Fumarate (Seroquel) 25 mg PO ONETIME ONE Stop: 11/05/18 22:31 Last Admin: 11/05/18 22:55 Dose: 25 mg - Exam Quality Assessment: Supplemental Oxygen General: Alert. No: Oriented Lungs: Normal Respiratory Effort, Rhonchi (right base) Cardiovascular: Regular Rate, Regular Rhythm GI/Abdominal Exam: Normal Bowel Sounds, Soft, Non-Tender, No Distention Extremities: Pedal Edema Skin: Warm, Dry Psy/Mental Status: Alert, Normal Affect, Normal Mood - Problem List & Annotations (1) Sepsis SNOMED Code(s): 73106945 Code(s): A41.9 - SEPSIS, UNSPECIFIED ORGANISM Status: Acute Current Visit : Yes (2) Hypothyroidism SNOMED Code(s): 72268800 Code(s): E03.9 - HYPOTHYROIDISM, UNSPECIFIED Status: Chronic Current Visit: No (3) Depression SNOMED Code(s): 43737990 Code(s): F32.9 - MAJOR DEPRESSIVE DISORDER, SINGLE EPISODE, UNSPECIFIED Status: Chronic Current Visit: No (4) Hyperlipemia SNOMED Code(s): 44855812 Code(s): E78.5 - HYPERLIPIDEMIA, UNSPECIFIED Status: Chronic Priority: Low Current Visit: No (5) Pneumonia SNOMED Code(s): 419654629 Code(s): J18.9 - PNEUMONIA, UNSPECIFIED ORGANISM Status: Acute Priority: High Current Visit: Yes Qualifiers: Pneumonia type: due to unspecified organism Laterality: right Lung location: lower lobe of lung Qualified Code(s): J18.1 - Lobar pneumonia, unspecified organism (6) Acute kidney failure SNOMED Code(s): 05585188 Code(s): N17.9 - ACUTE KIDNEY FAILURE, UNSPECIFIED Status: Acute Current Visit: Yes (7) UTI, Urinary tract infectious disease SNOMED Code(s): 05390937 Code(s): N39.0 - URINARY TRACT INFECTION, SITE NOT SPECIFIED Status: Acute Priority: High Current Visit: No Annotation/Comment:: growing pseudomonas (8) Multiple myeloma, stage 3 SNOMED Code(s): 639238458, 181040322 Code(s): C90.00 - MULTIPLE MYELOMA NOT HAVING ACHIEVED REMISSION Status: Chronic Priority: High Current Visit: No - Problem List Review Problem List Initiated/Reviewed/Updated: Yes - My Orders Last 24 Hours: My Active Orders 11/08/18 09:00 Aspirin 81 mg PO DAILY Famotidine [Pepcid] 20 mg PO DAILY 11/08/18 09:32 Loperamide [Imodium] 2 mg PO Q4H PRN 11/08/18 11:00 Cefepime [Maxipime in D5W 2 GM/50 ML] 2 gm Premix Bag 1 bag IV Q12H - Plan Plan:: 78 year old female with pmh of multiple myeloma, diabetes, CHF admitted for : 1. Sepsis secondary to UTI (growing pseudomonas) and pneumonia- Will switch to oral cefdinir. Continue duonebs. Encourage incentive spirometry 2. JULISSA- Cr increased from 1.0 to 1.1, encourage po intake, no IVF at this time due to hx of CHF 3. Chronic conditions- CHF, hyperlipidemia, depression, hypothyroidism- continue home meds. Application for [facility] is pending. Awaiting assessment from mental health before she can be accepted to [facility]. <David Carbajal - Last Filed: 11/09/18 09:13> - General Info Subjective Update: I have seen and examined the patient independently of medical malpractice paralegal, Rocio Ley MD. I have discussed the case with her. I have reviewed and agree with the assessment and plan of care for the patient as outlined by her. Please see orders. Awaiting placement. Unable to care for self. - Patient Data Vitals - Most Recent: Last Vital Signs Temp 37.1 C 11/09/18 08:00 Pulse 78 11/09/18 08:00 Resp 18 11/09/18 08:00 BP 126/80 11/09/18 08:00 Pulse Ox 98 11/09/18 04:00 I&O - Last 24 Hours: Intake & Output 11/08/18 11/09/18 11/09/18 22:59 06:59 14:59 Intake Total 840 250 Output Total 600 300 Balance 240 -50 Lab Results Last 24 Hours: Laboratory Results - last 24 hr 11/09/18 11/09/18 Range/Units 05:00 05:00 WBC 8.56 (4.0-11.0) K/uL RBC 4.01 L (4.30-5.90) M/uL Hgb 11.2 L (12.0-16.0) g/dL Hct 36.4 (36.0-46.0) % MCV 90.8 (80.0-98.0) fL MCH 27.9 (27.0-32.0) pg MCHC 30.8 L (31.0-37.0) g/dL RDW Std Deviation 61.3 (28.0-62.0) fl RDW Coeff of Antony 18 H (11.0-15.0) % Plt Count 209 (150-400) K/uL MPV 11.00 (7.40-12.00) fL Neut % (Auto) 59.2 (48.0-80.0) % Lymph % (Auto) 27.0 (16.0-40.0) % [place] % (Auto) 9.6 (0.0-15.0) % Eos % (Auto) 3.7 (0.0-7.0) % Baso % (Auto) 0.5 (0.0-1.5) % Neut # (Auto) 5.1 (1.4-5.7) K/uL Lymph # (Auto) 2.3 (0.6-2.4) K/uL [place] # (Auto) 0.8 (0.0-0.8) K/uL Eos # (Auto) 0.3 (0.0-0.7) K/uL Baso # (Auto) 0.0 (0.0-0.1) K/uL Nucleated RBC % 0.0 /100WBC Nucleated RBCs # 0 K/uL Sodium 137 (136-145) mmol/L Potassium 4.4 (3.5-5.1) mmol/L Chloride 103 (98-107) mmol/L Carbon Dioxide 27.0 (21.0-32.0) mmol/L BUN 21 H (7.0-18.0) mg/dL Creatinine 1.1 H (0.6-1.0) mg/dL Est Cr Clr Drug Dosing 31.25 mL/min Estimated GFR (MDRD) 48.3 ml/min Glucose 83 (74-106) mg/dL Calcium 8.6 (8.5-10.1) mg/dL Richard Results Last 24 Hours: Microbiology 11/05/18 18:30 Aerobic Blood Culture - Preliminary Blood - Venous - Lab Draw NO GROWTH AFTER 3 DAYS Anaerobic Blood Culture - Final 11/05/18 18:20 Aerobic Blood Culture - Preliminary Blood - Venous - Iv Start NO GROWTH AFTER 3 DAYS Anaerobic Blood Culture - Final 11/05/18 19:13 Urine Culture - Final Urine, Catheterized Pseudomonas Aeruginosa Med Orders - Current: Current Medications Acetaminophen (Tylenol) 650 mg PO Q4H PRN PRN Reason: Pain/Fever Last Admin: 11/07/18 08:49 Dose: 650 mg Acyclovir (Zovirax) 400 mg PO BID [facility] Last Admin: 11/09/18 08:21 Dose: 400 mg Albuterol/Ipratropium (Duoneb 3.0-0.5 Mg/3 Ml) 3 ml NEB Q4HRRT PRN PRN Reason: Shortness of Breath Aspirin (Aspirin) 81 mg PO DAILY [facility] Last Admin: 11/09/18 08:21 Dose: 81 mg Atorvastatin Calcium (Lipitor) 10 mg PO BEDTIME [facility] Last Admin: 11/08/18 21:33 Dose: 10 mg Cefdinir (Omnicef) 300 mg PO BID [facility] Escitalopram Oxalate (Lexapro) 10 mg PO DAILY [facility] Last Admin: 11/09/18 08:21 Dose: 10 mg Famotidine (Pepcid) 20 mg PO DAILY [facility] Last Admin: 11/09/18 08:21 Dose: 20 mg Fentanyl (Duragesic) 50 mcg TRDERM Q72H [facility] Last Admin: 11/07/18 11:23 Dose: 50 mcg Gabapentin (Neurontin) 600 mg PO DAILY [facility] Last Admin: 11/09/18 08:20 Dose: 600 mg Heparin Sodium (Porcine) (Heparin Sodium) 5,000 units SUBCUT Q8H [facility] Last Admin: 11/09/18 04:37 Dose: 5,000 units Levothyroxine Sodium (Levothyroxine) 112 mcg PO ACBREAKFAST [facility] Last Admin: 11/09/18 06:41 Dose: 112 mcg Levothyroxine Sodium (Levothyroxine) 25 mcg PO ACBREAKFAST [facility] Last Admin: 11/09/18 06:41 Dose: 25 mcg Loperamide HCl (Imodium) 2 mg PO Q4H PRN PRN Reason: Diarrhea Ondansetron HCl (Zofran) 4 mg IVPUSH Q4H PRN PRN Reason: Nausea/Vomiting Oxycodone/Acetaminophen (Percocet 325-10 Mg) 1 tab PO Q4H [facility] Last Admin: 11/09/18 08:21 Dose: 1 tab Quetiapine Fumarate (Seroquel) 25 mg PO BEDTIME [facility] Last Admin: 11/08/18 21:36 Dose: 25 mg Sodium Chloride (Saline Flush) 10 ml FLUSH ASDIRECTED PRN PRN Reason: Keep Vein Open Sodium Chloride (Saline Flush) 2.5 ml FLUSH ASDIRECTED PRN PRN Reason: Keep Vein Open Discontinued Medications Gabapentin (Neurontin) 900 mg PO TID [facility] Last Admin: 11/06/18 05:13 Dose: 900 mg Sodium Chloride (Normal Saline) 1,000 mls @ 999 mls/hr IV STAT ONE Stop: 11/05/18 18:58 Last Admin: 11/05/18 18:04 Dose: 999 mls/hr Ceftriaxone Sodium/Dextrose 1 (gm/ Premix) 50 mls @ 100 mls/hr IV ONETIME ONE Stop: 11/05/18 19:53 Last Admin: 11/05/18 20:00 Dose: Not Given Azithromycin 500 mg/ Sodium (Chloride) 250 mls @ 250 mls/hr IV ONETIME ONE Stop: 11/05/18 20:26 Last Admin: 11/05/18 21:30 Dose: 250 mls/hr Cefepime HCl 2 gm/ Premix 50 mls @ 100 mls/hr IV ONETIME ONE Stop: 11/05/18 20:00 Last Admin: 11/05/18 20:45 Dose: 100 mls/hr Sodium Chloride (Normal Saline) 1,000 mls @ 125 mls/hr IV ASDIRECTED [facility] Stop: 11/06/18 03:44 Sodium Chloride (Normal Saline) 500 mls @ 125 mls/hr IV ASDIRECTED [facility] Stop: 11/05/18 23:52 Last Admin: 11/05/18 20:00 Dose: 125 mls/hr Azithromycin 250 mg/ Sodium (Chloride) 250 mls @ 250 mls/hr IV Q24H [facility] Last Admin: 11/07/18 12:49 Dose: 250 mls/hr Cefepime HCl 2 gm/ Premix 50 mls @ 100 mls/hr IV Q24H [facility] Last Admin: 11/07/18 11:30 Dose: 100 mls/hr Cefepime HCl 2 gm/ Premix 50 mls @ 100 mls/hr IV Q12H [facility] Last Admin: 11/08/18 23:11 Dose: 100 mls/hr Loperamide HCl (Imodium) 2 mg PO Q4H [facility] Last Admin: 11/08/18 06:13 Dose: Not Given Quetiapine Fumarate (Seroquel) 25 mg PO ONETIME ONE Stop: 11/05/18 22:31 Last Admin: 11/05/18 22:55 Dose: 25 mg
[2018-11-09] MEDS: Cefdinir 300 MG Cap PO SCH ×2 (10:37→20:35)
[2018-11-09] MEDS: atorvaSTATin 10 MG Tab PO SCH (20:32)
[2018-11-09] MEDS: QUEtiapine 25 MG Tab PO SCH (20:32)
[2018-11-10] MEDS ORDERED: Temazepam 15 MG Cap PO PRN (01:08)
[2018-11-10] MEDS: Heparin Sodium 5,000 Units/ML Vial SUBCUT SCH ×3 (04:07→21:22)
[2018-11-10] MEDS: Acetaminophen/oxyCODONE 325-10 MG Tab PO SCH ×7 (04:07→23:17)
[2018-11-10] MEDS: Levothyroxine 112 MCG Tab PO SCH (06:33)
[2018-11-10] MEDS: Levothyroxine 25 MCG Tab PO SCH (06:33)
[2018-11-10] MEDS: Escitalopram 10 MG Tab PO SCH (09:19)
[2018-11-10] MEDS: Gabapentin 300 MG Cap PO SCH (09:19)
[2018-11-10] MEDS: Aspirin 81 MG Tab.Chew PO SCH (09:19)
[2018-11-10] MEDS: Acyclovir 200 MG Cap PO SCH ×2 (09:19→21:22)
[2018-11-10] MEDS: Famotidine 20 MG Tab PO SCH (09:20)
[2018-11-10] MEDS: Cefdinir 300 MG Cap PO SCH ×2 (09:21→21:24)
[2018-11-10] MEDS: fentaNYL 50 MCG/HR Transdermal Patch TRDERM SCH (09:25)
--- NOTE | 2018-11-10 09:28 | PCM.PN ---
<Rocio Ley - Last Filed: 11/10/18 09:26> - General Info Date of Service: 11/10/18 Subjective Update: The patient reports she feels better and has no complaints today. She denies chest pain, shortness of breath, or abdominal pain. She is using oxygen intermittently. Good appetite. - Review of Systems General: Reports: No Symptoms HEENT: Reports: No Symptoms Pulmonary: Reports: No Symptoms Cardiovascular: Reports: No Symptoms Gastrointestinal: Reports: No Symptoms Genitourinary: Reports: No Symptoms Musculoskeletal: Reports: No Symptoms Skin: Reports: No Symptoms Neurological: Reports: No Symptoms Psychiatric: Reports: No Symptoms - Patient Data Vitals - Most Recent: Last Vital Signs Temp 96.8 F 11/10/18 07:38 Pulse 86 11/10/18 07:38 Resp 18 11/10/18 07:38 BP 125/78 11/10/18 04:00 Pulse Ox 96 11/10/18 04:00 Weight - Most Recent: 90.718 kg I&O - Last 24 Hours: Intake & Output 11/09/18 11/10/18 11/10/18 22:59 06:59 14:59 Intake Total 300 400 Output Total 350 Balance 300 50 Lab Results Last 24 Hours: Laboratory Results - last 24 hr 11/10/18 11/10/18 Range/Units 05:48 05:48 WBC 8.09 (4.0-11.0) K/uL RBC 3.83 L (4.30-5.90) M/uL Hgb 10.7 L (12.0-16.0) g/dL Hct 34.5 L (36.0-46.0) % MCV 90.1 (80.0-98.0) fL MCH 27.9 (27.0-32.0) pg MCHC 31.0 (31.0-37.0) g/dL RDW Std Deviation 60.7 (28.0-62.0) fl RDW Coeff of Antony 18 H (11.0-15.0) % Plt Count 194 (150-400) K/uL MPV 10.10 (7.40-12.00) fL Neut % (Auto) 66.4 (48.0-80.0) % Lymph % (Auto) 20.9 (16.0-40.0) % [place] % (Auto) 9.4 (0.0-15.0) % Eos % (Auto) 3.1 (0.0-7.0) % Baso % (Auto) 0.2 (0.0-1.5) % Neut # (Auto) 5.4 (1.4-5.7) K/uL Lymph # (Auto) 1.7 (0.6-2.4) K/uL [place] # (Auto) 0.8 (0.0-0.8) K/uL Eos # (Auto) 0.3 (0.0-0.7) K/uL Baso # (Auto) 0.0 (0.0-0.1) K/uL Nucleated RBC % 0.0 /100WBC Nucleated RBCs # 0 K/uL Sodium 140 (136-145) mmol/L Potassium 4.2 (3.5-5.1) mmol/L Chloride 105 (98-107) mmol/L Carbon Dioxide 25.2 (21.0-32.0) mmol/L BUN 22 H (7.0-18.0) mg/dL Creatinine 1.0 (0.6-1.0) mg/dL Est Cr Clr Drug Dosing 34.38 mL/min Estimated GFR (MDRD) 53.9 ml/min Glucose 85 (74-106) mg/dL Calcium 9.0 (8.5-10.1) mg/dL Richard Results Last 24 Hours: Microbiology 11/05/18 18:30 Aerobic Blood Culture - Preliminary Blood - Venous - Lab Draw NO GROWTH AFTER 4 DAYS Anaerobic Blood Culture - Final 11/05/18 18:20 Aerobic Blood Culture - Preliminary Blood - Venous - Iv Start NO GROWTH AFTER 4 DAYS Anaerobic Blood Culture - Final Med Orders - Current: Current Medications Acetaminophen (Tylenol) 650 mg PO Q4H PRN PRN Reason: Pain/Fever Last Admin: 11/07/18 08:49 Dose: 650 mg Acyclovir (Zovirax) 400 mg PO BID [facility] Last Admin: 11/10/18 09:19 Dose: 400 mg Albuterol/Ipratropium (Duoneb 3.0-0.5 Mg/3 Ml) 3 ml NEB Q4HRRT PRN PRN Reason: Shortness of Breath Aspirin (Aspirin) 81 mg PO DAILY [facility] Last Admin: 11/10/18 09:19 Dose: 81 mg Atorvastatin Calcium (Lipitor) 10 mg PO BEDTIME [facility] Last Admin: 11/09/18 20:32 Dose: 10 mg Cefdinir (Omnicef) 300 mg PO BID [facility] Last Admin: 11/10/18 09:21 Dose: 300 mg Escitalopram Oxalate (Lexapro) 10 mg PO DAILY [facility] Last Admin: 11/10/18 09:19 Dose: 10 mg Famotidine (Pepcid) 20 mg PO DAILY [facility] Last Admin: 11/10/18 09:20 Dose: 20 mg Fentanyl (Duragesic) 50 mcg TRDERM Q72H [facility] Last Admin: 11/10/18 09:25 Dose: 50 mcg Gabapentin (Neurontin) 600 mg PO DAILY [facility] Last Admin: 11/10/18 09:19 Dose: 600 mg Heparin Sodium (Porcine) (Heparin Sodium) 5,000 units SUBCUT Q8H [facility] Last Admin: 11/10/18 04:07 Dose: 5,000 units Levothyroxine Sodium (Levothyroxine) 112 mcg PO ACBREAKFAST [facility] Last Admin: 11/10/18 06:33 Dose: 112 mcg Levothyroxine Sodium (Levothyroxine) 25 mcg PO ACBREAKFAST [facility] Last Admin: 11/10/18 06:33 Dose: 25 mcg Loperamide HCl (Imodium) 2 mg PO Q4H PRN PRN Reason: Diarrhea Ondansetron HCl (Zofran) 4 mg IVPUSH Q4H PRN PRN Reason: Nausea/Vomiting Oxycodone/Acetaminophen (Percocet 325-10 Mg) 1 tab PO Q4H [facility] Last Admin: 11/10/18 09:19 Dose: 1 tab Quetiapine Fumarate (Seroquel) 25 mg PO BEDTIME [facility] Last Admin: 11/09/18 20:32 Dose: 25 mg Sodium Chloride (Saline Flush) 10 ml FLUSH ASDIRECTED PRN PRN Reason: Keep Vein Open Sodium Chloride (Saline Flush) 2.5 ml FLUSH ASDIRECTED PRN PRN Reason: Keep Vein Open Temazepam (Restoril) 15 mg PO BEDTIME PRN PRN Reason: Sleep Discontinued Medications Gabapentin (Neurontin) 900 mg PO TID [facility] Last Admin: 11/06/18 05:13 Dose: 900 mg Sodium Chloride (Normal Saline) 1,000 mls @ 999 mls/hr IV STAT ONE Stop: 11/05/18 18:58 Last Admin: 11/05/18 18:04 Dose: 999 mls/hr Ceftriaxone Sodium/Dextrose 1 (gm/ Premix) 50 mls @ 100 mls/hr IV ONETIME ONE Stop: 11/05/18 19:53 Last Admin: 11/05/18 20:00 Dose: Not Given Azithromycin 500 mg/ Sodium (Chloride) 250 mls @ 250 mls/hr IV ONETIME ONE Stop: 11/05/18 20:26 Last Admin: 11/05/18 21:30 Dose: 250 mls/hr Cefepime HCl 2 gm/ Premix 50 mls @ 100 mls/hr IV ONETIME ONE Stop: 11/05/18 20:00 Last Admin: 11/05/18 20:45 Dose: 100 mls/hr Sodium Chloride (Normal Saline) 1,000 mls @ 125 mls/hr IV ASDIRECTED [facility] Stop: 11/06/18 03:44 Sodium Chloride (Normal Saline) 500 mls @ 125 mls/hr IV ASDIRECTED [facility] Stop: 11/05/18 23:52 Last Admin: 11/05/18 20:00 Dose: 125 mls/hr Azithromycin 250 mg/ Sodium (Chloride) 250 mls @ 250 mls/hr IV Q24H [facility] Last Admin: 11/07/18 12:49 Dose: 250 mls/hr Cefepime HCl 2 gm/ Premix 50 mls @ 100 mls/hr IV Q24H [facility] Last Admin: 11/07/18 11:30 Dose: 100 mls/hr Cefepime HCl 2 gm/ Premix 50 mls @ 100 mls/hr IV Q12H [facility] Last Admin: 11/08/18 23:11 Dose: 100 mls/hr Loperamide HCl (Imodium) 2 mg PO Q4H [facility] Last Admin: 11/08/18 06:13 Dose: Not Given Quetiapine Fumarate (Seroquel) 25 mg PO ONETIME ONE Stop: 11/05/18 22:31 Last Admin: 11/05/18 22:55 Dose: 25 mg - Exam General: Alert, Oriented (x2, not time) HEENT: Pupils Equal, Pupils Reactive, EOMI, Mucous Membr. Moist/[place] Neck: Supple Lungs: Rhonchi (right base but improved) Cardiovascular: Regular Rate, Regular Rhythm GI/Abdominal Exam: Normal Bowel Sounds, Soft, Non-Tender, No Distention Extremities: Pedal Edema Skin: Warm, Dry Neurological: No New Focal Deficit Psy/Mental Status: Alert, Normal Affect, Normal Mood - Problem List & Annotations (1) Sepsis SNOMED Code(s): 82572355 Code(s): A41.9 - SEPSIS, UNSPECIFIED ORGANISM Status: Acute Current Visit : Yes (2) Hypothyroidism SNOMED Code(s): 76604972 Code(s): E03.9 - HYPOTHYROIDISM, UNSPECIFIED Status: Chronic Current Visit: No (3) Depression SNOMED Code(s): 47683471 Code(s): F32.9 - MAJOR DEPRESSIVE DISORDER, SINGLE EPISODE, UNSPECIFIED Status: Chronic Current Visit: No (4) Hyperlipemia SNOMED Code(s): 95523576 Code(s): E78.5 - HYPERLIPIDEMIA, UNSPECIFIED Status: Chronic Priority: Low Current Visit: No (5) Pneumonia SNOMED Code(s): 630390007 Code(s): J18.9 - PNEUMONIA, UNSPECIFIED ORGANISM Status: Acute Priority: High Current Visit: Yes Qualifiers: Pneumonia type: due to unspecified organism Laterality: right Lung location: lower lobe of lung Qualified Code(s): J18.1 - Lobar pneumonia, unspecified organism (6) Acute kidney failure SNOMED Code(s): 54278070 Code(s): N17.9 - ACUTE KIDNEY FAILURE, UNSPECIFIED Status: Acute Current Visit: Yes (7) UTI, Urinary tract infectious disease SNOMED Code(s): 19486928 Code(s): N39.0 - URINARY TRACT INFECTION, SITE NOT SPECIFIED Status: Acute Priority: High Current Visit: No Annotation/Comment:: growing pseudomonas (8) Multiple myeloma, stage 3 SNOMED Code(s): 683113586, 016838805 Code(s): C90.00 - MULTIPLE MYELOMA NOT HAVING ACHIEVED REMISSION Status: Chronic Priority: High Current Visit: No - Problem List Review Problem List Initiated/Reviewed/Updated: Yes - My Orders Last 24 Hours: My Active Orders 11/09/18 09:00 Cefdinir [Omnicef] 300 mg PO BID - Plan Plan:: 78 year old female with pmh of multiple myeloma, diabetes, CHF admitted for : 1. Sepsis secondary to UTI (growing pseudomonas) and pneumonia- continue oral cefdinir. Continue duonebs. Encourage incentive spirometry 2. JULISSA- resolved 3. Chronic conditions- CHF, hyperlipidemia, depression, hypothyroidism- continue home meds. Application for [facility] is pending. <David Carbajal - Last Filed: 11/10/18 15:55> - General Info Subjective Update: I have seen and examined the patient independently of durable medical equipment technician, Rocio Ley MD. I have discussed the case with her. I have reviewed and agree with the assessment and plan of care for the patient as outlined by her. Please see orders. Unable to care for self. - Patient Data Vitals - Most Recent: Last Vital Signs Temp 36.3 C 11/10/18 12:00 Pulse 91 11/10/18 12:00 Resp 22 H 11/10/18 12:00 BP 114/68 11/10/18 12:00 Pulse Ox 93 L 11/10/18 12:00 I&O - Last 24 Hours: Intake & Output 11/10/18 11/10/18 11/10/18 06:59 14:59 22:59 Intake Total 400 Output Total 350 Balance 50 Lab Results Last 24 Hours: Laboratory Results - last 24 hr 11/10/18 11/10/18 Range/Units 05:48 05:48 WBC 8.09 (4.0-11.0) K/uL RBC 3.83 L (4.30-5.90) M/uL Hgb 10.7 L (12.0-16.0) g/dL Hct 34.5 L (36.0-46.0) % MCV 90.1 (80.0-98.0) fL MCH 27.9 (27.0-32.0) pg MCHC 31.0 (31.0-37.0) g/dL RDW Std Deviation 60.7 (28.0-62.0) fl RDW Coeff of Antony 18 H (11.0-15.0) % Plt Count 194 (150-400) K/uL MPV 10.10 (7.40-12.00) fL Neut % (Auto) 66.4 (48.0-80.0) % Lymph % (Auto) 20.9 (16.0-40.0) % [place] % (Auto) 9.4 (0.0-15.0) % Eos % (Auto) 3.1 (0.0-7.0) % Baso % (Auto) 0.2 (0.0-1.5) % Neut # (Auto) 5.4 (1.4-5.7) K/uL Lymph # (Auto) 1.7 (0.6-2.4) K/uL [place] # (Auto) 0.8 (0.0-0.8) K/uL Eos # (Auto) 0.3 (0.0-0.7) K/uL Baso # (Auto) 0.0 (0.0-0.1) K/uL Nucleated RBC % 0.0 /100WBC Nucleated RBCs # 0 K/uL Sodium 140 (136-145) mmol/L Potassium 4.2 (3.5-5.1) mmol/L Chloride 105 (98-107) mmol/L Carbon Dioxide 25.2 (21.0-32.0) mmol/L BUN 22 H (7.0-18.0) mg/dL Creatinine 1.0 (0.6-1.0) mg/dL Est Cr Clr Drug Dosing 34.38 mL/min Estimated GFR (MDRD) 53.9 ml/min Glucose 85 (74-106) mg/dL Calcium 9.0 (8.5-10.1) mg/dL Richard Results Last 24 Hours: Microbiology 11/05/18 18:30 Aerobic Blood Culture - Preliminary Blood - Venous - Lab Draw NO GROWTH AFTER 4 DAYS Anaerobic Blood Culture - Final 11/05/18 18:20 Aerobic Blood Culture - Preliminary Blood - Venous - Iv Start NO GROWTH AFTER 4 DAYS Anaerobic Blood Culture - Final Med Orders - Current: Current Medications Acetaminophen (Tylenol) 650 mg PO Q4H PRN PRN Reason: Pain/Fever Last Admin: 11/07/18 08:49 Dose: 650 mg Acyclovir (Zovirax) 400 mg PO BID [facility] Last Admin: 11/10/18 09:19 Dose: 400 mg Albuterol/Ipratropium (Duoneb 3.0-0.5 Mg/3 Ml) 3 ml NEB Q4HRRT PRN PRN Reason: Shortness of Breath Aspirin (Aspirin) 81 mg PO DAILY [facility] Last Admin: 11/10/18 09:19 Dose: 81 mg Atorvastatin Calcium (Lipitor) 10 mg PO BEDTIME [facility] Last Admin: 11/09/18 20:32 Dose: 10 mg Cefdinir (Omnicef) 300 mg PO BID [facility] Last Admin: 11/10/18 09:21 Dose: 300 mg Escitalopram Oxalate (Lexapro) 10 mg PO DAILY [facility] Last Admin: 11/10/18 09:19 Dose: 10 mg Famotidine (Pepcid) 20 mg PO DAILY [facility] Last Admin: 11/10/18 09:20 Dose: 20 mg Fentanyl (Duragesic) 50 mcg TRDERM Q72H [facility] Last Admin: 11/10/18 09:25 Dose: 50 mcg Gabapentin (Neurontin) 600 mg PO DAILY [facility] Last Admin: 11/10/18 09:19 Dose: 600 mg Heparin Sodium (Porcine) (Heparin Sodium) 5,000 units SUBCUT Q8H [facility] Last Admin: 11/10/18 11:32 Dose: 5,000 units Levothyroxine Sodium (Levothyroxine) 112 mcg PO ACBREAKFAST [facility] Last Admin: 11/10/18 06:33 Dose: 112 mcg Levothyroxine Sodium (Levothyroxine) 25 mcg PO ACBREAKFAST [facility] Last Admin: 11/10/18 06:33 Dose: 25 mcg Loperamide HCl (Imodium) 2 mg PO Q4H PRN PRN Reason: Diarrhea Ondansetron HCl (Zofran) 4 mg IVPUSH Q4H PRN PRN Reason: Nausea/Vomiting Oxycodone/Acetaminophen (Percocet 325-10 Mg) 1 tab PO Q4H [facility] Last Admin: 11/10/18 11:32 Dose: 1 tab Quetiapine Fumarate (Seroquel) 25 mg PO BEDTIME [facility] Last Admin: 11/09/18 20:32 Dose: 25 mg Sodium Chloride (Saline Flush) 10 ml FLUSH ASDIRECTED PRN PRN Reason: Keep Vein Open Sodium Chloride (Saline Flush) 2.5 ml FLUSH ASDIRECTED PRN PRN Reason: Keep Vein Open Temazepam (Restoril) 15 mg PO BEDTIME PRN PRN Reason: Sleep Discontinued Medications Gabapentin (Neurontin) 900 mg PO TID [facility] Last Admin: 11/06/18 05:13 Dose: 900 mg Sodium Chloride (Normal Saline) 1,000 mls @ 999 mls/hr IV STAT ONE Stop: 11/05/18 18:58 Last Admin: 11/05/18 18:04 Dose: 999 mls/hr Ceftriaxone Sodium/Dextrose 1 (gm/ Premix) 50 mls @ 100 mls/hr IV ONETIME ONE Stop: 11/05/18 19:53 Last Admin: 11/05/18 20:00 Dose: Not Given Azithromycin 500 mg/ Sodium (Chloride) 250 mls @ 250 mls/hr IV ONETIME ONE Stop: 11/05/18 20:26 Last Admin: 11/05/18 21:30 Dose: 250 mls/hr Cefepime HCl 2 gm/ Premix 50 mls @ 100 mls/hr IV ONETIME ONE Stop: 11/05/18 20:00 Last Admin: 11/05/18 20:45 Dose: 100 mls/hr Sodium Chloride (Normal Saline) 1,000 mls @ 125 mls/hr IV ASDIRECTED [facility] Stop: 11/06/18 03:44 Sodium Chloride (Normal Saline) 500 mls @ 125 mls/hr IV ASDIRECTED [facility] Stop: 11/05/18 23:52 Last Admin: 11/05/18 20:00 Dose: 125 mls/hr Azithromycin 250 mg/ Sodium (Chloride) 250 mls @ 250 mls/hr IV Q24H [facility] Last Admin: 11/07/18 12:49 Dose: 250 mls/hr Cefepime HCl 2 gm/ Premix 50 mls @ 100 mls/hr IV Q24H [facility] Last Admin: 11/07/18 11:30 Dose: 100 mls/hr Cefepime HCl 2 gm/ Premix 50 mls @ 100 mls/hr IV Q12H [facility] Last Admin: 11/08/18 23:11 Dose: 100 mls/hr Loperamide HCl (Imodium) 2 mg PO Q4H [facility] Last Admin: 11/08/18 06:13 Dose: Not Given Quetiapine Fumarate (Seroquel) 25 mg PO ONETIME ONE Stop: 11/05/18 22:31 Last Admin: 11/05/18 22:55 Dose: 25 mg - My Orders Last 24 Hours: My Active Orders 11/10/18 01:08 Temazepam [Restoril] 15 mg PO BEDTIME PRN 11/10/18 07:52 Discontinue Telemetry Monitoring [Cardiac Monitoring Discontinue] [RC] Click to Edit 11/10/18 07:53 Communication Order [RC] ROUTINE
[2018-11-10] MEDS: QUEtiapine 25 MG Tab PO SCH (21:22)
[2018-11-10] MEDS: atorvaSTATin 10 MG Tab PO SCH (21:22)
[2018-11-11] MEDS: Heparin Sodium 5,000 Units/ML Vial SUBCUT SCH ×3 (04:25→19:56)
[2018-11-11] MEDS: Acetaminophen/oxyCODONE 325-10 MG Tab PO SCH ×5 (04:26→19:55)
[2018-11-11] MEDS: Levothyroxine 25 MCG Tab PO SCH (06:37)
[2018-11-11] MEDS: Levothyroxine 112 MCG Tab PO SCH (06:37)
--- NOTE | 2018-11-11 07:28 | PCM.PN ---
- General Info Date of Service: 11/11/18 Admission Dx/Problem (Free Text): Admission Diagnosis/Problem Admission Diagnosis/Problem Pneumonia Subjective Update: The patient is a 78-year-old lady who was admitted initially on November 05, 2018 out of concern for pneumonia. The patient has been doing better today. She is currently pending placement in shelter. The patient has denied any pain. No complaints today other than she wants to go home. Functional Status: Reports: Pain Controlled - Review of Systems General: Reports: No Symptoms HEENT: Reports: No Symptoms Pulmonary: Reports: No Symptoms Cardiovascular: Reports: No Symptoms Gastrointestinal: Reports: No Symptoms Genitourinary: Reports: No Symptoms Musculoskeletal: Reports: No Symptoms Skin: Reports: No Symptoms Neurological: Reports: No Symptoms Psychiatric: Reports: No Symptoms - Patient Data Vitals - Most Recent: Last Vital Signs Temp 37.1 C 11/11/18 04:25 Pulse 88 11/11/18 04:25 Resp 18 11/11/18 04:25 BP 131/69 11/11/18 04:25 Pulse Ox 94 L 11/11/18 04:25 Weight - Most Recent: 90.718 kg I&O - Last 24 Hours: Intake & Output 11/10/18 11/11/18 11/11/18 22:59 06:59 14:59 Intake Total 540 875 Balance 540 875 Lab Results Last 24 Hours: Laboratory Results - last 24 hr 11/11/18 11/11/18 Range/Units 06:03 06:03 WBC 7.73 (4.0-11.0) K/uL RBC 3.65 L (4.30-5.90) M/uL Hgb 10.1 L (12.0-16.0) g/dL Hct 33.3 L (36.0-46.0) % MCV 91.2 (80.0-98.0) fL MCH 27.7 (27.0-32.0) pg MCHC 30.3 L (31.0-37.0) g/dL RDW Std Deviation 62.3 H (28.0-62.0) fl RDW Coeff of Antony 19 H (11.0-15.0) % Plt Count 180 (150-400) K/uL MPV 10.40 (7.40-12.00) fL Neut % (Auto) 67.8 (48.0-80.0) % Lymph % (Auto) 19.7 (16.0-40.0) % [place] % (Auto) 8.4 (0.0-15.0) % Eos % (Auto) 4.0 (0.0-7.0) % Baso % (Auto) 0.1 (0.0-1.5) % Neut # (Auto) 5.2 (1.4-5.7) K/uL Lymph # (Auto) 1.5 (0.6-2.4) K/uL [place] # (Auto) 0.7 (0.0-0.8) K/uL Eos # (Auto) 0.3 (0.0-0.7) K/uL Baso # (Auto) 0.0 (0.0-0.1) K/uL Nucleated RBC % 0.0 /100WBC Nucleated RBCs # 0 K/uL Sodium 144 (136-145) mmol/L Potassium 3.9 (3.5-5.1) mmol/L Chloride 109 H (98-107) mmol/L Carbon Dioxide 29.6 (21.0-32.0) mmol/L BUN 21 H (7.0-18.0) mg/dL Creatinine 1.0 (0.6-1.0) mg/dL Est Cr Clr Drug Dosing 34.38 mL/min Estimated GFR (MDRD) 53.9 ml/min Glucose 100 (74-106) mg/dL Calcium 8.8 (8.5-10.1) mg/dL Richard Results Last 24 Hours: Microbiology 11/05/18 18:30 Aerobic Blood Culture - Final Blood - Venous - Lab Draw NO GROWTH AFTER 5 DAYS Anaerobic Blood Culture - Final 11/05/18 18:20 Aerobic Blood Culture - Final Blood - Venous - Iv Start NO GROWTH AFTER 5 DAYS Anaerobic Blood Culture - Final Med Orders - Current: Current Medications Acetaminophen (Tylenol) 650 mg PO Q4H PRN PRN Reason: Pain/Fever Last Admin: 11/07/18 08:49 Dose: 650 mg Acyclovir (Zovirax) 400 mg PO BID [facility] Last Admin: 11/10/18 21:22 Dose: 400 mg Albuterol/Ipratropium (Duoneb 3.0-0.5 Mg/3 Ml) 3 ml NEB Q4HRRT PRN PRN Reason: Shortness of Breath Aspirin (Aspirin) 81 mg PO DAILY [facility] Last Admin: 11/10/18 09:19 Dose: 81 mg Atorvastatin Calcium (Lipitor) 10 mg PO BEDTIME [facility] Last Admin: 11/10/18 21:22 Dose: 10 mg Cefdinir (Omnicef) 300 mg PO BID [facility] Last Admin: 11/10/18 21:24 Dose: 300 mg Escitalopram Oxalate (Lexapro) 10 mg PO DAILY [facility] Last Admin: 11/10/18 09:19 Dose: 10 mg Famotidine (Pepcid) 20 mg PO DAILY [facility] Last Admin: 11/10/18 09:20 Dose: 20 mg Fentanyl (Duragesic) 50 mcg TRDERM Q72H [facility] Last Admin: 11/10/18 09:25 Dose: 50 mcg Gabapentin (Neurontin) 600 mg PO DAILY [facility] Last Admin: 11/10/18 09:19 Dose: 600 mg Heparin Sodium (Porcine) (Heparin Sodium) 5,000 units SUBCUT Q8H [facility] Last Admin: 11/11/18 04:25 Dose: 5,000 units Levothyroxine Sodium (Levothyroxine) 112 mcg PO ACBREAKFAST [facility] Last Admin: 11/11/18 06:37 Dose: 112 mcg Levothyroxine Sodium (Levothyroxine) 25 mcg PO ACBREAKFAST [facility] Last Admin: 11/11/18 06:37 Dose: 25 mcg Loperamide HCl (Imodium) 2 mg PO Q4H PRN PRN Reason: Diarrhea Ondansetron HCl (Zofran) 4 mg IVPUSH Q4H PRN PRN Reason: Nausea/Vomiting Oxycodone/Acetaminophen (Percocet 325-10 Mg) 1 tab PO Q4H [facility] Last Admin: 11/11/18 04:26 Dose: 1 tab Quetiapine Fumarate (Seroquel) 25 mg PO BEDTIME [facility] Last Admin: 11/10/18 21:22 Dose: 25 mg Sodium Chloride (Saline Flush) 10 ml FLUSH ASDIRECTED PRN PRN Reason: Keep Vein Open Sodium Chloride (Saline Flush) 2.5 ml FLUSH ASDIRECTED PRN PRN Reason: Keep Vein Open Temazepam (Restoril) 15 mg PO BEDTIME PRN PRN Reason: Sleep Discontinued Medications Gabapentin (Neurontin) 900 mg PO TID [facility] Last Admin: 11/06/18 05:13 Dose: 900 mg Sodium Chloride (Normal Saline) 1,000 mls @ 999 mls/hr IV STAT ONE Stop: 11/05/18 18:58 Last Admin: 11/05/18 18:04 Dose: 999 mls/hr Ceftriaxone Sodium/Dextrose 1 (gm/ Premix) 50 mls @ 100 mls/hr IV ONETIME ONE Stop: 11/05/18 19:53 Last Admin: 11/05/18 20:00 Dose: Not Given Azithromycin 500 mg/ Sodium (Chloride) 250 mls @ 250 mls/hr IV ONETIME ONE Stop: 11/05/18 20:26 Last Admin: 11/05/18 21:30 Dose: 250 mls/hr Cefepime HCl 2 gm/ Premix 50 mls @ 100 mls/hr IV ONETIME ONE Stop: 11/05/18 20:00 Last Admin: 11/05/18 20:45 Dose: 100 mls/hr Sodium Chloride (Normal Saline) 1,000 mls @ 125 mls/hr IV ASDIRECTED [facility] Stop: 11/06/18 03:44 Sodium Chloride (Normal Saline) 500 mls @ 125 mls/hr IV ASDIRECTED [facility] Stop: 11/05/18 23:52 Last Admin: 11/05/18 20:00 Dose: 125 mls/hr Azithromycin 250 mg/ Sodium (Chloride) 250 mls @ 250 mls/hr IV Q24H [facility] Last Admin: 11/07/18 12:49 Dose: 250 mls/hr Cefepime HCl 2 gm/ Premix 50 mls @ 100 mls/hr IV Q24H [facility] Last Admin: 11/07/18 11:30 Dose: 100 mls/hr Cefepime HCl 2 gm/ Premix 50 mls @ 100 mls/hr IV Q12H [facility] Last Admin: 11/08/18 23:11 Dose: 100 mls/hr Loperamide HCl (Imodium) 2 mg PO Q4H [facility] Last Admin: 11/08/18 06:13 Dose: Not Given Quetiapine Fumarate (Seroquel) 25 mg PO ONETIME ONE Stop: 11/05/18 22:31 Last Admin: 11/05/18 22:55 Dose: 25 mg - Exam Quality Assessment: Supplemental Oxygen General: Alert, Oriented, Cooperative HEENT: Pupils Equal, Pupils Reactive Neck: Supple, Trachea Midline Lungs: Clear to Auscultation, Normal Respiratory Effort Cardiovascular: Regular Rate, Regular Rhythm GI/Abdominal Exam: Normal Bowel Sounds, No Distention (Female) Exam: Deferred Back Exam: No: Normal Inspection (Kyphosis) Extremities: Normal Inspection, No Pedal Edema Skin: Warm, Dry Neurological: No New Focal Deficit Psy/Mental Status: Alert, Normal Affect - Problem List & Annotations (1) Total self-care deficit SNOMED Code(s): 19914461 Code(s): R41.89 - OTH SYMPTOMS AND SIGNS W COGNITIVE FUNCTIONS AND AWARENESS Status: Chronic Priority: High Current Visit: Yes (2) Pneumonia SNOMED Code(s): 412503698 Code(s): J18.9 - PNEUMONIA, UNSPECIFIED ORGANISM Status: Resolved Priority: High Current Visit: Yes Qualifiers: Pneumonia type: due to unspecified organism Laterality: right Lung location: lower lobe of lung Qualified Code(s): J18.1 - Lobar pneumonia, unspecified organism (3) UTI (urinary tract infection) SNOMED Code(s): 58442697 Code(s): N39.0 - URINARY TRACT INFECTION, SITE NOT SPECIFIED Status: Resolved Priority: High Current Visit: Yes Onset Date: 12/19/15 Qualifiers: Urinary tract infection type: acute cystitis Hematuria presence: with hematuria Qualified Code(s): N30.01 - Acute cystitis with hematuria Annotation/Comment:: Hematuria secondary to anticoagulation. - Problem List Review Problem List Initiated/Reviewed/Updated: Yes - My Orders Last 24 Hours: My Active Orders 11/10/18 07:52 Discontinue Telemetry Monitoring [Cardiac Monitoring Discontinue] [RC] Click to Edit 11/10/18 07:53 Communication Order [RC] ROUTINE - Plan Plan:: 78 year old female with pmh of multiple myeloma, diabetes, CHF admitted for : 1. Sepsis secondary to UTI (growing pseudomonas) and pneumonia- continue oral cefdinir. Continue duonebs. Encourage incentive spirometry 2. JULISSA- resolved 3. Chronic conditions- CHF, hyperlipidemia, depression, hypothyroidism- continue home meds. Application for [facility] is pending. The patient is a 78-year-old lady who is doing well today. She is demanded to go home. The patient is currently pending placement at [facility]. For now the patient sepsis secondary to UTI is essentially resolved. We'll continue treatment for her chronic conditions. The patient has been encouraged to ambulate.
[2018-11-11] MEDS: Acyclovir 200 MG Cap PO SCH ×2 (09:49→21:31)
[2018-11-11] MEDS: Famotidine 20 MG Tab PO SCH (09:49)
[2018-11-11] MEDS: Escitalopram 10 MG Tab PO SCH (09:49)
[2018-11-11] MEDS: Aspirin 81 MG Tab.Chew PO SCH (09:49)
[2018-11-11] MEDS: Gabapentin 300 MG Cap PO SCH (09:49)
[2018-11-11] MEDS: Cefdinir 300 MG Cap PO SCH ×2 (09:50→21:32)
[2018-11-11] MEDS: atorvaSTATin 10 MG Tab PO SCH (21:31)
[2018-11-11] MEDS: QUEtiapine 25 MG Tab PO SCH (21:31)
[2018-11-12] MEDS: Acetaminophen/oxyCODONE 325-10 MG Tab PO SCH ×6 (00:35→20:39)
[2018-11-12] MEDS: Heparin Sodium 5,000 Units/ML Vial SUBCUT SCH ×3 (04:07→20:29)
[2018-11-12] MEDS: Levothyroxine 25 MCG Tab PO SCH (06:36)
[2018-11-12] MEDS: Levothyroxine 112 MCG Tab PO SCH (06:36)
--- NOTE | 2018-11-12 07:59 | PCM.PN ---
<Rocio Ley - Last Filed: 11/12/18 07:59> - General Info Date of Service: 11/12/18 Subjective Update: Patient reports she is feeling well and has no physical complaints. Her family told her she was most likely going to [place] which she isn't pleased about. Placement is pending per results of mental health evaluation. - Review of Systems General: Reports: No Symptoms HEENT: Reports: No Symptoms Pulmonary: Reports: No Symptoms Cardiovascular: Reports: No Symptoms Gastrointestinal: Reports: No Symptoms Genitourinary: Reports: No Symptoms Musculoskeletal: Reports: No Symptoms Skin: Reports: No Symptoms Neurological: Reports: No Symptoms Psychiatric: Reports: No Symptoms - Patient Data Vitals - Most Recent: Last Vital Signs Temp 98.9 F 11/12/18 07:23 Pulse 76 11/12/18 07:23 Resp 15 11/12/18 07:23 BP 121/63 11/12/18 07:23 Pulse Ox 96 11/12/18 07:23 Weight - Most Recent: 90.718 kg I&O - Last 24 Hours: Intake & Output 11/11/18 11/12/18 11/12/18 22:59 06:59 14:59 Intake Total 450 Output Total 700 Balance -250 Lab Results Last 24 Hours: Laboratory Results - last 24 hr 11/12/18 11/12/18 Range/Units 06:26 06:26 WBC 8.34 (4.0-11.0) K/uL RBC 3.51 L (4.30-5.90) M/uL Hgb 9.7 L (12.0-16.0) g/dL Hct 32.0 L (36.0-46.0) % MCV 91.2 (80.0-98.0) fL MCH 27.6 (27.0-32.0) pg MCHC 30.3 L (31.0-37.0) g/dL RDW Std Deviation 63.2 H (28.0-62.0) fl RDW Coeff of Antony 19 H (11.0-15.0) % Plt Count 183 (150-400) K/uL MPV 10.40 (7.40-12.00) fL Neut % (Auto) 66.6 (48.0-80.0) % Lymph % (Auto) 19.3 (16.0-40.0) % [place] % (Auto) 9.1 (0.0-15.0) % Eos % (Auto) 4.8 (0.0-7.0) % Baso % (Auto) 0.2 (0.0-1.5) % Neut # (Auto) 5.6 (1.4-5.7) K/uL Lymph # (Auto) 1.6 (0.6-2.4) K/uL [place] # (Auto) 0.8 (0.0-0.8) K/uL Eos # (Auto) 0.4 (0.0-0.7) K/uL Baso # (Auto) 0.0 (0.0-0.1) K/uL Nucleated RBC % 0.0 /100WBC Nucleated RBCs # 0 K/uL Sodium 140 (136-145) mmol/L Potassium 4.0 (3.5-5.1) mmol/L Chloride 106 (98-107) mmol/L Carbon Dioxide 27.6 (21.0-32.0) mmol/L BUN 23 H (7.0-18.0) mg/dL Creatinine 1.0 (0.6-1.0) mg/dL Est Cr Clr Drug Dosing 34.38 mL/min Estimated GFR (MDRD) 53.9 ml/min Glucose 88 (74-106) mg/dL Calcium 8.6 (8.5-10.1) mg/dL Med Orders - Current: Current Medications Acetaminophen (Tylenol) 650 mg PO Q4H PRN PRN Reason: Pain/Fever Last Admin: 11/07/18 08:49 Dose: 650 mg Acyclovir (Zovirax) 400 mg PO BID [facility] Last Admin: 11/11/18 21:31 Dose: 400 mg Albuterol/Ipratropium (Duoneb 3.0-0.5 Mg/3 Ml) 3 ml NEB Q4HRRT PRN PRN Reason: Shortness of Breath Aspirin (Aspirin) 81 mg PO DAILY [facility] Last Admin: 11/11/18 09:49 Dose: 81 mg Atorvastatin Calcium (Lipitor) 10 mg PO BEDTIME [facility] Last Admin: 11/11/18 21:31 Dose: 10 mg Cefdinir (Omnicef) 300 mg PO BID [facility] Last Admin: 11/11/18 21:32 Dose: 300 mg Escitalopram Oxalate (Lexapro) 10 mg PO DAILY [facility] Last Admin: 11/11/18 09:49 Dose: 10 mg Famotidine (Pepcid) 20 mg PO DAILY [facility] Last Admin: 11/11/18 09:49 Dose: 20 mg Fentanyl (Duragesic) 50 mcg TRDERM Q72H [facility] Last Admin: 11/10/18 09:25 Dose: 50 mcg Gabapentin (Neurontin) 600 mg PO DAILY [facility] Last Admin: 11/11/18 09:49 Dose: 600 mg Heparin Sodium (Porcine) (Heparin Sodium) 5,000 units SUBCUT Q8H [facility] Last Admin: 11/12/18 04:07 Dose: 5,000 units Levothyroxine Sodium (Levothyroxine) 112 mcg PO ACBREAKFAST [facility] Last Admin: 11/12/18 06:36 Dose: 112 mcg Levothyroxine Sodium (Levothyroxine) 25 mcg PO ACBREAKFAST [facility] Last Admin: 11/12/18 06:36 Dose: 25 mcg Loperamide HCl (Imodium) 2 mg PO Q4H PRN PRN Reason: Diarrhea Ondansetron HCl (Zofran) 4 mg IVPUSH Q4H PRN PRN Reason: Nausea/Vomiting Oxycodone/Acetaminophen (Percocet 325-10 Mg) 1 tab PO Q4H [facility] Last Admin: 11/12/18 04:06 Dose: 1 tab Quetiapine Fumarate (Seroquel) 25 mg PO BEDTIME [facility] Last Admin: 11/11/18 21:31 Dose: 25 mg Sodium Chloride (Saline Flush) 10 ml FLUSH ASDIRECTED PRN PRN Reason: Keep Vein Open Sodium Chloride (Saline Flush) 2.5 ml FLUSH ASDIRECTED PRN PRN Reason: Keep Vein Open Temazepam (Restoril) 15 mg PO BEDTIME PRN PRN Reason: Sleep Discontinued Medications Gabapentin (Neurontin) 900 mg PO TID [facility] Last Admin: 11/06/18 05:13 Dose: 900 mg Sodium Chloride (Normal Saline) 1,000 mls @ 999 mls/hr IV STAT ONE Stop: 11/05/18 18:58 Last Admin: 11/05/18 18:04 Dose: 999 mls/hr Ceftriaxone Sodium/Dextrose 1 (gm/ Premix) 50 mls @ 100 mls/hr IV ONETIME ONE Stop: 11/05/18 19:53 Last Admin: 11/05/18 20:00 Dose: Not Given Azithromycin 500 mg/ Sodium (Chloride) 250 mls @ 250 mls/hr IV ONETIME ONE Stop: 11/05/18 20:26 Last Admin: 11/05/18 21:30 Dose: 250 mls/hr Cefepime HCl 2 gm/ Premix 50 mls @ 100 mls/hr IV ONETIME ONE Stop: 11/05/18 20:00 Last Admin: 11/05/18 20:45 Dose: 100 mls/hr Sodium Chloride (Normal Saline) 1,000 mls @ 125 mls/hr IV ASDIRECTED [facility] Stop: 11/06/18 03:44 Sodium Chloride (Normal Saline) 500 mls @ 125 mls/hr IV ASDIRECTED [facility] Stop: 11/05/18 23:52 Last Admin: 11/05/18 20:00 Dose: 125 mls/hr Azithromycin 250 mg/ Sodium (Chloride) 250 mls @ 250 mls/hr IV Q24H [facility] Last Admin: 11/07/18 12:49 Dose: 250 mls/hr Cefepime HCl 2 gm/ Premix 50 mls @ 100 mls/hr IV Q24H [facility] Last Admin: 11/07/18 11:30 Dose: 100 mls/hr Cefepime HCl 2 gm/ Premix 50 mls @ 100 mls/hr IV Q12H [facility] Last Admin: 11/08/18 23:11 Dose: 100 mls/hr Loperamide HCl (Imodium) 2 mg PO Q4H [facility] Last Admin: 11/08/18 06:13 Dose: Not Given Quetiapine Fumarate (Seroquel) 25 mg PO ONETIME ONE Stop: 11/05/18 22:31 Last Admin: 11/05/18 22:55 Dose: 25 mg - Exam General: Alert, Oriented (x2), Cooperative, No Acute Distress Lungs: Clear to Auscultation, Normal Respiratory Effort Cardiovascular: Regular Rate, Regular Rhythm GI/Abdominal Exam: Normal Bowel Sounds, Soft, Non-Tender, No Distention Extremities: No Pedal Edema Skin: Warm, Dry Neurological: No New Focal Deficit Psy/Mental Status: Alert, Normal Affect, Normal Mood - Problem List & Annotations (1) Sepsis SNOMED Code(s): 31633774 Code(s): A41.9 - SEPSIS, UNSPECIFIED ORGANISM Status: Acute Current Visit : Yes (2) Hypothyroidism SNOMED Code(s): 80444270 Code(s): E03.9 - HYPOTHYROIDISM, UNSPECIFIED Status: Chronic Current Visit: No (3) Depression SNOMED Code(s): 52660157 Code(s): F32.9 - MAJOR DEPRESSIVE DISORDER, SINGLE EPISODE, UNSPECIFIED Status: Chronic Current Visit: No (4) Hyperlipemia SNOMED Code(s): 21658124 Code(s): E78.5 - HYPERLIPIDEMIA, UNSPECIFIED Status: Chronic Priority: Low Current Visit: No (5) Pneumonia SNOMED Code(s): 395143786 Code(s): J18.9 - PNEUMONIA, UNSPECIFIED ORGANISM Status: Resolved Priority: High Current Visit: Yes Qualifiers: Pneumonia type: due to unspecified organism Laterality: right Lung location: lower lobe of lung Qualified Code(s): J18.1 - Lobar pneumonia, unspecified organism (6) Acute kidney failure SNOMED Code(s): 03965944 Code(s): N17.9 - ACUTE KIDNEY FAILURE, UNSPECIFIED Status: Acute Current Visit: Yes (7) UTI, Urinary tract infectious disease SNOMED Code(s): 12888496 Code(s): N39.0 - URINARY TRACT INFECTION, SITE NOT SPECIFIED Status: Acute Priority: High Current Visit: No Annotation/Comment:: growing pseudomonas (8) Multiple myeloma, stage 3 SNOMED Code(s): 288411278, 971742118 Code(s): C90.00 - MULTIPLE MYELOMA NOT HAVING ACHIEVED REMISSION Status: Chronic Priority: High Current Visit: No - Problem List Review Problem List Initiated/Reviewed/Updated: Yes - My Orders Last 24 Hours: My Active Orders 11/13/18 05:11 BASIC METABOLIC PANEL,BMP [CHEM] AM CBC WITH AUTO DIFF [HEME] AM 11/14/18 05:11 BASIC METABOLIC PANEL,BMP [CHEM] AM CBC WITH AUTO DIFF [HEME] AM - Plan Plan:: 78 year old female with pmh of multiple myeloma, diabetes, CHF admitted for : 1. Sepsis secondary to UTI (growing pseudomonas) and pneumonia- continue oral cefdinir. Continue duonebs. Encourage incentive spirometry 2. JULISSA- resolved 3. Chronic conditions- CHF, hyperlipidemia, depression, hypothyroidism- continue home meds. Application for [facility] is pending, awaiting mental health evaluation. Likely discharge to [place] tomorrow. Dr. Chanel agreed to follow patient in [place]. . <David Carbajal M - Last Filed: 11/12/18 14:58> - General Info Subjective Update: I have seen and examined the patient independently of medical lead, Rocio Ley MD. I have discussed the case with her. I have reviewed and agree with the assessment and plan of care for the patient as outlined by her. Please see orders. Pending placement at [facility]. - Patient Data Vitals - Most Recent: Last Vital Signs Temp 37.6 C 11/12/18 11:00 Pulse 87 11/12/18 11:00 Resp 12 11/12/18 11:00 BP 104/63 11/12/18 11:00 Pulse Ox 95 11/12/18 11:00 I&O - Last 24 Hours: Intake & Output 11/11/18 11/12/18 11/12/18 22:59 06:59 14:59 Intake Total 450 Output Total 700 Balance -250 Lab Results Last 24 Hours: Laboratory Results - last 24 hr 11/12/18 11/12/18 Range/Units 06:26 06:26 WBC 8.34 (4.0-11.0) K/uL RBC 3.51 L (4.30-5.90) M/uL Hgb 9.7 L (12.0-16.0) g/dL Hct 32.0 L (36.0-46.0) % MCV 91.2 (80.0-98.0) fL MCH 27.6 (27.0-32.0) pg MCHC 30.3 L (31.0-37.0) g/dL RDW Std Deviation 63.2 H (28.0-62.0) fl RDW Coeff of Antony 19 H (11.0-15.0) % Plt Count 183 (150-400) K/uL MPV 10.40 (7.40-12.00) fL Neut % (Auto) 66.6 (48.0-80.0) % Lymph % (Auto) 19.3 (16.0-40.0) % [place] % (Auto) 9.1 (0.0-15.0) % Eos % (Auto) 4.8 (0.0-7.0) % Baso % (Auto) 0.2 (0.0-1.5) % Neut # (Auto) 5.6 (1.4-5.7) K/uL Lymph # (Auto) 1.6 (0.6-2.4) K/uL [place] # (Auto) 0.8 (0.0-0.8) K/uL Eos # (Auto) 0.4 (0.0-0.7) K/uL Baso # (Auto) 0.0 (0.0-0.1) K/uL Nucleated RBC % 0.0 /100WBC Nucleated RBCs # 0 K/uL Sodium 140 (136-145) mmol/L Potassium 4.0 (3.5-5.1) mmol/L Chloride 106 (98-107) mmol/L Carbon Dioxide 27.6 (21.0-32.0) mmol/L BUN 23 H (7.0-18.0) mg/dL Creatinine 1.0 (0.6-1.0) mg/dL Est Cr Clr Drug Dosing 34.38 mL/min Estimated GFR (MDRD) 53.9 ml/min Glucose 88 (74-106) mg/dL Calcium 8.6 (8.5-10.1) mg/dL Med Orders - Current: Current Medications Acetaminophen (Tylenol) 650 mg PO Q4H PRN PRN Reason: Pain/Fever Last Admin: 11/07/18 08:49 Dose: 650 mg Acyclovir (Zovirax) 400 mg PO BID [facility] Last Admin: 11/12/18 08:34 Dose: 400 mg Albuterol/Ipratropium (Duoneb 3.0-0.5 Mg/3 Ml) 3 ml NEB Q4HRRT PRN PRN Reason: Shortness of Breath Aspirin (Aspirin) 81 mg PO DAILY [facility] Last Admin: 11/12/18 08:33 Dose: 81 mg Atorvastatin Calcium (Lipitor) 10 mg PO BEDTIME [facility] Last Admin: 11/11/18 21:31 Dose: 10 mg Cefdinir (Omnicef) 300 mg PO BID [facility] Last Admin: 11/12/18 08:37 Dose: 300 mg Escitalopram Oxalate (Lexapro) 10 mg PO DAILY [facility] Last Admin: 11/12/18 08:34 Dose: 10 mg Famotidine (Pepcid) 20 mg PO DAILY [facility] Last Admin: 11/12/18 08:33 Dose: 20 mg Fentanyl (Duragesic) 50 mcg TRDERM Q72H [facility] Last Admin: 11/10/18 09:25 Dose: 50 mcg Gabapentin (Neurontin) 600 mg PO DAILY [facility] Last Admin: 11/12/18 08:33 Dose: 600 mg Heparin Sodium (Porcine) (Heparin Sodium) 5,000 units SUBCUT Q8H [facility] Last Admin: 11/12/18 11:10 Dose: 5,000 units Levothyroxine Sodium (Levothyroxine) 112 mcg PO ACBREAKFAST [facility] Last Admin: 11/12/18 06:36 Dose: 112 mcg Levothyroxine Sodium (Levothyroxine) 25 mcg PO ACBREAKFAST [facility] Last Admin: 11/12/18 06:36 Dose: 25 mcg Loperamide HCl (Imodium) 2 mg PO Q4H PRN PRN Reason: Diarrhea Ondansetron HCl (Zofran) 4 mg IVPUSH Q4H PRN PRN Reason: Nausea/Vomiting Oxycodone/Acetaminophen (Percocet 325-10 Mg) 1 tab PO Q4H [facility] Last Admin: 11/12/18 11:08 Dose: 1 tab Quetiapine Fumarate (Seroquel) 25 mg PO BEDTIME [facility] Last Admin: 11/11/18 21:31 Dose: 25 mg Sodium Chloride (Saline Flush) 10 ml FLUSH ASDIRECTED PRN PRN Reason: Keep Vein Open Sodium Chloride (Saline Flush) 2.5 ml FLUSH ASDIRECTED PRN PRN Reason: Keep Vein Open Temazepam (Restoril) 15 mg PO BEDTIME PRN PRN Reason: Sleep Discontinued Medications Gabapentin (Neurontin) 900 mg PO TID [facility] Last Admin: 11/06/18 05:13 Dose: 900 mg Sodium Chloride (Normal Saline) 1,000 mls @ 999 mls/hr IV STAT ONE Stop: 11/05/18 18:58 Last Admin: 11/05/18 18:04 Dose: 999 mls/hr Ceftriaxone Sodium/Dextrose 1 (gm/ Premix) 50 mls @ 100 mls/hr IV ONETIME ONE Stop: 11/05/18 19:53 Last Admin: 11/05/18 20:00 Dose: Not Given Azithromycin 500 mg/ Sodium (Chloride) 250 mls @ 250 mls/hr IV ONETIME ONE Stop: 11/05/18 20:26 Last Admin: 11/05/18 21:30 Dose: 250 mls/hr Cefepime HCl 2 gm/ Premix 50 mls @ 100 mls/hr IV ONETIME ONE Stop: 11/05/18 20:00 Last Admin: 11/05/18 20:45 Dose: 100 mls/hr Sodium Chloride (Normal Saline) 1,000 mls @ 125 mls/hr IV ASDIRECTED [facility] Stop: 11/06/18 03:44 Sodium Chloride (Normal Saline) 500 mls @ 125 mls/hr IV ASDIRECTED [facility] Stop: 11/05/18 23:52 Last Admin: 11/05/18 20:00 Dose: 125 mls/hr Azithromycin 250 mg/ Sodium (Chloride) 250 mls @ 250 mls/hr IV Q24H [facility] Last Admin: 11/07/18 12:49 Dose: 250 mls/hr Cefepime HCl 2 gm/ Premix 50 mls @ 100 mls/hr IV Q24H [facility] Last Admin: 11/07/18 11:30 Dose: 100 mls/hr Cefepime HCl 2 gm/ Premix 50 mls @ 100 mls/hr IV Q12H [facility] Last Admin: 11/08/18 23:11 Dose: 100 mls/hr Loperamide HCl (Imodium) 2 mg PO Q4H [facility] Last Admin: 11/08/18 06:13 Dose: Not Given Quetiapine Fumarate (Seroquel) 25 mg PO ONETIME ONE Stop: 11/05/18 22:31 Last Admin: 11/05/18 22:55 Dose: 25 mg - Problem List & Annotations (1) Total self-care deficit SNOMED Code(s): 12042143 Code(s): R41.89 - OTH SYMPTOMS AND SIGNS W COGNITIVE FUNCTIONS AND AWARENESS Status: Chronic Priority: High Current Visit: Yes (2) Pneumonia SNOMED Code(s): 791624150 Code(s): J18.9 - PNEUMONIA, UNSPECIFIED ORGANISM Status: Resolved Priority: High Current Visit: Yes Qualifiers: Pneumonia type: due to unspecified organism Laterality: right Lung location: lower lobe of lung Qualified Code(s): J18.1 - Lobar pneumonia, unspecified organism (3) UTI (urinary tract infection) SNOMED Code(s): 28850195 Code(s): N39.0 - URINARY TRACT INFECTION, SITE NOT SPECIFIED Status: Resolved Priority: High Current Visit: Yes Onset Date: 12/19/15 Qualifiers: Urinary tract infection type: acute cystitis Hematuria presence: with hematuria Qualified Code(s): N30.01 - Acute cystitis with hematuria Annotation/Comment:: Hematuria secondary to anticoagulation.
[2018-11-12] MEDS: Aspirin 81 MG Tab.Chew PO SCH (08:33)
[2018-11-12] MEDS: Gabapentin 300 MG Cap PO SCH (08:33)
[2018-11-12] MEDS: Famotidine 20 MG Tab PO SCH (08:33)
[2018-11-12] MEDS: Escitalopram 10 MG Tab PO SCH (08:34)
[2018-11-12] MEDS: Acyclovir 200 MG Cap PO SCH ×2 (08:34→20:39)
[2018-11-12] MEDS: Cefdinir 300 MG Cap PO SCH ×2 (08:37→20:39)
[2018-11-12] MEDS: atorvaSTATin 10 MG Tab PO SCH (20:38)
[2018-11-12] MEDS: QUEtiapine 25 MG Tab PO SCH (20:38)
[2018-11-13] MEDS: Acetaminophen/oxyCODONE 325-10 MG Tab PO SCH ×4 (00:09→11:46)
[2018-11-13] MEDS: Heparin Sodium 5,000 Units/ML Vial SUBCUT SCH ×2 (03:51→11:46)
[2018-11-13 06:35] LABS: CHLORIDE,CL 105 mmol/L (98-107); SODIUM,NA 141 mmol/L (136-145)
[2018-11-13] MEDS: Levothyroxine 25 MCG Tab PO SCH (06:47)
[2018-11-13] MEDS: Levothyroxine 112 MCG Tab PO SCH (06:47)
--- NOTE | 2018-11-13 07:44 | PCM.PN ---
<Rocio Ley - Last Filed: 11/13/18 07:42> - General Info Date of Service: 11/13/18 Subjective Update: Patient's only complaint today is that she wants to go home. She denies any physical complaints. [place] placement is pending, awaiting results of mental health screen. - Review of Systems General: Reports: No Symptoms HEENT: Reports: No Symptoms Pulmonary: Reports: No Symptoms Cardiovascular: Reports: No Symptoms Gastrointestinal: Reports: No Symptoms Genitourinary: Reports: No Symptoms Musculoskeletal: Reports: No Symptoms Skin: Reports: No Symptoms Neurological: Reports: No Symptoms Psychiatric: Reports: No Symptoms - Patient Data Vitals - Most Recent: Last Vital Signs Temp 97.3 F 11/13/18 03:50 Pulse 80 11/13/18 03:50 Resp 18 11/13/18 03:50 BP 108/66 11/13/18 03:50 Pulse Ox 94 L 11/13/18 03:50 Weight - Most Recent: 90.718 kg I&O - Last 24 Hours: Intake & Output 11/12/18 11/13/18 11/13/18 22:59 06:59 14:59 Intake Total 600 480 Output Total 480 Balance 120 480 Lab Results Last 24 Hours: Laboratory Results - last 24 hr 11/13/18 11/13/18 Range/Units 05:45 05:45 WBC 8.27 (4.0-11.0) K/uL RBC 3.76 L (4.30-5.90) M/uL Hgb 10.2 L (12.0-16.0) g/dL Hct 34.1 L (36.0-46.0) % MCV 90.7 (80.0-98.0) fL MCH 27.1 (27.0-32.0) pg MCHC 29.9 L (31.0-37.0) g/dL RDW Std Deviation 63.1 H (28.0-62.0) fl RDW Coeff of Antony 19 H (11.0-15.0) % Plt Count 181 (150-400) K/uL MPV 10.70 (7.40-12.00) fL Neut % (Auto) 65.2 (48.0-80.0) % Lymph % (Auto) 21.0 (16.0-40.0) % [place] % (Auto) 9.3 (0.0-15.0) % Eos % (Auto) 4.4 (0.0-7.0) % Baso % (Auto) 0.1 (0.0-1.5) % Neut # (Auto) 5.4 (1.4-5.7) K/uL Lymph # (Auto) 1.7 (0.6-2.4) K/uL [place] # (Auto) 0.8 (0.0-0.8) K/uL Eos # (Auto) 0.4 (0.0-0.7) K/uL Baso # (Auto) 0.0 (0.0-0.1) K/uL Nucleated RBC % 0.0 /100WBC Nucleated RBCs # 0 K/uL Sodium 141 (136-145) mmol/L Potassium 4.1 (3.5-5.1) mmol/L Chloride 105 (98-107) mmol/L Carbon Dioxide 28.1 (21.0-32.0) mmol/L BUN 21 H (7.0-18.0) mg/dL Creatinine 0.9 (0.6-1.0) mg/dL Est Cr Clr Drug Dosing 38.20 mL/min Estimated GFR (MDRD) > 60.0 ml/min Glucose 88 (74-106) mg/dL Calcium 8.8 (8.5-10.1) mg/dL Med Orders - Current: Current Medications Acetaminophen (Tylenol) 650 mg PO Q4H PRN PRN Reason: Pain/Fever Last Admin: 11/07/18 08:49 Dose: 650 mg Acyclovir (Zovirax) 400 mg PO BID [facility] Last Admin: 11/12/18 20:39 Dose: 400 mg Albuterol/Ipratropium (Duoneb 3.0-0.5 Mg/3 Ml) 3 ml NEB Q4HRRT PRN PRN Reason: Shortness of Breath Aspirin (Aspirin) 81 mg PO DAILY [facility] Last Admin: 11/12/18 08:33 Dose: 81 mg Atorvastatin Calcium (Lipitor) 10 mg PO BEDTIME [facility] Last Admin: 11/12/18 20:38 Dose: 10 mg Cefdinir (Omnicef) 300 mg PO BID [facility] Last Admin: 11/12/18 20:39 Dose: 300 mg Escitalopram Oxalate (Lexapro) 10 mg PO DAILY [facility] Last Admin: 11/12/18 08:34 Dose: 10 mg Famotidine (Pepcid) 20 mg PO DAILY [facility] Last Admin: 11/12/18 08:33 Dose: 20 mg Fentanyl (Duragesic) 50 mcg TRDERM Q72H [facility] Last Admin: 11/10/18 09:25 Dose: 50 mcg Gabapentin (Neurontin) 600 mg PO DAILY [facility] Last Admin: 11/12/18 08:33 Dose: 600 mg Heparin Sodium (Porcine) (Heparin Sodium) 5,000 units SUBCUT Q8H [facility] Last Admin: 11/13/18 03:51 Dose: 5,000 units Levothyroxine Sodium (Levothyroxine) 112 mcg PO ACBREAKFAST [facility] Last Admin: 11/13/18 06:47 Dose: 112 mcg Levothyroxine Sodium (Levothyroxine) 25 mcg PO ACBREAKFAST [facility] Last Admin: 11/13/18 06:47 Dose: 25 mcg Loperamide HCl (Imodium) 2 mg PO Q4H PRN PRN Reason: Diarrhea Last Admin: 11/12/18 18:15 Dose: 2 mg Ondansetron HCl (Zofran) 4 mg IVPUSH Q4H PRN PRN Reason: Nausea/Vomiting Oxycodone/Acetaminophen (Percocet 325-10 Mg) 1 tab PO Q4H [facility] Last Admin: 11/13/18 03:50 Dose: 1 tab Quetiapine Fumarate (Seroquel) 25 mg PO BEDTIME [facility] Last Admin: 11/12/18 20:38 Dose: 25 mg Sodium Chloride (Saline Flush) 10 ml FLUSH ASDIRECTED PRN PRN Reason: Keep Vein Open Sodium Chloride (Saline Flush) 2.5 ml FLUSH ASDIRECTED PRN PRN Reason: Keep Vein Open Temazepam (Restoril) 15 mg PO BEDTIME PRN PRN Reason: Sleep Discontinued Medications Gabapentin (Neurontin) 900 mg PO TID [facility] Last Admin: 11/06/18 05:13 Dose: 900 mg Sodium Chloride (Normal Saline) 1,000 mls @ 999 mls/hr IV STAT ONE Stop: 11/05/18 18:58 Last Admin: 11/05/18 18:04 Dose: 999 mls/hr Ceftriaxone Sodium/Dextrose 1 (gm/ Premix) 50 mls @ 100 mls/hr IV ONETIME ONE Stop: 11/05/18 19:53 Last Admin: 11/05/18 20:00 Dose: Not Given Azithromycin 500 mg/ Sodium (Chloride) 250 mls @ 250 mls/hr IV ONETIME ONE Stop: 11/05/18 20:26 Last Admin: 11/05/18 21:30 Dose: 250 mls/hr Cefepime HCl 2 gm/ Premix 50 mls @ 100 mls/hr IV ONETIME ONE Stop: 11/05/18 20:00 Last Admin: 11/05/18 20:45 Dose: 100 mls/hr Sodium Chloride (Normal Saline) 1,000 mls @ 125 mls/hr IV ASDIRECTED [facility] Stop: 11/06/18 03:44 Sodium Chloride (Normal Saline) 500 mls @ 125 mls/hr IV ASDIRECTED [facility] Stop: 11/05/18 23:52 Last Admin: 11/05/18 20:00 Dose: 125 mls/hr Azithromycin 250 mg/ Sodium (Chloride) 250 mls @ 250 mls/hr IV Q24H [facility] Last Admin: 11/07/18 12:49 Dose: 250 mls/hr Cefepime HCl 2 gm/ Premix 50 mls @ 100 mls/hr IV Q24H [facility] Last Admin: 11/07/18 11:30 Dose: 100 mls/hr Cefepime HCl 2 gm/ Premix 50 mls @ 100 mls/hr IV Q12H [facility] Last Admin: 11/08/18 23:11 Dose: 100 mls/hr Loperamide HCl (Imodium) 2 mg PO Q4H [facility] Last Admin: 11/08/18 06:13 Dose: Not Given Quetiapine Fumarate (Seroquel) 25 mg PO ONETIME ONE Stop: 11/05/18 22:31 Last Admin: 11/05/18 22:55 Dose: 25 mg - Exam General: Alert, Cooperative. No: Oriented Neck: Supple Lungs: Clear to Auscultation, Normal Respiratory Effort Cardiovascular: Regular Rate, Regular Rhythm GI/Abdominal Exam: Normal Bowel Sounds, Soft, Non-Tender, No Distention Extremities: Pedal Edema Skin: Warm Neurological: No New Focal Deficit Psy/Mental Status: Alert, Normal Affect, Normal Mood - Problem List & Annotations (1) Sepsis SNOMED Code(s): 09856276 Code(s): A41.9 - SEPSIS, UNSPECIFIED ORGANISM Status: Acute Current Visit : Yes (2) Hypothyroidism SNOMED Code(s): 63023882 Code(s): E03.9 - HYPOTHYROIDISM, UNSPECIFIED Status: Chronic Current Visit: No (3) Depression SNOMED Code(s): 61180469 Code(s): F32.9 - MAJOR DEPRESSIVE DISORDER, SINGLE EPISODE, UNSPECIFIED Status: Chronic Current Visit: No (4) Hyperlipemia SNOMED Code(s): 51569797 Code(s): E78.5 - HYPERLIPIDEMIA, UNSPECIFIED Status: Chronic Priority: Low Current Visit: No (5) Pneumonia SNOMED Code(s): 197039822 Code(s): J18.9 - PNEUMONIA, UNSPECIFIED ORGANISM Status: Resolved Priority: High Current Visit: Yes Qualifiers: Pneumonia type: due to unspecified organism Laterality: right Lung location: lower lobe of lung Qualified Code(s): J18.1 - Lobar pneumonia, unspecified organism (6) Acute kidney failure SNOMED Code(s): 29155397 Code(s): N17.9 - ACUTE KIDNEY FAILURE, UNSPECIFIED Status: Acute Current Visit: Yes (7) UTI, Urinary tract infectious disease SNOMED Code(s): 27889535 Code(s): N39.0 - URINARY TRACT INFECTION, SITE NOT SPECIFIED Status: Acute Priority: High Current Visit: No Annotation/Comment:: growing pseudomonas (8) Multiple myeloma, stage 3 SNOMED Code(s): 559240274, 551797037 Code(s): C90.00 - MULTIPLE MYELOMA NOT HAVING ACHIEVED REMISSION Status: Chronic Priority: High Current Visit: No - Problem List Review Problem List Initiated/Reviewed/Updated: Yes - My Orders Last 24 Hours: My Active Orders 11/14/18 05:11 BASIC METABOLIC PANEL,BMP [CHEM] AM CBC WITH AUTO DIFF [HEME] AM - Plan Plan:: 78 year old female with pmh of multiple myeloma, diabetes, CHF admitted for : 1. Sepsis secondary to UTI (growing pseudomonas) and pneumonia- continue oral cefdinir. Continue duonebs. Encourage incentive spirometry 2. JULISSA- resolved 3. Chronic conditions- CHF, hyperlipidemia, depression, hypothyroidism- continue home meds. Application for [facility] is pending, awaiting mental health evaluation. Dr. Chanel agreed to follow patient in [place]. . <David Carbajal - Last Filed: 11/13/18 08:45> - General Info Subjective Update: Patient pending transfer to [facility]. I have examined the patient independently of Rocio Ley MD, resident. I have discussed the case with her. I have reviewed and agree with the plan of care as outlined by her. Please see orders. - Patient Data Vitals - Most Recent: Last Vital Signs Temp 36.6 C 11/13/18 07:55 Pulse 82 11/13/18 07:55 Resp 18 11/13/18 07:55 BP 122/80 11/13/18 07:55 Pulse Ox 95 11/13/18 07:55 I&O - Last 24 Hours: Intake & Output 11/12/18 11/13/18 11/13/18 22:59 06:59 14:59 Intake Total 600 480 Output Total 480 Balance 120 480 Lab Results Last 24 Hours: Laboratory Results - last 24 hr 11/13/18 11/13/18 Range/Units 05:45 05:45 WBC 8.27 (4.0-11.0) K/uL RBC 3.76 L (4.30-5.90) M/uL Hgb 10.2 L (12.0-16.0) g/dL Hct 34.1 L (36.0-46.0) % MCV 90.7 (80.0-98.0) fL MCH 27.1 (27.0-32.0) pg MCHC 29.9 L (31.0-37.0) g/dL RDW Std Deviation 63.1 H (28.0-62.0) fl RDW Coeff of Antony 19 H (11.0-15.0) % Plt Count 181 (150-400) K/uL MPV 10.70 (7.40-12.00) fL Neut % (Auto) 65.2 (48.0-80.0) % Lymph % (Auto) 21.0 (16.0-40.0) % [place] % (Auto) 9.3 (0.0-15.0) % Eos % (Auto) 4.4 (0.0-7.0) % Baso % (Auto) 0.1 (0.0-1.5) % Neut # (Auto) 5.4 (1.4-5.7) K/uL Lymph # (Auto) 1.7 (0.6-2.4) K/uL [place] # (Auto) 0.8 (0.0-0.8) K/uL Eos # (Auto) 0.4 (0.0-0.7) K/uL Baso # (Auto) 0.0 (0.0-0.1) K/uL Nucleated RBC % 0.0 /100WBC Nucleated RBCs # 0 K/uL Sodium 141 (136-145) mmol/L Potassium 4.1 (3.5-5.1) mmol/L Chloride 105 (98-107) mmol/L Carbon Dioxide 28.1 (21.0-32.0) mmol/L BUN 21 H (7.0-18.0) mg/dL Creatinine 0.9 (0.6-1.0) mg/dL Est Cr Clr Drug Dosing 38.20 mL/min Estimated GFR (MDRD) > 60.0 ml/min Glucose 88 (74-106) mg/dL Calcium 8.8 (8.5-10.1) mg/dL Med Orders - Current: Current Medications Acetaminophen (Tylenol) 650 mg PO Q4H PRN PRN Reason: Pain/Fever Last Admin: 11/07/18 08:49 Dose: 650 mg Acyclovir (Zovirax) 400 mg PO BID [facility] Last Admin: 11/12/18 20:39 Dose: 400 mg Albuterol/Ipratropium (Duoneb 3.0-0.5 Mg/3 Ml) 3 ml NEB Q4HRRT PRN PRN Reason: Shortness of Breath Aspirin (Aspirin) 81 mg PO DAILY [facility] Last Admin: 11/12/18 08:33 Dose: 81 mg Atorvastatin Calcium (Lipitor) 10 mg PO BEDTIME [facility] Last Admin: 11/12/18 20:38 Dose: 10 mg Cefdinir (Omnicef) 300 mg PO BID [facility] Last Admin: 11/12/18 20:39 Dose: 300 mg Escitalopram Oxalate (Lexapro) 10 mg PO DAILY [facility] Last Admin: 11/12/18 08:34 Dose: 10 mg Famotidine (Pepcid) 20 mg PO DAILY [facility] Last Admin: 11/12/18 08:33 Dose: 20 mg Fentanyl (Duragesic) 50 mcg TRDERM Q72H [facility] Last Admin: 11/10/18 09:25 Dose: 50 mcg Gabapentin (Neurontin) 600 mg PO DAILY [facility] Last Admin: 11/12/18 08:33 Dose: 600 mg Heparin Sodium (Porcine) (Heparin Sodium) 5,000 units SUBCUT Q8H [facility] Last Admin: 11/13/18 03:51 Dose: 5,000 units Levothyroxine Sodium (Levothyroxine) 112 mcg PO ACBREAKFAST [facility] Last Admin: 11/13/18 06:47 Dose: 112 mcg Levothyroxine Sodium (Levothyroxine) 25 mcg PO ACBREAKFAST [facility] Last Admin: 11/13/18 06:47 Dose: 25 mcg Loperamide HCl (Imodium) 2 mg PO Q4H PRN PRN Reason: Diarrhea Last Admin: 11/12/18 18:15 Dose: 2 mg Ondansetron HCl (Zofran) 4 mg IVPUSH Q4H PRN PRN Reason: Nausea/Vomiting Oxycodone/Acetaminophen (Percocet 325-10 Mg) 1 tab PO Q4H [facility] Last Admin: 11/13/18 03:50 Dose: 1 tab Quetiapine Fumarate (Seroquel) 25 mg PO BEDTIME [facility] Last Admin: 11/12/18 20:38 Dose: 25 mg Sodium Chloride (Saline Flush) 10 ml FLUSH ASDIRECTED PRN PRN Reason: Keep Vein Open Sodium Chloride (Saline Flush) 2.5 ml FLUSH ASDIRECTED PRN PRN Reason: Keep Vein Open Temazepam (Restoril) 15 mg PO BEDTIME PRN PRN Reason: Sleep Discontinued Medications Gabapentin (Neurontin) 900 mg PO TID [facility] Last Admin: 11/06/18 05:13 Dose: 900 mg Sodium Chloride (Normal Saline) 1,000 mls @ 999 mls/hr IV STAT ONE Stop: 11/05/18 18:58 Last Admin: 11/05/18 18:04 Dose: 999 mls/hr Ceftriaxone Sodium/Dextrose 1 (gm/ Premix) 50 mls @ 100 mls/hr IV ONETIME ONE Stop: 11/05/18 19:53 Last Admin: 11/05/18 20:00 Dose: Not Given Azithromycin 500 mg/ Sodium (Chloride) 250 mls @ 250 mls/hr IV ONETIME ONE Stop: 11/05/18 20:26 Last Admin: 11/05/18 21:30 Dose: 250 mls/hr Cefepime HCl 2 gm/ Premix 50 mls @ 100 mls/hr IV ONETIME ONE Stop: 11/05/18 20:00 Last Admin: 11/05/18 20:45 Dose: 100 mls/hr Sodium Chloride (Normal Saline) 1,000 mls @ 125 mls/hr IV ASDIRECTED [facility] Stop: 11/06/18 03:44 Sodium Chloride (Normal Saline) 500 mls @ 125 mls/hr IV ASDIRECTED [facility] Stop: 11/05/18 23:52 Last Admin: 11/05/18 20:00 Dose: 125 mls/hr Azithromycin 250 mg/ Sodium (Chloride) 250 mls @ 250 mls/hr IV Q24H [facility] Last Admin: 11/07/18 12:49 Dose: 250 mls/hr Cefepime HCl 2 gm/ Premix 50 mls @ 100 mls/hr IV Q24H [facility] Last Admin: 11/07/18 11:30 Dose: 100 mls/hr Cefepime HCl 2 gm/ Premix 50 mls @ 100 mls/hr IV Q12H [facility] Last Admin: 11/08/18 23:11 Dose: 100 mls/hr Loperamide HCl (Imodium) 2 mg PO Q4H [facility] Last Admin: 11/08/18 06:13 Dose: Not Given Quetiapine Fumarate (Seroquel) 25 mg PO ONETIME ONE Stop: 11/05/18 22:31 Last Admin: 11/05/18 22:55 Dose: 25 mg - Problem List & Annotations (1) Total self-care deficit SNOMED Code(s): 32740355 Code(s): R41.89 - OTH SYMPTOMS AND SIGNS W COGNITIVE FUNCTIONS AND AWARENESS Status: Chronic Priority: High Current Visit: Yes (2) Pneumonia SNOMED Code(s): 259802908 Code(s): J18.9 - PNEUMONIA, UNSPECIFIED ORGANISM Status: Resolved Priority: High Current Visit: Yes Qualifiers: Pneumonia type: due to unspecified organism Laterality: right Lung location: lower lobe of lung Qualified Code(s): J18.1 - Lobar pneumonia, unspecified organism (3) UTI (urinary tract infection) SNOMED Code(s): 84391621 Code(s): N39.0 - URINARY TRACT INFECTION, SITE NOT SPECIFIED Status: Resolved Priority: High Current Visit: Yes Onset Date: 12/19/15 Qualifiers: Urinary tract infection type: acute cystitis Hematuria presence: with hematuria Qualified Code(s): N30.01 - Acute cystitis with hematuria Annotation/Comment:: Hematuria secondary to anticoagulation.
[2018-11-13] MEDS: Acyclovir 200 MG Cap PO SCH (09:02)
[2018-11-13] MEDS: Gabapentin 300 MG Cap PO SCH (09:03)
[2018-11-13] MEDS: Famotidine 20 MG Tab PO SCH (09:03)
[2018-11-13] MEDS: Escitalopram 10 MG Tab PO SCH (09:03)
[2018-11-13] MEDS: Aspirin 81 MG Tab.Chew PO SCH (09:03)
[2018-11-13] MEDS: Cefdinir 300 MG Cap PO SCH (09:03)
--- NOTE | 2018-11-13 10:43 | PCM.DCSUM1 ---
<Rocio Ley - Last Filed: 11/13/18 12:23> Discharge Summary - Hospital Course Free Text/Narrative:: Admission Date: 11/05/18 Discharge Date: 11/13/18 Admission Diagnosis: 1.Sepsis secondary to UTI/Pneumonia 2. JULISSA 3. Chronic conditions- DM, CHF, Hyperlipidemia, hypothyroidism Discharge Diagnosis: 1.Sepsis secondary to UTI/Pneumonia- resolved 2. JULISSA-resolved 3. Chronic conditions- DM, CHF, Hyperlipidemia, hypothyroidism Procedures: None Consults: None Hospital Course: The patient is a 78 year old female with past medical history of dementia, multiple myeloma, DMII, CHF, hyperlipidemia, and hypothyroidism who presented to the ER with confusion and generalized weakness. Work up found signs of infection in her urine, and CXR showed patchy infiltrate in the right lung. Her lactate was elevated. She had hypotension and was given a bolus of 250 mL of normal saline and her blood pressure improved. She was admitted to medical surgical floor as an inpatient. For her UTI and pneumonia, she was treated with Cefepime and Azithromycin. Her lactate was repeated and resolved. Her urine culture came back positive for Pseudomonas and she was transitioned to oral Cefdinir. Over the course of her stay her symptoms improved. She was also found to have an JULISSA that resolved with the 250 mL bolus and oral hydration. A discussion was had with family and case management and it was deemed that it was unsafe for the patient to return back to her home due to her memory issues and inability to take care of herself at home. The daughter obtained guardianship of her mother through the court system. Her daughter applied for the patient to go to [facility]. The patient triggered a mental health evaluation which she passed. She will be followed by Dr. Chanel in [facility]. Disposition: [facility] Discharge Condition: Vitals stable, tolerating oral diet, symptoms improved Discharge Instructions: regular diet as tolerated, activity as tolerated, take medications as prescribed. Symptoms to report to physician include fever/chills , chest pain, shortness of breath, abdominal pain, erythema, drainage/discharge , not improving as expected. Discharge Medications: Acyclovir 400 mg PO BID Aspirin 81 mg PO DAILY Escitalopram [Lexapro] 10 mg PO BEDTIME Famotidine [Pepcid] 20 mg PO DAILY Furosemide 40 mg PO DAILY Gabapentin [Neurontin] 900 mg PO TID Levothyroxine [Levothroid] 175 mcg PO DAILY Lisinopril 20 mg PO DAILY Loperamide [Imodium] 2 mg PO Q4H Potassium Chloride 10 meq PO TID atorvaSTATin Calcium [Atorvastatin Calcium] 10 mg PO BEDTIME fentaNYL [Duragesic] 50 mcg TD Q72H oxyCODONE HCl/Acetaminophen [Oxycodone-Acetaminophen 10-300] 10 - 325 mg PO Q4HR Ixazomib Citrate [Ninlaro] 4 mg PO ASDIRECTED QUEtiapine [SEROquel] 25 mg PO BEDTIME Calcium Carb & Citrate/Vit D3 [Citracal + D ER] 1 ampule PO DAILY Chlorpheniramine Maleate 4 mg PO ASDIRECTED Cholecalciferol (Vitamin D3) [Vitamin D3] 5,000 unit PO DAILY Fexofenadine [Lesley] 180 mg PO DAILY PRN Ixazomib Citrate [Ninlaro] 4 mg PO ASDIRECTED Latanoprost/Pf [Latanoprost 0.005% Eye Drop] 1 drop EYEBOTH BEDTIME PRN Follow-up: Dr. Chanel will follow in [place] [facility] Diagnosis: Stroke: No - Discharge Data Discharge Date: 11/13/18 Discharge Disposition: DC/Tfer to SNF 03 Condition: Fair - Discharge Diagnosis/Problem(s) (1) Sepsis SNOMED Code(s): 06675797 ICD Code: A41.9 - SEPSIS, UNSPECIFIED ORGANISM Status: Acute Current Visit: Yes (2) Hypothyroidism SNOMED Code(s): 77366817 ICD Code: E03.9 - HYPOTHYROIDISM, UNSPECIFIED Status: Chronic Current Visit: No (3) Depression SNOMED Code(s): 02124065 ICD Code: F32.9 - MAJOR DEPRESSIVE DISORDER, SINGLE EPISODE, UNSPECIFIED Status: Chronic Current Visit: No (4) Hyperlipemia SNOMED Code(s): 04890276 ICD Code: E78.5 - HYPERLIPIDEMIA, UNSPECIFIED Status: Chronic Priority: Low Current Visit: No (5) Pneumonia SNOMED Code(s): 944182802 ICD Code: J18.9 - PNEUMONIA, UNSPECIFIED ORGANISM Status: Resolved Priority: High Current Visit: Yes Qualifiers: Pneumonia type: due to unspecified organism Laterality: right Lung location: lower lobe of lung Qualified Code(s): J18.1 - Lobar pneumonia, unspecified organism (6) Acute kidney failure SNOMED Code(s): 13824729 ICD Code: N17.9 - ACUTE KIDNEY FAILURE, UNSPECIFIED Status: Acute Current Visit: Yes (7) UTI, Urinary tract infectious disease SNOMED Code(s): 91601446 ICD Code: N39.0 - URINARY TRACT INFECTION, SITE NOT SPECIFIED Status: Acute Priority: High Current Visit: No Problem Details: growing pseudomonas (8) Multiple myeloma, stage 3 SNOMED Code(s): 704474862, 459754500 ICD Code: C90.00 - MULTIPLE MYELOMA NOT HAVING ACHIEVED REMISSION Status: Chronic Priority: High Current Visit: No - Patient Summary/Data Consults: Consultations 11/06/18 11:07 Consult to Physical Therapy [PT Evaluation and Treatment] [CONS] Routine - Patient Instructions Diet: Regular Diet as Tolerated Activity: As Tolerated Showering/Bathing: May Shower Notify Provider of: Fever, Increased Pain, Swelling and Redness, Drainage, Nausea and/or Vomiting Other/Special Instructions: Additional symptoms include chest pain, shortness of breath, or abdominal pain. - Discharge Plan *PRESCRIPTION DRUG MONITORING PROGRAM REVIEWED*: No *COPY OF PRESCRIPTION DRUG MONITORING REPORT IN PATIENT MARCY: No Home Medications: Home Meds Acyclovir 400 mg PO BID 09/24/18 [History] Aspirin 81 mg PO DAILY 09/24/18 [History] Escitalopram [Lexapro] 10 mg PO BEDTIME 09/24/18 [History] Famotidine [Pepcid] 20 mg PO DAILY 09/24/18 [History] Furosemide 40 mg PO DAILY 09/24/18 [History] Gabapentin [Neurontin] 900 mg PO TID 09/24/18 [History] Levothyroxine [Levothroid] 175 mcg PO DAILY 09/24/18 [History] Lisinopril 20 mg PO DAILY 09/24/18 [History] Loperamide [Imodium] 2 mg PO Q4H PRN 09/24/18 [History] Potassium Chloride 10 meq PO TID 09/24/18 [History] atorvaSTATin Calcium [Atorvastatin Calcium] 10 mg PO BEDTIME 09/24/18 [History] fentaNYL [Duragesic] 50 mcg TD Q72H 09/24/18 [History] oxyCODONE HCl/Acetaminophen [Oxycodone-Acetaminophen 10-300] 10 - 325 mg PO Q4HR 09/24/18 [History] QUEtiapine [SEROquel] 25 mg PO BEDTIME 11/05/18 [History] Calcium Carb & Citrate/Vit D3 [Citracal + D ER] 1 tab PO DAILY 11/13/18 [History ] Chlorpheniramine Maleate 4 mg PO ASDIRECTED 11/13/18 [History] Cholecalciferol (Vitamin D3) [Vitamin D3] 5,000 unit PO DAILY 11/13/18 [History] Fexofenadine [Lesley] 180 mg PO DAILY PRN 11/13/18 [History] Latanoprost/Pf [Latanoprost 0.005% Eye Drop] 1 drop EYEBOTH BEDTIME 11/13/18 [ History] Oxygen Therapy Mode: Nasal Cannula Oxygen Flow Rate (L/min): 2 (as needed) Maintain SpO2% greater than: 90 Patient Handouts: Urinary Tract Infection, Adult, [id number] Referrals: Jazmín Brannon DO [Primary Care Provider] - Emil Chanel MD [Physician] - - Discharge Summary/Plan Comment DC Time >30 min.: No - Patient Data Vitals - Most Recent: Last Vital Signs Temp 97.9 F 11/13/18 08:00 Pulse 82 11/13/18 08:00 Resp 18 11/13/18 08:00 BP 122/80 11/13/18 08:00 Pulse Ox 95 11/13/18 08:00 Weight - Most Recent: 90.718 kg I&O - Last 24 hours: Intake & Output 11/12/18 11/13/18 11/13/18 22:59 06:59 14:59 Intake Total 600 480 Output Total 480 Balance 120 480 Lab Results - Last 24 hrs: Laboratory Results - last 24 hr 11/13/18 11/13/18 Range/Units 05:45 05:45 WBC 8.27 (4.0-11.0) K/uL RBC 3.76 L (4.30-5.90) M/uL Hgb 10.2 L (12.0-16.0) g/dL Hct 34.1 L (36.0-46.0) % MCV 90.7 (80.0-98.0) fL MCH 27.1 (27.0-32.0) pg MCHC 29.9 L (31.0-37.0) g/dL RDW Std Deviation 63.1 H (28.0-62.0) fl RDW Coeff of Antony 19 H (11.0-15.0) % Plt Count 181 (150-400) K/uL MPV 10.70 (7.40-12.00) fL Neut % (Auto) 65.2 (48.0-80.0) % Lymph % (Auto) 21.0 (16.0-40.0) % Erie % (Auto) 9.3 (0.0-15.0) % Eos % (Auto) 4.4 (0.0-7.0) % Baso % (Auto) 0.1 (0.0-1.5) % Neut # (Auto) 5.4 (1.4-5.7) K/uL Lymph # (Auto) 1.7 (0.6-2.4) K/uL [place] # (Auto) 0.8 (0.0-0.8) K/uL Eos # (Auto) 0.4 (0.0-0.7) K/uL Baso # (Auto) 0.0 (0.0-0.1) K/uL Nucleated RBC % 0.0 /100WBC Nucleated RBCs # 0 K/uL Sodium 141 (136-145) mmol/L Potassium 4.1 (3.5-5.1) mmol/L Chloride 105 (98-107) mmol/L Carbon Dioxide 28.1 (21.0-32.0) mmol/L BUN 21 H (7.0-18.0) mg/dL Creatinine 0.9 (0.6-1.0) mg/dL Est Cr Clr Drug Dosing 38.20 mL/min Estimated GFR (MDRD) > 60.0 ml/min Glucose 88 (74-106) mg/dL Calcium 8.8 (8.5-10.1) mg/dL Med Orders - Current: Current Medications Acetaminophen (Tylenol) 650 mg PO Q4H PRN PRN Reason: Pain/Fever Last Admin: 11/07/18 08:49 Dose: 650 mg Acyclovir (Zovirax) 400 mg PO BID ARMIDA Last Admin: 11/13/18 09:02 Dose: 400 mg Albuterol/Ipratropium (Duoneb 3.0-0.5 Mg/3 Ml) 3 ml NEB Q4HRRT PRN PRN Reason: Shortness of Breath Aspirin (Aspirin) 81 mg PO DAILY [facility] Last Admin: 11/13/18 09:03 Dose: 81 mg Atorvastatin Calcium (Lipitor) 10 mg PO BEDTIME [facility] Last Admin: 11/12/18 20:38 Dose: 10 mg Cefdinir (Omnicef) 300 mg PO BID [facility] Last Admin: 11/13/18 09:03 Dose: 300 mg Escitalopram Oxalate (Lexapro) 10 mg PO DAILY [facility] Last Admin: 11/13/18 09:03 Dose: 10 mg Famotidine (Pepcid) 20 mg PO DAILY [facility] Last Admin: 11/13/18 09:03 Dose: 20 mg Fentanyl (Duragesic) 50 mcg TRDERM Q72H [facility] Last Admin: 11/10/18 09:25 Dose: 50 mcg Gabapentin (Neurontin) 600 mg PO DAILY [facility] Last Admin: 11/13/18 09:03 Dose: 600 mg Heparin Sodium (Porcine) (Heparin Sodium) 5,000 units SUBCUT Q8H [facility] Last Admin: 11/13/18 03:51 Dose: 5,000 units Levothyroxine Sodium (Levothyroxine) 112 mcg PO ACBREAKFAST [facility] Last Admin: 11/13/18 06:47 Dose: 112 mcg Levothyroxine Sodium (Levothyroxine) 25 mcg PO ACBREAKFAST [facility] Last Admin: 11/13/18 06:47 Dose: 25 mcg Loperamide HCl (Imodium) 2 mg PO Q4H PRN PRN Reason: Diarrhea Last Admin: 11/12/18 18:15 Dose: 2 mg Ondansetron HCl (Zofran) 4 mg IVPUSH Q4H PRN PRN Reason: Nausea/Vomiting Oxycodone/Acetaminophen (Percocet 325-10 Mg) 1 tab PO Q4H [facility] Last Admin: 11/13/18 09:04 Dose: 1 tab Quetiapine Fumarate (Seroquel) 25 mg PO BEDTIME [facility] Last Admin: 11/12/18 20:38 Dose: 25 mg Sodium Chloride (Saline Flush) 10 ml FLUSH ASDIRECTED PRN PRN Reason: Keep Vein Open Sodium Chloride (Saline Flush) 2.5 ml FLUSH ASDIRECTED PRN PRN Reason: Keep Vein Open Temazepam (Restoril) 15 mg PO BEDTIME PRN PRN Reason: Sleep Discontinued Medications Gabapentin (Neurontin) 900 mg PO TID [facility] Last Admin: 11/06/18 05:13 Dose: 900 mg Sodium Chloride (Normal Saline) 1,000 mls @ 999 mls/hr IV STAT ONE Stop: 11/05/18 18:58 Last Admin: 11/05/18 18:04 Dose: 999 mls/hr Ceftriaxone Sodium/Dextrose 1 (gm/ Premix) 50 mls @ 100 mls/hr IV ONETIME ONE Stop: 11/05/18 19:53 Last Admin: 11/05/18 20:00 Dose: Not Given Azithromycin 500 mg/ Sodium (Chloride) 250 mls @ 250 mls/hr IV ONETIME ONE Stop: 11/05/18 20:26 Last Admin: 11/05/18 21:30 Dose: 250 mls/hr Cefepime HCl 2 gm/ Premix 50 mls @ 100 mls/hr IV ONETIME ONE Stop: 11/05/18 20:00 Last Admin: 11/05/18 20:45 Dose: 100 mls/hr Sodium Chloride (Normal Saline) 1,000 mls @ 125 mls/hr IV ASDIRECTED [facility] Stop: 11/06/18 03:44 Sodium Chloride (Normal Saline) 500 mls @ 125 mls/hr IV ASDIRECTED [facility] Stop: 11/05/18 23:52 Last Admin: 11/05/18 20:00 Dose: 125 mls/hr Azithromycin 250 mg/ Sodium (Chloride) 250 mls @ 250 mls/hr IV Q24H [facility] Last Admin: 11/07/18 12:49 Dose: 250 mls/hr Cefepime HCl 2 gm/ Premix 50 mls @ 100 mls/hr IV Q24H [facility] Last Admin: 11/07/18 11:30 Dose: 100 mls/hr Cefepime HCl 2 gm/ Premix 50 mls @ 100 mls/hr IV Q12H [facility] Last Admin: 11/08/18 23:11 Dose: 100 mls/hr Loperamide HCl (Imodium) 2 mg PO Q4H [facility] Last Admin: 11/08/18 06:13 Dose: Not Given Quetiapine Fumarate (Seroquel) 25 mg PO ONETIME ONE Stop: 11/05/18 22:31 Last Admin: 11/05/18 22:55 Dose: 25 mg <David Carbajal - Last Filed: 11/13/18 16:35> Discharge Summary - Hospital Course Free Text/Narrative:: I have examined the patient independently of Rocio Ley MD, resident. I have discussed the case with her. I have reviewed and agree with the plan of care as outlined by her. Please see orders. - Discharge Diagnosis/Problem(s) (1) Total self-care deficit SNOMED Code(s): 80027951 ICD Code: R41.89 - OTH SYMPTOMS AND SIGNS W COGNITIVE FUNCTIONS AND AWARENESS Status: Chronic Priority: High Current Visit: Yes (2) Pneumonia SNOMED Code(s): 304094444 ICD Code: J18.9 - PNEUMONIA, UNSPECIFIED ORGANISM Status: Resolved Priority: High Current Visit: Yes Qualifiers: Pneumonia type: due to unspecified organism Laterality: right Lung location: lower lobe of lung Qualified Code(s): J18.1 - Lobar pneumonia, unspecified organism (3) UTI (urinary tract infection) SNOMED Code(s): 70376626 ICD Code: N39.0 - URINARY TRACT INFECTION, SITE NOT SPECIFIED Status: Resolved Priority: High Current Visit: Yes Onset Date: 12/19/15 Problem Details: Hematuria secondary to anticoagulation. Qualifiers: Urinary tract infection type: acute cystitis Hematuria presence: with hematuria Qualified Code(s): N30.01 - Acute cystitis with hematuria - Patient Summary/Data Consults: Consultations 11/06/18 11:07 Consult to Physical Therapy [PT Evaluation and Treatment] [CONS] Routine - Patient Data Vitals - Most Recent: Last Vital Signs Temp 36.4 C 11/13/18 11:53 Pulse 90 11/13/18 11:53 Resp 18 11/13/18 11:53 BP 125/92 H 11/13/18 11:53 Pulse Ox 94 L 11/13/18 11:53 I&O - Last 24 hours: Intake & Output 11/13/18 11/13/18 11/13/18 06:59 14:59 22:59 Intake Total 480 Balance 480 Lab Results - Last 24 hrs: Laboratory Results - last 24 hr 11/13/18 11/13/18 Range/Units 05:45 05:45 WBC 8.27 (4.0-11.0) K/uL RBC 3.76 L (4.30-5.90) M/uL Hgb 10.2 L (12.0-16.0) g/dL Hct 34.1 L (36.0-46.0) % MCV 90.7 (80.0-98.0) fL MCH 27.1 (27.0-32.0) pg MCHC 29.9 L (31.0-37.0) g/dL RDW Std Deviation 63.1 H (28.0-62.0) fl RDW Coeff of Antony 19 H (11.0-15.0) % Plt Count 181 (150-400) K/uL MPV 10.70 (7.40-12.00) fL Neut % (Auto) 65.2 (48.0-80.0) % Lymph % (Auto) 21.0 (16.0-40.0) % Erie % (Auto) 9.3 (0.0-15.0) % Eos % (Auto) 4.4 (0.0-7.0) % Baso % (Auto) 0.1 (0.0-1.5) % Neut # (Auto) 5.4 (1.4-5.7) K/uL Lymph # (Auto) 1.7 (0.6-2.4) K/uL [place] # (Auto) 0.8 (0.0-0.8) K/uL Eos # (Auto) 0.4 (0.0-0.7) K/uL Baso # (Auto) 0.0 (0.0-0.1) K/uL Nucleated RBC % 0.0 /100WBC Nucleated RBCs # 0 K/uL Sodium 141 (136-145) mmol/L Potassium 4.1 (3.5-5.1) mmol/L Chloride 105 (98-107) mmol/L Carbon Dioxide 28.1 (21.0-32.0) mmol/L BUN 21 H (7.0-18.0) mg/dL Creatinine 0.9 (0.6-1.0) mg/dL Est Cr Clr Drug Dosing 38.20 mL/min Estimated GFR (MDRD) > 60.0 ml/min Glucose 88 (74-106) mg/dL Calcium 8.8 (8.5-10.1) mg/dL Med Orders - Current: Current Medications Acetaminophen (Tylenol) 650 mg PO Q4H PRN PRN Reason: Pain/Fever Last Admin: 11/07/18 08:49 Dose: 650 mg Acyclovir (Zovirax) 400 mg PO BID [facility] Last Admin: 11/13/18 09:02 Dose: 400 mg Albuterol/Ipratropium (Duoneb 3.0-0.5 Mg/3 Ml) 3 ml NEB Q4HRRT PRN PRN Reason: Shortness of Breath Aspirin (Aspirin) 81 mg PO DAILY [facility] Last Admin: 11/13/18 09:03 Dose: 81 mg Atorvastatin Calcium (Lipitor) 10 mg PO BEDTIME [facility] Last Admin: 11/12/18 20:38 Dose: 10 mg Cefdinir (Omnicef) 300 mg PO BID [facility] Last Admin: 11/13/18 09:03 Dose: 300 mg Escitalopram Oxalate (Lexapro) 10 mg PO DAILY [facility] Last Admin: 11/13/18 09:03 Dose: 10 mg Famotidine (Pepcid) 20 mg PO DAILY [facility] Last Admin: 11/13/18 09:03 Dose: 20 mg Fentanyl (Duragesic) 50 mcg TRDERM Q72H [facility] Last Admin: 11/13/18 11:51 Dose: 50 mcg Gabapentin (Neurontin) 600 mg PO DAILY [facility] Last Admin: 11/13/18 09:03 Dose: 600 mg Heparin Sodium (Porcine) (Heparin Sodium) 5,000 units SUBCUT Q8H [facility] Last Admin: 11/13/18 11:46 Dose: 5,000 units Levothyroxine Sodium (Levothyroxine) 112 mcg PO ACBREAKFAST [facility] Last Admin: 11/13/18 06:47 Dose: 112 mcg Levothyroxine Sodium (Levothyroxine) 25 mcg PO ACBREAKFAST [facility] Last Admin: 11/13/18 06:47 Dose: 25 mcg Loperamide HCl (Imodium) 2 mg PO Q4H PRN PRN Reason: Diarrhea Last Admin: 11/12/18 18:15 Dose: 2 mg Ondansetron HCl (Zofran) 4 mg IVPUSH Q4H PRN PRN Reason: Nausea/Vomiting Oxycodone/Acetaminophen (Percocet 325-10 Mg) 1 tab PO Q4H [facility] Last Admin: 11/13/18 11:46 Dose: 1 tab Quetiapine Fumarate (Seroquel) 25 mg PO BEDTIME [facility] Last Admin: 11/12/18 20:38 Dose: 25 mg Sodium Chloride (Saline Flush) 10 ml FLUSH ASDIRECTED PRN PRN Reason: Keep Vein Open Sodium Chloride (Saline Flush) 2.5 ml FLUSH ASDIRECTED PRN PRN Reason: Keep Vein Open Temazepam (Restoril) 15 mg PO BEDTIME PRN PRN Reason: Sleep Discontinued Medications Gabapentin (Neurontin) 900 mg PO TID [facility] Last Admin: 11/06/18 05:13 Dose: 900 mg Sodium Chloride (Normal Saline) 1,000 mls @ 999 mls/hr IV STAT ONE Stop: 11/05/18 18:58 Last Admin: 11/05/18 18:04 Dose: 999 mls/hr Ceftriaxone Sodium/Dextrose 1 (gm/ Premix) 50 mls @ 100 mls/hr IV ONETIME ONE Stop: 11/05/18 19:53 Last Admin: 11/05/18 20:00 Dose: Not Given Azithromycin 500 mg/ Sodium (Chloride) 250 mls @ 250 mls/hr IV ONETIME ONE Stop: 11/05/18 20:26 Last Admin: 11/05/18 21:30 Dose: 250 mls/hr Cefepime HCl 2 gm/ Premix 50 mls @ 100 mls/hr IV ONETIME ONE Stop: 11/05/18 20:00 Last Admin: 11/05/18 20:45 Dose: 100 mls/hr Sodium Chloride (Normal Saline) 1,000 mls @ 125 mls/hr IV ASDIRECTED [facility] Stop: 11/06/18 03:44 Sodium Chloride (Normal Saline) 500 mls @ 125 mls/hr IV ASDIRECTED [facility] Stop: 11/05/18 23:52 Last Admin: 11/05/18 20:00 Dose: 125 mls/hr Azithromycin 250 mg/ Sodium (Chloride) 250 mls @ 250 mls/hr IV Q24H [facility] Last Admin: 11/07/18 12:49 Dose: 250 mls/hr Cefepime HCl 2 gm/ Premix 50 mls @ 100 mls/hr IV Q24H [facility] Last Admin: 11/07/18 11:30 Dose: 100 mls/hr Cefepime HCl 2 gm/ Premix 50 mls @ 100 mls/hr IV Q12H [facility] Last Admin: 11/08/18 23:11 Dose: 100 mls/hr Loperamide HCl (Imodium) 2 mg PO Q4H [facility] Last Admin: 11/08/18 06:13 Dose: Not Given Quetiapine Fumarate (Seroquel) 25 mg PO ONETIME ONE Stop: 11/05/18 22:31 Last Admin: 11/05/18 22:55 Dose: 25 mg
[2018-11-13] MEDS: fentaNYL 50 MCG/HR Transdermal Patch TRDERM SCH (11:51)
[2018-11-13 11:54] VITALS: BP 125/92
== END 2018-11-13 14:20 | DRG 871 ==
LOC: MW.ED 17:47 → MW.MS 19:34
PROVIDERS: ADMIT Internal Medicine; ATTEND Internal Medicine
DX: A41.9 Sepsis, unspecified organism (principal); N30.01 Acute cystitis with hematuria; J18.1 Lobar pneumonia, unspecified organism; C90.00 Multiple myeloma not having achieved remission; N17.9 Acute kidney failure, unspecified; D68.32 Hemorrhagic disorder due to extrinsic circulating anticoagulants; N39.0 Urinary tract infection, site not specified; D63.0 Anemia in neoplastic disease; K58.9 Irritable bowel syndrome, unspecified; E11.40 Type 2 diabetes mellitus with diabetic neuropathy, unspecified; I50.9 Heart failure, unspecified; M19.90 Unspecified osteoarthritis, unspecified site; E03.9 Hypothyroidism, unspecified; K21.9 Gastro-esophageal reflux disease without esophagitis; H54.7 Unspecified visual loss; E78.5 Hyperlipidemia, unspecified; F03.90 Unspecified dementia, unspecified severity, without behavioral disturbance, psychotic disturbance, mood disturbance, and anxiety; R31.9 Hematuria, unspecified; T45.515A Adverse effect of anticoagulants, initial encounter; B96.5 Pseudomonas (aeruginosa) (mallei) (pseudomallei) as the cause of diseases classified elsewhere; Z86.718 Personal history of other venous thrombosis and embolism; Z87.440 Personal history of urinary (tract) infections; Z87.442 Personal history of urinary calculi; R07.9 Chest pain, unspecified; R53.1 Weakness; R41.0 Disorientation, unspecified; I95.9 Hypotension, unspecified; Z88.2 Allergy status to sulfonamides; Z88.8 Allergy status to other drugs, medicaments and biological substances; Z88.1 Allergy status to other antibiotic agents; Z88.5 Allergy status to narcotic agent; Z91.013 Allergy to seafood; Z79.899 Other long term (current) drug therapy; Z79.82 Long term (current) use of aspirin; Z79.890 Hormone replacement therapy; Z90.5 Acquired absence of kidney
CPT/HCPCS: 36415; 71045; 80053; 81001; 83605; 83880; 84484; 85025; 87040 ×2; 87086; 87088; 87186; 93005; 96360; 99285; J7040; 80048; 97161-GP; A9270-GY; J0456; J0692; J1644; J7050

== ENCOUNTER 2018-12-27 22:47 | Observation (INO) | payer MEDICARE, OTHER ==
[2018-12-27] MEDS ORDERED: Sodium Chloride 0.9% 2.5 ML Syringe FLUSH PRN (22:54)
[2018-12-27] MEDS ORDERED: Sodium Chloride 0.9% 10 ML Syringe FLUSH PRN (22:54)
[2018-12-27] MEDS ORDERED: Sodium Chloride 0.9% 1,000 ML IV SCH (23:00)
--- NOTE | 2018-12-27 23:03 | EDM.PDOC ---
ED HPI GENERAL MEDICAL PROBLEM - General Chief Complaint: Trauma Stated Complaint: LOW BLOOD PRESSURE Time Seen by Provider: 12/27/18 22:52 - History of Present Illness INITIAL COMMENTS - FREE TEXT/NARRATIVE: HISTORY AND PHYSICAL: History of present illness: The patient is a 78-year-old female who resides at [facility] has a history of chronic renal disease stage III dementia hypothyroidism CHF hyperlipidemia neuropathy hypertension multiple myeloma stage III multiple UTIs who was admitted here last October from November 05 to November 13 for sepsis from a UTI as well as hypotension and confusion who presents via EMS after noted I staffed this evening to be confused and having a low O2 sat. According to the report from EMS patient played bingo today and was acting at her baseline and then went off the bed and once staff checked on her this evening they noted her to be confused and have a low O2 sat. They also noted that she was hypotensive with systolic pressure in the 80s. The patient is a code 3 status. The patient here in the ED does not offer any history as she is unable and will only answer very simple commands. With the skilled nursing did not tell us in their verbal report via phone and did not inform EMS is that she did sustain a fall last evening from her own height at 2:30 AM, about 21 hours ago, but they reported that she had no evidence of any injuries and she denied any injuries and she denied hitting her head. Patient is on a baby aspirin once a day so as a result of this the case was called as a trauma alert. There was no report of any fever today nausea vomiting and the patient has chronic Otoniel bandages and dressings on her legs due to a history of cellulitis and edema. All history is from the skilled nursing notes, prior admissions that I have reviewed, and the EMS report as the patient does not offer any information. According to the patient's medication list she does use a fentanyl patch for chronic neuropathy Review of systems: As per history of present illness and below otherwise all systems reviewed and negative. Past medical history: As per history of present illness and as reviewed below otherwise noncontributory. Surgical history: As per history of present illness and as reviewed below otherwise noncontributory. Social history: No reported history of drug or alcohol abuse. Family history: As per history of present illness and as reviewed below otherwise noncontributory. Physical exam: General: Well-developed well-nourished female who is nontoxic in response to painful stimuli and will answer certain questions but overall eats her eyes closed and is maintaining her airway. Her O2 sat is variable and was in the 70s on room air but when she opens her eyes and take some deep breaths and will go up to the 80s. She is not hypotensive here on initial triage blood pressure. The patient's fentanyl patch that was seen on her back was removed by nursing. HEENT: Atraumatic, normocephalic, pupils reactive but only several millimeters and size and equal bilaterally, negative for conjunctival pallor or scleral icterus, mucous membranes moist, throat clear, neck supple, nontender, trachea midline. Lungs: Very diminished breath sounds throughout and poor effort but no overt wheezing stridor or work of breathing breath sounds equal bilaterally, chest nontender. A port is seen in the left medial anterior chest wall Heart: S1S2, regular, negative for clicks, rubs, or JVD. Abdomen: Soft, nondistended, nontender. Negative for masses or hepatosplenomegaly. Bowel sounds are hypoactive Pelvis: Stable nontender. Genitourinary: Deferred. Rectal: Deferred. Extremities: Atraumatic appearing with some chronic arthritic changes seen at the knees but there is no evidence of any bony deformities defects or soft tissue swelling or any ecchymosis or abrasions seen on all extremities. The legs were wrapped with an Otoniel bandage over web roll likely due to the patient's chronic cellulitis and edema and those were removed and there was no evidence of any skin breaks or, pitting edema. There are chronic skin changes seen on bilateral anterior legs. Neurovascular unremarkable. Neuro: Awake when aroused and was painful stimuli but otherwise the patient keeps her eyes closed. She does move all extremities. Motor and sensory grossly unremarkable throughout. Exam nonfocal. Skin: There are no overt rashes or lesions and no evidence of any trauma is seen. Turgor is slightly diminished Diagnostics: EKG CBC CMP BNP INR troponin TSH UA urine culture and blood cultures lactic acid CT scan of the head chest and pelvis x-ray Therapeutics: IV O2 monitor IV fluids and Rocephin Due to the fall at 2:30 this morning, although that is not why the patient was sent here, and the patient's use of a baby aspirin daily basis called as a trauma alert. The trauma surgeon Dr. Chirinos will be involved as needed pending these results. From the documentation from the skilled nursing the patient was assessed after this fall, which was a simple fall from her own height, and she had no complaints of any pain no evidence of any injuries and she denied hitting her head. Patient was hypertensive on arrival and throughout initial evaluation and imaging patient remained hypertensive and now has become hypotensive. We will give a small fluid bolus and continue to monitor this. Patient's labs from today were compared with prior and her hemoglobin is stable but her BUN and creatinine are rising with a BUN today of 40 and a creatinine of 2.0, with a larger BUN rise than creatinine. Her BNP is only 225 so I will feel more comfortable giving IV fluids. We are currently awaiting the urine sample and will contact Dr. Stevens for further disposition. 2350: I was assisting with the straight catheter or the urine and the patient is now acting much more appropriately apologizing for having stool in her depends and telling us what is hurting her when we are trying to position her. She says that she has chronic leg pain. She is much more awake and interactive now. 0012: Patient is no longer requiring oxygen and is now at 100% on room air and is speaking interactive Li and appropriately with her grandson apologizing for making him come to the hospital and answering questions appropriately. We'll continue to monitor her blood pressure. Nursing contacted [facility] to ask what her baseline blood pressure is and they say it is 110/70. We also asked more details about the events of the fall and she only slid off the recliner and did not hit her head. They said that over the last 2 days she has run 90s/60s which was lower for her but when they transferred her tonight her systolic was in the 80s. 0025: Case was discussed with Dr. Stevens who accepts the patient for observation admission and is aware of the patient's significant improvement here. He would like her to be on telemetry. I will also contact our trauma surgeon Dr. Chirinos just so he is aware of this case and it was called as a trauma alert and she is being admitted for medical reasons. She currently has no traumatic injuries Impression: Altered mental status improving, hypotension, hypoxia improving Definitive disposition and diagnosis as appropriate pending reevaluation and review of above. - Related Data Allergies Allergy/AdvReac Type Severity Reaction Status Date / Time ciprofloxacin HCl Allergy Airway Verified 12/27/18 23:29 [From Cipro] Tightness codeine Allergy Airway Verified 12/27/18 23:29 Tightness iodine Allergy Unknown Verified 12/27/18 23:29 lenalidomide [From Revlimid] Allergy Airway Verified 12/27/18 23:29 Tightness shellfish derived Allergy Unknown Verified 12/27/18 23:29 Sulfa (Sulfonamide Allergy Unknown Verified 12/27/18 23:29 Antibiotics) Home Meds: Home Meds Acyclovir 400 mg PO BID 09/24/18 [History] Aspirin 81 mg PO DAILY 09/24/18 [History] Escitalopram [Lexapro] 10 mg PO BEDTIME 09/24/18 [History] Famotidine [Pepcid] 20 mg PO DAILY 09/24/18 [History] Furosemide 40 mg PO DAILY 09/24/18 [History] Gabapentin [Neurontin] 900 mg PO TID 09/24/18 [History] Levothyroxine [Levothroid] 300 mcg PO DAILY 09/24/18 [History] Lisinopril 20 mg PO DAILY 09/24/18 [History] Loperamide [Imodium] 2 mg PO Q4H PRN 09/24/18 [History] Potassium Chloride 10 meq PO TID 09/24/18 [History] atorvaSTATin Calcium [Atorvastatin Calcium] 10 mg PO BEDTIME 09/24/18 [History] fentaNYL [Duragesic] 50 mcg TD Q72H 09/24/18 [History] oxyCODONE HCl/Acetaminophen [Oxycodone-Acetaminophen 10-300] 10 - 325 mg PO Q4HR 09/24/18 [History] QUEtiapine [SEROquel] 25 mg PO BEDTIME 11/05/18 [History] Calcium Carb & Citrate/Vit D3 [Citracal + D ER] 1 tab PO DAILY 11/13/18 [History ] Chlorpheniramine Maleate 4 mg PO ASDIRECTED 11/13/18 [History] Cholecalciferol (Vitamin D3) [Vitamin D3] 5,000 unit PO DAILY 11/13/18 [History] Fexofenadine [Lesley] 180 mg PO DAILY PRN 11/13/18 [History] Latanoprost/Pf [Latanoprost 0.005% Eye Drop] 1 drop EYEBOTH BEDTIME 11/13/18 [ History] Past Medical History HEENT History: Reports: Cataract, Glaucoma, Impaired Vision Cardiovascular History: Reports: Blood Clots/VTE/DVT, Heart Failure, Hypertension Other Cardiovascular History: blood clots behind left knee Respiratory History: Reports: None Other Respiratory History: Hx of pneumonia Gastrointestinal History: Reports: GERD, Hiatal Hernia, Irritable Bowel Syndrome Genitourinary History: Reports: Acute Renal Failure, Renal Calculus, UTI, Recurrent Other Genitourinary History: Hx of renal failure, no longer in failure [employer] History: Reports: Musculoskeletal History: Reports: Arthritis, Fracture Other Musculoskeletal History: 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 Neurological History: Reports: None Psychiatric History: Reports: Anxiety Endocrine/Metabolic History: Reports: Diabetes, Type II, Hypothyroidism Other Endocrine/Metabolic History: History of Diabetes, Not currently an issue. Hematologic History: Reports: Anemia Immunologic History: Reports: None Oncologic (Cancer) History: Reports: Bone Other Oncologic History: multiple myeloma, Stage III Dermatologic History: Reports: Cellulitis - Infectious Disease History Infectious Disease History: Reports: Chicken Pox, Measles, Shingles, Other (See Below) Other Infectious Disease History: MSSA - Past Surgical History HEENT Surgical History: Reports: Eye Surgery Female Surgical History: Reports: Nephrectomy Musculoskeletal Surgical History: Reports: Carpal Tunnel, Other (See Below) Social & Family History - Family History Family Medical History: Noncontributory HEENT: Reports: Impaired Vision Cardiac: Reports: Heart Failure Respiratory: Reports: Asthma OBGYN: Reports: Musculoskeletal: Reports: Arthritis, Gout Neurological: Reports: Cerebral Aneurysms Endocrine/Metabolic: Reports: Diabetes, type II Oncologic: Reports: Breast, Colon, Liver - Caffeine Use Caffeine Use: Reports: Soda Other Caffeine Use: 1-2 cups daily Review of Systems - Review of Systems Review Of Systems: ROS reveals no pertinent complaints other than HPI. ED EXAM, GENERAL - Physical Exam Exam: See Below (See dictation) Course - Vital Signs Last Recorded V/S: Last Vital Signs Temp 37.4 C 12/27/18 22:47 Pulse 83 12/27/18 22:47 Resp 20 12/27/18 22:47 BP 213/191 H 12/27/18 22:47 Pulse Ox 99 12/27/18 23:28 - Orders/Labs/Meds Orders: Active Orders 24 hr Category Date Time Status Patient Status [ADT] Stat ADT 12/28/18 00:27 Ordered Cardiac Monitoring [RC] . DIRECTED Care 12/27/18 22:53 Active EKG Documentation Completion [RC] STAT Care 12/27/18 22:53 Active Oxygen Therapy, ED [RC] ASDIRECTED Care 12/27/18 22:53 Active Pulse Oximetry [RC] ASDIRECTED Care 12/27/18 22:53 Active CULTURE BLOOD [BC] Stat Lab 12/27/18 22:50 Received CULTURE BLOOD [BC] Stat Lab 12/27/18 23:26 Received CULTURE URINE [RM] Stat Lab 12/27/18 23:49 Received Sodium Chloride 0.9% [Normal Saline] 1,000 ml Med 12/27/18 23:00 Active IV ASDIRECTED Sodium Chloride 0.9% [Saline Flush] Med 12/27/18 22:54 Active 10 ml FLUSH ASDIRECTED PRN Sodium Chloride 0.9% [Saline Flush] Med 12/27/18 22:54 Active 2.5 ml FLUSH ASDIRECTED PRN cefTRIAXone [Rocephin in Dextrose,Iso-Osm 1 GM/50 ML] 1 Med 12/28/18 00:02 Active gm Premix Bag 1 bag IV ONETIME Blood Culture x2 Reflex Set [OM.PC] Stat Oth 12/27/18 22:53 Ordered Saline Lock Insert [OM.PC] Stat Oth 12/27/18 22:53 Ordered Medication Orders Sodium Chloride (Normal Saline) 1,000 mls @ 70 mls/hr IV ASDIRECTED [facility] Last Admin: 12/27/18 23:26 Dose: 70 mls/hr Ceftriaxone Sodium/Dextrose 1 (gm/ Premix) 50 mls @ 100 mls/hr IV ONETIME ONE Stop: 12/28/18 00:31 Last Admin: 12/28/18 00:17 Dose: 100 mls/hr Sodium Chloride (Saline Flush) 10 ml FLUSH ASDIRECTED PRN PRN Reason: Keep Vein Open Sodium Chloride (Saline Flush) 2.5 ml FLUSH ASDIRECTED PRN PRN Reason: Keep Vein Open Labs: Laboratory Tests 12/27/18 12/27/18 12/27/18 Range/Units 22:50 22:50 22:50 WBC 8.39 (4.0-11.0) K/uL RBC 3.76 L (4.30-5.90) M/uL Hgb 10.5 L (12.0-16.0) g/dL Hct 34.4 L (36.0-46.0) % MCV 91.5 (80.0-98.0) fL MCH 27.9 (27.0-32.0) pg MCHC 30.5 L (31.0-37.0) g/dL RDW Std Deviation 57.0 (28.0-62.0) fl RDW Coeff of Antony 17 H (11.0-15.0) % Plt Count 188 (150-400) K/uL MPV 10.00 (7.40-12.00) fL Neut % (Auto) 69.2 (48.0-80.0) % Lymph % (Auto) 18.8 (16.0-40.0) % Freestone % (Auto) 9.5 (0.0-15.0) % Eos % (Auto) 2.4 (0.0-7.0) % Baso % (Auto) 0.1 (0.0-1.5) % Neut # (Auto) 5.8 H (1.4-5.7) K/uL Lymph # (Auto) 1.6 (0.6-2.4) K/uL Freestone # (Auto) 0.8 (0.0-0.8) K/uL Eos # (Auto) 0.2 (0.0-0.7) K/uL Baso # (Auto) 0.0 (0.0-0.1) K/uL Nucleated RBC % 0.0 /100WBC Nucleated RBCs # 0 K/uL INR 1.00 Lactate (0.20-2.00) mmol/L Sodium 138 (136-145) mmol/L Potassium 5.8 H (3.5-5.1) mmol/L Chloride 104 (98-107) mmol/L Carbon Dioxide 26.4 (21.0-32.0) mmol/L BUN 40 H (7.0-18.0) mg/dL Creatinine 2.0 H (0.6-1.0) mg/dL Est Cr Clr Drug Dosing TNP Estimated GFR (MDRD) 24.2 ml/min Glucose 102 (74-106) mg/dL Calcium 9.1 (8.5-10.1) mg/dL Total Bilirubin 0.3 (0.2-1.0) mg/dL AST 14 L (15-37) IU/L ALT 10 L (14-63) IU/L Alkaline Phosphatase 73 (46-116) U/L Troponin I < 0.050 (0.000-0.056) ng/mL B-Natriuretic Peptide (<100) PG/ML Total Protein 6.3 L (6.4-8.2) g/dL Albumin 3.0 L (3.4-5.0) g/dL Globulin 3.3 (2.6-4.0) g/dL Albumin/Globulin Ratio 0.9 (0.9-1.6) TSH 3rd Generation 0.28 L (0.36-3.74) uIU/mL Urine Color Urine Appearance Urine pH (5.0-8.0) Ur Specific Lucan (1.001-1.035) Urine Protein (NEGATIVE) mg/dL Urine Glucose (UA) (NEGATIVE) mg/dL Urine Ketones (NEGATIVE) mg/dL Urine Occult Blood (NEGATIVE) Urine Nitrite (NEGATIVE) Urine Bilirubin (NEGATIVE) Urine Urobilinogen (<2.0) EU/dL Ur Leukocyte Esterase (NEGATIVE) Urine RBC (0-2/HPF) Urine WBC (0-5/HPF) Ur Epithelial Cells (NONE-FEW) Urine Bacteria (NEGATIVE) 12/27/18 12/27/18 12/27/18 Range/Units 22:50 22:50 23:49 WBC (4.0-11.0) K/uL RBC (4.30-5.90) M/uL Hgb (12.0-16.0) g/dL Hct (36.0-46.0) % MCV (80.0-98.0) fL MCH (27.0-32.0) pg MCHC (31.0-37.0) g/dL RDW Std Deviation (28.0-62.0) fl RDW Coeff of Antony (11.0-15.0) % Plt Count (150-400) K/uL MPV (7.40-12.00) fL Neut % (Auto) (48.0-80.0) % Lymph % (Auto) (16.0-40.0) % Freestone % (Auto) (0.0-15.0) % Eos % (Auto) (0.0-7.0) % Baso % (Auto) (0.0-1.5) % Neut # (Auto) (1.4-5.7) K/uL Lymph # (Auto) (0.6-2.4) K/uL Freestone # (Auto) (0.0-0.8) K/uL Eos # (Auto) (0.0-0.7) K/uL Baso # (Auto) (0.0-0.1) K/uL Nucleated RBC % /100WBC Nucleated RBCs # K/uL INR Lactate 0.8 (0.20-2.00) mmol/L Sodium (136-145) mmol/L Potassium (3.5-5.1) mmol/L Chloride (98-107) mmol/L Carbon Dioxide (21.0-32.0) mmol/L BUN (7.0-18.0) mg/dL Creatinine (0.6-1.0) mg/dL Est Cr Clr Drug Dosing Estimated GFR (MDRD) ml/min Glucose (74-106) mg/dL Calcium (8.5-10.1) mg/dL Total Bilirubin (0.2-1.0) mg/dL AST (15-37) IU/L ALT (14-63) IU/L Alkaline Phosphatase (46-116) U/L Troponin I (0.000-0.056) ng/mL B-Natriuretic Peptide 225 H (<100) PG/ML Total Protein (6.4-8.2) g/dL Albumin (3.4-5.0) g/dL Globulin (2.6-4.0) g/dL Albumin/Globulin Ratio (0.9-1.6) TSH 3rd Generation (0.36-3.74) uIU/mL Urine Color YELLOW Urine Appearance CLEAR Urine pH 5.5 (5.0-8.0) Ur Specific Lucan 1.025 (1.001-1.035) Urine Protein TRACE H (NEGATIVE) mg/dL Urine Glucose (UA) NEGATIVE (NEGATIVE) mg/dL Urine Ketones NEGATIVE (NEGATIVE) mg/dL Urine Occult Blood NEGATIVE (NEGATIVE) Urine Nitrite NEGATIVE (NEGATIVE) Urine Bilirubin SMALL H (NEGATIVE) Urine Urobilinogen 0.2 (<2.0) EU/dL Ur Leukocyte Esterase NEGATIVE (NEGATIVE) Urine RBC 0-1 (0-2/HPF) Urine WBC 0-1 (0-5/HPF) Ur Epithelial Cells RARE (NONE-FEW) Urine Bacteria RARE (NEGATIVE) Meds: Medications Generic Name Dose Route Start Last Admin Trade Name Freq PRN Reason Stop Dose Admin Sodium Chloride 1,000 mls @ 70 mls/hr 12/27/18 23:00 12/27/18 23:26 Normal Saline IV 70 mls/hr ASDIRECTED ARMIDA Administration Ceftriaxone Sodium/Dextrose 1 50 mls @ 100 mls/hr 12/28/18 00:02 12/28/18 00: 17 gm/ Premix IV 12/28/18 00:31 100 mls/hr ONETIME ONE Administration Sodium Chloride 10 ml 12/27/18 22:54 Saline Flush FLUSH ASDIRECTED PRN Keep Vein Open Sodium Chloride 2.5 ml 12/27/18 22:54 Saline Flush FLUSH ASDIRECTED PRN Keep Vein Open Departure - Departure Time of Disposition: 00:28 Disposition: Refer to Observation Condition: Fair Clinical Impression: Hypotension Qualifiers: Hypotension type: unspecified hypotension type Qualified Code(s): I95.9 - Hypotension, unspecified Altered mental status Qualifiers: Altered mental status type: unspecified Qualified Code(s): R41.82 - Altered mental status, unspecified - Discharge Information Referrals: Jazmín Brannon DO [Primary Care Provider] - Forms: ED Department Discharge - My Orders Last 24 Hours: My Active Orders 12/27/18 22:50 CULTURE BLOOD [BC] Stat 12/27/18 22:53 Cardiac Monitoring [RC] . DIRECTED EKG Documentation Completion [RC] STAT Oxygen Therapy, ED [RC] ASDIRECTED Pulse Oximetry [RC] ASDIRECTED Blood Culture x2 Reflex Set [OM.PC] Stat Saline Lock Insert [OM.PC] Stat 12/27/18 22:54 Sodium Chloride 0.9% [Saline Flush] 10 ml FLUSH ASDIRECTED PRN Sodium Chloride 0.9% [Saline Flush] 2.5 ml FLUSH ASDIRECTED PRN 12/27/18 23:00 Sodium Chloride 0.9% [Normal Saline] 1,000 ml IV ASDIRECTED 12/27/18 23:26 CULTURE BLOOD [BC] Stat 12/27/18 23:49 CULTURE URINE [RM] Stat 12/28/18 00:02 cefTRIAXone [Rocephin in Dextrose,Iso-Osm 1 GM/50 ML] 1 gm Premix Bag 1 bag IV ONETIME 12/28/18 00:27 Patient Status [ADT] Stat - Assessment/Plan Last 24 Hours: My Active Orders 12/27/18 22:50 CULTURE BLOOD [BC] Stat 12/27/18 22:53 Cardiac Monitoring [RC] . DIRECTED EKG Documentation Completion [RC] STAT Oxygen Therapy, ED [RC] ASDIRECTED Pulse Oximetry [RC] ASDIRECTED Blood Culture x2 Reflex Set [OM.PC] Stat Saline Lock Insert [OM.PC] Stat 12/27/18 22:54 Sodium Chloride 0.9% [Saline Flush] 10 ml FLUSH ASDIRECTED PRN Sodium Chloride 0.9% [Saline Flush] 2.5 ml FLUSH ASDIRECTED PRN 12/27/18 23:00 Sodium Chloride 0.9% [Normal Saline] 1,000 ml IV ASDIRECTED 12/27/18 23:26 CULTURE BLOOD [BC] Stat 12/27/18 23:49 CULTURE URINE [RM] Stat 12/28/18 00:02 cefTRIAXone [Rocephin in Dextrose,Iso-Osm 1 GM/50 ML] 1 gm Premix Bag 1 bag IV ONETIME 12/28/18 00:27 Patient Status [ADT] Stat
--- NOTE | 2018-12-27 23:27 | CT ---
INDICATION: Fall, unresponsive. TECHNIQUE: CT head without contrast. COMPARISON: Head CT 09/07/2018 FINDINGS: CSF spaces: Within normal limits for age. Brain parenchyma: No intracranial bleed or mass effect. Moderate to extensive low density throughout the deep white matter. Cote-white differentiation is distinct. Skull base and calvarium: Mucous retention cyst right maxillary sinuses. The visualized orbits are grossly unremarkable. No skull fractures. IMPRESSION: 1. No intracranial bleed or mass effect. 2. Nonspecific white matter disease, likely microangiopathy. Please note that all CT scans at this facility use dose modulation, iterative reconstruction, and/or weight-based dosing when appropriate to reduce radiation dose to as low as reasonably achievable. Dictated by Reza Luis MD @ Dec 27 2018 11:18PM Signed by Dr. Reza Luis @ Dec 27 2018 11:25PM
[2018-12-27 23:31] LABS: CHLORIDE,CL 104 mmol/L (98-107); SODIUM,NA 138 mmol/L (136-145)
--- NOTE | 2018-12-27 23:31 | CR ---
INDICATION: Pelvis injury from fall 21 hrs ago TECHNIQUE: Pelvis radiograph 1 view on 2 films COMPARISON: None FINDINGS: Bone: No acute fractures or aggressive bone lesions are identified. Joint: The hip joint is unremarkable. The visualized sacroiliac joints are unremarkable in appearance. The pubic symphysis is normal in appearance. Soft tissue: Unremarkable. The visualized bowel gas pattern of the pelvis is unremarkable in appearance. No radiopaque foreign bodies are seen. IMPRESSION: 1. No acute osseous injuries or abnormalities are noted. If there is pain or tenderness over the hips, dedicated views of the hips are recommended. Dictated by Timothy Gibson MD @ 12/27/2018 11:30:17 PM Dictated by: Timothy Gibson MD @ 12/27/2018 23:30:24 (Electronically Signed)
--- NOTE | 2018-12-27 23:31 | CR ---
INDICATION: Chest injury from fall 21 hrs ago TECHNIQUE: Chest radiograph 2 views COMPARISON: 11/05/2018 FINDINGS: Moderate degradation of image quality noted due to body habitus. Mediastinum: The mediastinum is normal in appearance. The heart silhouette is normal in size and morphology. Left Port-A-Cath present without interval change. Lung: Coarse interstitial opacities and patchy consolidation is seen in the right lower lung zone without interval change. Mild bibasilar pulmonary fibrosis seen. No sign of pleural effusion seen. No pneumothorax is identified. 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 IMPRESSION: 1. Coarse interstitial opacities and patchy consolidation is seen in the right lower lung zone without interval change. Findings may be due to scarring and/or atelectasis. Dictated by Timothy Gibson MD @ 12/27/2018 11:29:28 PM Dictated by: Timothy Gibson MD @ 12/27/2018 23:29:37 (Electronically Signed)
[2018-12-28] MEDS ORDERED: cefTRIAXone 1 GM in Premix Bag 1 BAG IV ONE (00:02)
--- NOTE | 2018-12-28 08:11 | PCM.HP ---
H&P History of Present Illness - General Date of Service: 12/28/18 Admit Problem/Dx: Admission Diagnosis/Problem Admission Diagnosis/Problem Altered mental status Source of Information: Patient, Family History Limitations: Reports: No Limitations - History of Present Illness Initial Comments - Free Text/Narative: This 78 year old female with pmh of multiple myeloma, chronic pain, DM type 2 and CHF presented to the ED last night from [facility] for low blood pressure, tremors and being unresponsive. Leena remembers nothing from last night. Family reports they were called by [facility] because she was unresponsive. They report this happens when she has an infection such as UTI or pneumonia. She does have chronic pain which is treated with Fentanyl patch. She reportedly had a fall, where she slid out of her chair, not hitting her head. She reports she is feeling well this morning, with some pain to her legs this morning. She denies recent chest pain or palpitations. She reports recent cough with yellow phlegm. No fevers. No abdominal pain. No other complaints. Daughters at bedside. Educated on holding pain meds due to confusion and unresponsiveness. In the ED No leukocytosis noted, hgb 10.5. K+ 5.8, BUN 40, Cr 2.0, which is slightly elevated from baseline. UA negative. CXR coarse interstitial opacities and patchy consolidation is seen in R lower lung zone without interval change, possibly scarring and atelectasis. She was treated with Rocephin in the ED. Hypotension noted as well and treated with small fluid bolus which she responded to well. Fentanyl patch removed in ED and she became more alert. Pelvix xray negative as well as head CT was negative. She will be admitted for hypotension and unresponsiveness. no pain Pain Score (Numeric/FACES): 3 - Related Data Allergies/Adverse Reactions: Allergies Allergy/AdvReac Type Severity Reaction Status Date / Time ciprofloxacin HCl Allergy Airway Verified 12/27/18 23:29 [From Cipro] Tightness codeine Allergy Airway Verified 12/27/18 23:29 Tightness iodine Allergy Unknown Verified 12/27/18 23:29 lenalidomide [From Revlimid] Allergy Airway Verified 12/27/18 23:29 Tightness shellfish derived Allergy Unknown Verified 12/27/18 23:29 Sulfa (Sulfonamide Allergy Unknown Verified 12/27/18 23:29 Antibiotics) Home Medications: Home Meds Acyclovir 400 mg PO BID 09/24/18 [History] Aspirin 81 mg PO DAILY 09/24/18 [History] Escitalopram [Lexapro] 10 mg PO BEDTIME 09/24/18 [History] Famotidine [Pepcid] 20 mg PO DAILY 09/24/18 [History] Furosemide 40 mg PO DAILY 09/24/18 [History] Gabapentin [Neurontin] 900 mg PO TID 09/24/18 [History] Levothyroxine [Levothroid] 300 mcg PO DAILY 09/24/18 [History] Lisinopril 20 mg PO DAILY 09/24/18 [History] Loperamide [Imodium] 2 mg PO Q4H PRN 09/24/18 [History] Potassium Chloride 10 meq PO TID 09/24/18 [History] atorvaSTATin Calcium [Atorvastatin Calcium] 10 mg PO BEDTIME 09/24/18 [History] fentaNYL [Duragesic] 50 mcg TD Q72H 09/24/18 [History] oxyCODONE HCl/Acetaminophen [Oxycodone-Acetaminophen 10-300] 10 - 325 mg PO Q4HR 09/24/18 [History] QUEtiapine [SEROquel] 25 mg PO BEDTIME 11/05/18 [History] Calcium Carb & Citrate/Vit D3 [Citracal + D ER] 1 tab PO DAILY 11/13/18 [History ] Chlorpheniramine Maleate 4 mg PO ASDIRECTED 11/13/18 [History] Cholecalciferol (Vitamin D3) [Vitamin D3] 5,000 unit PO DAILY 11/13/18 [History] Fexofenadine [Lesley] 180 mg PO DAILY PRN 11/13/18 [History] Latanoprost/Pf [Latanoprost 0.005% Eye Drop] 1 drop EYEBOTH BEDTIME 11/13/18 [ History] Past Medical History HEENT History: Reports: Cataract, Glaucoma, Impaired Vision Cardiovascular History: Reports: Blood Clots/VTE/DVT, Heart Failure, Hypertension Other Cardiovascular History: blood clots behind left knee Respiratory History: Reports: None Other Respiratory History: Hx of pneumonia Gastrointestinal History: Reports: GERD, Hiatal Hernia, Irritable Bowel Syndrome Genitourinary History: Reports: Acute Renal Failure, Renal Calculus, UTI, Recurrent Other Genitourinary History: Hx of renal failure, no longer in failure 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 Neurological History: Reports: None Other Neuro History: dementia Psychiatric History: Reports: Anxiety Endocrine/Metabolic History: Reports: Diabetes, Type II, Hypothyroidism Other Endocrine/Metabolic History: History of Diabetes, Not currently an issue. Hematologic History: Reports: Anemia Immunologic History: Reports: None Oncologic (Cancer) History: Reports: Bone Other Oncologic History: multiple myeloma, Stage III, last tx Aug 2018 Dermatologic History: Reports: Cellulitis Other Dermatologic History: BLE - Infectious Disease History Infectious Disease History: Reports: Chicken Pox, Measles, Shingles, Other (See Below) Other Infectious Disease History: MSSA - Past Surgical History HEENT Surgical History: Reports: Eye Surgery Female Surgical History: Reports: Nephrectomy Musculoskeletal Surgical History: Reports: Carpal Tunnel, Other (See Below) Social & Family History - Family History Family Medical History: Noncontributory HEENT: Reports: Impaired Vision Cardiac: Reports: Heart Failure Respiratory: Reports: Asthma OBGYN: Reports: Musculoskeletal: Reports: Arthritis, Gout Neurological: Reports: Cerebral Aneurysms Endocrine/Metabolic: Reports: Diabetes, type II Oncologic: Reports: Breast, Colon, Liver - Tobacco Use Smoking Status *Q: Former Smoker Years of Tobacco use: 30 Used Tobacco, but Quit: Yes Month/Year Tobacco Last Used: 1988 - Caffeine Use Caffeine Use: Reports: Coffee Other Caffeine Use: 1-2 cups daily - Alcohol Use Alcohol Use History: No - Recreational Drug Use Recreational Drug Use: No H&P Review of Systems - Review of Systems: Review Of Systems: See Below General: Reports: Malaise, Fatigue. Denies: Fever, Chills HEENT: Reports: No Symptoms. Denies: Headaches, Sinus Congestion, Sore Throat Pulmonary: Reports: Cough, Sputum. Denies: Hemoptysis Cardiovascular: Reports: No Symptoms. Denies: Chest Pain, Edema Gastrointestinal: Reports: No Symptoms. Denies: Abdominal Pain, Distension, Nausea, Vomiting Genitourinary: Reports: No Symptoms. Denies: Dysuria, Frequency, Burning Musculoskeletal: Reports: No Symptoms. Denies: Neck Pain Skin: Reports: No Symptoms Psychiatric: Reports: No Symptoms Neurological: Reports: No Symptoms Hematologic/Lymphatic: Reports: No Symptoms Immunologic: Reports: No Symptoms Exam - Exam Exam: See Below - Vital Signs Vital Signs: Last Vital Signs Temp 97.1 F 12/28/18 07:42 Pulse 86 12/28/18 07:42 Resp 18 12/28/18 07:42 BP 83/51 L 12/28/18 07:42 Pulse Ox 96 12/28/18 07:42 Weight: 86 kg - Exam General: Alert, Oriented, Cooperative HEENT: Conjunctiva Clear, Mucosa Moist & [place], Posterior Pharynx Clear Neck: Supple Lungs: Normal Respiratory Effort, Crackles (R basilar) Cardiovascular: Regular Rate, Regular Rhythm, Normal S1, Normal S2 GI/Abdominal Exam: Normal Bowel Sounds, Soft, Non-Tender Extremities: Normal Inspection, Normal Range of Motion, Non-Tender, Pedal Edema (+1 non pitting BLE) Skin: Warm, Dry Neuro Extensive - Mental Status: Alert, Oriented x3, Normal Mood/Affect Neuro Extensive - Motor, Sensory, Reflexes: CN II-XII Intact Psychiatric: Alert, Normal Affect, Normal Mood - Patient Data Lab Results Last 24 hrs: Laboratory Results - last 24 hr 12/27/18 12/27/18 12/27/18 Range/Units 22:50 22:50 22:50 WBC 8.39 (4.0-11.0) K/uL RBC 3.76 L (4.30-5.90) M/uL Hgb 10.5 L (12.0-16.0) g/dL Hct 34.4 L (36.0-46.0) % MCV 91.5 (80.0-98.0) fL MCH 27.9 (27.0-32.0) pg MCHC 30.5 L (31.0-37.0) g/dL RDW Std Deviation 57.0 (28.0-62.0) fl RDW Coeff of Antony 17 H (11.0-15.0) % Plt Count 188 (150-400) K/uL MPV 10.00 (7.40-12.00) fL Neut % (Auto) 69.2 (48.0-80.0) % Lymph % (Auto) 18.8 (16.0-40.0) % Bladen % (Auto) 9.5 (0.0-15.0) % Eos % (Auto) 2.4 (0.0-7.0) % Baso % (Auto) 0.1 (0.0-1.5) % Neut # (Auto) 5.8 H (1.4-5.7) K/uL Lymph # (Auto) 1.6 (0.6-2.4) K/uL Bladen # (Auto) 0.8 (0.0-0.8) K/uL Eos # (Auto) 0.2 (0.0-0.7) K/uL Baso # (Auto) 0.0 (0.0-0.1) K/uL Nucleated RBC % 0.0 /100WBC Nucleated RBCs # 0 K/uL INR 1.00 Lactate (0.20-2.00) mmol/L Sodium 138 (136-145) mmol/L Potassium 5.8 H (3.5-5.1) mmol/L Chloride 104 (98-107) mmol/L Carbon Dioxide 26.4 (21.0-32.0) mmol/L BUN 40 H (7.0-18.0) mg/dL Creatinine 2.0 H (0.6-1.0) mg/dL Est Cr Clr Drug Dosing TNP Estimated GFR (MDRD) 24.2 ml/min Glucose 102 (74-106) mg/dL POC Glucose (60-110) mg/dL Calcium 9.1 (8.5-10.1) mg/dL Total Bilirubin 0.3 (0.2-1.0) mg/dL AST 14 L (15-37) IU/L ALT 10 L (14-63) IU/L Alkaline Phosphatase 73 (46-116) U/L Troponin I < 0.050 (0.000-0.056) ng/mL B-Natriuretic Peptide (<100) PG/ML Total Protein 6.3 L (6.4-8.2) g/dL Albumin 3.0 L (3.4-5.0) g/dL Globulin 3.3 (2.6-4.0) g/dL Albumin/Globulin Ratio 0.9 (0.9-1.6) TSH 3rd Generation 0.28 L (0.36-3.74) uIU/mL Urine Color Urine Appearance Urine pH (5.0-8.0) Ur Specific [place] (1.001-1.035) Urine Protein (NEGATIVE) mg/dL Urine Glucose (UA) (NEGATIVE) mg/dL Urine Ketones (NEGATIVE) mg/dL Urine Occult Blood (NEGATIVE) Urine Nitrite (NEGATIVE) Urine Bilirubin (NEGATIVE) Urine Urobilinogen (<2.0) EU/dL Ur Leukocyte Esterase (NEGATIVE) Urine RBC (0-2/HPF) Urine WBC (0-5/HPF) Ur Epithelial Cells (NONE-FEW) Urine Bacteria (NEGATIVE) 12/27/18 12/27/18 12/27/18 Range/Units 22:50 22:50 23:49 WBC (4.0-11.0) K/uL RBC (4.30-5.90) M/uL Hgb (12.0-16.0) g/dL Hct (36.0-46.0) % MCV (80.0-98.0) fL MCH (27.0-32.0) pg MCHC (31.0-37.0) g/dL RDW Std Deviation (28.0-62.0) fl RDW Coeff of Antony (11.0-15.0) % Plt Count (150-400) K/uL MPV (7.40-12.00) fL Neut % (Auto) (48.0-80.0) % Lymph % (Auto) (16.0-40.0) % Bladen % (Auto) (0.0-15.0) % Eos % (Auto) (0.0-7.0) % Baso % (Auto) (0.0-1.5) % Neut # (Auto) (1.4-5.7) K/uL Lymph # (Auto) (0.6-2.4) K/uL Bladen # (Auto) (0.0-0.8) K/uL Eos # (Auto) (0.0-0.7) K/uL Baso # (Auto) (0.0-0.1) K/uL Nucleated RBC % /100WBC Nucleated RBCs # K/uL INR Lactate 0.8 (0.20-2.00) mmol/L Sodium (136-145) mmol/L Potassium (3.5-5.1) mmol/L Chloride (98-107) mmol/L Carbon Dioxide (21.0-32.0) mmol/L BUN (7.0-18.0) mg/dL Creatinine (0.6-1.0) mg/dL Est Cr Clr Drug Dosing Estimated GFR (MDRD) ml/min Glucose (74-106) mg/dL POC Glucose (60-110) mg/dL Calcium (8.5-10.1) mg/dL Total Bilirubin (0.2-1.0) mg/dL AST (15-37) IU/L ALT (14-63) IU/L Alkaline Phosphatase (46-116) U/L Troponin I (0.000-0.056) ng/mL B-Natriuretic Peptide 225 H (<100) PG/ML Total Protein (6.4-8.2) g/dL Albumin (3.4-5.0) g/dL Globulin (2.6-4.0) g/dL Albumin/Globulin Ratio (0.9-1.6) TSH 3rd Generation (0.36-3.74) uIU/mL Urine Color YELLOW Urine Appearance CLEAR Urine pH 5.5 (5.0-8.0) Ur Specific [place] 1.025 (1.001-1.035) Urine Protein TRACE H (NEGATIVE) mg/dL Urine Glucose (UA) NEGATIVE (NEGATIVE) mg/dL Urine Ketones NEGATIVE (NEGATIVE) mg/dL Urine Occult Blood NEGATIVE (NEGATIVE) Urine Nitrite NEGATIVE (NEGATIVE) Urine Bilirubin SMALL H (NEGATIVE) Urine Urobilinogen 0.2 (<2.0) EU/dL Ur Leukocyte Esterase NEGATIVE (NEGATIVE) Urine RBC 0-1 (0-2/HPF) Urine WBC 0-1 (0-5/HPF) Ur Epithelial Cells RARE (NONE-FEW) Urine Bacteria RARE (NEGATIVE) 12/28/18 Range/Units 03:57 WBC (4.0-11.0) K/uL RBC (4.30-5.90) M/uL Hgb (12.0-16.0) g/dL Hct (36.0-46.0) % MCV (80.0-98.0) fL MCH (27.0-32.0) pg MCHC (31.0-37.0) g/dL RDW Std Deviation (28.0-62.0) fl RDW Coeff of Antony (11.0-15.0) % Plt Count (150-400) K/uL MPV (7.40-12.00) fL Neut % (Auto) (48.0-80.0) % Lymph % (Auto) (16.0-40.0) % Bl[place] % (Auto) (0.0-15.0) % Eos % (Auto) (0.0-7.0) % Baso % (Auto) (0.0-1.5) % Neut # (Auto) (1.4-5.7) K/uL Lymph # (Auto) (0.6-2.4) K/uL [place] # (Auto) (0.0-0.8) K/uL Eos # (Auto) (0.0-0.7) K/uL Baso # (Auto) (0.0-0.1) K/uL Nucleated RBC % /100WBC Nucleated RBCs # K/uL INR Lactate (0.20-2.00) mmol/L Sodium (136-145) mmol/L Potassium (3.5-5.1) mmol/L Chloride (98-107) mmol/L Carbon Dioxide (21.0-32.0) mmol/L BUN (7.0-18.0) mg/dL Creatinine (0.6-1.0) mg/dL Est Cr Clr Drug Dosing Estimated GFR (MDRD) ml/min Glucose (74-106) mg/dL POC Glucose 105 (60-110) mg/dL Calcium (8.5-10.1) mg/dL Total Bilirubin (0.2-1.0) mg/dL AST (15-37) IU/L ALT (14-63) IU/L Alkaline Phosphatase (46-116) U/L Troponin I (0.000-0.056) ng/mL B-Natriuretic Peptide (<100) PG/ML Total Protein (6.4-8.2) g/dL Albumin (3.4-5.0) g/dL Globulin (2.6-4.0) g/dL Albumin/Globulin Ratio (0.9-1.6) TSH 3rd Generation (0.36-3.74) uIU/mL Urine Color Urine Appearance Urine pH (5.0-8.0) Ur Specific [place] (1.001-1.035) Urine Protein (NEGATIVE) mg/dL Urine Glucose (UA) (NEGATIVE) mg/dL Urine Ketones (NEGATIVE) mg/dL Urine Occult Blood (NEGATIVE) Urine Nitrite (NEGATIVE) Urine Bilirubin (NEGATIVE) Urine Urobilinogen (<2.0) EU/dL Ur Leukocyte Esterase (NEGATIVE) Urine RBC (0-2/HPF) Urine WBC (0-5/HPF) Ur Epithelial Cells (NONE-FEW) Urine Bacteria (NEGATIVE) Result Diagrams: 12/28/18 08:33 12/28/18 08:33 - Problem List (1) Altered mental status SNOMED Code(s): 921999231 ICD Code: R41.82 - ALTERED MENTAL STATUS, UNSPECIFIED Status: Acute Current Visit: Yes Qualifiers: Altered mental status type: unspecified Qualified Code(s): R41.82 - Altered mental status, unspecified (2) Hypotension SNOMED Code(s): 65132407 ICD Code: I95.9 - HYPOTENSION, UNSPECIFIED Status: Acute Current Visit: Yes Qualifiers: Hypotension type: unspecified hypotension type Qualified Code(s): I95.9 - Hypotension, unspecified (3) Pneumonia SNOMED Code(s): 926179578 ICD Code: J18.9 - PNEUMONIA, UNSPECIFIED ORGANISM Status: Resolved Priority: High Current Visit: No Qualifiers: Pneumonia type: due to unspecified organism Laterality: right Lung location: lower lobe of lung Qualified Code(s): J18.1 - Lobar pneumonia, unspecified organism (4) Congestive heart failure SNOMED Code(s): 31210628 ICD Code: I50.9 - HEART FAILURE, UNSPECIFIED Status: Chronic Current Visit: No Qualifiers: Heart failure type: systolic Heart failure chronicity: chronic Qualified Code(s): I50.22 - Chronic systolic (congestive) heart failure (5) Chronic kidney disease, stage 3 SNOMED Code(s): 670912107 ICD Code: N18.3 - CHRONIC KIDNEY DISEASE, STAGE 3 (MODERATE) Status: Chronic Priority: High Current Visit: No Problem List Initiated/Reviewed/Updated: Yes Orders Last 24hrs: Active Orders 24 hr Category Date Time Status Patient Status [ADT] Stat ADT 12/28/18 00:27 Active Cardiac Monitoring [RC] . DIRECTED Care 12/27/18 22:53 Active Oxygen Therapy, ED [RC] ASDIRECTED Care 12/27/18 22:53 Active Pulse Oximetry [RC] ASDIRECTED Care 12/27/18 22:53 Active Telemetry Monitoring [Cardiac Monitoring] [RC] Q8H Care 12/28/18 02:57 Active Regular Diet [DIET] Diet 12/28/18 Breakfast Active CULTURE BLOOD [BC] Stat Lab 12/27/18 22:50 Received CULTURE BLOOD [BC] Stat Lab 12/27/18 23:26 Received CULTURE URINE [RM] Stat Lab 12/27/18 23:49 Received Sodium Chloride 0.9% [Normal Saline] 1,000 ml Med 12/27/18 23:00 Active IV ASDIRECTED Sodium Chloride 0.9% [Saline Flush] Med 12/27/18 22:54 Active 10 ml FLUSH ASDIRECTED PRN Sodium Chloride 0.9% [Saline Flush] Med 12/27/18 22:54 Active 2.5 ml FLUSH ASDIRECTED PRN Blood Culture x2 Reflex Set [OM.PC] Stat Oth 12/27/18 22:53 Ordered Saline Lock Insert [OM.PC] Stat Oth 12/27/18 22:53 Ordered Medication Orders Sodium Chloride (Normal Saline) 1,000 mls @ 70 mls/hr IV ASDIRECTED ARMIDA Last Admin: 12/27/18 23:26 Dose: 70 mls/hr Sodium Chloride (Saline Flush) 10 ml FLUSH ASDIRECTED PRN PRN Reason: Keep Vein Open Sodium Chloride (Saline Flush) 2.5 ml FLUSH ASDIRECTED PRN PRN Reason: Keep Vein Open Assessment/Plan Comment:: This 78 year old female admitted with hypotension, AMS and possible pneumonia 1. Hypotension: stable. Leena is alert. treated with scant IVFs in the ED. BP remains SBP 80s, but alert and denies dizziness. Will give 250 ml bolus this morning and monitor. Hold antihypertensives and diuretics. BUN cr improved. This may also be related to Fentanyl patch, will keep this off for now. 2. AMS: resolved. Again may be related to Fentanyl patch. Monitor 3. Pneumonia: Will treat with Rocephin and Doxycycline. Monitor. VTE prophylaxis: Heparin Dispo: 1-3 days pending improvement.
[2018-12-28] MEDS ORDERED: Acetaminophen 325 MG Tab PO PRN (10:42)
[2018-12-28] MEDS ORDERED: Azithromycin 250 MG Tab PO SCH (10:45)
[2018-12-28] MEDS ORDERED: Sodium Chloride 0.9% 250 ML IV SCH (10:45)
[2018-12-28] MEDS: Doxycycline 100 MG Cap PO SCH ×2 (11:26→20:33)
[2018-12-28] MEDS: Heparin Sodium 5,000 Units/ML Vial SUBCUT SCH ×2 (13:36→20:31)
[2018-12-28] MEDS: Acetaminophen/oxyCODONE 325-10 MG Tab PO PRN (20:32)
[2018-12-28] MEDS: Acyclovir 200 MG Cap PO SCH (20:32)
[2018-12-28] MEDS ORDERED: Latanoprost 0.005% Ophth Soln 2.5 ML Bottle EYEBOTH SCH (21:00)
[2018-12-28] MEDS ORDERED: Escitalopram 10 MG Tab PO SCH (21:00)
[2018-12-28] MEDS ORDERED: QUEtiapine 25 MG Tab PO SCH (21:00)
[2018-12-28] MEDS: Gabapentin 300 MG Cap PO SCH (21:08)
[2018-12-28] MEDS ORDERED: cefTRIAXone 1 GM in Premix Bag 1 BAG IV SCH (23:00)
[2018-12-29] MEDS: Acetaminophen/oxyCODONE 325-10 MG Tab PO PRN (03:45)
[2018-12-29] MEDS: Gabapentin 300 MG Cap PO SCH (06:12)
[2018-12-29] MEDS: Heparin Sodium 5,000 Units/ML Vial SUBCUT SCH (06:12)
[2018-12-29 08:03] VITALS: BP 117/55
--- NOTE | 2018-12-29 08:38 | PCM.DCSUM1 ---
Discharge Summary - Discharge Data Discharge Date: 12/29/18 Discharge Disposition: DC/Tfer to [facility] 03 Condition: Good - Patient Summary/Data Hospital Course: 78 yo female who was admitted for pneumonia with altered mental status, dehydration and acute kidney injury. She has a pmh of multiple myeloma, chronic pain, DM type 2 and CHF and presented to the ED from [place] for low blood pressure, tremors and being unresponsive. No leukocytosis noted, hgb 10.5. K+ 5.8, BUN 40, Cr 2.0, which is elevated from baseline. UA was negative. CXR showed coarse interstitial opacities and patchy consolidation seen in R lower lung zone without interval change, possibly scarring and atelectasis. Hypotension noted as well and treated with small fluid bolus which she responded to well. Fentanyl patch removed in ED and she became more alert. [facility] x-ray negative as well as head CT was negative. She was treated with Rocephin and doxycycline. Her narcotics and antihypertensive medications were discontinued and she had further improvement in her low blood pressure and mental status. She did report a productive cough once she was more awake. Her creatinine improved to 1.1. Today she is requesting discharge. She will be discharged back to [place]. She is to take Doxycycline for five more days. - Patient Instructions Diet: Usual Diet as Tolerated Activity: As Tolerated - Discharge Plan Prescriptions/Med Rec: Doxycycline [Vibramycin] 100 mg PO Q12HR #10 cap Home Medications: Home Meds Acyclovir 400 mg PO BID 09/24/18 [History] Aspirin 81 mg PO DAILY 09/24/18 [History] Escitalopram [Lexapro] 10 mg PO BEDTIME 09/24/18 [History] Famotidine [Pepcid] 20 mg PO DAILY 09/24/18 [History] Furosemide 40 mg PO DAILY 09/24/18 [History] Gabapentin [Neurontin] 900 mg PO TID 09/24/18 [History] Levothyroxine [Levothroid] 300 mcg PO DAILY 09/24/18 [History] Loperamide [Imodium] 2 mg PO Q4H PRN 09/24/18 [History] Potassium Chloride 10 meq PO TID 09/24/18 [History] atorvaSTATin Calcium [Atorvastatin Calcium] 10 mg PO BEDTIME 09/24/18 [History] oxyCODONE HCl/Acetaminophen [Oxycodone-Acetaminophen 10-300] 10 - 325 mg PO Q4HR 09/24/18 [History] QUEtiapine [SEROquel] 25 mg PO BEDTIME 11/05/18 [History] Calcium Carb & Citrate/Vit D3 [Citracal + D ER] 1 tab PO DAILY 11/13/18 [History ] Chlorpheniramine Maleate 4 mg PO ASDIRECTED 11/13/18 [History] Cholecalciferol (Vitamin D3) [Vitamin D3] 5,000 unit PO DAILY 11/13/18 [History] Fexofenadine [Lesley] 180 mg PO DAILY PRN 11/13/18 [History] Latanoprost/Pf [Latanoprost 0.005% Eye Drop] 1 drop EYEBOTH BEDTIME 11/13/18 [ History] Doxycycline [Vibramycin] 100 mg PO Q12HR #10 cap 12/29/18 [Rx] - Discharge Summary/Plan Comment DC Time >30 min.: No - Patient Data Vitals - Most Recent: Last Vital Signs Temp 36.4 C 12/29/18 07:05 Pulse 85 12/29/18 07:05 Resp 16 12/29/18 07:05 BP 117/55 L 12/29/18 07:05 Pulse Ox 96 12/29/18 07:05 Weight - Most Recent: 86 kg I&O - Last 24 hours: Intake & Output 12/28/18 12/29/18 12/29/18 22:59 06:59 14:59 Intake Total 1150 600 Output Total 300 850 Balance 850 -250 Lab Results - Last 24 hrs: Laboratory Results - last 24 hr 12/28/18 12/28/18 12/29/18 Range/Units 08:33 08:33 05:50 WBC 7.09 9.27 (4.0-11.0) K/uL RBC 3.44 L 3.71 L (4.30-5.90) M/uL Hgb 9.5 L 10.0 L (12.0-16.0) g/dL Hct 31.9 L 33.7 L (36.0-46.0) % MCV 92.7 90.8 (80.0-98.0) fL MCH 27.6 27.0 (27.0-32.0) pg MCHC 29.8 L 29.7 L (31.0-37.0) g/dL RDW Std Deviation 58.1 55.3 (28.0-62.0) fl RDW Coeff of Antony 17 H 17 H (11.0-15.0) % Plt Count 170 183 (150-400) K/uL MPV 10.20 10.50 (7.40-12.00) fL Neut % (Auto) 67.6 75.5 (48.0-80.0) % Lymph % (Auto) 17.3 12.8 L (16.0-40.0) % [place] % (Auto) 10.7 9.0 (0.0-15.0) % Eos % (Auto) 4.1 2.6 (0.0-7.0) % Baso % (Auto) 0.3 0.1 (0.0-1.5) % Neut # (Auto) 4.8 7.0 H (1.4-5.7) K/uL Lymph # (Auto) 1.2 1.2 (0.6-2.4) K/uL [place] # (Auto) 0.8 0.8 (0.0-0.8) K/uL Eos # (Auto) 0.3 0.2 (0.0-0.7) K/uL Baso # (Auto) 0.0 0.0 (0.0-0.1) K/uL Nucleated RBC % 0.0 0.0 /100WBC Nucleated RBCs # 0 0 K/uL Sodium 141 (136-145) mmol/L Potassium 5.2 H (3.5-5.1) mmol/L Chloride 108 H (98-107) mmol/L Carbon Dioxide 28.6 (21.0-32.0) mmol/L BUN 37 H (7.0-18.0) mg/dL Creatinine 1.6 H (0.6-1.0) mg/dL Est Cr Clr Drug Dosing 21.49 mL/min Estimated GFR (MDRD) 31.3 ml/min Glucose 90 (74-106) mg/dL Calcium 8.7 (8.5-10.1) mg/dL 12/29/18 Range/Units 05:50 WBC (4.0-11.0) K/uL RBC (4.30-5.90) M/uL Hgb (12.0-16.0) g/dL Hct (36.0-46.0) % MCV (80.0-98.0) fL MCH (27.0-32.0) pg MCHC (31.0-37.0) g/dL RDW Std Deviation (28.0-62.0) fl RDW Coeff of Antony (11.0-15.0) % Plt Count (150-400) K/uL MPV (7.40-12.00) fL Neut % (Auto) (48.0-80.0) % Lymph % (Auto) (16.0-40.0) % [place] % (Auto) (0.0-15.0) % Eos % (Auto) (0.0-7.0) % Baso % (Auto) (0.0-1.5) % Neut # (Auto) (1.4-5.7) K/uL Lymph # (Auto) (0.6-2.4) K/uL [place] # (Auto) (0.0-0.8) K/uL Eos # (Auto) (0.0-0.7) K/uL Baso # (Auto) (0.0-0.1) K/uL Nucleated RBC % /100WBC Nucleated RBCs # K/uL Sodium 140 (136-145) mmol/L Potassium 4.5 (3.5-5.1) mmol/L Chloride 106 (98-107) mmol/L Carbon Dioxide 24.2 (21.0-32.0) mmol/L BUN 27 H (7.0-18.0) mg/dL Creatinine 1.1 H (0.6-1.0) mg/dL Est Cr Clr Drug Dosing 31.25 mL/min Estimated GFR (MDRD) 48.3 ml/min Glucose 94 (74-106) mg/dL Calcium 8.9 (8.5-10.1) mg/dL BORIS Results - Last 24 hrs: Microbiology 12/27/18 23:26 Aerobic Blood Culture - Preliminary Blood - Venous - Lab Draw NO GROWTH AFTER 1 DAY Anaerobic Blood Culture - Preliminary NO GROWTH AFTER 1 DAY 12/27/18 22:50 Aerobic Blood Culture - Preliminary Blood - Venous NO GROWTH AFTER 1 DAY Anaerobic Blood Culture - Preliminary NO GROWTH AFTER 1 DAY Med Orders - Current: Current Medications Acetaminophen (Tylenol) 650 mg PO Q4H PRN PRN Reason: Pain Last Admin: 12/28/18 17:37 Dose: 650 mg Acyclovir (Zovirax) 400 mg PO BID [facility] Last Admin: 12/28/18 20:32 Dose: 400 mg Aspirin (Aspirin) 81 mg PO DAILY [facility] Doxycycline Hyclate (Vibramycin) 100 mg PO Q12HR [facility] Last Admin: 12/28/18 20:33 Dose: 100 mg Escitalopram Oxalate (Lexapro) 10 mg PO BEDTIME [facility] Last Admin: 12/28/18 20:33 Dose: 10 mg Famotidine (Pepcid) 20 mg PO DAILY [facility] Gabapentin (Neurontin) 900 mg PO TID [facility] Last Admin: 12/29/18 06:12 Dose: 900 mg Heparin Sodium (Porcine) (Heparin Sodium) 5,000 units SUBCUT Q8H [facility] Last Admin: 12/29/18 06:12 Dose: 5,000 units Ceftriaxone Sodium/Dextrose 1 (gm/ Premix) 50 mls @ 100 mls/hr IV Q24H [facility] Last Admin: 12/28/18 22:03 Dose: 100 mls/hr Latanoprost (Xalatan 0.005% Ophth Soln) 0 ml EYEBOTH BEDTIME [facility] Last Admin: 12/28/18 21:09 Dose: Not Given Oxycodone/Acetaminophen (Percocet 325-10 Mg) 1 tab PO Q4H PRN PRN Reason: Pain Last Admin: 12/29/18 03:45 Dose: 1 tab Quetiapine Fumarate (Seroquel) 25 mg PO BEDTIME [facility] Last Admin: 12/28/18 20:33 Dose: 25 mg Sodium Chloride (Saline Flush) 10 ml FLUSH ASDIRECTED PRN PRN Reason: Keep Vein Open Sodium Chloride (Saline Flush) 2.5 ml FLUSH ASDIRECTED PRN PRN Reason: Keep Vein Open Discontinued Medications Azithromycin (Zithromax) 500 mg PO Q24H [facility] Sodium Chloride (Normal Saline) 1,000 mls @ 70 mls/hr IV ASDIRECTED [facility] Last Admin: 12/27/18 23:26 Dose: 70 mls/hr Ceftriaxone Sodium/Dextrose 1 (gm/ Premix) 50 mls @ 100 mls/hr IV ONETIME ONE Stop: 05/10/19 00:31 Last Admin: 12/28/18 00:17 Dose: 100 mls/hr Sodium Chloride (Normal Saline) 250 mls @ 150 mls/hr IV ASDIRECTED ARMIDA Stop: 12/28/18 12:24 Last Admin: 12/28/18 11:17 Dose: 150 mls/hr
[2018-12-29] MEDS ORDERED: Famotidine 20 MG Tab PO SCH (09:00)
[2018-12-29] MEDS ORDERED: Gabapentin 300 MG Cap PO SCH (09:00)
[2018-12-29] MEDS ORDERED: Aspirin 81 MG Tab.Chew PO SCH (09:00)
[2018-12-29] MEDS: Acyclovir 200 MG Cap PO SCH (09:06)
[2018-12-29] MEDS: Doxycycline 100 MG Cap PO SCH (09:06)
== END 2018-12-29 09:25 ==
LOC: MW.ED 22:47 → MW.MS 12-28 00:27 → UNDOADMOB 12-28 00:44
PROVIDERS: ADMIT Internal Medicine; ATTEND Internal Medicine
DX: J18.1 Lobar pneumonia, unspecified organism (principal); I95.9 Hypotension, unspecified; E86.0 Dehydration; N17.9 Acute kidney failure, unspecified; I13.0 Hypertensive heart and chronic kidney disease with heart failure and stage 1 through stage 4 chronic kidney disease, or unspecified chronic kidney disease; E11.22 Type 2 diabetes mellitus with diabetic chronic kidney disease; I50.22 Chronic systolic (congestive) heart failure; N18.3 Chronic kidney disease, stage 3 (moderate); E03.9 Hypothyroidism, unspecified; G89.29 Other chronic pain; Z88.1 Allergy status to other antibiotic agents; Z88.5 Allergy status to narcotic agent; Z88.2 Allergy status to sulfonamides; Z91.013 Allergy to seafood; Z88.8 Allergy status to other drugs, medicaments and biological substances; Z91.048 Other nonmedicinal substance allergy status; Z87.891 Personal history of nicotine dependence; Z79.82 Long term (current) use of aspirin; Z79.899 Other long term (current) drug therapy
CPT/HCPCS: 36415; 70450; 71045; 72170; 80048; 80053; 81001; 82962; 83605; 83880; 84443; 84484; 85025; 85610; 87040; 87086; 87088; 87186; 93005; 96361; 96365; 96372; 96376; 99285; A4217; A9270; G0378; J0696; J1644; J7040; J7050; 99283